=== PATIENT | female | born 1950 | race Caucasian/White ===

== ENCOUNTER → 2017-09-03 | Outpatient (CLI) | payer MEDICARE, OTHER ==
[2017-09-03 10:23] LABS: INTERNATIONAL RATION (INR) 1.07; PROTHROMBIN TIME 14.7 SEC (11.4-15.4)
[2017-09-03 10:24] LABS: PARTIAL THROMBOPLASTIN TIME 31.7 SEC (23.5-35.8)
== END ==
LOC: OD 08:53
PROVIDERS: ATTEND Physician Assistant
DX: R79.1 Abnormal coagulation profile (principal)
CPT/HCPCS: 36415; 85610; 85730

== ENCOUNTER → 2017-11-07 | Outpatient (CLI) | payer MEDICARE, OTHER ==
[2017-11-07 09:28] LABS: INTERNATIONAL RATION (INR) 2.97; PARTIAL THROMBOPLASTIN TIME 50.6 SEC (23.5-35.8); PROTHROMBIN TIME 32.3 SEC (11.4-15.4)
== END ==
LOC: OD 07:40
PROVIDERS: ATTEND Physician Assistant
DX: Z51.81 Encounter for therapeutic drug level monitoring (principal); Z79.01 Long term (current) use of anticoagulants
CPT/HCPCS: 36415; 85610; 85730

== ENCOUNTER → 2017-11-11 | Outpatient (CLI) | payer MEDICARE, OTHER ==
[2017-11-11 11:11] LABS: APPEARANCE,URINE SLIGHTLY HAZY; BILIRUBIN,URINE NEGATIVE (NEGATIVE); COLOR,URINE YELLOW; GLUCOSE, URINE NEGATIVE (NEGATIVE); KETONES,URINE NEGATIVE (NEGATIVE); NITRITE,URINE NEGATIVE (NEGATIVE); PROTEIN,URINE NEGATIVE (NEGATIVE); URINE SPECIFIC GRAVITY 1.024; UROBILINOGEN,URINE NEGATIVE mg/dL (<2.0)
[2017-11-11 11:12] LABS: LEUKOCYTE ESTERASE,URINE TRACE (NEGATIVE)
== END ==
LOC: OD 09:55
PROVIDERS: ATTEND Student in an Organized Health Care Education/Training Program
DX: Z51.81 Encounter for therapeutic drug level monitoring (principal); Z79.01 Long term (current) use of anticoagulants; Z79.899 Other long term (current) drug therapy
CPT/HCPCS: 36415; 81001; 85610; 85730

== ENCOUNTER → 2017-12-18 | Outpatient (CLI) | payer MEDICARE, OTHER ==
[2017-12-18 14:22] LABS: INTERNATIONAL RATION (INR) 0.94
[2017-12-18 14:23] LABS: PARTIAL THROMBOPLASTIN TIME 30.5 SEC (23.5-35.8)
== END ==
LOC: OD 13:13
PROVIDERS: ATTEND Physician Assistant Medical
DX: Z51.81 Encounter for therapeutic drug level monitoring (principal); Z79.01 Long term (current) use of anticoagulants
CPT/HCPCS: 36415; 85610; 85730

== ENCOUNTER 2017-12-24 03:56 | Emergency (ER) | payer MEDICARE, OTHER ==
--- NOTE | 2017-12-24 05:07 | ER Document Report ---
HPI - HPI Patient complains to provider of: Sore throat, congestion, cough Pain Level: 5 Context: Patient is a 67-year-old female who comes emergency department for chief complaint of 4 days of worsening sore throat, congestion, cough. She states it started off as a mild sore throat but has worsened. She reports a few chills, she coughed up some clear sputum, she states her ears are also hurting a lot with a lot of pressure. She denies difficulty breathing, she states she only gets pain in her chest with cough. She denies dizziness or passing out. Past medical history of heart valve replacement, on Coumadin. Denies smoking, asthma , COPD history. - REPRODUCTIVE Reproductive: DENIES: : Past Medical History - General Information source: Patient - Social History Smoking Status: Never Smoker Frequency of alcohol use: None Drug Abuse: None Lives with: Family Family History: Reviewed & Not Pertinent - Past Medical History Cardiac Medical History: Reports: Hx Coronary Artery Disease, Hx Heart Attack - x3, Hx Hypercholesterolemia, Hx Hypertension Pulmonary Medical History: Denies: Hx Asthma, Hx Bronchitis, Hx COPD, Hx Pneumonia Neurological Medical History: Denies: Hx Cerebrovascular Accident, Hx Seizures Endocrine Medical History: Reports: Hx Diabetes Mellitus Type 2 Musculoskeltal Medical History: Reports Hx Arthritis Skin Medical History: Reports Hx MRSA Psychiatric Medical History: Reports: Hx Depression Past Surgical History: Reports: Hx Appendectomy, Hx Cardiac Catheterization - stent, quad bypass. aortic valve replacement, Hx Genitourinary Surgery - colostomy, Hx Hysterectomy, Hx Orthopedic Surgery - carpal tunner syndrome, Hx Valve Replacement - Immunizations Hx Diphtheria, Pertussis, Tetanus Vaccination: Yes Hx Pneumococcal Vaccination: 06/12/11 Vertical Provider Document - CONSTITUTIONAL General Appearance: Other - Patient with occasional congested cough, appears to be slightly no signs of distress noted - INFECTION CONTROL TRAVEL OUTSIDE OF THE [place] IN LAST 30 DAYS: No - HEENT HEENT: Atraumatic, Normocephalic. negative: Normal ENT Exam - Bubbles behind tympanic membranes, no tympanic membrane abnormalities noted. Mild erythema of the posterior pharynx. Unremarkable ENT exam otherwise. - NECK Neck: Other - Bilateral anterior cervical adenopathy which is mild - RESPIRATORY Respiratory: Other - Occasional mild nonproductive cough, no wheezing, no tachypnea, no labored breathing - CARDIOVASCULAR Cardiovascular: Regular Rate, Regular Rhythm. negative: No Murmur - Clicking sound noted suggestive of heart valve replacement - GI/ABDOMEN Gastrointestinal: Abdomen Soft, Abdomen Non-Tender - BACK Back: Normal Inspection - MUSCULOSKELETAL/EXTREMETIES Musculoskeletal/Extremeties: MAEW, FROM, Non-Tender - NEURO Level of Consciousness: Awake, Alert, Appropriate - DERM Integumentary: Warm, Dry, No Rash Course - Re-evaluation Re-evalutation: Patient's examination showed congestion, mild serous effusion, mild anterior cervical adenopathy, mild cough. No hypoxia, no respiratory distress, no wheezing. No smoking history. Discussed dexamethasone but decided against it because of her Coumadin use. Chest x-ray unremarkable, strep test is negative. Evaluation consistent with developing bronchitis. Because of patient's productive cough patient will be covered with azithromycin. This will be used because of the low effects on Coumadin. Patient will be given symptomatic treatment. Discussed follow-up, discussed return precautions in detail, patient states satisfaction and agreement. - Vital Signs Vital signs: Temp Pulse Resp BP Pulse Ox 98.3 F 94 16 175/72 H 99 12/24/17 04:03 12/24/17 04:03 12/24/17 04:03 12/24/17 04:03 12/24/17 04:03 Discharge - Discharge Clinical Impression: Cough Ear pain Qualifiers: Laterality: bilateral Qualified Code(s): H92.03 - Otalgia, bilateral Pharyngitis Qualifiers: Pharyngitis/tonsillitis etiology: unspecified etiology Qualified Code(s): J02.9 - Acute pharyngitis, unspecified Condition: Stable Disposition: HOME, SELF-CARE Additional Instructions: Your chest x-ray and strep tests are unremarkable. Your examination is consistent with developing bronchitis. We are covering him with azithromycin because of your productive cough (next dose tomorrow), use the medication provided/syrup as directed, use of Flonase to help reduce congestion and ear pressure. Use [id number] stool softener to avoid constipation while taking these medications. Follow-up with primary care in the next 2-3 days. Return if you worsen including difficulty breathing, vomiting, passing out, severe pain, spiking fever, or any other concerning or worsening symptoms. Prescriptions: Hydrocodone Bit/Homatropine [Hycodan Syrup 5-1.5 mg/5 ml Ud Cup] 5 ml PO Q4HP PRN #120 ml PRN Reason: Azithromycin [Zithromax 250 mg Tablet] 250 mg PO ASDIR PRN #4 tablet PRN Reason: Fluticasone Propionate [Flonase Nasal Hays 50 Mcg/Hays 16 gm] 1 spray NASL Q12 #1 inhaler Referrals: FRANKLYN RESENDIZ MD [Primary Care Provider] - Follow up as needed
--- NOTE | 2017-12-24 05:35 | RADIOLOGY REPORT (SQ) ---
EXAM DESCRIPTION: 2 views of the chest CLINICAL HISTORY: productive cough, chills COMPARISON: 04/04/2016 FINDINGS: Frontal and lateral views of the chest. Prior Median sternotomy. Atherosclerotic calcification of the aortic arch. Heart is not enlarged. Replacement. No consolidation, pneumothorax, or pleural effusion. No displaced rib fractures identified. Upper abdominal soft tissues are unremarkable. IMPRESSION: 1. No acute pulmonary process identified.
[2017-12-24] MEDS ORDERED: AZITHROMYCIN 250 MG TABLET PO ONE (05:52)
[2017-12-24] MEDS ORDERED: HYDROCODONE/ACETAMINOPHEN 5-325 MG (6 TAB/ER DISP) PO PRN (05:57)
[2017-12-24 06:34] VITALS: BP 148/73
== END 2017-12-24 06:41 | disposition home or self-care (01) ==
LOC: ER 03:56
DX: J02.9 Acute pharyngitis, unspecified (principal); H92.03 Otalgia, bilateral; R05 Cough; I25.10 Atherosclerotic heart disease of native coronary artery without angina pectoris; E78.00 Pure hypercholesterolemia, unspecified; I10 Essential (primary) hypertension; E11.9 Type 2 diabetes mellitus without complications; I25.2 Old myocardial infarction; Z86.14 Personal history of Methicillin resistant Staphylococcus aureus infection; Z95.1 Presence of aortocoronary bypass graft; Z95.2 Presence of prosthetic heart valve; Z90.710 Acquired absence of both cervix and uterus
CPT/HCPCS: 99283; 87070; 87880; 71046; A9270 ×2

== ENCOUNTER 2018-01-27 19:08 | Emergency (ER) | payer MEDICARE, OTHER ==
[2018-01-27] MEDS ORDERED: ONDANSETRON 4 MG TAB.RAPDIS PO ONE (22:12)
[2018-01-27] MEDS ORDERED: HYDROMORPHONE HCL INJ/PF 2 MG/ML AMPULE IV ONE (22:21)
[2018-01-27 22:25] LABS: ABSOLUTE BASOPHILS # (AUTO) 0.1 10^3/uL (0.0-0.2); ABSOLUTE EOSINOPHILS # (AUTO) 0.1 10^3/uL (0.0-0.6); ABSOLUTE LYMPHOCYTES (AUTO) 2.6 10^3/uL (0.5-4.7); ABSOLUTE MONOCYTES (AUTO) 0.7 10^3/uL (0.1-1.4); ABSOLUTE NEUT (AUTO) 7.6 10^3/uL (1.7-8.2); BASOPHILS % (AUTO) 0.6 % (0-2); EOSINOPHILS % (AUTO) 0.8 % (0-6); HEMATOCRIT 38.8 % (36.0-47.0); LYMPHOCYTES % (AUTO) 23.2 % (13-45); MEAN CORPUSCULAR HEMOGLOBIN 28.3 pg (27.0-33.4); MEAN CORPUSCULAR HGB CONC 33.5 g/dL (32.0-36.0); MEAN CORPUSCULAR VOLUME 85 fl (80-97); MONOCYTES % (AUTO) 6.7 % (3-13); PLATELET COUNT 185 10^3/uL (150-450); RED BLOOD COUNT 4.59 10^6/uL (3.72-5.28); RED CELL DISTRIBUTION WIDTH 15.9 % (11.5-14.0); SEGMENTED NEUTROPHILS % (AUTO) 68.7 % (42-78); TOTAL CELLS COUNTED % (AUTO) 100 %; WHITE BLOOD COUNT 11.1 10^3/uL (4.0-10.5)
[2018-01-27 22:34] LABS: INTERNATIONAL RATION (INR) 2.65; PROTHROMBIN TIME 29.5 SEC (11.4-15.4)
[2018-01-27 22:35] LABS: PARTIAL THROMBOPLASTIN TIME 44.7 SEC (23.5-35.8)
[2018-01-27 22:40] LABS: ALANINE AMINOTRANSFERASE 83 U/L (9-52); ALKALINE PHOSPHATASE 56 U/L (38-126); ANION GAP 12 (5-19); ASPARTATE AMINO TRANSFERASE 120 U/L (14-36); BILIRUBIN,DIRECT 0.4 mg/dL (0.0-0.4); BILIRUBIN,TOTAL 1.5 mg/dL (0.2-1.3); BLOOD UREA NITROGEN 9 mg/dL (7-20); CALCIUM 9.4 mg/dL (8.4-10.2); CARBON DIOXIDE 28 mmol/L (22-30); CHLORIDE 104 mmol/L (98-107); GLUCOSE 151 mg/dL (75-110); POTASSIUM 3.3 mmol/L (3.6-5.0); SODIUM 143.7 mmol/L (137-145); TOTAL PROTEIN 7.4 g/dL (6.3-8.2)
--- NOTE | 2018-01-27 22:51 | ER Document Report ---
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 Patient was recently seen at [facility] yesterday for the same complaint. Patient states that the physician in the emergency department they are spoke to her surgeon Dr. Church at [facility] who did not recommend hospitalization but evaluation in his office on January 28. Patient states that her pain became more severe today which caused her to come into the emergency department. Patient reports some rectal drainage that she describes as brownish white. She denies any black or bloody stools. She reports decreased output to her ostomy. She has had associated nausea without vomiting. She does report that she was told by her surgeon that she may intermittently experience some rectal drainage. She was given a enema with out relief yesterday. She was discharged home with a prescription for oxycodone. She reports subjective fevers at home. TRAVEL OUTSIDE OF THE [place] IN LAST 30 DAYS: No - HPI Onset: Other Onset/Duration: Gradual, Persistent, Worse Quality of pain: Fullness, Pressure, Stabbing Severity: Moderate Pain Level: 2 Associated symptoms: Fever, Nausea. denies: Chest pain, Shortness of breath Exacerbated by: Sitting Relieved by: Supine Similar symptoms previously: Yes Recently seen / treated by doctor: Yes - Related Data Allergies/Adverse Reactions: No Known Allergies Allergy (Verified 04/02/16 20:30) Past Medical History - General Information source: Patient, [facility] Records, Outside Facility Records - Social History Smoking Status: Former Smoker Chew tobacco use (# tins/day): No Frequency of alcohol use: None Drug Abuse: None Lives with: Spouse/Significant other Family History: Reviewed & Not Pertinent Patient has suicidal ideation: No Patient has homicidal ideation: No - Past Medical History Cardiac Medical History: Reports: Hx Coronary Artery Disease, Hx Heart Attack - x3, Hx Hypercholesterolemia, Hx Hypertension Pulmonary Medical History: Denies: Hx Asthma, Hx Bronchitis, Hx COPD, Hx Pneumonia Neurological Medical History: Denies: Hx Cerebrovascular Accident, Hx Seizures Endocrine Medical History: Reports: Hx Diabetes Mellitus Type 2 Renal/ Medical History: Denies: Hx Peritoneal Dialysis Musculoskeltal Medical History: Reports Hx Arthritis Skin Medical History: Reports Hx MRSA Psychiatric Medical History: Reports: Hx Depression Past Surgical History: Reports: Hx Abdominal Surgery - colostomy;bowel removal; herniax2, Hx Appendectomy, Hx Cardiac Catheterization - stent, quad bypass. aortic valve replacement, Hx Cardiac Surgery - CABG, Hx Genitourinary Surgery - colostomy, Hx Hysterectomy, Hx Orthopedic Surgery - carpal tunner syndrome, Hx Valve Replacement. Denies: Hx Gynecologic Surgery - Immunizations Hx Diphtheria, Pertussis, Tetanus Vaccination: Yes Hx Pneumococcal Vaccination: 06/12/11 Review of Systems - Review of Systems Constitutional: Fever EENT: denies: Blurred vision Cardiovascular: denies: Chest pain Respiratory: denies: Short of breath Gastrointestinal: Abdominal pain, Nausea, Constipation, Other - Rectal pain Female Genitourinary: denies: Vaginal discharge Musculoskeletal: No symptoms reported Skin: denies: Rash Hematologic/Lymphatic: No symptoms reported Neurological/Psychological: denies: Weakness, Lost consciousness, Numbness -: Yes All other systems reviewed and negative Physical Exam - Notes Notes: PHYSICAL EXAMINATION: GENERAL: Patient appears to be in pain. HEAD: Atraumatic, normocephalic. EYES: Pupils equal round and reactive to light, extraocular movements intact, conjunctiva are normal. ENT: Nares patent, oropharynx clear without exudates. Moist mucous membranes. NECK: Normal range of motion, supple without lymphadenopathy LUNGS: Breath sounds clear to auscultation bilaterally and equal. No wheezes rales or rhonchi. HEART: Regular rate and rhythm without murmurs ABDOMEN: Soft, mild diffuse tenderness, no guarding, no rebound, positive bowel sounds. Left lower quadrant ostomy with minimal output. Rectal: No external hemorrhoids. No fecal impaction. Exam significantly painful. No masses. Female : deferred Musculoskeletal: Normal range of motion, no pitting or edema. No cyanosis. NEUROLOGICAL: Cranial nerves grossly intact. Normal speech, normal gait. Normal sensory, motor exams PSYCH: Normal mood, normal affect. SKIN: Warm, Dry, normal turgor, no rashes or lesions noted. Course - Re-evaluation Re-evalutation: Laboratory 01/27/18 01/27/18 01/27/18 22:14 22:14 22:14 WBC 11.1 H RBC 4.59 Hgb 13.0 Hct 38.8 MCV 85 MCH 28.3 MCHC 33.5 RDW 15.9 H Plt Count 185 Seg Neutrophils % 68.7 Lymphocytes % 23.2 Monocytes % 6.7 Eosinophils % 0.8 Basophils % 0.6 Absolute Neutrophils 7.6 Absolute Lymphocytes 2.6 Absolute Monocytes 0.7 Absolute Eosinophils 0.1 Absolute Basophils 0.1 PT 29.5 H INR 2.65 APTT 44.7 H Sodium 143.7 Potassium 3.3 L Chloride 104 Carbon Dioxide 28 Anion Gap 12 BUN 9 Creatinine 0.67 Est GFR ( Amer) > 60 Est GFR (Non-Af Amer) > 60 Glucose 151 H Lactic Acid Calcium 9.4 Total Bilirubin 1.5 H Direct Bilirubin 0.4 Neonat Total Bilirubin Not Reportable Neonat Direct Bilirubin Not Reportable Neonat Indirect Bili Not Reportable AST 120 H ALT 83 H Alkaline Phosphatase 56 Total Protein 7.4 Albumin 4.0 01/27/18 22:14 WBC RBC Hgb Hct MCV MCH MCHC RDW Plt Count Seg Neutrophils % Lymphocytes % Monocytes % Eosinophils % Basophils % Absolute Neutrophils Absolute Lymphocytes Absolute Monocytes Absolute Eosinophils Absolute Basophils PT INR APTT Sodium Potassium Chloride Carbon Dioxide Anion Gap BUN Creatinine Est GFR ( Amer) Est GFR (Non-Af Amer) Glucose Lactic Acid 2.8 H Calcium Total Bilirubin Direct Bilirubin Neonat Total Bilirubin Neonat Direct Bilirubin Neonat Indirect Bili AST ALT Alkaline Phosphatase Total Protein Albumin Abdomen/Pelvis CT 01/27/18 21:07 IMPRESSION: Mild transverse colitis. 01/27/18 23:34 [facility] contacted for transfer since the patient's surgeon Dr. Church is on staff there. 01/28/18 00:[address] Joiner on-call for Dr. Church and discuss CAT scan findings. He states that he feels the most appropriate disposition for this patient is pain control and follow-up in the office tomorrow as already scheduled. 01/28/18 01:36 On reevaluation patient reports a great improvement of pain. Urojet was inserted into the patient's rectum and a mineral oil enema was administered. Patient has an upcoming appointment with her surgeon tomorrow and the covering surgeon believes the best course of action is to get her to the office tomorrow. 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 Patient was recently seen at [facility] yesterday for the same complaint. Patient states that the physician in the emergency department they are spoke to her surgeon Dr. Church at [facility] who did not recommend hospitalization but evaluation in his office on January 28. Patient states that her pain became more severe today which caused her to come into the emergency department. Patient reports some rectal drainage that she describes as brownish white. She denies any black or bloody stools. She reports decreased output to her ostomy. She has had associated nausea without vomiting. She does report that she was told by her surgeon that she may intermittently experience some rectal drainage. She was given a enema with out relief yesterday. Upon arrival vital signs were reviewed, patient is afebrile, not tachypneic or hypoxic. Exam is significant for a patient who appears to be in significant pain. Pain is localized to her rectum with some associated suprapubic abdominal fullness. Was able to the patient's records from her ER visit yesterday at [facility]. At that time a CAT scan was obtained and findings were discussed with the patient's surgeon Dr. Church who did not recommend hospitalizations at that time but who did arrange a follow-up later today at 2:30 PM. Patient's CBC is without significant leukocytosis, anemia. CMP shows low potassium, mild hyperglycemia. Patient has mild elevation in her LFTs. Patient has mild elevation in the which was repeated and downtrending. CT scan of the abdomen and pelvis with IV contrast shows mild transverse colitis. Patient was provided Dilaudid, Zofran, Reglan during her ED course. Urojet was inserted into the rectum prior to administration of mineral oil enema. Patient does report passing a small amount of stool. She reports a market improvement in her pain. CT findings and laboratory findings were discussed with the patient. Copies of the reports were provided to the patient for her appointment tomorrow. I did speak to the covering physician for Dr. Church who states the best course of action is to get the patient to her appointment tomorrow and if she requires admission at that time arrange for that. Patient was tolerating fluids prior to discharge. She states that she would like to eat. Patient provided the opportunity to ask questions, and express concerns. Discharge instructions discussed. Patient is agreeable with discharge home. Return indications explained and discussed with the patient who displays understanding. Patient encouraged to return to the emergency department immediately with any concerns. After performing a Medical Screening Examination, I estimate there is LOW risk for ACUTE APPENDICITIS, BOWEL OBSTRUCTION, ACUTE CHOLECYSTITIS, PERFORATED DIVERTICULITIS, INCARCERATED HERNIA, PANCREATITIS, PELVIC INFLAMMATORY DISEASE, PERFORATED ULCER, or TUBO- OVARIAN ABSCESS, thus I consider the discharge disposition reasonable. Also, there is no evidence or peritonitis, sepsis, or toxicity. I have reevaluated this patient multiple times and no significant life threatening changes are noted. The patient and I have discussed the diagnosis and risks, and we agree with discharging home with close follow-up with the understanding that symptoms and presentations can change. We also discussed returning to the Emergency Department immediately if new or worsening symptoms occur. We have discussed the symptoms which are most concerning (e.g., bloody stool, fever, changing or worsening pain, vomiting) that necessitate immediate return. - Laboratory Result Diagrams: 01/27/18 22:14 01/27/18 22:14 Laboratory results interpreted by me: 01/27/18 01/27/18 01/27/18 22:14 22:14 22:14 WBC 11.1 H RDW 15.9 H PT 29.5 H APTT 44.7 H Potassium 3.3 L Glucose 151 H Lactic Acid Total Bilirubin 1.5 H AST 120 H ALT 83 H 01/27/18 01/28/18 22:14 00:54 WBC RDW PT APTT Potassium Glucose Lactic Acid 2.8 H 2.4 H Total Bilirubin AST ALT - Diagnostic Test Radiology reviewed: Image reviewed, Reports reviewed Discharge - Discharge Clinical Impression: Colitis, Rectal pain, Elevated LFTs, History of colectomy Nausea & vomiting Qualifiers: Vomiting type: unspecified Vomiting Intractability: non-intractable Qualified Code(s): R11.2 - Nausea with vomiting, unspecified Condition: Good Disposition: HOME, SELF-CARE Instructions: Abdominal Pain ([facility]), Colitis, Nonspecific ([facility]), Nausea or Vomiting, Nonspecific ([facility]) Additional Instructions: Please follow-up with your surgeon Dr. Church tomorrow as already scheduled. Prescriptions: Hydrocortisone Acetate [Anusol Hc 25 mg Supp.rect] 1 supp.rect KS BID #14 supp.rect Ondansetron [Zofran Odt 4 mg Tablet] 1 - 2 tab PO Q4H PRN #15 tab.rapdis PRN Reason: For Nausea/Vomiting Referrals: FRANKLYN RESENDIZ MD [Primary Care Provider] - Follow up as needed
[2018-01-27] MEDS ORDERED: NORMAL SALINE 1000 ML 1,000 ML IV ONE (23:27)
[2018-01-28] MEDS ORDERED: DIPHENHYDRAMINE HCL 50 MG/ML VIAL IV ONE
[2018-01-28] MEDS ORDERED: METOCLOPRAMIDE HCL INJ/PF 10 MG/2 ML SDV IV ONE
[2018-01-28] MEDS ORDERED: NORMAL SALINE 1000 ML 1,000 ML IV ONE (00:01)
[2018-01-28] MEDS ORDERED: MINERAL OIL ENEMA 133 ML PR ONE (00:14)
[2018-01-28] MEDS ORDERED: HYDROMORPHONE HCL INJ/PF 2 MG/ML AMPULE IV ONE (00:16)
--- NOTE | 2018-01-28 00:21 | RADIOLOGY REPORT (SQ) ---
EXAM DESCRIPTION: CT ABDOMEN PELVIS WITH IV CONTRAST COMPLETED DATE/TME: CLINICAL HISTORY: 67 years Female, Rectal pain, leakage history of colostomy Comparison: 12.02.15 Technique: IV contrast. Coronal and sagittal reformat. This exam was performed according to our departmental dose-optimization program, which includes automated exposure control, adjustment of the mA and/or kV according to patient size and/or use of iterative reconstruction technique.[facility]: Dose Right [facility]: CareDose [facility]: Dose Right [facility]: Teradose 4D [facility]: Bootup Labs LIMITATIONS: None Findings: Moderate diffuse bowel wall thickening of the transverse colon. Mild nonspecific perirectal fat inflammation and moderate residual rectal stool. Sigmoid suture. No ascites. Sternotomy. Mediastinal clips. Likely benign small left renal cyst. Moderate low-attenuation thickening of the proximal and mid right colon consistent with prior insult. Inferior thorax, liver, 5.2 cm transverse diameter hydropic gallbladder, pancreas, spleen, adrenals, renal system, gastrointestinal tract, pelvic organs, lymphatics, vasculature, and musculoskeleton appear otherwise unremarkable. IMPRESSION: Mild transverse colitis.
[2018-01-28] MEDS ORDERED: MINERAL OIL 30 ML UDCUP PR ONE (00:55)
[2018-01-28] MEDS ORDERED: LIDOCAINE 2% URO-JET 5 ML KIT MM ONE (00:56)
[2018-01-28 03:45] VITALS: BP 116/52
== END 2018-01-28 02:40 | disposition home or self-care (01) ==
LOC: ER 19:08
DX: K62.89 Other specified diseases of anus and rectum (principal); K52.9 Noninfective gastroenteritis and colitis, unspecified; R10.817 Generalized abdominal tenderness; R50.9 Fever, unspecified; R79.89 Other specified abnormal findings of blood chemistry; E11.65 Type 2 diabetes mellitus with hyperglycemia; I25.10 Atherosclerotic heart disease of native coronary artery without angina pectoris; I10 Essential (primary) hypertension; Z95.2 Presence of prosthetic heart valve; Z79.01 Long term (current) use of anticoagulants; Z90.49 Acquired absence of other specified parts of digestive tract; Z87.19 Personal history of other diseases of the digestive system; Z93.3 Colostomy status; Z87.891 Personal history of nicotine dependence
CPT/HCPCS: 96376; 99284; 96361; 96374; 96375; 36415; 85025; 85610; 85730; 80053; 83605; 74177; J1200; A9270 ×2; J2765; J3490; J1170 ×2; J7030; S0119

== ENCOUNTER 2018-05-05 08:46 | Emergency (ER) | payer MEDICARE, OTHER ==
[2018-05-05 08:51] VITALS: BP 122/70
--- NOTE | 2018-05-05 09:23 | ER Document Report ---
HPI - HPI Patient complains to provider of: Right low back pain Onset: Yesterday - P.m. Onset/Duration: Sudden Pain Level: 5 Context: 68-year-old female sat wrong in a recliner and developed pain in her right sacral iliac area which radiates into her right leg to the knee. No history of herniated disks. No saddle anesthesia. No fever. No history of cancer or IV drug use. It is more with movement. No abdominal pain. No dysuria. Associated Symptoms: None Exacerbated by: Movement Relieved by: Denies Similar symptoms previously: Yes - History of bulging disks and is under pain management Recently seen / treated by doctor: No - ROS ROS below otherwise negative: Yes Systems Reviewed and Negative: Yes All other systems reviewed and negative - REPRODUCTIVE Reproductive: DENIES: : Past Medical History - General Information source: Patient - Social History Smoking Status: Unknown if Ever Smoked Lives with: Spouse/Significant other Family History: Reviewed & Not Pertinent - Past Medical History Cardiac Medical History: Reports: Hx Coronary Artery Disease, Hx Heart Attack - x3, Hx Hypercholesterolemia, Hx Hypertension Endocrine Medical History: Reports: Hx Diabetes Mellitus Type 2 Musculoskeletal Medical History: Reports Hx Arthritis, Reports Other - Chronic low back pain Skin Medical History: Reports Hx MRSA Psychiatric Medical History: Reports: Hx Depression Past Surgical History: Reports: Hx Abdominal Surgery - colostomy;bowel removal; herniax2, Hx Appendectomy, Hx Cardiac Catheterization - stent, quad bypass. aortic valve replacement, Hx Cardiac Surgery - CABG, Hx Genitourinary Surgery - colostomy, Hx Hysterectomy, Hx Orthopedic Surgery - carpal tunner syndrome, Hx Valve Replacement. Denies: Hx Gynecologic Surgery - Immunizations Hx Diphtheria, Pertussis, Tetanus Vaccination: Yes Hx Pneumococcal Vaccination: 06/12/11 Vertical Provider Document - CONSTITUTIONAL Agree With Documented VS: Yes Exam Limitations: No Limitations - INFECTION CONTROL TRAVEL OUTSIDE OF THE [place] IN LAST 30 DAYS: No - NECK Neck: Supple - GI/ABDOMEN Gastrointestinal: Abdomen Soft, Abdomen Non-Tender - MUSCULOSKELETAL/EXTREMETIES Musculoskeletal/Extremeties: MAEW, FROM, Tender - Right sacroiliac joint - NEURO Level of Consciousness: Awake Motor/Sensory: No Motor Deficit, No Sensory Deficit Deep Tendon Reflexes: 2+ - Bilateral ankle and patellar - DERM Integumentary: No Rash Course - Vital Signs Vital signs: Temp Pulse Resp BP Pulse Ox 97.8 F 107 H 16 122/70 96 09/24/18 08:50 05/05/18 08:50 05/05/18 08:50 05/05/18 08:50 05/05/18 08:50 Discharge - Discharge Clinical Impression: Low back strain Qualifiers: Encounter type: initial encounter Qualified Code(s): S39.012A - Strain of muscle, fascia and tendon of lower back, initial encounter Sciatic nerve pain Qualifiers: Laterality: right Qualified Code(s): M54.31 - Sciatica, right side Condition: Good Disposition: HOME, SELF-CARE Instructions: Low Back Pain ([facility]), Muscle Relaxers ([facility]), Muscle Strain ([facility]), Oral Narcotic Medication ([facility]), Pain Medication Injection ([facility]), Warm Packs ([facility] ) Additional Instructions: See your pain management clinic and let them know that she were having to take more for this low back pain Muscle relaxer up to 3 times a day Heat See your doctor tomorrow for recheck Return to the emergency room any concerns Prescriptions: Cyclobenzaprine HCl [Flexeril 10 Mg Tablet] 10 mg PO TIDP PRN #20 tablet PRN Reason: Referrals: CHARLA SWIFT PA-C [NO LOCAL MD] - Follow up tomorrow
[2018-05-05] MEDS ORDERED: MORPHINE SULFATE 10 MG/ML INJ IM ONE (09:59)
[2018-05-05] MEDS ORDERED: ONDANSETRON 4 MG TAB.RAPDIS PO ONE (09:59)
[2018-05-05] MEDS ORDERED: CYCLOBENZAPRINE HCL 10 MG TABLET PO ONE (10:00)
== END 2018-05-05 10:35 | disposition home or self-care (01) ==
LOC: ER 08:46
DX: S39.012A Strain of muscle, fascia and tendon of lower back, initial encounter (principal); M54.31 Sciatica, right side; X50.0XXA Overexertion from strenuous movement or load, initial encounter; I25.10 Atherosclerotic heart disease of native coronary artery without angina pectoris; E78.00 Pure hypercholesterolemia, unspecified; I10 Essential (primary) hypertension; E11.9 Type 2 diabetes mellitus without complications; G89.29 Other chronic pain; I25.2 Old myocardial infarction; Z86.14 Personal history of Methicillin resistant Staphylococcus aureus infection; Z95.1 Presence of aortocoronary bypass graft; Z95.2 Presence of prosthetic heart valve; Z90.710 Acquired absence of both cervix and uterus; Z93.3 Colostomy status
CPT/HCPCS: 99283; 96372; A9270 ×2; J2270; S0119

== ENCOUNTER 2018-05-08 17:53 | Emergency (ER) | payer MEDICARE, OTHER ==
--- NOTE | 2018-05-08 19:04 | RADIOLOGY REPORT (SQ) ---
EXAM DESCRIPTION: HIP RIGHT AP/LATERAL COMPLETED DATE/TIME: 05/08/2018 6:44 pm REASON FOR STUDY: pain COMPARISON: None. NUMBER OF VIEWS: Two views. TECHNIQUE: AP pelvis and additional frog-leg view of the right hip. LIMITATIONS: None. FINDINGS: MINERALIZATION: Normal. RIGHT HIP: No fracture or dislocation. No worrisome bone lesions. LEFT HIP: No fracture or dislocation. No worrisome bone lesions. PUBIS AND ISCHIUM: No fracture. PELVIS: No fracture. SACRUM: No fracture or dislocation. No worrisome bone lesions. LOWER LUMBAR SPINE: No fracture or dislocation. No worrisome bone lesions. No significant disc disea se. SOFT TISSUES: No findings. OTHER: No other significant finding. IMPRESSION: NO RADIOGRAPHIC EVIDENCE OF ACUTE INJURY. TECHNICAL DOCUMENTATION: JOB ID: [id number] [employer]- All Rights Reserved Reading location - IP/workstation name: [email or web address] View
--- NOTE | 2018-05-08 19:05 | ER Document Report ---
ED Hip Pain/Injury - General Mode of Arrival: Wheelchair Information source: Patient TRAVEL OUTSIDE OF THE [place] IN LAST 30 DAYS: No <RUPESH CORTES - Last Filed: 05/08/18 21:00> <RHINA DUNLAP - Last Filed: 05/09/18 00:12> - General Chief Complaint: Hip Pain Stated Complaint: RIGHT HIP AND LEG PAIN Time Seen by Provider: 05/08/18 18:25 Notes: 68-year-old female who presents to the emergency department today with complaints of right hip pain. Patient was seen in this emergency department 4- 5 days ago for this hip pain. Patient states that she was given Flexeril for the pain but it is not working. Patient also is in pain management and has OxyContin at home which she states did not help either. Patient denies any new trauma or urinary incontinence. (RUPESH CORTES) - Related Data Allergies/Adverse Reactions: No Known Allergies Allergy (Verified 05/08/18 17:55) Past Medical History - General Information source: Patient - Social History Smoking Status: Unknown if Ever Smoked Family History: Reviewed & Not Pertinent - Past Medical History Cardiac Medical History: Reports: Hx Coronary Artery Disease, Hx Heart Attack - x3, Hx Hypercholesterolemia, Hx Hypertension Endocrine Medical History: Reports: Hx Diabetes Mellitus Type 2 Musculoskeletal Medical History: Reports Hx Arthritis Skin Medical History: Reports Hx MRSA Psychiatric Medical History: Reports: Hx Depression Past Surgical History: Reports: Hx Abdominal Surgery - colostomy;bowel removal; herniax2, Hx Appendectomy, Hx Cardiac Catheterization - stent, quad bypass. aortic valve replacement, Hx Cardiac Surgery - CABG, Hx Genitourinary Surgery - colostomy, Hx Hysterectomy, Hx Orthopedic Surgery - carpal tunner syndrome, Hx Valve Replacement. Denies: Hx Gynecologic Surgery - Immunizations Hx Diphtheria, Pertussis, Tetanus Vaccination: Yes Hx Pneumococcal Vaccination: 06/12/11 <RUPESH CORTES - Last Filed: 05/08/18 21:00> Review of Systems - Review of Systems Constitutional: No symptoms reported EENT: No symptoms reported Cardiovascular: No symptoms reported Respiratory: No symptoms reported Gastrointestinal: No symptoms reported Genitourinary: No symptoms reported Female Genitourinary: No symptoms reported Musculoskeletal: See HPI, Joint pain - right hip Skin: No symptoms reported Hematologic/Lymphatic: No symptoms reported Neurological/Psychological: No symptoms reported -: Yes All other systems reviewed and negative <RUPESH CORTES - Last Filed: 05/08/18 21:00> Physical Exam - Vital signs Interpretation: Normal - General General appearance: Appears well, Alert - HEENT Head: Normocephalic, Atraumatic Eyes: Normal Pupils: PERRL - Respiratory Respiratory status: No respiratory distress Chest status: Nontender Breath sounds: Normal Chest palpation: Normal - Cardiovascular Rhythm: Regular Heart sounds: Normal auscultation Murmur: No - Abdominal Inspection: Normal Distension: No distension Bowel sounds: Normal Tenderness: Nontender Organomegaly: No organomegaly - Back Back: Normal, Tender - Right sacroiliac joint. No: CVA tenderness - Extremities General upper extremity: Normal inspection, Nontender, Normal color, Normal ROM , Normal temperature General lower extremity: Normal inspection, Nontender, Normal color, Normal ROM , Normal temperature, Normal weight bearing. No: Kassandra's sign - Neurological Neuro grossly intact: Yes Cognition: Normal Orientation: AAOx4 [place] Coma Scale Eye Opening: Spontaneous Myesha Coma Scale Verbal: Oriented Myesha Coma Scale Motor: Obeys Commands [place] Coma Scale Total: 15 Speech: Normal Motor strength normal: LUE, RUE, LLE, RLE Sensory: Normal - Psychological Associated symptoms: Normal affect, Normal mood - Skin Skin Temperature: Warm Skin Moisture: Dry Skin Color: Normal <RHINA DUNLAP - Last Filed: 05/09/18 00:12> - Vital signs Vitals: Temp Pulse Resp BP Pulse Ox 98.2 F 110 H 20 141/81 H 100 05/08/18 18:19 05/08/18 18:19 05/08/18 18:19 05/08/18 18:19 05/08/18 18:19 Course <RUPESH CORTES - Last Filed: 05/08/18 21:00> - Diagnostic Test Radiology reviewed: Reports reviewed <RHINA DUNLAP - Last Filed: 05/09/18 00:12> - Re-evaluation Re-evalutation: Patient with no findings on x-ray. States that she sat down in a chair too hard and now has right back pain. No midline tenderness. Able to ambulate. Full range of motion, strength and sensation are intact. Patient is out of her pain medication and has an appointment with her pain management doctor tomorrow. No other injuries or complaints. She has been given a dose of medication here in the emergency department but no prescription. Stable for discharge. Return if weakness, sensation, retention or incontinence. Understands and agrees with plan. (RHINA DUNLAP) - Vital Signs Vital signs: Temp Pulse Resp BP Pulse Ox 98.0 F 109 H 19 140/77 H 99 05/08/18 20:30 05/08/18 20:30 05/08/18 20:30 05/08/18 20:30 05/08/18 20:30 Discharge <RUPESH CORTES - Last Filed: 05/08/18 21:00> <RHINA DUNLAP - Last Filed: 05/09/18 00:12> - Discharge Clinical Impression: Low back strain Qualifiers: Encounter type: initial encounter Qualified Code(s): S39.012A - Strain of muscle, fascia and tendon of lower back, initial encounter Condition: Stable Disposition: HOME, SELF-CARE Instructions: Low Back Pain ([facility]) Additional Instructions: Please follow-up with your pain management doctor tomorrow as scheduled. Referrals: FRANKLYN RESENDIZ MD [Primary Care Provider] - Follow up as needed Scribe Attestation: 05/09/18 00:12 I personally performed the services described in the documentation, reviewed and edited the documentation which was dictated to the scribe in my presence, and it accurately records my words and actions. (RHINA DUNLAP) Scribe Documentation - Scribe Written by Sophia:: Sophia Kaplan, [id number] acting as scribe for :: Alexandru <RUPESH CORTES - Last Filed: 05/08/18 21:00>
[2018-05-08] MEDS ORDERED: FENTANYL CITRATE INJ/PF 100 MCG/2 ML AMPUL IM ONE (19:07)
--- NOTE | 2018-05-08 19:59 | RADIOLOGY REPORT (SQ) ---
EXAM DESCRIPTION: L SPINE WHOLE COMPLETED DATE/TIME: 05/08/2018 7:41 pm REASON FOR STUDY: injury, pain, R back COMPARISON: 07/28/2012 NUMBER OF VIEWS: Five views including obliques. TECHNIQUE: AP, lateral, oblique, and sacral radiographic images acquired of the lumbar spine. LIMITATIONS: None. FINDINGS: MINERALIZATION: Normal. SEGMENTATION: Normal. No transitional anatomy. ALIGNMENT: Normal. VERTEBRAE: Maintained height. No fracture or worrisome bone lesion. DISCS: Multilevel disc space narrowing with osteophytes. POSTERIOR ELEMENTS: Pedicles and facets are intact. No pars defect or posterior arch defects. Facet arthropathy is present. HARDWARE: None in the spine. PARASPINAL SOFT TISSUES: Normal. PELVIS: Intact as visualized. No fractures or worrisome bone lesions. SI joints intact. OTHER: No other significant finding. IMPRESSION: SPONDYLOSIS WITHOUT BONE LESION OR FRACTURE. TECHNICAL DOCUMENTATION: JOB ID: [id number] [place]-72 2010 [employer]- All Rights Reserved Reading location - IP/workstation name: [email or web address]
[2018-05-08] MEDS ORDERED: DIAZEPAM 2 MG TABLET PO ONE (20:18)
[2018-05-08 21:02] VITALS: BP 140/77
== END 2018-05-08 21:02 | disposition home or self-care (01) ==
LOC: ER 17:53
DX: S39.012A Strain of muscle, fascia and tendon of lower back, initial encounter (principal); W22.03XA Walked into furniture, initial encounter; Y93.89 Activity, other specified; M25.551 Pain in right hip; I25.10 Atherosclerotic heart disease of native coronary artery without angina pectoris; I10 Essential (primary) hypertension; I25.2 Old myocardial infarction; E11.9 Type 2 diabetes mellitus without complications; Z95.1 Presence of aortocoronary bypass graft; Z95.5 Presence of coronary angioplasty implant and graft; Z95.2 Presence of prosthetic heart valve
CPT/HCPCS: 99283; 96372; 73502; 72110; A9270; J3010; J3490

== ENCOUNTER → 2018-05-21 | Outpatient (CLI) | payer MEDICARE, OTHER ==
[2018-05-21 12:14] LABS: INTERNATIONAL RATION (INR) 1.08; PROTHROMBIN TIME 14.6 SEC (11.4-15.4)
[2018-05-21 12:15] LABS: PARTIAL THROMBOPLASTIN TIME 40.2 SEC (23.5-35.8)
[2018-05-22 10:06] LABS: INTERNATIONAL RATION (INR) 1.02; PROTHROMBIN TIME 13.9 SEC (11.4-15.4)
[2018-05-22 10:07] LABS: PARTIAL THROMBOPLASTIN TIME 41.7 SEC (23.5-35.8)
== END ==
LOC: OD 11:05
PROVIDERS: ATTEND Physician Assistant
DX: Z51.81 Encounter for therapeutic drug level monitoring (principal); Z79.01 Long term (current) use of anticoagulants
CPT/HCPCS: 36415; 85610; 85730

== ENCOUNTER → 2018-07-28 | Outpatient (CLI) | payer MEDICARE, OTHER ==
[2018-07-28 16:25] LABS: INTERNATIONAL RATION (INR) 1.02
[2018-07-28 16:26] LABS: PARTIAL THROMBOPLASTIN TIME 36.2 SEC (23.5-35.8)
== END ==
LOC: OD 15:03
PROVIDERS: ATTEND Physician Assistant
DX: Z51.81 Encounter for therapeutic drug level monitoring (principal); Z79.01 Long term (current) use of anticoagulants
CPT/HCPCS: 36415; 85610; 85730

== ENCOUNTER 2018-09-03 23:52 | Inpatient (IN) | payer MEDICARE, OTHER ==
[2018-09-04] MEDS ORDERED: HYDROMORPHONE HCL INJ/PF 2 MG/ML AMPULE IV ONE ×3 (00:38→05:31)
[2018-09-04] MEDS ORDERED: ONDANSETRON HCL INJ/PF 4 MG/2 ML SDV IV ONE (00:39)
[2018-09-04] MEDS ORDERED: NORMAL SALINE 1000 ML 1,000 ML IV ONE (00:39)
--- NOTE | 2018-09-04 00:43 | ER Document Report ---
ED GI/ - General Chief Complaint: Abdominal Pain Stated Complaint: ADOMINAL PAIN Time Seen by Provider: 09/04/18 00:34 Primary Care Provider: PILAR HUGO PA-C [Primary Care Provider] - Follow up as needed Notes: Patient is a 68-year-old female that comes to the emergency department for chief complaint of sharp mid to upper abdominal pain that is worse on the left side and has some radiation to the flank that started at about 5 PM. She states she has vomited twice. Pain is gotten worse. Denies chest pain, shortness of breath, fever. Patient has had a colectomy from severe diverticulitis, has a colostomy bag in place. She is also had a hysterectomy and appendectomy. Remaining medical history includes CABG, she is on Coumadin. She has had bowel obstructions in the past. TRAVEL OUTSIDE OF THE [place] IN LAST 30 DAYS: No - Related Data Allergies/Adverse Reactions: No Known Allergies Allergy (Verified 05/08/18 17:55) Past Medical History - General Information source: Patient - Social History Smoking Status: Former Smoker Chew tobacco use (# tins/day): No Frequency of alcohol use: None Drug Abuse: None Lives with: Family Family History: Reviewed & Not Pertinent Patient has suicidal ideation: No Patient has homicidal ideation: No - Past Medical History Cardiac Medical History: Reports: Hx Coronary Artery Disease, Hx Heart Attack - x3, Hx Hypercholesterolemia, Hx Hypertension Pulmonary Medical History: Denies: Hx Asthma, Hx Bronchitis, Hx COPD, Hx Pneumonia Neurological Medical History: Denies: Hx Cerebrovascular Accident, Hx Seizures Endocrine Medical History: Reports: Hx Diabetes Mellitus Type 2 Renal/ Medical History: Denies: Hx Peritoneal Dialysis Musculoskeletal Medical History: Reports Hx Arthritis Skin Medical History: Reports Hx MRSA Psychiatric Medical History: Reports: Hx Depression Past Surgical History: Reports: Hx Abdominal Surgery - colostomy;bowel removal;herniax2, Hx Appendectomy, Hx Cardiac Catheterization - stent, quad bypass. aortic valve replacement, Hx Cardiac Surgery - CABG, Hx Genitourinary Surgery - colostomy, Hx Hysterectomy, Hx Orthopedic Surgery - carpal tunner syndrome, Hx Valve Replacement. Denies: Hx Gynecologic Surgery - Immunizations Hx Diphtheria, Pertussis, Tetanus Vaccination: Yes Hx Pneumococcal Vaccination: 06/12/11 Review of Systems - Review of Systems Constitutional: No symptoms reported EENT: No symptoms reported Cardiovascular: No symptoms reported Respiratory: No symptoms reported Gastrointestinal: See HPI Genitourinary: No symptoms reported Female Genitourinary: No symptoms reported Musculoskeletal: No symptoms reported Skin: No symptoms reported Hematologic/Lymphatic: No symptoms reported Neurological/Psychological: No symptoms reported Physical Exam - Vital signs Vitals: Temp Pulse Resp BP Pulse Ox 98.1 F 76 24 H 148/68 H 98 09/04/18 00:05 09/04/18 00:05 09/04/18 00:05 09/04/18 00:05 09/04/18 00:05 - Notes Notes: GENERAL: Alert anxious, appears to be in pain HEAD: Normocephalic, atraumatic. EYES: Pupils equal, round, and reactive to light. Extraocular movements intact. ENT: Oral mucosa moist, tongue midline. Oropharynx unremarkable. Airway patent. Nares patent, no nasal septal hematoma, TM's intact. NECK: Full range of motion. Supple. Trachea midline. LUNGS: Clear to auscultation bilaterally, no wheezes, rales, or rhonchi. No respiratory distress. HEART: Regular rate and rhythm. Loud murmur with click heard throughout ABDOMEN: Lower colostomy bag noted on the left, no concerning findings noted wit h this. Patient is very tender over the mid to upper abdomen. No specific area of guarding noted. Possible distention. GENITOURINARY: Deferred EXTREMITIES: Moves all 4 extremities spontaneously. No edema, normal radial and dorsalis pedis pulses bilaterally. No cyanosis. BACK: no cervical, thoracic, lumbar midline tenderness. No saddle anesthesia, normal distal neurovascular exam. NEUROLOGICAL: Alert and oriented x3. Normal speech. [cranial nerves II through XII grossly intact]. PSYCH: Slightly anxious SKIN: Warm, dry, normal turgor. No rashes or lesions noted. Course - Re-evaluation Re-evalutation: Patient in obvious discomfort, holding her mid abdomen and moaning. Vital signs unremarkable. Patient is very tender in the mid upper abdomen although this is generally nonspecific. I do not see any evidence of incarcerated hernia. No stool noted in the colostomy bag. Possible obstruction. Patient has had vomiting. Possible perforation as well. Patient sent for acute abdominal series, this does not show evidence of obstruction or free air, per my read and official read. CBC unremarkable. Lactic acid borderline. Chemistry nonspecific. INR is 1.95. Patient sent for CT of the abdomen/pelvis with IV contrast because I do not suspect small bowel obstruction based on the acute abdominal series and because she is in a lot of pain. CT showing small bowel obstruction with transition point. No free air. No acute findings otherwise. NG tube ordered, lidocaine nebulizer ordered, will consult surgery. Updated patient. Patient is much more comfortable after medications. 09/04/18 Dr. Dooley is in a procedure, will come see the patient afterwards. Patient was evaluated by surgeon. Recommends admission, NG tube, gastric follow-through test with contrast through NG tube. This was ordered. Reques ting to speak to hospitalist for patient to be admitted to them because of patient's complicated medical history including CABG, diabetes, Coumadin use. 09/04/18 05:20 I have spoken to Dr. Douglas. Due to multiple admissions around the same time, patient will be evaluated by the hospitalist day team. Recommends telemetry full admission. I did call Dr. Dooley and updated him on this. He asked me to call the blood bank and make sure they have fresh frozen plasma, at least 2 units. I did call the blood bank and we do have 2 units of fresh frozen plasma if needed in case patient goes to surgery. - Vital Signs Vital signs: Temp Pulse Resp BP Pulse Ox 98.1 F 76 20 136/65 H 100 09/04/18 00:05 09/04/18 00:05 09/04/18 04:02 09/04/18 03:01 09/04/18 04:02 - Laboratory Result Diagrams: 09/04/18 00:44 09/04/18 00:44 Laboratory results interpreted by me: 09/04/18 09/04/18 09/04/18 00:44 00:44 00:44 WBC 12.8 H RDW 15.2 H PT Glucose 154 H Lactic Acid 2.3 H Calcium 10.6 H Total Bilirubin 1.4 H AST 62 H ALT 57 H 09/04/18 00:44 WBC RDW PT 23.2 H Glucose Lactic Acid Calcium Total Bilirubin AST ALT Discharge - Discharge Clinical Impression: Small bowel obstruction Vomiting Qualifiers: Vomiting type: unspecified Vomiting Intractability: non-intractable Nausea presence: with nausea Qualified Code(s): R11.2 - Nausea with vomiting, unspecified Abdominal pain Qualifiers: Abdominal location: generalized Qualified Code(s): R10.84 - Generalized abdominal pain Condition: Stable Disposition: ADMITTED INPATIENT Admitting Provider: Hospitalist Unit Admitted: Telemetry Referrals: PILAR HUGO PA-C [Primary Care Provider] - Follow up as needed
[2018-09-04 00:59] LABS: ABSOLUTE BASOPHILS # (AUTO) 0.1 10^3/uL (0.0-0.2); ABSOLUTE EOSINOPHILS # (AUTO) 0.2 10^3/uL (0.0-0.6); ABSOLUTE LYMPHOCYTES (AUTO) 3.5 10^3/uL (0.5-4.7); ABSOLUTE MONOCYTES (AUTO) 1.3 10^3/uL (0.1-1.4); ABSOLUTE NEUT (AUTO) 7.7 10^3/uL (1.7-8.2); BASOPHILS % (AUTO) 0.7 % (0-2); EOSINOPHILS % (AUTO) 1.9 % (0-6); HEMATOCRIT 39.8 % (36.0-47.0); HEMOGLOBIN 13.8 g/dL (12.0-15.5); LYMPHOCYTES % (AUTO) 27.1 % (13-45); MEAN CORPUSCULAR HEMOGLOBIN 29.8 pg (27.0-33.4); MEAN CORPUSCULAR HGB CONC 34.6 g/dL (32.0-36.0); MEAN CORPUSCULAR VOLUME 86 fl (80-97); MONOCYTES % (AUTO) 9.9 % (3-13); PLATELET COUNT 191 10^3/uL (150-450); RED BLOOD COUNT 4.62 10^6/uL (3.72-5.28); RED CELL DISTRIBUTION WIDTH 15.2 % (11.5-14.0); SEGMENTED NEUTROPHILS % (AUTO) 60.4 % (42-78); TOTAL CELLS COUNTED % (AUTO) 100 %; WHITE BLOOD COUNT 12.8 10^3/uL (4.0-10.5)
[2018-09-04 01:08] LABS: INTERNATIONAL RATION (INR) 1.95; PROTHROMBIN TIME 23.2 SEC (11.4-15.4)
[2018-09-04 01:12] LABS: ALANINE AMINOTRANSFERASE 57 U/L (9-52); ALBUMIN 4.8 g/dL (3.5-5.0); ALKALINE PHOSPHATASE 66 U/L (38-126); ANION GAP 11 (5-19); ASPARTATE AMINO TRANSFERASE 62 U/L (14-36); BILIRUBIN,DIRECT 0.2 mg/dL (0.0-0.4); BILIRUBIN,TOTAL 1.4 mg/dL (0.2-1.3); BLOOD UREA NITROGEN 17 mg/dL (7-20); CALCIUM 10.6 mg/dL (8.4-10.2); CARBON DIOXIDE 28 mmol/L (22-30); CHLORIDE 102 mmol/L (98-107); GLUCOSE 154 mg/dL (75-110); LIPASE 232.1 U/L (23-300); POTASSIUM 3.7 mmol/L (3.6-5.0); SODIUM 140.9 mmol/L (137-145); TOTAL PROTEIN 7.9 g/dL (6.3-8.2)
--- NOTE | 2018-09-04 02:14 | RADIOLOGY REPORT (SQ) ---
EXAM DESCRIPTION: XR ABDOMEN SUPINE AND ERECT WITH CHEST (ABD ACUTE SERIES) COMPLETED DATE/TME: 09/04/2018 00:39 CLINICAL HISTORY: 68 years, Female, sharp mid/upper abd pain, vomiting, hx sbo COMPARISON: CT abdomen January 2018. NUMBER OF VIEWS: Four TECHNIQUE: Supine and upright views of the abdomen. PA view of the chest. LIMITATIONS: None. FINDINGS: The lungs are clear. There are no pleural abnormalities. Cardiac silhouette and pulmonary vessels are normal. The patient has had a CABG. Supine and upright views of the abdomen show scattered gas-filled loops of bowel. No abnormal air-fluid levels. Ostomy is present in the left lower quadrant. Anastomotic suture line noted in the lower pelvis. Small calcified splenic artery aneurysm noted. IMPRESSION: No acute cardiopulmonary disease. Nonobstructive bowel gas pattern. copyright 2010 [employer]- All Rights Reserved
--- NOTE | 2018-09-04 03:01 | RADIOLOGY REPORT (SQ) ---
EXAM DESCRIPTION: CT ABDOMEN PELVIS WITH IV CONTRAST COMPLETED DATE/TME: 09/04/2018 02:04 CLINICAL HISTORY: 68 years, Female, sharp mid abd pain COMPARISON: January 27, 2018 TECHNIQUE: Contiguous axial CT images of the abdomen and pelvis were obtained. Sagittal and coronal reformats were reviewed. This exam was performed according to our departmental dose-optimization program, which includes automated exposure control, adjustment of the mA and/or kV according to patient size and/or use of iterative reconstruction technique. FINDINGS: Lung bases: Clear. Liver: Mild enlarged liver. No focal abnormalities. Gallbladder: Mildly distended but no inflammatory changes. No calcified gallstones. Spleen:Unremarkable Pancreas: Pancreas is unremarkable. Adrenal glands:Within normal limits. Kidneys/ureters: Small left exophytic renal cyst. The kidneys are otherwise normal in appearance. No hydronephrosis. No nephrolithiasis. Stomach/small bowel/colon: The stomach is distended with air and ingested material. The proximal small bowel is dilated fluid measuring up to 3 cm. There is a focal transition point and associated small bowel fecal sign in the mid abdomen (image 49 series 3). Mild mesenteric congestion and fat stranding in this region. No pneumatosis. Left quadrant colostomy. Multiple loops of small bowel herniate through the stoma but this does not appear to be the point of obstruction. Appendix: Not visualized Peritoneum: No free fluid. Vascular structures: Scattered atherosclerotic calcifications Lymph nodes: No abnormal lymph nodes. Bladder:Unremarkable. Pelvic organs: No acute abnormality Bones: No acute osseous abnormality. Soft tissues: Unremarkable.. IMPRESSION: Small bowel obstruction in the mid abdomen as detailed above. Peristomal hernia containing multiple loops of small bowel however this does not appear to be the site of obstruction.
[2018-09-04] MEDS ORDERED: LIDOCAINE 2% INJ-PF (20 MG/ML) 10 ML AMPUL NEB ONE (03:13)
--- NOTE | 2018-09-04 05:15 | PDOC CONSULTATION ---
Consultation Consult Date: 09/04/18 Consult reason:: Small bowel obstruction History of Present Illness Admission Date/PCP: PILAR HUGO PA-C History of Present Illness: LUIZA FARIA is a 68 year old female with IDDM,sleep apnea, AVR on coumadin and post sigmoid colon resection with colostomy for perforated diverticulitis(2008) c/o upper abdominal pains with N/V around 6 pm last night. She also noted her colostomy bag not filling up after she emptied it at 5 pm. History of para stomal hernia repair followed by umbilical hernia repair a month apart about 6 years ago in [place] where her colon resection was done. 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 Past Medical History Cardiac Medical History: Reports: Coronary Artery Disease, Myocardial Infarction - x3, Hyperlipidema, Hypertension Pulmonary Medical History: Denies: Asthma, Bronchitis, Chronic Obstructive Pulmonary Disease (COPD), Pneumonia Neurological Medical History: Denies: Seizures Endocrine Medical History: Reports: Diabetes Mellitus Type 2 Musculoskeltal Medical History: Reports: Arthritis Psychiatric Medical History: Reports: Depression Hematology: Reports: Anemia - IN AUG 2015 Past Surgical History Past Surgical History: Reports: Appendectomy, Cardiac Catheterization - stent, quad bypass. aortic valve replacement, Hysterectomy, Orthopedic Surgery - carpal tunner syndrome, Valve Replacement, Other - hernia repairs. Not sure if mesh was used. Social History Smoking Status: Former Smoker Frequency of Alcohol Use: None Hx Recreational Drug Use: No Drugs: None Hx Prescription Drug Abuse: No Family History Family History: Reviewed & Not Pertinent Parental Family History Reviewed: Yes - mother diabetic Children Family History Reviewed: No Sibling(s) Family History Reviewed.: No Medication/Allergy Home Medications: Furosemide [Lasix 40 mg Tablet] 20 mg PO QAM 05/05/13 Loratadine [Claritin] 10 mg PO DAILY 02/12/15 Rosuvastatin Calcium [Crestor 20 mg Tablet] 40 mg PO QHS 02/12/15 Levothyroxine Sodium 125 mcg PO DAILY 09/05/15 Bupropion HCl [Bupropion HCl Sr] 150 mg PO BID 03/29/16 Dapagliflozin/Metformin HCl [Xigduo Xr 10 mg-1,000 mg Tab] 1 each PO DAILY Glipizide [Glipizide ER] 2.5 mg PO QHS 03/29/16 Ferrous Sulfate [Feosol] 325 mg PO DAILY 04/06/16 Polyethylene Glycol 3350 [Miralax Powder 17 gm/Packet] 1 packet PO DAILY PRN 04/06/16 Alprazolam [Xanax 0.25 mg Tablet] 0.25 mg PO Q12HP PRN #10 tablet 04/09/16 Hydromorphone HCl [Dilaudid 2 mg Tablet] 1 mg PO Q4HP PRN #10 tablet 04/09/16 Lidocaine [Lidoderm 5% (700 mg) Transdermal Patch] 1 patch TP DAILYP PRN #7 adh..patch 04/09/16 Omeprazole 40 mg PO BIDACBS #60 capsule. 04/09/16 Polymyxin B Sulfate/Tmp [Polytrim Oph Soln 10 ml] 1 drop OD Q3 #1 bottle 04/09/16 Sucralfate [Carafate 1 gm Tablet] 1 gm PO AC #90 tablet 04/09/16 Cyanocobalamin (Vitamin B-12) [B-12] 2,500 mcg SL DAILY #30 tab.subl 04/10/16 Enoxaparin Sodium [Lovenox] 100 mg SQ DAILY #5 ml 04/10/16 Warfarin Sodium [Coumadin 5 mg Tablet] 10 mg PO QHS #60 tablet 04/10/16 Azithromycin [Zithromax 250 mg Tablet] 250 mg PO ASDIR PRN #4 tablet 12/24/17 Fluticasone Propionate [Flonase Nasal [place] 50 Mcg/[place] 16 gm] 1 spray NASL Q12 #1 inhaler 12/24/17 Hydrocodone Bit/Homatropine [Hycodan Syrup 5-1.5 mg/5 ml Ud Cup] 5 ml PO Q4HP PRN #120 ml 12/24/17 Hydrocortisone Acetate [Anusol Hc 25 mg Supp.rect] 1 supp.rect [place] BID #14 supp.rect 01/28/18 Ondansetron [Zofran Odt 4 mg Tablet] 1 - 2 tab PO Q4H PRN #15 tab.rapdis 01/28/18 Cyclobenzaprine HCl [Flexeril 10 Mg Tablet] 10 mg PO TIDP PRN #20 tablet 05/05/18 Allergies/Adverse Reactions: No Known Allergies Allergy (Verified 05/08/18 17:55) Review of Systems Constitutional: PRESENT: other - no fever/chills Eyes: PRESENT: other - claims had some blurry vision 3 weeks ago and her BS at that time was >400. Ears: PRESENT: other - no hearing changes Respiratory: PRESENT: other - on CPAP for sleep apnea Gastrointestinal: PRESENT: abdominal pain Genitourinary: PRESENT: other - no dysuria Psychiatric: PRESENT: anxiety Physical Exam Vital Signs: Temp Pulse Resp BP Pulse Ox 98.1 F 76 20 136/65 H 100 09/04/18 00:05 09/04/18 00:05 09/04/18 04:02 09/04/18 03:01 09/04/18 04:02 Intake & Output 09/02/18 09/03/18 09/04/18 06:59 06:59 06:59 Intake Total 1000 Balance 1000 Weight 87 kg General appearance: PRESENT: mild distress Head exam: PRESENT: atraumatic Eye exam: PRESENT: conjunctiva pink Mouth exam: PRESENT: moist Neck exam: PRESENT: full ROM Respiratory exam: PRESENT: clear to auscultation elizabeth Cardiovascular exam: PRESENT: RRR Pulses: PRESENT: normal radial pulses Vascular exam: PRESENT: normal capillary refill GI/Abdominal exam: PRESENT: tenderness - epigastric area( Had morphine), other - colostomy empty Rectal exam: PRESENT: deferred Extremities exam: PRESENT: full ROM Musculoskeletal exam: PRESENT: ambulatory Neurological exam: PRESENT: alert, oriented to person, oriented to place, oriented to time, oriented to situation Psychiatric exam: PRESENT: appropriate affect Skin exam: PRESENT: normal color, warm Results Laboratory Results: 09/04/18 00:44 09/04/18 00:44 09/04/18 09/04/18 09/04/18 00:44 00:44 00:44 WBC 12.8 H RBC 4.62 Hgb 13.8 Hct 39.8 MCV 86 MCH 29.8 MCHC 34.6 RDW 15.2 H Plt Count 191 Seg Neutrophils % 60.4 Lymphocytes % 27.1 Monocytes % 9.9 Eosinophils % 1.9 Basophils % 0.7 Absolute Neutrophils 7.7 Absolute Lymphocytes 3.5 Absolute Monocytes 1.3 Absolute Eosinophils 0.2 Absolute Basophils 0.1 Sodium 140.9 Potassium 3.7 Chloride 102 Carbon Dioxide 28 Anion Gap 11 BUN 17 Creatinine 0.91 Est GFR ( Amer) > 60 Est GFR (Non-Af Amer) > 60 Glucose 154 H Lactic Acid 2.3 H Calcium 10.6 H Total Bilirubin 1.4 H AST 62 H ALT 57 H Alkaline Phosphatase 66 Total Protein 7.9 Albumin 4.8 Lipase 232.1 Impressions: Acute Abdomen Series 09/04/18 00:39 IMPRESSION: No acute cardiopulmonary disease. Nonobstructive bowel gas pattern. copyright 2010 [employer]- All Rights Reserved Abdomen/Pelvis CT 09/04/18 02:04 IMPRESSION: Small bowel obstruction in the mid abdomen as detailed above. Peristomal hernia containing multiple loops of small bowel however this does not appear to be the site of obstruction. Assessment & Plan - Diagnosis (1) Small bowel obstruction due to adhesions Is this a current diagnosis for this admission?: Yes (2) H/O mechanical aortic valve replacement Is this a current diagnosis for this admission?: Yes (3) Anticoagulated on Coumadin Is this a current diagnosis for this admission?: Yes (4) Coronary atherosclerosis Is this a current diagnosis for this admission?: Yes (5) DM w/o complication type II Qualifiers: Diabetes mellitus lobsterman insulin use: unspecified long-term insulin use status Qualified Code(s): E11.9 - Type 2 diabetes mellitus without complications Is this a current diagnosis for this admission?: Yes (6) Obstructive sleep apnea syndrome Is this a current diagnosis for this admission?: Yes - Time Time Spent: 30 to 50 Minutes - Inpatient Certification Medical Necessity: Need Close Monitoring Due to Risk of Patient Decompensation, Need For IV Fluids, Need for Pain Control, Need for Surgery - Plan Summary Plan Summary: D/W JERMAINE Vera. Will order gasrograffin SBFT via NGT which can better identify transition point or help resolve SBO. INR is 1.9 Will need FFP if needs surgery
--- NOTE | 2018-09-04 06:16 | RADIOLOGY REPORT (SQ) ---
EXAM DESCRIPTION: XR ABDOMEN 1 VIEW (KUB) COMPLETED DATE/TME: 09/04/2018 04:25 CLINICAL HISTORY: 68 years, Female, gastric follow through (gastrogram with contrast) COMPARISON: CT abdomen performed earlier today. NUMBER OF VIEWS: One TECHNIQUE: Supine view of the abdomen LIMITATIONS: None. FINDINGS/impression: NG tube terminates in the stomach. Oral contrast opacifies the stomach and duodenum. The bowel gas pattern remains unimpressive despite findings of small bowel obstruction on recent CT. Excreted contrast is present in both renal collecting systems. copyright 2010 [employer] [facility] [employer]- All Rights Reserved
[2018-09-04 06:39] LABS: APPEARANCE,URINE SLIGHTLY-CLOUDY; BILIRUBIN,URINE NEGATIVE (NEGATIVE); COLOR,URINE YELLOW; GLUCOSE, URINE NEGATIVE (NEGATIVE); KETONES,URINE NEGATIVE (NEGATIVE); LEUKOCYTE ESTERASE,URINE NEGATIVE (NEGATIVE); NITRITE,URINE NEGATIVE (NEGATIVE); PROTEIN,URINE 30 mg/dL (NEGATIVE); URINE SPECIFIC GRAVITY 1.021; UROBILINOGEN,URINE NEGATIVE mg/dL (<2.0)
[2018-09-04] MEDS ORDERED: DEXTROSE 50%-WATER 25 GM/50 ML DISP.SYRIN IV PRN ×4 (08:41→19:58)
[2018-09-04] MEDS ORDERED: ACETAMINOPHEN 650 MG SUPP.RECT PR PRN (08:41)
[2018-09-04] MEDS ORDERED: ONDANSETRON 4 MG TAB.RAPDIS PO PRN (08:41)
[2018-09-04] MEDS ORDERED: DEXTROSE 40% GEL 15 GM TUBE PO PRN ×4 (08:41→19:58)
[2018-09-04] MEDS ORDERED: GLUCAGON,HUMAN RECOMB 1 MG INJ SUBCUT PRN (08:41)
[2018-09-04] MEDS ORDERED: HYDROMORPHONE HCL INJ/PF 2 MG/ML AMPULE IV PRN (09:00)
[2018-09-04] MEDS ORDERED: ENOXAPARIN SODIUM INJ 30 MG/0.3 ML DISP.SYRIN SUBCUT SCH (10:00)
--- NOTE | 2018-09-04 11:02 | PDOC PROGRESS REPORT ---
Subjective Progress Note for:: 09/04/18 Subjective:: feels better passing some flatus via stoma Reason For Visit: SMALL BOWEL OBSTRUCTION Physical Exam Vital Signs: Temp Pulse Resp BP Pulse Ox 98.4 F 76 17 141/64 H 83 L 09/04/18 07:06 09/04/18 00:05 09/04/18 09:00 09/04/18 05:01 09/04/18 09:00 Intake & Output 09/03/18 09/04/18 09/05/18 06:59 06:59 06:59 Intake Total 1000 Output Total 300 Balance 700 Weight 87 kg GI/Abdominal exam: PRESENT: soft - abd soft, non tender,+bs Results Laboratory Results: 09/04/18 00:44 09/04/18 00:44 09/04/18 09/04/18 09/04/18 00:44 00:44 00:44 WBC 12.8 H RBC 4.62 Hgb 13.8 Hct 39.8 MCV 86 MCH 29.8 MCHC 34.6 RDW 15.2 H Plt Count 191 Seg Neutrophils % 60.4 Lymphocytes % 27.1 Monocytes % 9.9 Eosinophils % 1.9 Basophils % 0.7 Absolute Neutrophils 7.7 Absolute Lymphocytes 3.5 Absolute Monocytes 1.3 Absolute Eosinophils 0.2 Absolute Basophils 0.1 Sodium 140.9 Potassium 3.7 Chloride 102 Carbon Dioxide 28 Anion Gap 11 BUN 17 Creatinine 0.91 Est GFR ( Amer) > 60 Est GFR (Non-Af Amer) > 60 Glucose 154 H Lactic Acid 2.3 H Calcium 10.6 H Total Bilirubin 1.4 H AST 62 H ALT 57 H Alkaline Phosphatase 66 Total Protein 7.9 Albumin 4.8 Lipase 232.1 Urine Color Urine Appearance Urine pH Ur Specific [place] Urine Protein Urine Glucose (UA) Urine Ketones Urine Blood Urine Nitrite Ur Leukocyte Esterase Urine WBC (Auto) Urine RBC (Auto) 09/04/18 09/04/18 02:21 09:15 WBC RBC Hgb Hct MCV MCH MCHC RDW Plt Count Seg Neutrophils % Lymphocytes % Monocytes % Eosinophils % Basophils % Absolute Neutrophils Absolute Lymphocytes Absolute Monocytes Absolute Eosinophils Absolute Basophils Sodium Potassium Chloride Carbon Dioxide Anion Gap BUN Creatinine Est GFR ( Amer) Est GFR (Non-Af Amer) Glucose Lactic Acid 1.3 Calcium Total Bilirubin AST ALT Alkaline Phosphatase Total Protein Albumin Lipase Urine Color YELLOW Urine Appearance SLIGHTLY-CLOUDY Urine pH 7.0 Ur Specific [place] 1.021 Urine Protein 30 H Urine Glucose (UA) NEGATIVE Urine Ketones NEGATIVE Urine Blood NEGATIVE Urine Nitrite NEGATIVE Ur Leukocyte Esterase NEGATIVE Urine WBC (Auto) 3 Urine RBC (Auto) 2 Impressions: Acute Abdomen Series 09/04/18 00:39 IMPRESSION: No acute cardiopulmonary disease. Nonobstructive bowel gas pattern. copyright 2010 [employer]- All Rights Reserved Abdomen/Pelvis CT 09/04/18 02:04 IMPRESSION: Small bowel obstruction in the mid abdomen as detailed above. Peristomal hernia containing multiple loops of small bowel however this does not appear to be the site of obstruction. Status: Image reviewed by me - small bowel series done, on early films,contrast is slowely progressing through small bowel pt will need repeat kub in 4-6 hrs. Assessment & Plan - Plan Summary Plan Summary: reviewd ct and small bowel series large amts of stool in rectum no dilated sb loops on initial small bowel series films will order dulcolax repeat kub in 4-6 hrs.
[2018-09-04] MEDS ORDERED: BISACODYL 10 MG SUPP.RECT PR ONE (12:30)
[2018-09-04] MEDS ORDERED: BISACODYL 10 MG SUPP.RECT PR PRN (15:29)
[2018-09-04] MEDS ORDERED: ALPRAZOLAM 0.25 MG TABLET PO PRN (15:30)
--- NOTE | 2018-09-04 15:39 | RADIOLOGY REPORT (SQ) ---
EXAM DESCRIPTION: KUB/ABDOMEN (SINGLE VIEW) COMPLETED DATE/TIME: 09/04/2018 3:17 pm REASON FOR STUDY: f/u small bowel series COMPARISON: 09/04/2018 NUMBER OF VIEWS: One view. TECHNIQUE: Supine radiographic image of the abdomen acquired. LIMITATIONS: None. FINDINGS: BOWEL GAS PATTERN: Unchanged pattern of contrast in the proximal to mid small bowel, witho ut evidence of interval transit distally. CALCIFICATIONS: No suspicious calcifications. SOFT TISSUES: No gross mass or suggestion of organomegaly. HARDWARE: None in the abdomen. BONES: No acute fracture. No worrisome bone lesions. OTHER: No other significant finding. IMPRESSION: Unchanged pattern of contrast in the proximal to mid small bowel, without evidence of in terval transit distally. Findings are concerning for bowel obstruction. TECHNICAL DOCUMENTATION: JOB ID: [id number] [employer]- All Rights Reserved Reading location - IP/workstation name: [email or web address]
[2018-09-04] MEDS ORDERED: PANTOPRAZOLE SODIUM 40 MG VIAL IV ONE (17:00)
[2018-09-04] MEDS: GABAPENTIN 300 MG CAPSULE PO SCH (17:32)
[2018-09-04] MEDS: PREGABALIN 25 MG CAPSULE PO SCH (17:33)
[2018-09-04] MEDS ORDERED: (PENDING PHARMACY ID) (Warfarin Sodium [Coumadin] 10 MG) PO SCH (18:00)
[2018-09-04] MEDS ORDERED: (PENDING PHARMACY ID) (Rosuvastatin Calcium [Crestor] 40 MG) PO SCH (18:00)
[2018-09-04] MEDS ORDERED: (PENDING PHARMACY ID) (Warfarin Sodium 5 MG) PO SCH (18:00)
[2018-09-04] MEDS ORDERED: GLIPIZIDE 10 MG TABLET PO SCH (18:00)
--- NOTE | 2018-09-04 19:57 | PDOC H&P ---
History of Present Illness Admission Date/PCP: 09/04/18 05:31 PILAR HUGO PA-C Patient complains of: ABDOMINAL PAIN History of Present Illness: LUIZA FARIA is a 68 year old female with a PMH of NIDDM, AVR on coumadin, post sigmoid colon resection with colostomy for perforated diverticulitis(2008). She presented to the emergency department for a chief complaint of sharp mid to upper abdominal pain that is worse on the left side and has some radiation to the flank. She also noted her colostomy bag not filling up. The patient was evaluated by surgery, an NG tube was placed to decompress the abdomen. Hydromorphone was offered for pain management and she was bolused with 1L NS IV. Abdominal CT and KUB relatively benign, demonstrating large amounts of stool in the rectum. No dilated small bowel loops on initial small bowel series films. Lactate 2.38. WBC slightly elevated to 12.8. All other lab work relatively benign. Upon assessment, the patient is resting in bed. She appears mildly distressed, states she had 'just finished vomiting.' The patient is alert and oriented, able to answer all questions appropriately. She is not writhing in pain but complains of significant abdominal pain and N/V. Her abdomen is soft, nondistended but tender to palpation. (+) BS. There is no output in her colostomy bag. According to Dr. Mark, Surgeon, there is no surgical intervention at this time. Plan to admit to hospitalist service for intractable pain. Past Medical History Cardiac Medical History: Reports: Coronary Artery Disease, Myocardial Infarction - x3, Hyperlipidema, Hypertension Pulmonary Medical History: Denies: Asthma, Bronchitis, Chronic Obstructive Pulmonary Disease (COPD), Pneumonia Neurological Medical History: Denies: Seizures Endocrine Medical History: Reports: Diabetes Mellitus Type 2 Musculoskeltal Medical History: Reports: Arthritis Psychiatric Medical History: Reports: Depression Hematology: Reports: Anemia - IN AUG 2015 Past Surgical History Past Surgical History: Reports: Appendectomy, Cardiac Catheterization - stent, quad bypass. aortic valve replacement, Hysterectomy, Orthopedic Surgery - carpal tunner syndrome, Valve Replacement, Other - hernia repairs. Not sure if mesh was used. Social History Information Source: Patient Lives with: Family Smoking Status: Former Smoker Last Time Smoked: [phone] Frequency of Alcohol Use: None Hx Recreational Drug Use: No Drugs: None Hx Prescription Drug Abuse: No - Advance Directive Resuscitation Status: Full Code Family History Family History: CAD, DM, Other - RECTAL CA Parental Family History Reviewed: Yes Children Family History Reviewed: Yes Sibling(s) Family History Reviewed.: Yes Medication/Allergy Home Medications: Alprazolam [Xanax 0.25 mg Tablet] 0.25 mg PO DAILYP PRN 09/04/18 Bupropion HCl [Bupropion HCl Sr] 150 mg PO Q12 09/04/18 Cholecalciferol (Vitamin D3) [Vitamin D3 2000 unit Tablet] 2,000 unit PO DAILY 09/04/18 Cyanocobalamin (Vitamin B-12) [Vitamin B-12] 6,000 mcg PO DAILY 09/04/18 Fluticasone Propionate [Flonase Nasal [place] 50 Mcg/[place] 16 gm] 1 spray NASL DAILY 09/04/18 Furosemide [Lasix 20 mg Tablet] 20 mg PO QAM 09/04/18 Gabapentin [Neurontin 300 mg Capsule] 300 mg PO BID 09/04/18 Glipizide [Glocotrol 10 Mg Tablet] 10 mg PO BID 09/04/18 Iron 65 mg PO QHS 09/04/18 Levothyroxine Sodium [Synthroid] 137 mcg PO Q6AM 09/04/18 Loratadine [Claritin] 10 mg PO DAILY 09/04/18 Metformin HCl [Glucophage] 1,000 mg PO BID 09/04/18 Metoprolol Succinate [Toprol Xl 50 mg Tab.sr] 50 mg PO DAILY 09/04/18 Omeprazole 20 mg PO QAM 09/04/18 Ondansetron HCl [Zofran 4 mg Tablet] 4 mg PO Q4HP PRN 09/04/18 Oxycodone HCl/Acetaminophen [Percocet 5-325 mg Tablet] 1 tab PO DAILYP PRN 09/04/18 Polyethylene Glycol 3350 [Miralax Powder 17 gm/Packet] 17 gm PO DAILYP PRN 09/04/18 Pregabalin [Lyrica 25 Mg Capsule] 25 mg PO BID 09/04/18 Rosuvastatin Calcium [Crestor] 40 mg PO QPM 09/04/18 Sertraline HCl [Zoloft] 12.5 mg PO QHS 09/04/18 Warfarin Sodium [Coumadin 5 mg Tablet] 5 mg PO SUTUTHSA@2200 09/04/18 Warfarin Sodium [Coumadin] 10 mg PO MOWEFR@2200 09/04/18 Allergies/Adverse Reactions: No Known Allergies Allergy (Verified 05/08/18 17:55) Review of Systems All systems: reviewed and no additional remarkable complaints except as stated Physical Exam Vital Signs: Temp Pulse Resp BP Pulse Ox 98.4 F 76 17 141/64 H 83 L 09/04/18 07:06 09/04/18 00:05 09/04/18 09:00 09/04/18 05:01 09/04/18 09:00 Intake & Output 09/03/18 09/04/18 09/05/18 06:59 06:59 06:59 Intake Total 1000 Output Total 300 Balance 700 Weight 87 kg General appearance: PRESENT: mild distress Results Laboratory Results: 09/04/18 00:44 09/04/18 00:44 09/04/18 09/04/18 09/04/18 00:44 00:44 00:44 WBC 12.8 H RBC 4.62 Hgb 13.8 Hct 39.8 MCV 86 MCH 29.8 MCHC 34.6 RDW 15.2 H Plt Count 191 Seg Neutrophils % 60.4 Lymphocytes % 27.1 Monocytes % 9.9 Eosinophils % 1.9 Basophils % 0.7 Absolute Neutrophils 7.7 Absolute Lymphocytes 3.5 Absolute Monocytes 1.3 Absolute Eosinophils 0.2 Absolute Basophils 0.1 Sodium 140.9 Potassium 3.7 Chloride 102 Carbon Dioxide 28 Anion Gap 11 BUN 17 Creatinine 0.91 Est GFR ( Amer) > 60 Est GFR (Non-Af Amer) > 60 Glucose 154 H Lactic Acid 2.3 H Calcium 10.6 H Total Bilirubin 1.4 H AST 62 H ALT 57 H Alkaline Phosphatase 66 Total Protein 7.9 Albumin 4.8 Lipase 232.1 Urine Color Urine Appearance Urine pH Ur Specific [place] Urine Protein Urine Glucose (UA) Urine Ketones Urine Blood Urine Nitrite Ur Leukocyte Esterase Urine WBC (Auto) Urine RBC (Auto) 09/04/18 09/04/18 02:21 09:15 WBC RBC Hgb Hct MCV MCH MCHC RDW Plt Count Seg Neutrophils % Lymphocytes % Monocytes % Eosinophils % Basophils % Absolute Neutrophils Absolute Lymphocytes Absolute Monocytes Absolute Eosinophils Absolute Basophils Sodium Potassium Chloride Carbon Dioxide Anion Gap BUN Creatinine Est GFR ( Amer) Est GFR (Non-Af Amer) Glucose Lactic Acid 1.3 Calcium Total Bilirubin AST ALT Alkaline Phosphatase Total Protein Albumin Lipase Urine Color YELLOW Urine Appearance SLIGHTLY-CLOUDY Urine pH 7.0 Ur Specific [place] 1.021 Urine Protein 30 H Urine Glucose (UA) NEGATIVE Urine Ketones NEGATIVE Urine Blood NEGATIVE Urine Nitrite NEGATIVE Ur Leukocyte Esterase NEGATIVE Urine WBC (Auto) 3 Urine RBC (Auto) 2 Impressions: Acute Abdomen Series 09/04/18 00:39 IMPRESSION: No acute cardiopulmonary disease. Nonobstructive bowel gas pattern. copyright 2010 [employer]- All Rights Reserved Abdomen/Pelvis CT 09/04/18 02:04 IMPRESSION: Small bowel obstruction in the mid abdomen as detailed above. Peristomal hernia containing multiple loops of small bowel however this does not appear to be the site of obstruction. Assessment & Plan - Diagnosis (1) Abdominal pain Qualifiers: Abdominal location: generalized Qualified Code(s): R10.84 - Generalized a bdominal pain Is this a current diagnosis for this admission?: Yes Plan: Likely secondary to constipation Abdominal CT and KUB with gastrograph relatively benign - large amount of stool in rectum Dulcolax suppository NOW and daily Repeat KUB tonight NPO NG to low continuous suction to decompress abdomen PRN dilaudid for pain PRN zofran ODT for nausea (2) Constipation Qualifiers: Constipation type: unspecified constipation type Qualified Code(s): K59.00 - Constipation, unspecified Is this a current diagnosis for this admission?: Yes Plan: see plan above (3) History of aortic valve repair Is this a current diagnosis for this admission?: Yes Plan: Verify home dose of coumadin Since there is no surgical intervention planned at this time, may resume home dose (4) CAD (coronary artery disease) Qualifiers: Coronary Disease-Associated Artery/Lesion type: unspecified vessel or lesion type [place] vs. 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 Humalog sliding scale insulin (6) High serum lactate Is this a current diagnosis for this admission?: Yes Plan: Initial serum lactate 2.38 Following IVF resuscitation, repeat lactate 1.3 No longer need to trend unless patient condition decompensates - Time Time Spent: 30 to 50 Minutes Medications reviewed and adjusted accordingly: Yes Anticipated discharge: Home Within: within 24 hours - Inpatient Certification Based on my medical assessment, after consideration of the patient's comorbidities, presenting symptoms, or acuity I expect that the services needed warrant INPATIENT care.: Yes I certify that my determination is in accordance with my understanding of Medic are's requirements for reasonable and necessary INPATIENT services [42 CFR 412.3e].: Yes Medical Necessity: Need for Pain Control, Risk of Complication if Not Cared For in Hospital - Plan Summary Plan Summary: SUPPOSITORY. PAIN CONTROL. ANTI-EMETICS
[2018-09-04] MEDS ORDERED: GLUCAGON,HUMAN RECOMB 1 MG INJ IM PRN (19:58)
[2018-09-04] MEDS ORDERED: (PENDING PHARMACY ID) (Iron [Iron] 65 MG) PO SCH (22:00)
[2018-09-04] MEDS ORDERED: SERTRALINE HCL 12.5 MG PO SCH (22:00)
[2018-09-04] MEDS: ATORVASTATIN CALCIUM 80 MG TABLET PO SCH (23:05)
[2018-09-04] MEDS: BUPROPION HCL 100 MG TABLET PO SCH (23:06)
[2018-09-04] MEDS: FERROUS SULFATE 325 MG TABLET PO SCH (23:06)
[2018-09-04] MEDS: WARFARIN SODIUM 5 MG TABLET PO SCH (23:10)
[2018-09-04] MEDS: SERTRALINE HCL 50 MG TABLET PO SCH (23:11)
[2018-09-05 05:22] LABS: ABSOLUTE EOSINOPHILS # (AUTO) 0.3 10^3/uL (0.0-0.6); ABSOLUTE LYMPHOCYTES (AUTO) 3.8 10^3/uL (0.5-4.7); ABSOLUTE NEUT (AUTO) 4.2 10^3/uL (1.7-8.2); BASOPHILS % (AUTO) 0.3 % (0-2); EOSINOPHILS % (AUTO) 2.9 % (0-6); HEMATOCRIT 35.5 % (36.0-47.0); LYMPHOCYTES % (AUTO) 40.6 % (13-45); MEAN CORPUSCULAR HEMOGLOBIN 29.8 pg (27.0-33.4); MEAN CORPUSCULAR VOLUME 88 fl (80-97); MONOCYTES % (AUTO) 10.3 % (3-13); PLATELET COUNT 137 10^3/uL (150-450); RED BLOOD COUNT 4.04 10^6/uL (3.72-5.28); RED CELL DISTRIBUTION WIDTH 15.1 % (11.5-14.0); SEGMENTED NEUTROPHILS % (AUTO) 45.9 % (42-78); TOTAL CELLS COUNTED % (AUTO) 100 %; WHITE BLOOD COUNT 9.3 10^3/uL (4.0-10.5)
[2018-09-05] MEDS: BUPROPION HCL 100 MG TABLET PO SCH ×3 (05:37→21:10)
[2018-09-05] MEDS: LEVOTHYROXINE SODIUM 0.025 MG TABLET PO SCH (05:37)
[2018-09-05] MEDS: LEVOTHYROXINE SODIUM 0.112 MG TABLET PO SCH (05:37)
[2018-09-05 05:45] LABS: ALANINE AMINOTRANSFERASE 46 U/L (9-52); ALKALINE PHOSPHATASE 50 U/L (38-126); ANION GAP 7 (5-19); ASPARTATE AMINO TRANSFERASE 50 U/L (14-36); BILIRUBIN,DIRECT 0.2 mg/dL (0.0-0.4); BLOOD UREA NITROGEN 20 mg/dL (7-20); CALCIUM 9.6 mg/dL (8.4-10.2); CARBON DIOXIDE 31 mmol/L (22-30); CHLORIDE 105 mmol/L (98-107); GLUCOSE 98 mg/dL (75-110); POTASSIUM 3.3 mmol/L (3.6-5.0); SODIUM 143.4 mmol/L (137-145); TOTAL PROTEIN 6.7 g/dL (6.3-8.2)
[2018-09-05] MEDS ORDERED: LANSOPRAZOLE 15 MG TAB.RAP.DR PO SCH (06:00)
[2018-09-05] MEDS ORDERED: (PENDING PHARMACY ID) (Levothyroxine Sodium [Synthroid] 137 MCG) PO SCH (06:00)
[2018-09-05] MEDS: NORMAL SALINE 1000 ML 1,000 ML IV PRN ×2 (07:02→18:18)
[2018-09-05] MEDS ORDERED: POTASSI CL 20 MEQ/50 ML RIDER 20 MEQ/50 ML RTUPB IV ONE (09:00)
--- NOTE | 2018-09-05 09:43 | RADIOLOGY REPORT (SQ) ---
EXAM DESCRIPTION: KUB/ABDOMEN (SINGLE VIEW) COMPLETED DATE/TIME: 09/05/2018 9:19 am REASON FOR STUDY: SBO COMPARISON: CT 09/04/2018 Limited small bowel follow-through films 09/04/2018, 0544 hours and 1512 hours NUMBER OF VIEWS: One view. TECHNIQUE: Supine radiographic image of the abdomen acquired. LIMITATIONS: None. FINDINGS: BOWEL GAS PATTERN: Oral contrast is now seen in the colon in a nonobstructive pattern. Th e small bowel obstruction pattern seen on 09/04/2018 has resolved. No trapped loops with barium in th e left lower quadrant near the ostomy. CALCIFICATIONS: No suspicious calcifications. SOFT TISSUES: No gross mass or suggestion of organomegaly. HARDWARE: Surgical clips in the mid abdomen, left lower quadrant ostomy BONES: No acute fracture. No worrisome bone lesions. OTHER: No other significant finding. IMPRESSION: Oral contrast given for evaluation of small bowel is now seen in the colon in a nonobstr uctive pattern. No trapped loops of barium filled small bowel along the left lower quadrant stoma TECHNICAL DOCUMENTATION: JOB ID: [id number] [employer]- All Rights Reserved Reading location - IP/workstation name: [email or web address]
[2018-09-05] MEDS: PREGABALIN 25 MG CAPSULE PO SCH ×2 (10:00→18:19)
[2018-09-05] MEDS: METOPROLOL SUCCINATE 50 MG TAB.SR.24H PO SCH (10:00)
[2018-09-05] MEDS: CYANOCOBALAMIN (VITAMIN B-12) 1,000 MCG TABLET PO SCH (10:00)
[2018-09-05] MEDS: GABAPENTIN 300 MG CAPSULE PO SCH ×2 (10:00→18:19)
[2018-09-05] MEDS ORDERED: BISACODYL 10 MG SUPP.RECT PR SCH (10:00)
[2018-09-05] MEDS ORDERED: CYANOCOBALAMIN 6000 MCG PO SCH (10:00)
[2018-09-05] MEDS ORDERED: (PENDING PHARMACY ID) (Cholecalciferol (Vitamin D3) [Vitamin D3 2000 Unit Tablet] 2,000 UN PO SCH (10:00)
[2018-09-05] MEDS: PANTOPRAZOLE SODIUM 40 MG VIAL IV SCH (10:01)
[2018-09-05] MEDS: CHOLECALCIFEROL (D3) 1,000 UNIT TABLET PO SCH (10:01)
[2018-09-05] MEDS: BISACODYL 10 MG SUPP.RECT PR SCH (14:14)
[2018-09-05] MEDS ORDERED: MORPHINE SULFATE 10 MG/ML INJ IV PRN (15:26)
--- NOTE | 2018-09-05 20:29 | PDOC PROGRESS REPORT ---
Subjective Progress Note for:: 09/05/18 Subjective:: Denies abdominal pains Reason For Visit: SMALL BOWEL OBSTRUCTION Physical Exam Vital Signs: Temp Pulse Resp BP Pulse Ox 99.0 F 83 23 H 130/50 H 97 09/05/18 16:21 09/05/18 16:21 09/05/18 16:21 09/05/18 16:21 09/05/18 16:21 Intake & Output 09/04/18 09/05/18 09/06/18 06:59 06:59 06:59 Intake Total 1000 0 895 Output Total 300 290 0 Balance 700 -290 895 Weight 87 kg 85.9 kg Exam: abdomen is soft and non tender. Colostomy with small amount of liquid. Digital exam showed no gross obstruction at colostomy KUB showed dye in the colon indicating no obstruction Results Laboratory Results: 09/05/18 04:49 09/05/18 04:49 09/05/18 09/05/18 04:49 04:49 WBC 9.3 RBC 4.04 Hgb 12.0 Hct 35.5 L MCV 88 MCH 29.8 MCHC 34.0 RDW 15.1 H Plt Count 137 L Seg Neutrophils % 45.9 Lymphocytes % 40.6 Monocytes % 10.3 Eosinophils % 2.9 Basophils % 0.3 Absolute Neutrophils 4.2 Absolute Lymphocytes 3.8 Absolute Monocytes 1.0 Absolute Eosinophils 0.3 Absolute Basophils 0.0 Sodium 143.4 Potassium 3.3 L Chloride 105 Carbon Dioxide 31 H Anion Gap 7 BUN 20 Creatinine 0.86 Est GFR ( Amer) > 60 Est GFR (Non-Af Amer) > 60 Glucose 98 Calcium 9.6 Total Bilirubin 2.0 H AST 50 H ALT 46 Alkaline Phosphatase 50 Total Protein 6.7 Albumin 4.0 09/05/18 04:49 NT-Pro-B Natriuret Pep 194 Impressions: Acute Abdomen Series 09/04/18 00:39 IMPRESSION: No acute cardiopulmonary disease. Nonobstructive bowel gas pattern. copyright 2011 [employer]- All Rights Reserved Abdomen/Pelvis CT 09/04/18 02:04 IMPRESSION: Small bowel obstruction in the mid abdomen as detailed above. Peristomal hernia containing multiple loops of small bowel however this does not appear to be the site of obstruction. KUB X-Ray 09/05/18 00:00 IMPRESSION: Oral contrast given for evaluation of small bowel is now seen in the colon in a nonobstructive pattern. No trapped loops of barium filled small bowel along the left lower quadrant stoma Assessment & Plan - Diagnosis (1) Small bowel obstruction due to adhesions Is this a current diagnosis for this admission?: Yes (2) H/O mechanical aortic valve replacement Is this a current diagnosis for this admission?: Yes (3) Anticoagulated on Coumadin Is this a current diagnosis for this admission?: Yes (4) Coronary atherosclerosis Is this a current diagnosis for this admission?: Yes (5) DM w/o complication type II Qualifiers: Diabetes mellitus skilled nursing insulin use: unspecified skilled nursing insulin use status Qualified Code(s): E11.9 - Type 2 diabetes mellitus without complications Is this a current diagnosis for this admission?: Yes (6) Obstructive sleep apnea syndrome Is this a current diagnosis for this admission?: Yes - Time Time Spent with patient: 15-24 minutes - Plan Summary Plan Summary: D/C NGT. Start sips of clear liquids tonight
[2018-09-05 20:39] LABS: INTERNATIONAL RATION (INR) 1.39; PROTHROMBIN TIME 17.7 SEC (11.4-15.4)
[2018-09-05] MEDS: SERTRALINE HCL 50 MG TABLET PO SCH (21:09)
[2018-09-05] MEDS: ATORVASTATIN CALCIUM 80 MG TABLET PO SCH (21:10)
[2018-09-05] MEDS: FERROUS SULFATE 325 MG TABLET PO SCH (21:10)
[2018-09-05] MEDS ORDERED: WARFARIN SODIUM 5 MG TABLET PO SCH (22:00)
[2018-09-05] MEDS: ACETAMINOPHEN 325 MG TABLET PO PRN (23:16)
[2018-09-05] MEDS: INSULIN LISPRO 100 UNIT/ML 3 ML VIAL SUBCUT PRN (23:17)
[2018-09-06] MEDS: NORMAL SALINE 1000 ML 1,000 ML IV PRN ×2 (02:20→10:09)
[2018-09-06] MEDS: LEVOTHYROXINE SODIUM 0.025 MG TABLET PO SCH (05:14)
[2018-09-06] MEDS: LEVOTHYROXINE SODIUM 0.112 MG TABLET PO SCH (05:14)
[2018-09-06] MEDS: BUPROPION HCL 100 MG TABLET PO SCH ×3 (05:14→21:50)
[2018-09-06 05:30] LABS: ABSOLUTE EOSINOPHILS # (AUTO) 0.3 10^3/uL (0.0-0.6); ABSOLUTE LYMPHOCYTES (AUTO) 3.4 10^3/uL (0.5-4.7); ABSOLUTE MONOCYTES (AUTO) 0.6 10^3/uL (0.1-1.4); ABSOLUTE NEUT (AUTO) 3.1 10^3/uL (1.7-8.2); BASOPHILS % (AUTO) 0.4 % (0-2); EOSINOPHILS % (AUTO) 3.5 % (0-6); HEMOGLOBIN 11.2 g/dL (12.0-15.5); LYMPHOCYTES % (AUTO) 45.8 % (13-45); MEAN CORPUSCULAR HGB CONC 34.1 g/dL (32.0-36.0); MEAN CORPUSCULAR VOLUME 88 fl (80-97); MONOCYTES % (AUTO) 8.6 % (3-13); PLATELET COUNT 115 10^3/uL (150-450); RED BLOOD COUNT 3.74 10^6/uL (3.72-5.28); RED CELL DISTRIBUTION WIDTH 14.9 % (11.5-14.0); SEGMENTED NEUTROPHILS % (AUTO) 41.7 % (42-78); TOTAL CELLS COUNTED % (AUTO) 100 %; WHITE BLOOD COUNT 7.4 10^3/uL (4.0-10.5)
[2018-09-06 05:48] LABS: BLOOD UREA NITROGEN 14 mg/dL (7-20); CALCIUM 8.3 mg/dL (8.4-10.2); CARBON DIOXIDE 29 mmol/L (22-30); CHLORIDE 110 mmol/L (98-107); GLUCOSE 101 mg/dL (75-110); POTASSIUM 3.3 mmol/L (3.6-5.0)
[2018-09-06 05:53] LABS: INTERNATIONAL RATION (INR) 1.46; PROTHROMBIN TIME 18.5 SEC (11.4-15.4)
[2018-09-06 06:06] LABS: SODIUM 143.2 mmol/L (137-145)
[2018-09-06 06:15] LABS: ANION GAP 4 (5-19)
[2018-09-06] MEDS: CHOLECALCIFEROL (D3) 1,000 UNIT TABLET PO SCH (09:46)
[2018-09-06] MEDS: CYANOCOBALAMIN (VITAMIN B-12) 1,000 MCG TABLET PO SCH (09:46)
[2018-09-06] MEDS: GABAPENTIN 300 MG CAPSULE PO SCH ×2 (09:46→17:49)
[2018-09-06] MEDS: PANTOPRAZOLE SODIUM 40 MG VIAL IV SCH (09:47)
[2018-09-06] MEDS: METOPROLOL SUCCINATE 50 MG TAB.SR.24H PO SCH (09:47)
[2018-09-06] MEDS: PREGABALIN 25 MG CAPSULE PO SCH ×2 (09:47→17:49)
[2018-09-06] MEDS: POTASSI CL 20 MEQ/50 ML RIDER 20 MEQ/50 ML RTUPB IV SCH ×2 (09:49→12:20)
[2018-09-06] MEDS: BISACODYL 10 MG SUPP.RECT PR SCH (09:50)
--- NOTE | 2018-09-06 15:03 | PDOC PROGRESS REPORT ---
Subjective Progress Note for:: 09/06/18 Subjective:: no pains. Just had a small BM with a small piece of hard stool.This may be old stool left over distal to the colostomy though it has been 7 years ago from original operation. Reason For Visit: SMALL BOWEL OBSTRUCTION Physical Exam Vital Signs: Temp Pulse Resp BP Pulse Ox 98.6 F 95 16 147/89 H 100 09/06/18 12:01 09/06/18 12:01 09/06/18 12:01 09/06/18 12:01 09/06/18 12:01 Intake & Output 09/05/18 09/06/18 09/07/18 06:59 06:59 06:59 Intake Total 0 1597 636 Output Total 290 800 Balance -290 797 636 Weight 85.9 kg 89.3 kg Exam: Abdomen is soft and non tender. Colostomy bag has small amount of gas Results Laboratory Results: 09/06/18 05:14 09/06/18 05:14 09/06/18 09/06/18 05:14 05:14 WBC 7.4 RBC 3.74 Hgb 11.2 L Hct 33.0 L MCV 88 MCH 30.0 MCHC 34.1 RDW 14.9 H Plt Count 115 L Seg Neutrophils % 41.7 L Lymphocytes % 45.8 H Monocytes % 8.6 Eosinophils % 3.5 Basophils % 0.4 Absolute Neutrophils 3.1 Absolute Lymphocytes 3.4 Absolute Monocytes 0.6 Absolute Eosinophils 0.3 Absolute Basophils 0.0 Sodium 143.2 Potassium 3.3 L Chloride 110 H Carbon Dioxide 29 Anion Gap 4 L BUN 14 Creatinine 0.78 Est GFR ( Amer) > 60 Est GFR (Non-Af Amer) > 60 Glucose 101 Calcium 8.3 L 09/05/18 04:49 NT-Pro-B Natriuret Pep 194 Impressions: Acute Abdomen Series 09/04/18 00:39 IMPRESSION: No acute cardiopulmonary disease. Nonobstructive bowel gas pattern. copyright 2011 [employer]- All Rights Reserved Abdomen/Pelvis CT 09/04/18 02:04 IMPRESSION: Small bowel obstruction in the mid abdomen as detailed above. Peristomal hernia containing multiple loops of small bowel however this does not appear to be the site of obstruction. KUB X-Ray 09/05/18 00:00 IMPRESSION: Oral contrast given for evaluation of small bowel is now seen in the colon in a nonobstructive pattern. 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
[2018-09-06] MEDS: WARFARIN SODIUM 5 MG TABLET PO SCH (21:50)
[2018-09-06] MEDS: FERROUS SULFATE 325 MG TABLET PO SCH (21:50)
[2018-09-06] MEDS: ATORVASTATIN CALCIUM 80 MG TABLET PO SCH (21:50)
[2018-09-06] MEDS: SERTRALINE HCL 50 MG TABLET PO SCH (21:50)
--- NOTE | 2018-09-06 22:01 | PDOC PROGRESS REPORT ---
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 She presented to the emergency department for a chief complaint of sharp mid to upper abdominal pain that is worse on the left side and has some radiation to the flank. Additionally, there has been no output in her colostomy bag for 24hrs. Initial CT and abdominal KUB (with gastrograph) both show retained stool in rectum. There is no small bowel obstruction. Repeat KUB reveals oral contrast seen in the colon in a nonobstructive pattern. Surgery is aware of these findings. The patient appears to be much more comfortable today. She is resting comfortably in bed. She complains of mild pain in her rectum that is relieved when sitting up. She denies nausea or vomiting. The patient is able to tolerate a clear liquid diet. Reason For Visit: SMALL BOWEL OBSTRUCTION Physical Exam Vital Signs: Temp Pulse Resp BP Pulse Ox 98.4 F 72 16 134/90 H 99 09/06/18 20:13 09/06/18 20:13 09/06/18 20:13 09/06/18 20:13 09/06/18 20:13 Intake & Output 09/05/18 09/06/18 09/07/18 06:59 06:59 06:59 Intake Total 0 1597 2522 Output Total 583 347 8714 Balance -507 380 4276 Weight 85.9 kg 89.3 kg General appearance: PRESENT: no acute distress Head exam: PRESENT: atraumatic Eye exam: PRESENT: conjunctiva pink, PERRLA Mouth exam: PRESENT: moist Neck exam: PRESENT: full ROM Respiratory exam: PRESENT: clear to auscultation elizabeth, symmetrical, unlabored Cardiovascular exam: PRESENT: +S1, +S2 Pulses: PRESENT: normal radial pulses, normal dorsalis pedis pul GI/Abdominal exam: PRESENT: soft. ABSENT: distended, tenderness Rectal exam: PRESENT: deferred, fecal impaction - PER CT SCAN AND KUB Extremities exam: PRESENT: full ROM. ABSENT: pedal edema Musculoskeletal exam: PRESENT: ambulatory, full ROM Neurological exam: PRESENT: alert, awake, oriented to person, oriented to place, oriented to time, oriented to situation Psychiatric exam: PRESENT: appropriate affect Skin exam: PRESENT: dry, intact, normal color Results Laboratory Results: 09/06/18 05:14 09/06/18 05:14 09/06/18 09/06/18 05:14 05:14 WBC 7.4 RBC 3.74 Hgb 11.2 L Hct 33.0 L MCV 88 MCH 30.0 MCHC 34.1 RDW 14.9 H Plt Count 115 L Seg Neutrophils % 41.7 L Lymphocytes % 45.8 H Monocytes % 8.6 Eosinophils % 3.5 Basophils % 0.4 Absolute Neutrophils 3.1 Absolute Lymphocytes 3.4 Absolute Monocytes 0.6 Absolute Eosinophils 0.3 Absolute Basophils 0.0 Sodium 143.2 Potassium 3.3 L Chloride 110 H Carbon Dioxide 29 Anion Gap 4 L BUN 14 Creatinine 0.78 Est GFR ( Amer) > 60 Est GFR (Non-Af Amer) > 60 Glucose 101 Calcium 8.3 L 09/05/18 04:49 NT-Pro-B Natriuret Pep 194 Impressions: Acute Abdomen Series 09/04/18 00:39 IMPRESSION: No acute cardiopulmonary disease. Nonobstructive bowel gas pattern. copyright 2011 [employer]- All Rights Reserved Abdomen/Pelvis CT 09/04/18 02:04 IMPRESSION: Small bowel obstruction in the mid abdomen as detailed above. Peristomal hernia containing multiple loops of small bowel however this does not appear to be the site of obstruction. KUB X-Ray 09/05/18 00:00 IMPRESSION: Oral contrast given for evaluation of small bowel is now seen in the colon in a nonobstructive pattern. No trapped loops of barium filled small bowel along the left lower quadrant stoma Status: Imported from PACS Assessment & Plan - Diagnosis (1) Abdominal pain Qualifiers: Abdominal location: generalized Qualified Code(s): R10.84 - Generalized abdominal pain Is this a current diagnosis for this admission?: Yes Plan: Improving Secondary to constipation Abdominal CT and KUB with gastrograph relatively benign - large amount of stool in rectum. Repeat KUB shows improvement - passage of PO contrast in the rectum Dulcolax suppository(per rectum) daily Tolerating clear liquids PRN Fleets enema Toradol IV for pain control PRN zofran ODT for nausea (2) Constipation Qualifiers: Constipation type: unspecified constipation type Qualified Code(s): K59.00 - Constipation, unspecified Is this a current diagnosis for this admission?: Yes Plan: see plan above (3) History of aortic valve repair Is this a current diagnosis for this admission?: Yes Plan: Continue home dose Coumadin Since there is no surgical intervention planned at this time, may resume home dose. INR subtherapeutic. Will need to adjust dosage (4) CAD (coronary artery disease) Qualifiers: Coronary Disease-Associated Artery/Lesion type: unspecified vessel or lesion type [place] vs. transplanted heart: [place] heart Associated angina: angina presence unspecified Qualified Code(s): I25.10 - Atherosclerotic heart disease of [place] coronary artery without angina pectoris Is this a current diagnosis for this admission?: Yes Plan: Continue home dose Crestor Anticoagulated with home dose Coumadin (5) DM w/o complication type II Qualifiers: Diabetes mellitus intermediate insulin use: unspecified intermediate insulin use status Qualified Code(s): E11.9 - Type 2 diabetes mellitus without complications Is this a current diagnosis for this admission?: Yes Plan: Accu-Cheks every 6 hours Patient to remain n.p.o. Humalog sliding scale insulin (6) High serum lactate Is this a current diagnosis for this admission?: Yes Plan: Resolved Initial serum lactate 2.38 Following IVF resuscitation, repeat lactate 1.3 No longer need to trend unless patient condition decompensates - Time Time Spent with patient: 15-24 minutes Medications reviewed and adjusted accordingly: Yes Anticipated discharge: Home - Inpatient Certification Based on my medical assessment, after consideration of the patient's comorbidities, presenting symptoms, or acuity I expect that the services needed warrant INPATIENT care.: Yes I certify that my determination is in accordance with my understanding of Medicare's requirements for reasonable and necessary INPATIENT services [42 CFR 412.3e].: Yes Medical Necessity: Risk of Complication if Not Cared For in Hospital
[2018-09-06] MEDS: INSULIN LISPRO 100 UNIT/ML 3 ML VIAL SUBCUT PRN (23:04)
[2018-09-07] MEDS ORDERED: MINERAL OIL ENEMA 133 ML PR PRN (05:27)
[2018-09-07 05:40] LABS: ABSOLUTE EOSINOPHILS # (AUTO) 0.3 10^3/uL (0.0-0.6); ABSOLUTE LYMPHOCYTES (AUTO) 2.9 10^3/uL (0.5-4.7); ABSOLUTE MONOCYTES (AUTO) 0.6 10^3/uL (0.1-1.4); ABSOLUTE NEUT (AUTO) 2.3 10^3/uL (1.7-8.2); BASOPHILS % (AUTO) 0.5 % (0-2); EOSINOPHILS % (AUTO) 4.5 % (0-6); HEMATOCRIT 32.6 % (36.0-47.0); HEMOGLOBIN 11.2 g/dL (12.0-15.5); MEAN CORPUSCULAR HEMOGLOBIN 30.3 pg (27.0-33.4); MEAN CORPUSCULAR HGB CONC 34.4 g/dL (32.0-36.0); MEAN CORPUSCULAR VOLUME 88 fl (80-97); MONOCYTES % (AUTO) 9.3 % (3-13); PLATELET COUNT 120 10^3/uL (150-450); SEGMENTED NEUTROPHILS % (AUTO) 37.7 % (42-78); TOTAL CELLS COUNTED % (AUTO) 100 %; WHITE BLOOD COUNT 6.1 10^3/uL (4.0-10.5)
[2018-09-07 05:45] LABS: INTERNATIONAL RATION (INR) 1.66; PROTHROMBIN TIME 20.4 SEC (11.4-15.4)
[2018-09-07] MEDS: LEVOTHYROXINE SODIUM 0.025 MG TABLET PO SCH (06:00)
[2018-09-07] MEDS: BUPROPION HCL 100 MG TABLET PO SCH ×3 (06:00→21:48)
[2018-09-07] MEDS: LEVOTHYROXINE SODIUM 0.112 MG TABLET PO SCH (06:00)
[2018-09-07 06:27] LABS: ANION GAP 5 (5-19); BLOOD UREA NITROGEN 9 mg/dL (7-20); CALCIUM 8.4 mg/dL (8.4-10.2); CARBON DIOXIDE 25 mmol/L (22-30); CHLORIDE 114 mmol/L (98-107); GLUCOSE 108 mg/dL (75-110); POTASSIUM 3.6 mmol/L (3.6-5.0); SODIUM 144.4 mmol/L (137-145)
[2018-09-07] MEDS: NORMAL SALINE 1000 ML 1,000 ML IV PRN (07:23)
[2018-09-07] MEDS: BISACODYL 10 MG SUPP.RECT PR SCH (11:26)
[2018-09-07] MEDS: CYANOCOBALAMIN (VITAMIN B-12) 1,000 MCG TABLET PO SCH (11:26)
[2018-09-07] MEDS: PREGABALIN 25 MG CAPSULE PO SCH ×2 (11:26→17:52)
[2018-09-07] MEDS: METOPROLOL SUCCINATE 50 MG TAB.SR.24H PO SCH (11:27)
[2018-09-07] MEDS: GABAPENTIN 300 MG CAPSULE PO SCH ×2 (11:27→17:52)
[2018-09-07] MEDS: CHOLECALCIFEROL (D3) 1,000 UNIT TABLET PO SCH (11:27)
[2018-09-07] MEDS: PANTOPRAZOLE SODIUM 40 MG VIAL IV SCH (11:28)
--- NOTE | 2018-09-07 16:00 | PDOC PROGRESS REPORT ---
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 She presented to the emergency department for a chief complaint of sharp mid to upper abdominal pain that is worse on the left side and has some radiation to the flank. Additionally, there has been no output in her colostomy bag for 24hrs. Initial CT and abdominal KUB (with gastrograph) both show retained stool in rectum. There is no small bowel obstruction. Repeat KUB reveals oral contrast seen in the colon in a nonobstructive pattern. Surgery is aware of these findings. The patient appears to be much more comfortable today. She is able to tolerate a full liquid diet, plan to advance to soft diet today. If the patient is able to tolerate solid foods without abdominal pain, nausea or vomiting, she may be discharged home tomorrow. Of note, the patient has been taking Coumadin and her INR is subtherapeutic for someone with an AVR. After speaking with pharmacist, made adjustments to Coumadin dosing. We will continue to follow INR. Patient will need to follow- up with military source operations specialist and/or Coumadin clinic. Patient made aware of these findings. Reason For Visit: SMALL BOWEL OBSTRUCTION Physical Exam Vital Signs: Temp Pulse Resp BP Pulse Ox 97.8 F 65 14 127/54 H 99 09/07/18 03:53 09/07/18 03:53 09/07/18 03:53 09/07/18 03:53 09/07/18 03:53 Intake & Output 09/06/18 09/07/18 09/08/18 06:59 06:59 06:59 Intake Total 1597 4244 Output Total 800 3500 Balance 797 744 Weight 89.3 kg 90.3 kg General appearance: PRESENT: no acute distress, obese Head exam: PRESENT: atraumatic Eye exam: PRESENT: conjunctiva pink, PERRLA Mouth exam: PRESENT: moist Neck exam: PRESENT: full ROM Respiratory exam: PRESENT: symmetrical, unlabored Pulses: PRESENT: normal radial pulses, normal dorsalis pedis pul Vascular exam: PRESENT: normal capillary refill GI/Abdominal exam: PRESENT: soft. ABSENT: distended Rectal exam: PRESENT: deferred, other - self report - rectal pain improved Extremities exam: PRESENT: full ROM. ABSENT: pedal edema Musculoskeletal exam: PRESENT: ambulatory, full ROM, normal inspection Neurological exam: PRESENT: alert, awake, oriented to person, oriented to place, oriented to time, oriented to situation Psychiatric exam: PRESENT: appropriate affect Skin exam: PRESENT: dry, intact, normal color Results Laboratory Results: 09/07/18 05:24 09/07/18 05:24 09/07/18 09/07/18 05:24 05:24 WBC 6.1 RBC 3.70 L Hgb 11.2 L Hct 32.6 L MCV 88 MCH 30.3 MCHC 34.4 RDW 15.0 H Plt Count 120 L Seg Neutrophils % 37.7 L Lymphocytes % 48.0 H Monocytes % 9.3 Eosinophils % 4.5 Basophils % 0.5 Absolute Neutrophils 2.3 Absolute Lymphocytes 2.9 Absolute Monocytes 0.6 Absolute Eosinophils 0.3 Absolute Basophils 0.0 Sodium 144.4 Potassium 3.6 Chloride 114 H Carbon Dioxide 25 Anion Gap 5 BUN 9 Creatinine 0.75 Est GFR ( Amer) > 60 Est GFR (Non-Af Amer) > 60 Glucose 108 Calcium 8.4 09/05/18 04:49 NT-Pro-B Natriuret Pep 194 Impressions: Acute Abdomen Series 09/04/18 00:39 IMPRESSION: No acute cardiopulmonary disease. Nonobstructive bowel gas pattern. copyright 2010 [email or web address]- All Rights Reserved Abdomen/Pelvis CT 09/04/18 02:04 IMPRESSION: Small bowel obstruction in the mid abdomen as detailed above. Peristomal hernia containing multiple loops of small bowel however this does not appear to be the site of obstruction. KUB X-Ray 09/05/18 00:00 IMPRESSION: Oral contrast given for evaluation of small bowel is now seen in the colon in a nonobstructive pattern. No trapped loops of barium filled small bowel along the left lower quadrant stoma Status: Imported from PACS Assessment & Plan - Diagnosis (1) Abdominal pain Qualifiers: Abdominal location: generalized Qualified Code(s): R10.84 - Generalized abdominal pain Is this a current diagnosis for this admission?: Yes Plan: Improving Secondary to constipation Abdominal CT and KUB with gastrograph relatively benign - large amount of stool in rectum. Repeat KUB shows improvement - passage of PO contrast in the rectum Dulcolax suppository(per rectum) daily PRN Fleets enema Toradol IV for pain control PRN zofran ODT for nausea Tolerating clear liquids, plan to advance to soft diet. Per surgery, if the patient can tolerate solid foods without abdominal pain, nausea or vomiting, she may be discharged home. Plan to observe today and likely discharge home tomorrow. (2) Constipation Qualifiers: Constipation type: unspecified constipation type Qualified Code(s): K59.00 - Constipation, unspecified Is this a current diagnosis for this admission?: Yes Plan: see plan above (3) History of aortic valve repair Is this a current diagnosis for this admission?: Yes Plan: Continue home dose Coumadin INR subtherapeutic, should be 2.5-3 for AVR Discussed with pharmacist, made adjustments to Coumadin dosing Will continue to follow INR (4) CAD (coronary artery disease) Qualifiers: Coronary Disease-Associated Artery/Lesion type: unspecified vessel or lesion type [place] vs. 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 library services assistant insulin use status Qualified Code(s): E11.9 - Type 2 diabetes mellitus without complications Is this a current diagnosis for this admission?: Yes Plan: Accu-Cheks every 6 hours Humalog sliding scale insulin (6) High serum lactate Is this a current diagnosis for this admission?: Yes Plan: Resolved Initial serum lactate 2.38 Following IVF resuscitation, repeat lactate 1.3 No longer need to trend unless patient condition decompensates - Time Time Spent with patient: 15-24 minutes Medications reviewed and adjusted accordingly: Yes Anticipated discharge: Home - Plan Summary Plan Summary: ADVANCE DIET. MONITOR INR. LIKELY D/C HOME TOMORROW
--- NOTE | 2018-09-07 19:42 | PDOC PROGRESS REPORT ---
Subjective Progress Note for:: 09/07/18 Subjective:: No pains Colostomy starting to function Tolerating liquids well Reason For Visit: SMALL BOWEL OBSTRUCTION Physical Exam Vital Signs: Temp Pulse Resp BP Pulse Ox 98.5 F 73 18 126/62 H 97 09/07/18 15:22 09/07/18 15:22 09/07/18 15:22 09/07/18 15:22 09/07/18 15:22 Intake & Output 09/06/18 09/07/18 09/08/18 06:59 06:59 06:59 Intake Total 1597 4244 2073 Output Total 800 3500 400 Balance 239 365 6667 Weight 89.3 kg 90.3 kg Exam: Has some gas with small amount of stool in the colostomy bag Abdomen is soft and non tender Results Laboratory Results: 09/07/18 05:24 09/07/18 05:24 09/07/18 09/07/18 05:24 05:24 WBC 6.1 RBC 3.70 L Hgb 11.2 L Hct 32.6 L MCV 88 MCH 30.3 MCHC 34.4 RDW 15.0 H Plt Count 120 L Seg Neutrophils % 37.7 L Lymphocytes % 48.0 H Monocytes % 9.3 Eosinophils % 4.5 Basophils % 0.5 Absolute Neutrophils 2.3 Absolute Lymphocytes 2.9 Absolute Monocytes 0.6 Absolute Eosinophils 0.3 Absolute Basophils 0.0 Sodium 144.4 Potassium 3.6 Chloride 114 H Carbon Dioxide 25 Anion Gap 5 BUN 9 Creatinine 0.75 Est GFR ( Amer) > 60 Est GFR (Non-Af Amer) > 60 Glucose 108 Calcium 8.4 09/05/18 04:49 NT-Pro-B Natriuret Pep 194 Impressions: Acute Abdomen Series 09/04/18 00:39 IMPRESSION: No acute cardiopulmonary disease. Nonobstructive bowel gas pattern. copyright 2011 [employer]- All Rights Reserved Abdomen/Pelvis CT 09/04/18 02:04 IMPRESSION: Small bowel obstruction in the mid abdomen as detailed above. Peristomal hernia containing multiple loops of small bowel however this does not appear to be the site of obstruction. KUB X-Ray 09/05/18 00:00 IMPRESSION: Oral contrast given for evaluation of small bowel is now seen in the colon in a nonobstructive pattern. 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
[2018-09-07] MEDS: SERTRALINE HCL 50 MG TABLET PO SCH (21:47)
[2018-09-07] MEDS: ATORVASTATIN CALCIUM 80 MG TABLET PO SCH (21:47)
[2018-09-07] MEDS: FERROUS SULFATE 325 MG TABLET PO SCH (21:48)
[2018-09-07] MEDS ORDERED: WARFARIN SODIUM 5 MG TABLET PO SCH (22:00)
[2018-09-08] MEDS: ACETAMINOPHEN 325 MG TABLET PO PRN (02:47)
[2018-09-08] MEDS: LEVOTHYROXINE SODIUM 0.112 MG TABLET PO SCH (05:41)
[2018-09-08] MEDS: LEVOTHYROXINE SODIUM 0.025 MG TABLET PO SCH (05:41)
[2018-09-08] MEDS: BUPROPION HCL 100 MG TABLET PO SCH (05:42)
[2018-09-08 05:58] LABS: INTERNATIONAL RATION (INR) 1.67; PROTHROMBIN TIME 20.5 SEC (11.4-15.4)
[2018-09-08] MEDS: CYANOCOBALAMIN (VITAMIN B-12) 1,000 MCG TABLET PO SCH (09:48)
[2018-09-08] MEDS: CHOLECALCIFEROL (D3) 1,000 UNIT TABLET PO SCH (09:48)
[2018-09-08] MEDS: GABAPENTIN 300 MG CAPSULE PO SCH (09:49)
[2018-09-08] MEDS: METOPROLOL SUCCINATE 50 MG TAB.SR.24H PO SCH (09:49)
[2018-09-08] MEDS: BISACODYL 10 MG SUPP.RECT PR SCH (09:50)
[2018-09-08] MEDS: PREGABALIN 25 MG CAPSULE PO SCH (09:57)
[2018-09-08 11:11] VITALS: BP 136/63
[2018-09-08] MEDS ORDERED: WARFARIN SODIUM 5 MG TABLET PO SCH (22:00)
--- NOTE | 2018-09-12 08:32 | PDOC DISCHARGE SUMMARY ---
General - Admit/Disc Date/PCP Admission Date/Primary Care Provider: 09/04/18 05:31 PILAR HUGO PA-C Discharge Date: 09/08/18 - Discharge Diagnosis (1) Abdominal pain Is this a current diagnosis for this admission?: Yes (2) Constipation Is this a current diagnosis for this admission?: Yes (3) History of aortic valve repair Is this a current diagnosis for this admission?: Yes (4) CAD (coronary artery disease) Is this a current diagnosis for this admission?: Yes (5) DM w/o complication type II Is this a current diagnosis for this admission?: Yes (6) High serum lactate Is this a current diagnosis for this admission?: Yes - Additional Information Resuscitation Status: Full Code Discharge Diet: Cardiac Discharge Activity: Activity As Tolerated Prescriptions: Bisacodyl [Dulcolax 10 mg Supp.rect] 10 mg WI DAILY #20 supp.rect Warfarin Sodium [Coumadin 5 mg Tablet] 10 mg PO SuTuThSa@2200 #30 tablet Warfarin Sodium [Coumadin 5 mg Tablet] 5 mg PO MoWeFr@2200 #30 tablet Home Medications: Alprazolam [Xanax 0.25 mg Tablet] 0.25 mg PO DAILYP PRN 09/04/18 Bupropion HCl [Bupropion HCl Sr] 150 mg PO Q12 09/04/18 Cholecalciferol (Vitamin D3) [Vitamin D3 2000 unit Tablet] 2,000 unit PO DAILY 09/04/18 Cyanocobalamin (Vitamin B-12) [Vitamin B-12] 6,000 mcg PO DAILY 09/04/18 Fluticasone Propionate [Flonase Nasal Lutz 50 Mcg/Lutz 16 gm] 1 spray NASL DAILY 09/04/18 Furosemide [Lasix 20 mg Tablet] 20 mg PO QAM 09/04/18 Gabapentin [Neurontin 300 mg Capsule] 300 mg PO BID 09/04/18 Glipizide [Glucotrol 10 mg Tablet] 10 mg PO BID 09/04/18 Iron 65 mg PO QHS 09/04/18 Levothyroxine Sodium [Synthroid] 137 mcg PO Q6AM 09/04/18 Loratadine [Claritin] 10 mg PO DAILY 09/04/18 Metformin HCl [Glucophage] 1,000 mg PO BID 09/04/18 Metoprolol Succinate [Toprol Xl 50 mg Tab.sr] 50 mg PO DAILY 09/04/18 Omeprazole 20 mg PO QAM 09/04/18 Ondansetron HCl [Zofran 4 mg Tablet] 4 mg PO Q4HP PRN 09/04/18 Oxycodone HCl/Acetaminophen [Percocet 5-325 mg Tablet] 1 tab PO DAILYP PRN 09/04/18 Polyethylene Glycol 3350 [Miralax Powder 17 gm/Packet] 17 gm PO DAILYP PRN 09/04/18 Pregabalin [Lyrica 25 mg Capsule] 25 mg PO BID 09/04/18 Rosuvastatin Calcium [Crestor] 40 mg PO QPM 09/04/18 Sertraline HCl [Zoloft] 12.5 mg PO QHS 09/04/18 Bisacodyl [Dulcolax 10 mg Supp.rect] 10 mg WI DAILY #20 supp.rect 09/08/18 Warfarin Sodium [Coumadin 5 mg Tablet] 5 mg PO MoWeFr@2200 #30 tablet 09/08/18 Warfarin Sodium [Coumadin 5 mg Tablet] 10 mg PO SuTuThSa@2200 #30 tablet 09/08/18 History of Present Illness History of Present Illness: LUIZA FARIA is a 68 year old female with a PMH of NIDDM, AVR on coumadin, post sigmoid colon resection with colostomy for perforated diverticulitis(2008). She presented to the emergency department for a chief complaint of sharp mid to upper abdominal pain that is worse on the left side and has some radiation to the flank. She also noted her colostomy bag not filling up. The patient was evaluated by surgery, an NG tube was placed to decompress the abdomen. Hydromorphone was offered for pain management and she was bolused with 1L NS IV. Abdominal CT and KUB relatively benign, demonstrating large amounts of stool in the rectum. No dilated small bowel loops on initial small bowel series films. Lactate 2.38. WBC slightly elevated to 12.8. All other lab work relatively benign. Upon assessment, the patient is resting in bed. She appears mildly distressed, states she had 'just finished vomiting.' The patient is alert and oriented, able to answer all questions appropriately. She is not writhing in pain but complains of significant abdominal pain and N/V. Her abdomen is soft, nondistended but tender to palpation. (+) BS. There is no output in her colostomy bag. According to Dr. Mark, Surgeon, there is no surgical intervention at this time. Plan to admit to hospitalist service for intractable pain. Hospital Course Hospital Course: LUIZA FARIA is a 68 year old female with a PMH of NIDDM, AVR on coumadin, post sigmoid colon resection with colostomy for perforated diverticulitis(2008). She was admitted to [facility] for N/V and intractable abdominal pain. Additionally, there had been no output in her colostomy bag for 24hrs. Surgery was consulted for assistance in management of this patient. A nasogastric tube was placed to decompress the abdomen. Initial CT and abdominal KUB (with gastrograph) both showed retained stool in rectum. There was no small bowel obstruction. The patient was offered dulcolax suppositories to relieve her constipation. Repeat KUB 24hr later revealed oral contrast seen in the colon in a nonobstructive pattern. The patient reported passing mucoid stool from her rectum. There r emained no output in her colostomy bag. Dr. Dooley was able to express a very small amount of stool into the colostomy bag. Her NG tube was removed. The following day, the patient reported a gradual increase in output to her colostomy bag. The patient was able to tolerate a PO diet and she continued to pass small amounts of stool from her rectum. According to Dr. Dooley, the retained stool is likely leftover from her hemicolectomy surgery (8 years ago). The patient's INR was noted to be subtherapeutic on routine lab work. The normal INR range for a patient on coumadin for an aortic valve replacement is 2.5-3. The patient's INR was 1.66. Her Coumadin schedule was 5mg /// and 10mg M o//. [facility] Pharmacist was consulted and they recommended changing the patient's coumadin schedule to the following: Coumadin 5 mg by mouth Saturday/Saturday/Saturday Coumadin 10 mg by mouth Saturday/Saturday//Saturday On the day of discharge, the patient's INR was still subtherapeutic. She was instructed to follow up with her senior administrative assistant's office within 3 days of discharge to re-check her INR level. The office staff would then make recommendations about future INR monitoring. The patient was also instructed to follow up with a guest services manager (her former doctor was no longer in practice). She was provided referrals for local gastroenterologists. The patient stated full understanding of her discharge instructions. For further information regarding her hospitalization, please refer to the EMR. Physical Exam Vital Signs: Temp Pulse Resp BP Pulse Ox 98.4 F 91 16 136/63 H 95 09/08/18 11:06 09/08/18 11:06 09/08/18 11:06 09/08/18 11:06 09/08/18 11:06 Results Laboratory Results: 09/07/18 05:24 09/07/18 05:24 09/05/18 04:49 NT-Pro-B Natriuret Pep 194 Impressions: Acute Abdomen Series 09/04/18 00:39 IMPRESSION: No acute cardiopulmonary disease. Nonobstructive bowel gas pattern. copyright 2011 [employer]- All Rights Reserved Abdomen/Pelvis CT 09/04/18 02:04 IMPRESSION: Small bowel obstruction in the mid abdomen as detailed above. Peristomal hernia containing multiple loops of small bowel however this does not appear to be the site of obstruction. KUB X-Ray 09/05/18 00:00 IMPRESSION: Oral contrast given for evaluation of small bowel is now seen in the colon in a nonobstructive pattern. No trapped loops of barium filled small bowel along the left lower quadrant stoma Qualifiers - * PATIENT BEING DISCHARGED WITH ANY OF THE FOLLOWING DIAGNOSIS: No
== END 2018-09-08 11:53 | disposition home or self-care (01) | DRG 392 ==
LOC: ER 23:52 → EH 09-04 05:31 → 3W 09-04 15:25
PROVIDERS: ADMIT Emergency Medicine; ATTEND Emergency Medicine
DX: K59.00 Constipation, unspecified (principal); R10.84 Generalized abdominal pain; I25.10 Atherosclerotic heart disease of native coronary artery without angina pectoris; I10 Essential (primary) hypertension; E78.5 Hyperlipidemia, unspecified; E11.9 Type 2 diabetes mellitus without complications; G47.33 Obstructive sleep apnea (adult) (pediatric); M19.90 Unspecified osteoarthritis, unspecified site; F32.9 Major depressive disorder, single episode, unspecified; Z79.01 Long term (current) use of anticoagulants; Z79.899 Other long term (current) drug therapy; Z95.2 Presence of prosthetic heart valve; Z93.3 Colostomy status; I25.2 Old myocardial infarction; Z95.1 Presence of aortocoronary bypass graft; Z95.5 Presence of coronary angioplasty implant and graft; Z87.891 Personal history of nicotine dependence
CPT/HCPCS: 36415; 74018; 74022; 74177; 80048; 80053; 81001; 82962; 83036; 83605; 83690; 83880; 85025; 85610; 94640; 94660; 96361; 96374; 96375; 96376; 99285; J1170; J1650; J1815; J2405; J3480; J3490; J7030; S0119; S0164

== ENCOUNTER 2018-09-19 03:02 | Emergency (ER) | payer MEDICARE, OTHER ==
[2018-09-19] MEDS ORDERED: ONDANSETRON HCL INJ/PF 4 MG/2 ML SDV IV ONE (04:03)
[2018-09-19 05:04] LABS: ABSOLUTE BASOPHILS # (AUTO) 0.1 10^3/uL (0.0-0.2); ABSOLUTE EOSINOPHILS # (AUTO) 0.7 10^3/uL (0.0-0.6); ABSOLUTE LYMPHOCYTES (AUTO) 3.9 10^3/uL (0.5-4.7); ABSOLUTE MONOCYTES (AUTO) 0.9 10^3/uL (0.1-1.4); ABSOLUTE NEUT (AUTO) 6.3 10^3/uL (1.7-8.2); BASOPHILS % (AUTO) 0.4 % (0-2); EOSINOPHILS % (AUTO) 5.6 % (0-6); HEMATOCRIT 42.6 % (36.0-47.0); HEMOGLOBIN 14.5 g/dL (12.0-15.5); LYMPHOCYTES % (AUTO) 32.8 % (13-45); MEAN CORPUSCULAR HEMOGLOBIN 29.9 pg (27.0-33.4); MEAN CORPUSCULAR VOLUME 88 fl (80-97); MONOCYTES % (AUTO) 7.8 % (3-13); PLATELET COUNT 225 10^3/uL (150-450); RED BLOOD COUNT 4.85 10^6/uL (3.72-5.28); RED CELL DISTRIBUTION WIDTH 15.3 % (11.5-14.0); SEGMENTED NEUTROPHILS % (AUTO) 53.4 % (42-78); TOTAL CELLS COUNTED % (AUTO) 100 %; WHITE BLOOD COUNT 11.8 10^3/uL (4.0-10.5)
[2018-09-19 05:10] LABS: PARTIAL THROMBOPLASTIN TIME 41.8 SEC (23.5-35.8); PROTHROMBIN TIME 20.8 SEC (11.4-15.4)
[2018-09-19 05:15] LABS: ALANINE AMINOTRANSFERASE 119 U/L (9-52); ALBUMIN 5.3 g/dL (3.5-5.0); ALKALINE PHOSPHATASE 65 U/L (38-126); ANION GAP 15 (5-19); ASPARTATE AMINO TRANSFERASE 169 U/L (14-36); BILIRUBIN,DIRECT 0.3 mg/dL (0.0-0.4); BILIRUBIN,TOTAL 0.9 mg/dL (0.2-1.3); BLOOD UREA NITROGEN 31 mg/dL (7-20); CALCIUM 10.8 mg/dL (8.4-10.2); CARBON DIOXIDE 20 mmol/L (22-30); CHLORIDE 108 mmol/L (98-107); GLUCOSE 128 mg/dL (75-110); LIPASE 369.9 U/L (23-300); POTASSIUM 4.4 mmol/L (3.6-5.0); SODIUM 143.1 mmol/L (137-145); TOTAL PROTEIN 8.9 g/dL (6.3-8.2)
[2018-09-19] MEDS ORDERED: NORMAL SALINE 1000 ML 1,000 ML IV ONE (07:58)
[2018-09-19] MEDS ORDERED: ONDANSETRON HCL INJ/PF 4 MG/2 ML SDV ONE (08:13)
--- NOTE | 2018-09-19 08:30 | ER Document Report ---
ED General - General Chief Complaint: Nausea/Vomiting/Diarrhea Stated Complaint: VOMITING/DIARRHEA Time Seen by Provider: 09/19/18 07:56 Primary Care Provider: PILAR HUGO PA-C [ACTIVE STAFF] - Follow up as needed TRAVEL OUTSIDE OF THE [place] IN LAST 30 DAYS: No - HPI Notes: Patient is a 68-year-old female that presents to the emergency department for chief complaint of abdominal pain and increased colostomy output. Patient reports for the past 2-3 days she has had a sharp epigastric pain. She describes it is constant and achy. She reports nausea with vomiting that s tarted yesterday. She also reports over the last few days she has had increased liquidy and gassy output in her colostomy. She does not pass any rectal stool. Patient states she has had similar symptoms and was recently in the hospital for them. She was feeling better after being seen in the hospital but never had symptoms completely resolved. She denies any associated fevers, chills, chest p ain, shortness of breath and fevers. She does report intermittent chills. Past Medical History: Diabetes Past Surgical History: Aortic valve replacement, colectomy and partial small bowel resection with colostomy Social History: Denies drugs alcohol or tobacco Family History: Reviewed and noncontributory for presenting illness Allergies: Reviewed, see documented allergy list. REVIEW OF SYSTEMS: CONSTITUTIONAL : No fever chills No diaphoresis No recent illness EENT: No vision changes No congestion No sore throat CARDIOVASCULAR: No chest pain No palpitations RESPIRATORY: No shortness of breath No cough No difficulty breathing GASTROINTESTINAL: abdominal pain nausea vomiting diarrhea GENITOURINARY: No dysuria No hematuria No difficulty urinating MUSCULOSKELETAL: No back pain No leg pain No arm pain SKIN: No rashes No lesions LYMPHATIC: No swollen, enlarged glands. NEUROLOGICAL: No lightheadedness No headache No weakness No paresthesias PSYCHIATRIC: No anxiety No depression PHYSICAL EXAMINATION: Vital signs reviewed, nursing noted reviewed. GENERAL: Well-appearing, well-nourished and in no acute distress. HEAD: Atraumatic, normocephalic. EYES: Eyes appear normal, extraocular movements intact, sclera anicteric, conjunctiva are normal. ENT: nares patent, oropharynx clear without exudates. Moist mucous membranes. NECK: Normal range of motion, supple without lymphadenopathy LUNGS: Breath sounds clear to auscultation bilaterally and equal. No wheezes rales or rhonchi. HEART: Regular rate and rhythm without murmurs ABDOMEN: Soft, epigastric tenderness, colostomy clean, dry, intact with no surrounding erythema or tenderness. No rebound, guarding, or rigidity. No masses appreciated. EXTREMITIES: Nontender, good range of motion, no pitting or edema. NEUROLOGICAL: No focal neurological deficits. Moves all extremities spontaneously Motor and sensory grossly intact on exam. PSYCH: Normal mood, normal affect. SKIN: Warm, Dry, normal turgor, no rashes or lesions noted on exposed skin - Related Data Allergies/Adverse Reactions: No Known Allergies Allergy (Verified 05/08/18 17:55) Past Medical History - Social History Smoking Status: Never Smoker Family History: CAD, DM, Other - RECTAL CA - Past Medical History Cardiac Medical History: Reports: Hx Coronary Artery Disease, Hx Heart Attack - x3, Hx Hypercholesterolemia, Hx Hypertension Pulmonary Medical History: Denies: Hx Asthma, Hx Bronchitis, Hx COPD, Hx Pneumonia Neurological Medical History: Denies: Hx Cerebrovascular Accident, Hx Seizures Endocrine Medical History: Reports: Hx Diabetes Mellitus Type 2 Renal/ Medical History: Denies: Hx Peritoneal Dialysis Musculoskeletal Medical History: Reports Hx Arthritis Skin Medical History: Reports Hx MRSA Psychiatric Medical History: Reports: Hx Depression Past Surgical History: Reports: Hx Abdominal Surgery - colostomy;bowel removal;herniax2, Hx Appendectomy, Hx Cardiac Catheterization - stent, quad bypass. aortic valve replacement, Hx Cardiac Surgery - CABG, Hx Genitourinary Surgery - colostomy, Hx Hysterectomy, Hx Orthopedic Surgery - carpal tunner syndrome, Hx Valve Replacement, Other - hernia repairs. Not sure if mesh was used.. Denies: Hx Gynecologic Surgery - Immunizations Hx Diphtheria, Pertussis, Tetanus Vaccination: Yes Hx Pneumococcal Vaccination: 06/12/11 Physical Exam - Vital signs Vitals: Temp Pulse Resp BP Pulse Ox 98.6 F 87 16 121/68 97 09/19/18 03:27 09/19/18 03:27 09/19/18 03:27 09/19/18 03:27 09/19/18 03:27 Course - Re-evaluation Re-evalutation: 09/19/18 08:30 Vitals reviewed. Nursing notes reviewed. Patient given IV fluids, pain medicine and antiemetics for symptomatic management. Lab work shows a slight elevation in her lipase and she does have correlating epigastric tenderness to suggest a early pancreatitis. She denies history of pancreas otitis in the past. CT scan will be ordered to obtain for possible small bowel obstruction and pancreatic inflammation. 09/19/18 09:27 Patient reevaluated and is feeling improved. Her lab work shows a slight elevation of creatinine suggestive of dehydration. Patient did receive 1500 mL normal saline in the ED. She was counseled on increasing her oral hydration and feels she will be able to do so. She has a prescription for Zofran at home which she will take to assist with her nausea. She will follow closely with primary care for reevaluation if she is not improving. She will return to the emergency room if she feels she is unable to stay well-hydrated or for any new concerning symptoms. She is stable at discharge. Laboratory 09/19/18 09/19/18 09/19/18 04:35 04:35 04:35 WBC 11.8 H RBC 4.85 Hgb 14.5 Hct 42.6 MCV 88 MCH 29.9 MCHC 34.0 RDW 15.3 H Plt Count 225 Seg Neutrophils % 53.4 Lymphocytes % 32.8 Monocytes % 7.8 Eosinophils % 5.6 Basophils % 0.4 Absolute Neutrophils 6.3 Absolute Lymphocytes 3.9 Absolute Monocytes 0.9 Absolute Eosinophils 0.7 H Absolute Basophils 0.1 PT 20.8 H INR 1.70 APTT 41.8 H Sodium 143.1 Potassium 4.4 Chloride 108 H Carbon Dioxide 20 L Anion Gap 15 BUN 31 H Creatinine 1.49 H Est GFR ( Amer) 42 L Est GFR (Non-Af Amer) 35 L Glucose 128 H Calcium 10.8 H Total Bilirubin 0.9 Direct Bilirubin 0.3 Neonat Total Bilirubin Not Reportable Neonat Direct Bilirubin Not Reportable Neonat Indirect Bili Not Reportable AST 169 H ALT 119 H Alkaline Phosphatase 65 Total Protein 8.9 H Albumin 5.3 H Lipase 369.9 H Abdomen/Pelvis CT 09/19/18 07:57 IMPRESSION: No acute findings. - Vital Signs Vital signs: Temp Pulse Resp BP Pulse Ox 98.6 F 87 16 121/68 97 09/19/18 03:27 09/19/18 03:27 09/19/18 03:27 09/19/18 03:27 09/19/18 03:27 - Laboratory Result Diagrams: 09/19/18 04:35 09/19/18 04:35 Laboratory results interpreted by me: 09/19/18 09/19/18 09/19/18 04:35 04:35 04:35 WBC 11.8 H RDW 15.3 H Absolute Eosinophils 0.7 H PT 20.8 H APTT 41.8 H Chloride 108 H Carbon Dioxide 20 L BUN 31 H Creatinine 1.49 H Est GFR ( Amer) 42 L Est GFR (Non-Af Amer) 35 L Glucose 128 H Calcium 10.8 H AST 169 H ALT 119 H Total Protein 8.9 H Albumin 5.3 H Lipase 369.9 H Discharge - Discharge Clinical Impression: Dehydration Diarrhea Qualifiers: Diarrhea type: unspecified type Qualified Code(s): R19.7 - Diarrhea, unspecified Abdominal pain Qualifiers: Abdominal location: epigastric Qualified Code(s): R10.13 - Epigastric pain Condition: Stable Disposition: HOME, SELF-CARE Instructions: Abdominal Pain ([facility]), Dehydration ([facility]) Additional Instructions: Please return to the emergency department if you have any worsening, or concern of your symptoms. Please return to the emergency department if you develop chest pain, difficulty breathing, severe abdominal pain, or ongoing vomiting. Please follow-up with your primary care physician in 2-3 days and any other recommended physicians. If prescribed, take all medications as directed. If you have any questions or concerns do not hesitate to return the emergency department for evaluation. See her primary care doctor on Saturday for reevaluation of your dehydration and to have your kidney function rechecked. Referrals: PILAR HUGO PA-C [ACTIVE STAFF] - 09/22/18
--- NOTE | 2018-09-19 09:00 | RADIOLOGY REPORT (SQ) ---
EXAM DESCRIPTION: CT ABD/PELVIS WITH IV ONLY COMPLETED DATE/TIME: 09/19/2018 8:44 am REASON FOR STUDY: abdominal pain COMPARISON: 09/04/2018 TECHNIQUE: CT scan of the abdomen and pelvis performed using helical scanning technique with dynamic intravenous contrast injection. No oral contrast. Images reviewed with lung, soft tissue, and bone windows. Reconstructed coronal and sagittal MPR images reviewed. Delayed images for evaluation of the urinary system also acquired. All images stored on PACS. All CT scanners at this facility use dose modulation, iterative reconstruction, and/or weight based d osing when appropriate to reduce radiation dose to as low as reasonably achievable (ALARA). [facility]: Dose Right [facility]: CareDose [facility]: Dose Right [facility]: Teradose 4D [facility]: Avectra CONTRAST TYPE AND DOSE: contrast/concentration: Isovue 350.00 mg/ml; Total Contrast Delivered: 94.0 ml; Total Saline Delivered: 71.0 ml RENAL FUNCTION: BUN 31 creatinine 1.5 RADIATION DOSE: CT Rad equipment meets quality standard of care and radiation dose reduction techniq ues were employed. CTDIvol: 12.5 - 17.0 mGy. DLP: 1612 mGy-cm.. LIMITATIONS: None. FINDINGS: LOWER CHEST: No significant findings. No nodules or infiltrates. LIVER: Normal size. No masses. No dilated ducts. SPLEEN: Normal size. No focal lesions. PANCREAS: No masses. No significant calcifications. No adjacent inflammation or peripancreatic fluid collections. Pancreatic duct not dilated. GALLBLADDER: No identified stones by CT criteria. No inflammatory changes to suggest cholecystitis. ADRENAL GLANDS: No significant masses or asymmetry. RIGHT KIDNEY AND URETER: No solid masses. No significant calcifications. No hydronephrosis or hyd roureter. LEFT KIDNEY AND URETER: No solid masses. No significant calcifications. No hydronephrosis or hydr oureter. AORTA AND VESSELS: No aneurysm. RETROPERITONEUM: No retroperitoneal adenopathy, hemorrhage or masses. BOWEL AND PERITONEAL CAVITY: Status post sigmoid colectomy and left lower quadrant ostomy. No obstru ction. No ascites or free air. APPENDIX: Surgically absent. PELVIS: No mass. No free fluid. Normal bladder. ABDOMINAL WALL: Unchanged parastomal hernia. BONES: Nothing acute. OTHER: No other significant finding. IMPRESSION: No acute findings. TECHNICAL DOCUMENTATION: JOB ID: [id number] Quality ID # [id number]: Final reports with documentation of one or more dose reduction techniques (e.g., Au tomated exposure control, adjustment of the mA and/or kV according to patient size, use of iterative reconstruction technique) 2010 [employer]- All Rights Reserved Reading location - IP/workstation name: [email or web address]-
[2018-09-19] MEDS ORDERED: NORMAL SALINE 500 ML IV ONE (09:30)
[2018-09-19 11:36] VITALS: BP 178/96
== END 2018-09-19 11:36 | disposition home or self-care (01) ==
LOC: ER 03:02
DX: R10.13 Epigastric pain (principal); R19.7 Diarrhea, unspecified; R11.2 Nausea with vomiting, unspecified; E86.0 Dehydration; R68.83 Chills (without fever); R74.8 Abnormal levels of other serum enzymes; R10.816 Epigastric abdominal tenderness; I25.10 Atherosclerotic heart disease of native coronary artery without angina pectoris; I10 Essential (primary) hypertension; E11.9 Type 2 diabetes mellitus without complications; Z93.3 Colostomy status; Z90.49 Acquired absence of other specified parts of digestive tract; Z95.2 Presence of prosthetic heart valve
CPT/HCPCS: 99284; 96361; 96374; 36415; 83690; 85025; 85610; 85730; 80053; 74177; J2405; J7030; J7040

== ENCOUNTER 2018-10-18 13:57 | Emergency (ER) | payer MEDICARE, OTHER ==
--- NOTE | 2018-10-18 14:59 | ER Document Report ---
HPI - HPI Patient complains to provider of: Shoulder, elbow pain Time Seen by Provider: 10/18/18 14:38 Onset/Duration: Persistent Quality of pain: Achy Pain Level: 5 Context: Patient reports left shoulder pain for the past 5 days and a left elbow pain that started yesterday. Patient denies any injury. Patient is right-hand dominant. Patient does report a history of rheumatoid arthritis. Associated Symptoms: Other - Left shoulder, left elbow pain. denies: Fever Exacerbated by: Movement Relieved by: Remaining still Similar symptoms previously: No Recently seen / treated by doctor: No - ROS ROS below otherwise negative: Yes Systems Reviewed and Negative: Yes All other systems reviewed and negative - CONSTITUTIONAL Constitutional: DENIES: Fever, Chills - NEURO Neurology: DENIES: Headache - CARDIOVASCULAR Cardiovascular: DENIES: Chest pain - RESPIRATORY Respiratory: DENIES: Trouble Breathing - GASTROINTESTINAL Gastrointestinal: DENIES: Nausea - REPRODUCTIVE Reproductive: DENIES: : - MUSCULOSKELETAL Musculoskeletal: REPORTS: Extremity pain. DENIES: Swelling - DERM Skin Color: Normal Skin Problems: None Past Medical History - General Information source: Patient - Social History Smoking Status: Never Smoker Frequency of alcohol use: None Drug Abuse: None Occupation: None Family History: CAD, DM, Other - RECTAL CA - Past Medical History Cardiac Medical History: Reports: Hx Coronary Artery Disease, Hx Heart Attack - x3, Hx Hypercholesterolemia, Hx Hypertension Neurological Medical History: Denies: Hx Cerebrovascular Accident, Hx Seizures Endocrine Medical History: Reports: Hx Diabetes Mellitus Type 2 Renal/ Medical History: Denies: Hx Peritoneal Dialysis Musculoskeletal Medical History: Reports Hx Arthritis Skin Medical History: Reports Hx MRSA Psychiatric Medical History: Reports: Hx Depression Past Surgical History: Reports: Hx Abdominal Surgery - colostomy;bowel removal;herniax2, Hx Appendectomy, Hx Cardiac Catheterization - stent, quad bypass. aortic valve replacement, Hx Cardiac Surgery - CABG, Hx Genitourinary Surgery - colostomy, Hx Hysterectomy, Hx Orthopedic Surgery - carpal tunner syndrome, Hx Valve Replacement, Other - hernia repairs. Not sure if mesh was used.. Denies: Hx Gynecologic Surgery - Immunizations Hx Diphtheria, Pertussis, Tetanus Vaccination: Yes Hx Pneumococcal Vaccination: 06/12/11 Vertical Provider Document - CONSTITUTIONAL Agree With Documented VS: Yes Exam Limitations: No Limitations General Appearance: WD/WN, No Apparent Distress - INFECTION CONTROL TRAVEL OUTSIDE OF THE [place] IN LAST 30 DAYS: No - HEENT HEENT: Atraumatic, Normocephalic - NECK Neck: Normal Inspection, Supple - RESPIRATORY Respiratory: Breath Sounds Normal, No Respiratory Distress - CARDIOVASCULAR Cardiovascular: Regular Rate, Regular Rhythm Pulses: Normal: Radial - BACK Back: Normal Inspection - MUSCULOSKELETAL/EXTREMETIES Musculoskeletal/Extremeties: MAEW, FROM, Tender - Left shoulder joint overlying left AC joint, left elbow tenderness over lateral epicondyle, normal skin color overlying joints. Mild warmth to left shoulder and left elbow joint. Patient with full range of motion and no edema. - NEURO Level of Consciousness: Awake, Alert, Appropriate Motor/Sensory: No Motor Deficit, No Sensory Deficit - DERM Integumentary: Warm, Dry, No Rash Course - Re-evaluation Re-evalutation: 10/18/18 14:56 Suspect patient is having a flareup of her rheumatoid arthritis. Patient states she was on a different medication although could not afford to continue that to help manage her symptoms. Patient without any findings worrisome for septic art hritis at this time. Patient states that she cannot take steroids due to a history of GI bleed because in the past due to steroid use. Patient not a candidate for NSAIDs given her underlying history. Will treat with short course of pain medication. Discussed worsening symptoms that patient should return immediately for. Patient verbalized understanding and agrees with plan of care. - Vital Signs Vital signs: Temp Pulse Resp BP Pulse Ox 98.2 F 84 16 147/65 H 98 10/18/18 14:04 10/18/18 14:04 10/18/18 14:04 10/18/18 14:04 10/18/18 14:04 Procedures - Immobilization Left Shoulder Pre-Proc Neuro Vasc Exam: Normal Immobilizer type: Sling Performed by: PCT Post-Proc Neuro Vasc Exam: Normal Alignment checked and good: Yes Discharge - Discharge Clinical Impression: Left elbow pain Rheumatoid arthritis Qualifiers: Rheumatoid arthritis location: unspecified site Rheumatoid factor presence: unspecified presence Qualified Code(s): M06.9 - Rheumatoid arthritis, unspecified Left shoulder pain Qualifiers: Chronicity: acute Qualified Code(s): M25.512 - Pain in left shoulder Condition: Stable Disposition: HOME, SELF-CARE Instructions: Oral Narcotic Medication ([facility]), Rheumatoid Arthritis ([facility]) Additional Instructions: Return immediately for any new or worsening symptoms Followup with your primary care provider, call tomorrow to make a followup appointment Follow-up with your ship propeller finisher for recheck Notify your pain management doctor Saturday of your visit here over the weekend. Prescriptions: Oxycodone HCl/Acetaminophen [Percocet 5-325 mg Tablet] 1 tab PO ASDIR PRN #15 tablet PRN Reason: Referrals: FRANKLYN RESENDIZ MD [ACTIVE STAFF] - Follow up as needed
[2018-10-18 15:25] VITALS: BP 140/68
== END 2018-10-18 15:25 | disposition home or self-care (01) ==
LOC: ER 13:57
DX: M06.9 Rheumatoid arthritis, unspecified (principal); M25.512 Pain in left shoulder; M25.522 Pain in left elbow; I25.10 Atherosclerotic heart disease of native coronary artery without angina pectoris; I10 Essential (primary) hypertension; E11.9 Type 2 diabetes mellitus without complications; Z95.1 Presence of aortocoronary bypass graft; Z95.5 Presence of coronary angioplasty implant and graft; Z95.2 Presence of prosthetic heart valve
CPT/HCPCS: 99283

== ENCOUNTER → 2018-10-22 | Outpatient (CLI) | payer MEDICARE, OTHER ==
--- NOTE | 2018-10-22 11:08 | RADIOLOGY REPORT (SQ) ---
EXAM DESCRIPTION: ELBOW LEFT AP/LATERAL COMPLETED DATE/TIME: 10/22/2018 10:46 am REASON FOR STUDY: M24.622 ANKYLOSIS, LEFT ELBOW M24.622 ANKYLOSIS, LEFT ELBOW COMPARISON: None. NUMBER OF VIEWS: Two views TECHNIQUE: AP and lateral radiographic images acquired of the left elbow. LIMITATIONS: None. FINDINGS: MINERALIZATION: Normal. BONES: No acute fracture or dislocation. There is and olecranon spur. JOINT: No effusion. SOFT TISSUES: No soft tissue swelling. No foreign body. OTHER: No other significant finding. IMPRESSION: Olecranon spur. No acute abnormality. TECHNICAL DOCUMENTATION: JOB ID: [id number] [employer]- All Rights Reserved Reading location - IP/workstation name: [email or web address]
== END ==
LOC: RAD 10:24
PROVIDERS: ATTEND Internal Medicine
DX: M24.622 Ankylosis, left elbow (principal)

== ENCOUNTER → 2018-11-19 | Outpatient (CLI) | payer MEDICARE, OTHER ==
--- NOTE | 2018-11-19 18:32 | RADIOLOGY REPORT (SQ) ---
EXAM DESCRIPTION: SHOULDER LEFT 2 OR MORE VIEWS COMPLETED DATE/TIME: 11/19/2018 5:42 pm REASON FOR STUDY: M24.612 ANKYLOSIS, LEFT SHOULDER M24.612 ANKYLOSIS, LEFT SHOULDER COMPARISON: None. NUMBER OF VIEWS: Three views. TECHNIQUE: Internal rotation, external rotation, and Y view images acquired of the left shoulder. LIMITATIONS: None. FINDINGS: MINERALIZATION: Normal. BONES: No acute fracture or dislocation. No worrisome bone lesions. JOINTS: No dislocation. VISUALIZED LUNGS AND RIBS: No pneumothorax. No rib fracture. SOFT TISSUES: No radiopaque foreign body. OTHER: No other significant finding. IMPRESSION: NEGATIVE STUDY OF THE LEFT SHOULDER. NO RADIOGRAPHIC EVIDENCE OF ACUTE INJURY. TECHNICAL DOCUMENTATION: JOB ID: [id number] [employer]- All Rights Reserved Reading location - IP/workstation name: [email or web address]
== END ==
LOC: RAD 17:29
PROVIDERS: ATTEND Internal Medicine
DX: M24.612 Ankylosis, left shoulder (principal)

== ENCOUNTER 2019-01-03 13:29 | Emergency (ER) | payer MEDICARE, OTHER ==
--- NOTE | 2019-01-03 14:02 | ER Document Report ---
ED Medical Screen (RME) - General Chief Complaint: Insect Bite Stated Complaint: ARM PAIN Time Seen by Provider: 01/03/19 13:57 Primary Care Provider: LESLIE LOPEZ MD [Primary Care Provider] - Follow up as needed Mode of Arrival: Ambulatory Information source: Patient Notes: 68-year-old female presents to ED for weakness sweaty weak feeling weird. She states she is type II diabetic so she stopped somewhere in 8 to be sure that it was not low blood sugar. She had been bit by a bug on the left upper arm and is not sure if the symptoms are from the bug or from the diabetes. She states she came to the ED to make sure that she was okay. She is alert oriented respirations regular and unlabored speaking in full sentences walks with a even steady gait. I have greeted and performed a rapid initial assessment of this patient. A comprehensive ED assessment and evaluation of the patient, analysis of test results and completion of medical decision making process will be conducted by an additional ED providers. Dictation of this chart was performed using voice recognition software; therefore, there may be some unintended grammatical errors. TRAVEL OUTSIDE OF THE [place] IN LAST 30 DAYS: No - Related Data Allergies/Adverse Reactions: ants Allergy (Uncoded 01/03/19 13:34) Past Medical History - Past Medical History Cardiac Medical History: Reports: Hx Coronary Artery Disease, Hx Heart Attack - x3, Hx Hypercholesterolemia, Hx Hypertension Pulmonary Medical History: Denies: Hx Asthma, Hx Bronchitis, Hx COPD, Hx Pneumonia Neurological Medical History: Denies: Hx Cerebrovascular Accident, Hx Seizures Endocrine Medical History: Reports: Hx Diabetes Mellitus Type 2 Renal/ Medical History: Denies: Hx Peritoneal Dialysis Musculoskeltal Medical History: Reports Hx Arthritis Skin Medical History: Reports Hx MRSA Psychiatric Medical History: Reports: Hx Depression Past Surgical History: Reports: Hx Abdominal Surgery - colostomy;bowel removal;herniax2, Hx Appendectomy, Hx Cardiac Catheterization - stent, quad bypass. aortic valve replacement, Hx Cardiac Surgery - CABG, Hx Genitourinary Surgery - colostomy, Hx Hysterectomy, Hx Orthopedic Surgery - carpal tunner syndrome, Hx Valve Replacement, Other - hernia repairs. Not sure if mesh was used.. Denies: Hx Gynecologic Surgery - Immunizations Hx Diphtheria, Pertussis, Tetanus Vaccination: Yes Physical Exam - Vital signs Vitals: Temp Pulse Resp BP Pulse Ox 98.3 F 86 20 119/67 95 01/03/19 13:35 01/03/19 13:35 01/03/19 13:35 01/03/19 13:35 01/03/19 13:35 Course - Vital Signs Vital signs: Temp Pulse Resp BP Pulse Ox 98.3 F 86 20 119/67 95 01/03/19 13:35 01/03/19 13:35 01/03/19 13:35 01/03/19 13:35 01/03/19 13:35 Doctor's Discharge - Discharge Referrals: LESLIE LOPEZ MD [Primary Care Provider] - Follow up as needed
[2019-01-03 14:34] LABS: ABSOLUTE EOSINOPHILS # (AUTO) 0.2 10^3/uL (0.0-0.6); ABSOLUTE LYMPHOCYTES (AUTO) 2.6 10^3/uL (0.5-4.7); ABSOLUTE MONOCYTES (AUTO) 0.7 10^3/uL (0.1-1.4); ABSOLUTE NEUT (AUTO) 3.9 10^3/uL (1.7-8.2); BASOPHILS % (AUTO) 0.5 % (0-2); EOSINOPHILS % (AUTO) 2.8 % (0-6); HEMATOCRIT 36.6 % (36.0-47.0); HEMOGLOBIN 12.2 g/dL (12.0-15.5); MEAN CORPUSCULAR HEMOGLOBIN 30.6 pg (27.0-33.4); MEAN CORPUSCULAR HGB CONC 33.4 g/dL (32.0-36.0); MEAN CORPUSCULAR VOLUME 92 fl (80-97); MONOCYTES % (AUTO) 9.3 % (3-13); PLATELET COUNT 193 10^3/uL (150-450); RED BLOOD COUNT 3.99 10^6/uL (3.72-5.28); RED CELL DISTRIBUTION WIDTH 14.9 % (11.5-14.0); SEGMENTED NEUTROPHILS % (AUTO) 52.4 % (42-78); TOTAL CELLS COUNTED % (AUTO) 100 %; WHITE BLOOD COUNT 7.4 10^3/uL (4.0-10.5)
[2019-01-03] MEDS ORDERED: FAMOTIDINE 20 MG TABLET PO ONE (14:54)
[2019-01-03] MEDS ORDERED: ONDANSETRON 4 MG TAB.RAPDIS PO ONE (14:55)
[2019-01-03 14:57] LABS: ALANINE AMINOTRANSFERASE 75 U/L (9-52); ALBUMIN 4.5 g/dL (3.5-5.0); ALKALINE PHOSPHATASE 49 U/L (38-126); ANION GAP 12 (5-19); ASPARTATE AMINO TRANSFERASE 103 U/L (14-36); BILIRUBIN,DIRECT 0.3 mg/dL (0.0-0.4); BILIRUBIN,TOTAL 1.3 mg/dL (0.2-1.3); BLOOD UREA NITROGEN 20 mg/dL (7-20); CALCIUM 9.9 mg/dL (8.4-10.2); CARBON DIOXIDE 26 mmol/L (22-30); CHLORIDE 106 mmol/L (98-107); GLUCOSE 193 mg/dL (75-110); POTASSIUM 3.9 mmol/L (3.6-5.0); SODIUM 143.7 mmol/L (137-145); TOTAL PROTEIN 7.7 g/dL (6.3-8.2)
--- NOTE | 2019-01-03 14:57 | ER Document Report ---
ED Skin Rash/Insect Bite/Abscs - General Chief Complaint: Insect Bite Stated Complaint: ARM PAIN Time Seen by Provider: 01/03/19 13:57 Primary Care Provider: LESLIE LOPEZ MD [Primary Care Provider] - Follow up as needed Mode of Arrival: Ambulatory Information source: Patient TRAVEL OUTSIDE OF THE [place] IN LAST 30 DAYS: No - HPI Patient complains to provider of: Insect sting Notes: Patient states that she was stung by a possible wasp on the left upper arm earlier this morning. Patient says since that time she has noticed some redness and swelling to the area. It is itchy and mildly painful. She denies any difficulty breathing or swallowing, lip swelling or tongue swelling, chest pain or shortness of breath. She states that since she got stung she has felt a little nauseous and woozy. She denies any unilateral numbness, tingling, weakness. No blurred or loss vision. She has a history of significant reaction to ant bites causing her to use appendectomy in the past. She denies any heada rossy. No other complaints at this time. - Related Data Allergies/Adverse Reactions: ants Allergy (Uncoded 01/03/19 13:34) Past Medical History - General Information source: Patient - Social History Smoking Status: Former Smoker Family History: CAD, DM, Other - RECTAL CA Patient has suicidal ideation: No Patient has homicidal ideation: No - Past Medical History Cardiac Medical History: Reports: Hx Coronary Artery Disease, Hx Heart Attack - x3, Hx Hypercholesterolemia, Hx Hypertension Pulmonary Medical History: Denies: Hx Asthma, Hx Bronchitis, Hx COPD, Hx Pneumonia Neurological Medical History: Denies: Hx Cerebrovascular Accident, Hx Seizures Endocrine Medical History: Reports: Hx Diabetes Mellitus Type 2 Renal/ Medical History: Denies: Hx Peritoneal Dialysis Musculoskeletal Medical History: Reports Hx Arthritis Skin Medical History: Reports Hx MRSA Psychiatric Medical History: Reports: Hx Depression Past Surgical History: Reports: Hx Abdominal Surgery - colostomy;bowel removal;herniax2, Hx Appendectomy, Hx Cardiac Catheterization - stent, quad bypass. aortic valve replacement, Hx Cardiac Surgery - CABG, Hx Genitourinary Surgery - colostomy, Hx Hysterectomy, Hx Orthopedic Surgery - carpal tunner syndrome, Hx Valve Replacement, Other - hernia repairs. Not sure if mesh was used.. Denies: Hx Gynecologic Surgery - Immunizations Hx Diphtheria, Pertussis, Tetanus Vaccination: Yes Hx Pneumococcal Vaccination: 06/12/11 Review of Systems - Review of Systems -: Yes All other systems reviewed and negative Physical Exam - Vital signs Vitals: Temp Pulse Resp BP Pulse Ox 98.3 F 86 20 119/67 95 01/03/19 13:35 01/03/19 13:35 01/03/19 13:35 01/03/19 13:35 01/03/19 13:35 - Notes Notes: GENERAL: alert, cooperative, nontoxic, no distress. HEAD: normocephalic, atraumatic EYES: conjunctiva pink without discharge, no external redness or swelling. EARS: no external swelling, no external redness NOSE: atraumatic, no external swelling MOUTH/THROAT: mucous membranes moist and pink, posterior pharynx without erythema, swelling, exudate. No trismus or drooling. NECK: soft, supple, full range of motion, no meningismus. CHEST: no distress, lungs clear and equal throughout. No wheezing, rales, rhonchi. CARDIAC: regular rate and rhythm, no murmur, normal capillary refill, normal pulses. No peripheral edema noted. ABDOMEN: Soft, nontender. BACK: full range of motion, no CVA tenderness. EXTREMITIES: full range of motion of all extremities. No redness, no swelling. NEURO: alert and oriented x 3, no focal deficits, full range of motion of all extremities. PYSCH: appropriate mood, affect. Patient is cooperative. SKIN: pink, warm, dry, urticarial lesion to the left bicep area. No significant tenderness to palpation. Compartments are soft. Normal pulse and sensation distally. No other rash noted. Course - Re-evaluation Re-evalutation: 01/03/19 15:33 Patient nontoxic-appearing stable vitals. Patient is here with complaints of insect bite to the left arm that happened earlier today. She complains of itching and redness to the area. No significant pain. She states that after she got bit she was also feeling little nauseous and woozy. No chest pain or shortness of breath. On exam she has an urticarial lesion to the left bicep area with no significant tenderness. Compartments are soft. Normal pulse and sensation distally. The remainder of her exam is unremarkable. Patient drove herself here. She already takes a nondrowsy antihistamine daily which she took already. She is given a dose of Pepcid and Zofran here in the emergency department. 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 She is requesting a refill on her EpiPen which is reasonable. This point the patient will be discharged home with a prescription for Pepcid, hydrocortisone, refill on her EpiPen. Follow-up with her doctor if not better in the next 24 to 48 hours. She is instructed to apply cool compresses to the sore area. She can take Benadryl tonight when she gets home. She should follow-up sooner if she develops worsening pain, swelling, fever, redness, pain, difficulty breathing or swallowing, persistent vomiting, chest pain or shortness of breath, or for any further concerns. The patient's emergency department workup and current diagnosis were explained to the patient and or family. Follow-up instructions were provided. Medications if prescribed were discussed. Instructions for when to return to the emergency department including specific worrisome symptoms were discussed with the patient and/or family. - Vital Signs Vital signs: Temp Pulse Resp BP Pulse Ox 98.3 F 86 20 119/67 95 01/03/19 13:35 01/03/19 13:35 01/03/19 13:35 01/03/19 13:35 01/03/19 13:35 - Laboratory Result Diagrams: 01/03/19 14:21 01/03/19 14:21 Laboratory results interpreted by me: 01/03/19 01/03/19 01/03/19 14:19 14:21 14:21 RDW 14.9 H Est GFR ( Amer) 57 L Est GFR (Non-Af Amer) 47 L Glucose 193 H POC Glucose 183 H AST 103 H ALT 75 H Discharge - Discharge Clinical Impression: Allergic reaction Qualifiers: Encounter type: initial encounter Qualified Code(s): T78.40XA - Allergy, unspecified, initial encounter Insect sting allergy, current reaction Qualifiers: Encounter type: initial encounter Injury intent: accidental or unintentional Qualified Code(s): T63.481A - Toxic effect of venom of other arthropod, accidental (unintentional), initial encounter Condition: Stable Disposition: HOME, SELF-CARE Instructions: Insect Sting ([facility]), Swollen Insect Bite or Sting ([facility]) Additional Instructions: Take medication as prescribed. Apply cool compresses/ice to your swollen area. Take Benadryl as needed for itching. Follow-up with your doctor if not better in the next 2 to 3 days, sooner for worsening pain, fever, swelling, difficulty breathing or swelling, lip or tongue swelling, persistent vomiting, or for any further concerns. Prescriptions: Epinephrine 0.3 mg IJ ONCE PRN #2 auto.injct PRN Reason: Famotidine [Pepcid 20 mg Tablet] 20 mg PO BID #30 tablet Hydrocortisone [Hydrocortisone 0.5% Cream 28.35 Gm] 1 applic TP BID #2 tube Referrals: LESLIE LOPEZ MD [Primary Care Provider] - Follow up as needed
[2019-01-03 15:51] VITALS: BP 112/48
== END 2019-01-03 15:59 | disposition home or self-care (01) ==
LOC: ER 13:29
DX: T63.461A Toxic effect of venom of wasps, accidental (unintentional), initial encounter (principal); T78.40XA Allergy, unspecified, initial encounter; R11.0 Nausea; I25.10 Atherosclerotic heart disease of native coronary artery without angina pectoris; I10 Essential (primary) hypertension; E11.9 Type 2 diabetes mellitus without complications
CPT/HCPCS: 99282; 36415; 87086; 82962; 85025; 80053; A9270 ×2; S0119

== ENCOUNTER 2019-08-04 20:47 | Inpatient (IN) | payer MEDICARE, OTHER ==
[2019-08-04] MEDS ORDERED: NORMAL SALINE 250 ML IV PRN ×2 (21:27)
--- NOTE | 2019-08-04 21:36 | ER Document Report ---
ED Medical Screen (RME) - General Chief Complaint: Abdominal Pain Stated Complaint: ABDOMINAL PAIN Time Seen by Provider: 08/04/19 21:17 Primary Care Provider: FRANKLYN RESENDIZ MD [Primary Care Provider] - Follow up as needed TRAVEL OUTSIDE OF THE [place] IN LAST 30 DAYS: No - HPI Notes: 08/04/19 21:55 69-year-old female to the emergency department with complaints of bleeding into her ostomy bag that has gotten significantly worse in the past 24 hours. She states that she has occasionally noticed some blood in the bag but nothing that is been quite this dasia. She states that she is literally pouring clots out of her ostomy bag. She has a mechanical aortic valve and she takes Coumadin for this. She states that today when she measured her INR at home it was 5. She states yesterday it was 2. She admits to upper abdominal discomfort and "bloating". Denies any nausea or vomiting. 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 I performed a brief medical screening exam on the patient. She presents with a bag that has blood clots in it from her ostomy. She has stable vital signs. I updated Dr. Can, ER attending about the patient. He would like for me to go ahead and order her some FFP2 units. I have placed initial orders to help in expediting the patient's care. - Related Data Allergies/Adverse Reactions: ants Allergy (Uncoded 01/03/19 13:34) Past Medical History - Past Medical History Cardiac Medical History: Reports: Hx Coronary Artery Disease, Hx Heart Attack - x3, Hx Hypercholesterolemia, Hx Hypertension Pulmonary Medical History: Denies: Hx Asthma, Hx Bronchitis, Hx COPD, Hx Pneumonia Neurological Medical History: Denies: Hx Cerebrovascular Accident, Hx Seizures Endocrine Medical History: Reports: Hx Diabetes Mellitus Type 2 Renal/ Medical History: Denies: Hx Peritoneal Dialysis Musculoskeltal Medical History: Reports Hx Arthritis Skin Medical History: Reports Hx MRSA Psychiatric Medical History: Reports: Hx Depression Past Surgical History: Reports: Hx Abdominal Surgery - colostomy;bowel removal;herniax2, Hx Appendectomy, Hx Cardiac Catheterization - stent, quad bypass. aortic valve replacement, Hx Cardiac Surgery - CABG, Hx Genitourinary Surgery - colostomy, Hx Hysterectomy, Hx Orthopedic Surgery - carpal tunner syndrome, Hx Valve Replacement, Other - hernia repairs. Not sure if mesh was used.. Denies: Hx Gynecologic Surgery - Immunizations Hx Diphtheria, Pertussis, Tetanus Vaccination: Yes Physical Exam - Vital signs Vitals: Temp Pulse Resp BP Pulse Ox 98.0 F 87 18 177/71 H 100 08/04/19 20:51 08/04/19 20:51 08/04/19 20:51 08/04/19 20:51 08/04/19 20:51 Course - Vital Signs Vital signs: Temp Pulse Resp BP Pulse Ox 98.0 F 87 18 177/71 H 100 08/04/19 20:51 08/04/19 20:51 08/04/19 20:51 08/04/19 20:51 08/04/19 20:51 Doctor's Discharge - Discharge Referrals: FRANKLYN RESENDIZ MD [Primary Care Provider] - Follow up as needed
[2019-08-04 22:15] LABS: ABSOLUTE BASOPHILS # (AUTO) 0.1 10^3/uL (0.0-0.2); ABSOLUTE EOSINOPHILS # (AUTO) 0.2 10^3/uL (0.0-0.6); ABSOLUTE LYMPHOCYTES (AUTO) 3.4 10^3/uL (0.5-4.7); ABSOLUTE MONOCYTES (AUTO) 0.8 10^3/uL (0.1-1.4); ABSOLUTE NEUT (AUTO) 4.6 10^3/uL (1.7-8.2); BASOPHILS % (AUTO) 0.8 % (0-2); EOSINOPHILS % (AUTO) 2.6 % (0-6); HEMOGLOBIN 10.7 g/dL (12.0-15.5); LYMPHOCYTES % (AUTO) 37.5 % (13-45); MEAN CORPUSCULAR HEMOGLOBIN 29.3 pg (27.0-33.4); MEAN CORPUSCULAR HGB CONC 33.4 g/dL (32.0-36.0); MEAN CORPUSCULAR VOLUME 88 fl (80-97); MONOCYTES % (AUTO) 8.5 % (3-13); PLATELET COUNT 176 10^3/uL (150-450); RED BLOOD COUNT 3.66 10^6/uL (3.72-5.28); RED CELL DISTRIBUTION WIDTH 15.8 % (11.5-14.0); SEGMENTED NEUTROPHILS % (AUTO) 50.6 % (42-78); TOTAL CELLS COUNTED % (AUTO) 100 %
[2019-08-04] MEDS ORDERED: PANTOPRAZOLE SODIUM 40 MG VIAL IV ONE (22:24)
[2019-08-04] MEDS ORDERED: PANTOPRAZOLE SODIUM 40 MG VIAL IV PRN (22:25)
[2019-08-04 22:26] LABS: INTERNATIONAL RATION (INR) 2.93; PROTHROMBIN TIME 31.2 SEC (11.4-15.4)
--- NOTE | 2019-08-04 22:26 | ER Document Report ---
ED GI/ - General Chief Complaint: GI Bleeding Stated Complaint: ABDOMINAL PAIN Time Seen by Provider: 08/04/19 21:17 Notes: Patient is a 69-year-old female that comes to the emergency department for chief complaint of bleeding into her ostomy bag that has progressive gotten significantly worse over the past 24 hours. She has had this intermittently for some time. She states that she pulled little clots and dark stool mixed with reddish stool out of her ostomy bag. She is on Coumadin for mechanical aortic valve. INR yesterday was 5, the day before that was 2.4. She states she feels bloated in her abdomen but she denies abdominal pain, vomiting, shortness of breath, dizziness, passing out. Remaining medical history includes CABG, appendectomy, partial colectomy. TRAVEL OUTSIDE OF THE [place] IN LAST 30 DAYS: No - Related Data Allergies/Adverse Reactions: ants Allergy (Uncoded 01/03/19 13:34) Past Medical History - General Information source: Patient - Social History Smoking Status: Former Smoker Frequency of alcohol use: None Drug Abuse: None Lives with: Family Family History: CAD, DM, Other - RECTAL [place] Patient has suicidal ideation: No Patient has homicidal ideation: No - Past Medical History Cardiac Medical History: Reports: Hx Coronary Artery Disease, Hx Heart Attack - x3, Hx Hypercholesterolemia, Hx Hypertension Pulmonary Medical History: Denies: Hx Asthma, Hx Bronchitis, Hx COPD, Hx Pneumonia Neurological Medical History: Denies: Hx Cerebrovascular Accident, Hx Seizures Endocrine Medical History: Reports: Hx Diabetes Mellitus Type 2 Renal/ Medical History: Denies: Hx Peritoneal Dialysis Musculoskeletal Medical History: Reports Hx Arthritis Skin Medical History: Reports Hx MRSA Psychiatric Medical History: Reports: Hx Depression Past Surgical History: Reports: Hx Abdominal Surgery - colostomy;bowel removal;herniax2, Hx Appendectomy, Hx Cardiac Catheterization - stent, quad bypass. aortic valve replacement, Hx Cardiac Surgery - CABG, Hx Genitourinary Surgery - colostomy, Hx Hysterectomy, Hx Orthopedic Surgery - carpal tunner syndrome, Hx Valve Replacement, Other - hernia repairs. Not sure if mesh was used.. Denies: Hx Gynecologic Surgery - Immunizations Hx Diphtheria, Pertussis, Tetanus Vaccination: Yes Hx Pneumococcal Vaccination: 06/12/11 Review of Systems - Review of Systems Constitutional: No symptoms reported EENT: No symptoms reported Cardiovascular: See HPI Respiratory: No symptoms reported Gastrointestinal: See HPI Genitourinary: No symptoms reported Female Genitourinary: No symptoms reported Musculoskeletal: No symptoms reported Skin: No symptoms reported Hematologic/Lymphatic: No symptoms reported Neurological/Psychological: No symptoms reported Physical Exam - Vital signs Vitals: Temp Pulse Resp BP Pulse Ox 98.0 F 87 18 177/71 H 100 08/04/19 20:51 08/04/19 20:51 08/04/19 20:51 08/04/19 20:51 08/04/19 20:51 - Notes Notes: GENERAL: Alert, interacts well. No acute distress. HEAD: Normocephalic, atraumatic. EYES: Pupils equal, round, and reactive to light. Extraocular movements intact. ENT: Oral mucosa moist, tongue midline. Oropharynx unremarkable. Airway patent. NECK: Full range of motion. Supple. Trachea midline. LUNGS: Clear to auscultation bilaterally, no wheezes, rales, or rhonchi. No respiratory distress. HEART: Regular rate and rhythm. No murmur ABDOMEN: Nontender abdomen generally, no overt distention, colostomy bag in place with some stool in it which is also bloody with some clots. No noted current hemorrhage. GENITOURINARY: Deferred EXTREMITIES: Moves all 4 extremities spontaneously. No edema, normal radial and dorsalis pedis pulses bilaterally. No cyanosis. BACK: no cervical, thoracic, lumbar midline tenderness. No saddle anesthesia, normal distal neurovascular exam. Moves all extremities in full range of motion. NEUROLOGICAL: Alert and oriented x3. Normal speech. Cranial nerves II through XII grossly intact. PSYCH: Normal affect, normal mood. SKIN: Warm, dry, normal turgor. No rashes or lesions noted. Course - Re-evaluation Re-evalutation: Patient is actually well-appearing on exam. Her abdomen is benign, she is not hypotensive or tachycardic, she does not have any recent extensive bloody bowel movement. 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 Unsure of the exact bleeding location. Started on Protonix bolus and drip. Hemoglobin 10.7 which is reduced from prior but that was several months ago. PT/INR actually in expected ranges at INR of 2.9. Remaining evaluation unremarkable. I canceled the FFP from triage, transfusion left in place. Discussed with patient. She will require admission for anticoagulation with GI bleed. 08/04/19 22:[address] Can, recommends consultation with surgery and admission. I discussed with Dr. Smith, general surgery on-call, discussed history, previous endoscopy, work-up, evaluation. He states he will be available to perform endoscopy/colonoscopy on the patient if hospitalist is willing to admit the patient. I spoke with Dr. Douglas, hospitalist, he accepts patient full admission to medical floor. Patient states understanding and agreement. - Vital Signs Vital signs: Temp Pulse Resp BP Pulse Ox 98.6 F 83 17 133/73 H 99 08/05/19 00:50 08/05/19 00:50 08/05/19 00:50 08/05/19 00:50 08/05/19 00:50 - Laboratory Result Diagrams: 08/04/19 21:33 08/04/19 21:33 Laboratory results interpreted by me: 08/04/19 08/04/19 08/04/19 21:33 21:33 21:33 RBC 3.66 L Hgb 10.7 L Hct 32.0 L RDW 15.8 H PT 31.2 H APTT 45.8 H Est GFR (MDRD) Non-Af 52 L AST 93 H Lipase 421.5 H Discharge - Discharge Clinical Impression: Anticoagulated on Coumadin GI bleed Qualifiers: GI bleed type/associated pathology: unspecified gastrointestinal hemorrhage type Qualified Code(s): K92.2 - Gastrointestinal hemorrhage, unspecified Condition: Stable Disposition: ADMITTED INPATIENT Admitting Provider: Misael (Hospitalist) Unit Admitted: Medical Floor
[2019-08-04 22:27] LABS: PARTIAL THROMBOPLASTIN TIME 45.8 SEC (23.5-35.8)
[2019-08-04 22:33] LABS: ALBUMIN 4.5 g/dL (3.5-5.0); ALKALINE PHOSPHATASE 54 U/L (38-126); ASPARTATE AMINO TRANSFERASE 93 U/L (14-36); BILIRUBIN,DIRECT 0.2 mg/dL (0.0-0.4); BILIRUBIN,TOTAL 1.1 mg/dL (0.2-1.3); BLOOD UREA NITROGEN 11 mg/dL (7-20); CALCIUM 9.7 mg/dL (8.4-10.2); CARBON DIOXIDE 26 mmol/L (22-30); CHLORIDE 106 mmol/L (98-107); GLUCOSE 91 mg/dL (75-110); POTASSIUM 3.8 mmol/L (3.6-5.0); TOTAL PROTEIN 8.1 g/dL (6.3-8.2)
[2019-08-04 22:35] LABS: ANION GAP 11 (5-19)
[2019-08-05] MEDS ORDERED: DEXTROSE 50%-WATER 25 GM/50 ML DISP.SYRIN IV PRN ×2 (00:36)
[2019-08-05] MEDS ORDERED: GLUCAGON,HUMAN RECOMB 1 MG INJ SUBCUT PRN (00:36)
[2019-08-05] MEDS ORDERED: DEXTROSE 40% GEL 15 GM TUBE PO PRN ×2 (00:36)
[2019-08-05] MEDS ORDERED: ACETAMINOPHEN 650 MG SUPP.RECT PR PRN (00:41)
--- NOTE | 2019-08-05 03:10 | PDOC H&P ---
History of Present Illness Admission Date/PCP: 08/04/19 23:09 FRANKLYN RESENDIZ Patient complains of: Gastrointestinal bleeding History of Present Illness: LUIZA SORIANO is a 69 year old female who presents the emergency room with a 1 day history of gastrointestinal bleeding. She admits intermittent episodes of blood and blood clots as well as dark stool in her colostomy bag over the last 24 hours. Her gastrointestinal bleeding is associated with a bloated sensation in her upper abdomen. Patient denies other accompanying or associated signs and symptoms. Patient admits prior similar episodes related to warfarin toxicity. She reports her INR yesterday was 5 but it was 2.4 on the prior reading. She has not identified any additional aggravating or ameliorating factors for her gastrointestinal bleeding. In the ER the patient's INR was 2.9 and her hemoglobin was 10.7. Dr. Smith agreed to see the patient in consultation when he was called by the emergency room physician. Patient will therefore be admitted to the hospital for further evaluation and treatment. Past Medical History Cardiac Medical History: Reports: Coronary Artery Disease, Myocardial Infarction - x3, Hyperlipidema, Hypertension, Other - Aortic valvular heart disease with mechanical valve replacement Pulmonary Medical History: Denies: Asthma, Bronchitis, Chronic Obstructive Pulmonary Disease (COPD), Pneumonia EENT Medical History: Denies: Cataracts, Ears - Hearing aids Neurological Medical History: Denies: Hemorrhagic CVA, Ischemic CVA, Seizures Endocrine Medical History: Reports: Diabetes Mellitus Type 2, Obesity Denies: Diabetes Mellitus Type 1, Hyperthyroidism, Hypothyroidism Renal/ Medical History: Denies: Chronic Kidney Disease, Nephrolithiasis Malignancy Medical History: Reports: None GI Medical History: Reports: Diverticulitis Denies: Cirrhosis, Crohn's Disease, Hepatitis, Ulcerative Colitis Musculoskeltal Medical History: Reports: Arthritis Denies: Gout Skin Medical History: Denies: Eczema, Psoriasis Psychiatric Medical History: Reports: Depression Denies: Alcohol Dependency, Substance Abuse, Tobacco Dependency Traumatic Medical History: Reports: None Hematology: Reports: Anemia, Bleeding Tendencies - Chronic warfarin therapy Infectious Medical History: Reports: None Past Surgical History Past Surgical History: Reports: Appendectomy, Cardiac Catheterization, Colostomy - With partial colectomy, Coronary Artery Bypass Graft - Quadruple bypass grafts, Coronary Stent, Herniorrhaphy, Hysterectomy, Orthopedic Surgery - carpal tunner syndrome, Valve Replacement - Aortic valve replacement, mechanical valve Social History Information Source: Patient Lives with: Spouse/Significant other Smoking Status: Former Smoker Electronic Cigarette use?: No Frequency of Alcohol Use: None Hx Recreational Drug Use: No Drugs: None Hx Prescription Drug Abuse: No - Advance Directive Resuscitation Status: Full Code Surrogate healthcare decision maker:: Roman Soriano Family History Family History: CAD, DM, Malignancy Parental Family History Reviewed: Yes Children Family History Reviewed: No Sibling(s) Family History Reviewed.: Yes Medication/Allergy Home Medications: Alprazolam [Xanax 0.25 mg Tablet] 0.25 mg PO DAILYP PRN 09/04/18 Bupropion HCl [Bupropion HCl Sr] 150 mg PO Q12 09/04/18 Cholecalciferol (Vitamin D3) [Vitamin D3 2000 unit Tablet] 2,000 unit PO DAILY 09/04/18 Cyanocobalamin (Vitamin B-12) [Vitamin B-12] 6,000 mcg PO DAILY 09/04/18 Fluticasone Propionate [Flonase Nasal [place] 50 Mcg/[place] 16 gm] 1 spray NASL D AILY 09/04/18 Furosemide [Lasix 20 mg Tablet] 20 mg PO QAM 09/04/18 Gabapentin [Neurontin 300 mg Capsule] 300 mg PO BID 09/04/18 Glipizide [Glucotrol 10 mg Tablet] 10 mg PO BID 09/04/18 Iron 65 mg PO QHS 09/04/18 Levothyroxine Sodium [Synthroid] 137 mcg PO Q6AM 09/04/18 Loratadine [Claritin] 10 mg PO DAILY 09/04/18 Metformin HCl [Glucophage] 1,000 mg PO BID 09/04/18 Metoprolol Succinate [Toprol Xl 50 mg Tab.sr] 50 mg PO DAILY 09/04/18 Omeprazole 20 mg PO QAM 09/04/18 Ondansetron HCl [Zofran 4 mg Tablet] 4 mg PO Q4HP PRN 09/04/18 Oxycodone HCl/Acetaminophen [Percocet 5-325 mg Tablet] 1 tab PO DAILYP PRN 09/04/18 Polyethylene Glycol 3350 [Miralax Powder 17 gm/Packet] 17 gm PO DAILYP PRN 09/04/18 Pregabalin [Lyrica 25 mg Capsule] 25 mg PO BID 09/04/18 Rosuvastatin Calcium [Crestor] 40 mg PO QPM 09/04/18 Sertraline HCl [Zoloft] 12.5 mg PO QHS 09/04/18 Bisacodyl [Dulcolax 10 mg Supp.rect] 10 mg MD DAILY #20 supp.rect 09/08/18 Warfarin Sodium [Coumadin 5 mg Tablet] 5 mg PO MoWeFr@2200 #30 tablet 09/08/18 Warfarin Sodium [Coumadin 5 mg Tablet] 10 mg PO SuTuThSa@2200 #30 tablet 09/08/18 Oxycodone HCl/Acetaminophen [Percocet 5-325 mg Tablet] 1 tab PO ASDIR PRN #15 tablet 10/18/18 Epinephrine 0.3 mg IJ ONCE PRN #2 auto.injct 01/03/19 Famotidine [Pepcid 20 mg Tablet] 20 mg PO BID #30 tablet 01/03/19 Hydrocortisone [Hydrocortisone 0.5% Cream 28.35 Gm] 1 applic TP BID #2 tube 01/03/19 Allergies/Adverse Reactions: ants Allergy (Uncoded 01/03/19 13:34) Review of Systems Constitutional: ABSENT: chills, fever(s) Eyes: ABSENT: visual disturbances, other - Eye pain Ears: ABSENT: hearing changes, other - Ear pain Nose, Mouth, and Throat: ABSENT: headache(s), mouth pain, sore throat Cardiovascular: ABSENT: chest pain, palpitations Respiratory: ABSENT: cough, dyspnea Gastrointestinal: PRESENT: as per HPI, bloating, hematochezia, melena. ABSENT: abdominal pain, constipation, diarrhea, hematemesis, nausea, vomiting Genitourinary: ABSENT: dysuria, hematuria Musculoskeletal: ABSENT: back pain, joint swelling, muscle weakness Integumentary: ABSENT: pruritus, rash Neurological: ABSENT: confusion, convulsions, focal weakness, memory loss, syn cope Psychiatric: ABSENT: anxiety, depression Endocrine: ABSENT: cold intolerance, heat intolerance Hematologic/Lymphatic: PRESENT: easy bleeding, easy bruising Allergic/Immunologic: ABSENT: seasonal rhinorrhea Physical Exam Vital Signs: Temp Pulse Resp BP Pulse Ox 98.7 F 87 20 128/63 H 96 08/04/19 23:42 08/04/19 20:51 08/04/19 23:42 08/04/19 23:42 08/04/19 23:42 Intake & Output 08/03/19 08/04/19 08/05/19 23:59 23:59 23:59 Weight 93.8 kg General appearance: PRESENT: no acute distress, cooperative Head exam: PRESENT: atraumatic, normocephalic Eye exam: PRESENT: conjunctiva pink. ABSENT: conjunctival injection, scleral icterus Ear exam: PRESENT: normal external ear exam. ABSENT: bleeding, drainage Mouth exam: PRESENT: dry mucosa, neck supple Neck exam: ABSENT: thyromegaly, tracheal deviation Respiratory exam: PRESENT: clear to auscultation elizabeth, symmetrical, unlabored Cardiovascular exam: PRESENT: RRR, systolic murmur - Mechanical heart valve murmur at the aortic root with radiation throughout the precordium. ABSENT: clicks, gallop, rubs Pulses: PRESENT: normal radial pulses, normal dorsalis pedis pul Vascular exam: PRESENT: normal capillary refill. ABSENT: pallor GI/Abdominal exam: PRESENT: normal bowel sounds, soft, other - Colostomy site is noted.. ABSENT: tenderness Rectal exam: PRESENT: deferred Extremities exam: ABSENT: joint swelling, pedal edema Musculoskeletal exam: ABSENT: deformity, dislocation Neurological exam: PRESENT: alert, oriented to person, oriented to place, oriented to time, oriented to situation, CN II-XII grossly intact. ABSENT: motor sensory deficit Psychiatric exam: PRESENT: appropriate affect, normal mood Skin exam: PRESENT: dry, intact, warm. ABSENT: jaundice, rash, urticaria Results Laboratory Results: 08/04/19 21:33 08/04/19 21:33 08/04/19 08/04/19 21:33 21:33 WBC 9.0 RBC 3.66 L Hgb 10.7 L Hct 32.0 L MCV 88 MCH 29.3 MCHC 33.4 RDW 15.8 H Plt Count 176 Seg Neutrophils % 50.6 Sodium 143.2 Potassium 3.8 Chloride 106 Carbon Dioxide 26 Anion Gap 11 BUN 11 Creatinine 1.06 Est GFR ( Amer) > 60 Glucose 91 Calcium 9.7 Total Bilirubin 1.1 AST 93 H Alkaline Phosphatase 54 Total Protein 8.1 Albumin 4.5 Lipase 421.5 H Assessment and Plan - Diagnosis (1) GI bleeding Qualifiers: GI bleed type/associated pathology: unspecified gastrointestinal hemorrhage type Qualified Code(s): K92.2 - Gastrointestinal hemorrhage, unspecified Is this a current diagnosis for this admission?: Yes (2) Anticoagulated on Coumadin Is this a current diagnosis for this admission?: Yes (3) History of aortic valve replacement Is this a current diagnosis for this admission?: Yes (4) Type 2 diabetes mellitus with obesity Is this a current diagnosis for this admission?: Yes (5) CAD (coronary artery disease) Qualifiers: Coronary Disease-Associated Artery/Lesion type: unspecified vessel or lesion type [place] vs. transplanted heart: [place] heart Associated angina: without angina Qualified Code(s): I25.10 - Atherosclerotic heart disease of [place] coronary artery without angina pectoris Is this a current diagnosis for this admission?: Yes (6) Hypothyroid Is this a current diagnosis for this admission?: Yes (7) Abdominal pain Qualifiers: Abdominal location: epigastric Qualified Code(s): R10.13 - Epigastric pain Is this a current diagnosis for this admission?: Yes - Plan Summary Summary: Patient will be admitted to medical floor where she will receive routine supportive and symptomatic cares. Her hemoglobin will be monitored closely throughout her hospital course and she will be evaluated by Dr. Smith for the surgical service. Patient's INR will be followed closely throughout her hospital course. She will initially be n.p.o. as she may need endoscopy to eval uate/treat the source of her bleeding. Once patient is able to resume a diet she will be continued on her usual medications as appropriate. - Time Time Spent with patient: 15-24 minutes Medications reviewed and adjusted accordingly: Yes Anticipated discharge: Home - Inpatient Certification Based on my medical assessment, after consideration of the patient's comorbidities, presenting symptoms, or acuity I expect that the services needed warrant INPATIENT care.: Yes I certify that my determination is in accordance with my understanding of Medicare's requirements for reasonable and necessary INPATIENT services [42 CFR 412.3e].: Yes Medical Necessity: Significant Comorbidiites Make Outpatient Treatment Too Risky, Need Close Monitoring Due to Risk of Patient Decompensation, Need for Surgery, Risk of Complication if Not Cared For in Hospital, Risk of Diagnosis Which Will Require Inpatient Eval/Care/Monitoring
[2019-08-05 03:25] LABS: INTERNATIONAL RATION (INR) 2.95; PROTHROMBIN TIME 31.4 SEC (11.4-15.4)
[2019-08-05] MEDS ORDERED: MORPHINE SULFATE 10 MG/ML INJ IV PRN ×2 (05:44)
[2019-08-05] MEDS: INSULIN REG, HUMAN 100 UNIT/ML 3 ML VIAL (PYX) SUBCUT SCH ×4 (08:53→21:21)
[2019-08-05 10:10] LABS: HEMATOCRIT 27.8 % (36.0-47.0); HEMOGLOBIN 9.5 g/dL (12.0-15.5); MEAN CORPUSCULAR HEMOGLOBIN 29.5 pg (27.0-33.4); MEAN CORPUSCULAR VOLUME 87 fl (80-97); PLATELET COUNT 136 10^3/uL (150-450); RED BLOOD COUNT 3.21 10^6/uL (3.72-5.28); RED CELL DISTRIBUTION WIDTH 15.4 % (11.5-14.0); WHITE BLOOD COUNT 6.2 10^3/uL (4.0-10.5)
[2019-08-05] MEDS ORDERED: HEPARIN SOD (PORCINE) 1,000 UNIT/ML 10 ML VIAL IV ONE (11:20)
[2019-08-05] MEDS ORDERED: HEPARIN SODIUM,PORCINE/D5W 250 ML IV PRN (11:20)
--- NOTE | 2019-08-05 11:26 | PDOC CONSULTATION ---
Consultation Consult Date: 08/05/19 Provider Consulted: NED DIEZ Consult reason:: Hematochezia and anemia History of Present Illness Admission Date/PCP: 08/04/19 23:09 FRANKLYN RESENDIZ History of Present Illness: LUIZA FARIA is a 69 year old female with a history of CABG x4 with aortic va lve replacement in 2005 and she was started on Coumadin since then. For the past 2 weeks she has noted the presence of blood and small blood clots mixed with stools on and off in the colostomy bag that she has following a subtotal colectomy for complicated left colon diverticulitis (2016). Yesterday, she noted a large amount of blood clots as well as blood in the colostomy bag. This prompted her to come to the hospital. Her H&H were found to be 10.7 and 32, respectively; this morning her H&H is 9.5 27.8, respectively. Overnight, she reports additional blood and small blood clots noted in the colostomy bag. The patient gives a history of previous hematochezia about 3 years ago, at the time upper and lower endoscopy were performed demonstrating severe gastritis only and normal colonoscopy via colostomy. She denies the use of NSAIDs, steroids, tobacco smoking, or alcohol, she reports occasional symptoms of heartburn, and she is taking no antacids. Past Medical History Cardiac Medical History: Reports: Coronary Artery Disease, Myocardial Infarction - x3, Hyperlipidema, Hypertension, Other - Aortic valvular heart disease with mechanical valve replacement Pulmonary Medical History: Denies: Asthma, Bronchitis, Chronic Obstructive Pulmonary Disease (COPD), Pneumonia EENT Medical History: Denies: Cataracts, Ears - Hearing aids Neurological Medical History: Denies: Hemorrhagic CVA, Ischemic CVA, Seizures Endocrine Medical History: Reports: Diabetes Mellitus Type 2, Obesity Denies: Diabetes Mellitus Type 1, Hyperthyroidism, Hypothyroidism Renal/ Medical History: Denies: Chronic Kidney Disease, Nephrolithiasis Malignancy Medical History: Reports: None GI Medical History: Reports: Diverticulitis Denies: Cirrhosis, Crohn's Disease, Hepatitis, Ulcerative Colitis Musculoskeltal Medical History: Reports: Arthritis Denies: Gout Skin Medical History: Denies: Eczema, Psoriasis Psychiatric Medical History: Reports: Depression Denies: Alcohol Dependency, Substance Abuse, Tobacco Dependency Traumatic Medical History: Reports: None Hematology: Reports: Anemia, Bleeding Tendencies - Chronic warfarin therapy Infectious Medical History: Reports: None Past Surgical History Past Surgical History: Reports: Appendectomy, Cardiac Catheterization - stent, quad bypass. aortic valve replacement, Colostomy - With partial colectomy, Coronary Artery Bypass Graft - Quadruple bypass grafts, Coronary Stent, Herniorrhaphy, Hysterectomy, Orthopedic Surgery - carpal tunner syndrome, Valve Replacement, Other - hernia repairs. Not sure if mesh was used. Social History Lives with: Family Smoking Status: Former Smoker Electronic Cigarette use?: No Frequency of Alcohol Use: None Hx Recreational Drug Use: No Drugs: None Hx Prescription Drug Abuse: No - Advance Directive Resuscitation Status: Full Code Family History Family History: CAD, DM, Other - RECTAL CA Parental Family History Reviewed: Yes - Coronary artery disease, type 2 diabetes mellitus, hyperlipidemia Children Family History Reviewed: No Sibling(s) Family History Reviewed.: No Medication/Allergy Allergies/Adverse Reactions: ants Allergy (Uncoded 01/03/19 13:34) Physical Exam Vital Signs: Temp Pulse Resp BP Pulse Ox 98.0 F 71 18 119/50 L 100 08/05/19 07:30 08/05/19 07:30 08/05/19 07:30 08/05/19 07:30 08/05/19 07:30 Intake & Output 08/04/19 08/05/19 08/06/19 06:59 06:59 06:59 Intake Total 0 Balance 0 Weight 92.3 kg General appearance: PRESENT: no acute distress, obese, well-developed Head exam: PRESENT: atraumatic Eye exam: PRESENT: EOMI Mouth exam: PRESENT: neck supple Respiratory exam: PRESENT: clear to auscultation elizabeth, other - Old midsternal surgical scar, well-healed Cardiovascular exam: PRESENT: RRR GI/Abdominal exam: PRESENT: normal bowel sounds, soft, other - Presence of colostomy bag in left lower quadrant of the abdomen, no stools or blood noted in the ostomy bag Extremities exam: PRESENT: full ROM Musculoskeletal exam: PRESENT: full ROM Neurological exam: PRESENT: alert, awake, oriented to time Skin exam: PRESENT: warm Results Laboratory Results: 08/05/19 09:58 08/04/19 21:33 08/04/19 08/04/19 08/04/19 01:05 21:33 21:33 WBC 9.0 RBC 3.66 L Hgb 10.7 L Hct 32.0 L MCV 88 MCH 29.3 MCHC 33.4 RDW 15.8 H Plt Count 176 Seg Neutrophils % 50.6 Sodium 143.2 Potassium 3.8 Chloride 106 Carbon Dioxide 26 Anion Gap 11 BUN 11 Creatinine 1.06 Est GFR ( Amer) > 60 Glucose 91 Calcium 9.7 Total Bilirubin 1.1 AST 93 H Alkaline Phosphatase 54 Total Protein 8.1 Albumin 4.5 Lipase 421.5 H Blood Type AB NEGATIVE Antibody Screen POSITIVE 08/05/19 09:58 WBC 6.2 RBC 3.21 L Hgb 9.5 L Hct 27.8 L MCV 87 MCH 29.5 MCHC 34.0 RDW 15.4 H Plt Count 136 L Seg Neutrophils % Sodium Potassium Chloride Carbon Dioxide Anion Gap BUN Creatinine Est GFR ( Amer) Glucose Calcium Total Bilirubin AST Alkaline Phosphatase Total Protein Albumin Lipase Blood Type Antibody Screen Assessment & Plan - Diagnosis (1) GI bleeding Qualifiers: GI bleed type/associated pathology: unspecified gastrointestinal hemorrhage type Qualified Code(s): K92.2 - Gastrointestinal hemorrhage, unspecified Is this a current diagnosis for this admission?: Yes (2) Anticoagulated on Coumadin Is this a current diagnosis for this admission?: Yes - Plan Summary Plan Summary: Assessment: Lower gastrointestinal bleeding of unknown cause; H&H changed from . admission to .01/05.8 this morning, Patient without symptoms Patient on Coumadin because of mechanical aortic valve with therapeutic PT and INR History of previous lower GI bleeding secondary to severe gastritis None: Hospitalist service to manage the anticoagulation profile to get the patient ready for EGD colonoscopy tomorrow (bridging Coumadin to heparin) Bowel prep with GoLYTELY and Dulcolax tablets today IV fluids N.p.o. after midnight
[2019-08-05] MEDS ORDERED: MAG HYDROX/AL HYDROX/SIMETH SUSP 30 ML UDCUP PO SCH (11:30)
--- NOTE | 2019-08-05 11:32 | PDOC PROGRESS REPORT ---
Subjective Progress Note for:: 08/05/19 Subjective:: Patient is resting comfortably. She is not in acute distress. She reports emptying 5 to 10 cc of blood from her ostomy bag earlier. She has been seen by surgery. She has a therapeutic INR but with her GI bleed we are going to change to heparin infusion to protect from thrombus on her valve replacement. This will be stopped several hours prior to any procedure. She does report having history of GI bleeding in the past. It sounds like it was a hemorrhagic ga stritis. Reason For Visit: GI BLEEDING Physical Exam Vital Signs: Temp Pulse Resp BP Pulse Ox 98.0 F 71 18 119/50 L 100 08/05/19 07:30 08/05/19 07:30 08/05/19 07:30 08/05/19 07:30 08/05/19 07:30 Intake & Output 08/04/19 08/05/19 08/06/19 06:59 06:59 06:59 Intake Total 0 Balance 0 Weight 92.3 kg General appearance: PRESENT: no acute distress, cooperative, well-developed Head exam: PRESENT: atraumatic, normocephalic Ear exam: PRESENT: normal external ear exam. ABSENT: bleeding, drainage Respiratory exam: PRESENT: clear to auscultation elizabeth, symmetrical, unlabored. ABSENT: rales, rhonchi, tachypnea, wheezes Cardiovascular exam: PRESENT: RRR, +S1, +S2, other - Mechanical valve click GI/Abdominal exam: PRESENT: normal bowel sounds, soft, other - Colostomy present left abdomen. ABSENT: distended, tenderness Rectal exam: PRESENT: deferred Neurological exam: PRESENT: alert, awake, oriented to person, oriented to place, oriented to time, oriented to situation Psychiatric exam: PRESENT: flat affect. ABSENT: agitated, anxious Focused psych exam: ABSENT: delusional, restlessness Skin exam: PRESENT: dry, warm. ABSENT: rash Results Laboratory Results: 08/05/19 09:58 08/04/19 21:33 08/04/19 08/04/19 08/04/19 01:05 21:33 21:33 WBC 9.0 RBC 3.66 L Hgb 10.7 L Hct 32.0 L MCV 88 MCH 29.3 MCHC 33.4 RDW 15.8 H Plt Count 176 Seg Neutrophils % 50.6 Sodium 143.2 Potassium 3.8 Chloride 106 Carbon Dioxide 26 Anion Gap 11 BUN 11 Creatinine 1.06 Est GFR ( Amer) > 60 Glucose 91 Calcium 9.7 Total Bilirubin 1.1 AST 93 H Alkaline Phosphatase 54 Total Protein 8.1 Albumin 4.5 Lipase 421.5 H Blood Type AB NEGATIVE Antibody Screen POSITIVE 08/05/19 09:58 WBC 6.2 RBC 3.21 L Hgb 9.5 L Hct 27.8 L MCV 87 MCH 29.5 MCHC 34.0 RDW 15.4 H Plt Count 136 L Seg Neutrophils % Sodium Potassium Chloride Carbon Dioxide Anion Gap BUN Creatinine Est GFR ( Amer) Glucose Calcium Total Bilirubin AST Alkaline Phosphatase Total Protein Albumin Lipase Blood Type Antibody Screen Assessment and Plan - Diagnosis (1) GI bleeding Qualifiers: GI bleed type/associated pathology: unspecified gastrointestinal hemorrhage type Qualified Code(s): K92.2 - Gastrointestinal hemorrhage, unspecified Is this a current diagnosis for this admission?: Yes Plan: 08/05/2019-the patient has a history of GI bleeding. I believe she had diverticular bleeds prior to her bowel resection. She also reports an episode of what seems to be hemorrhagic gastritis in the past. She is being prepped for endoscopy tomorrow. She still had bright red blood in her colostomy bag this morning. We had a lengthy discussion about anticoagulation and active bleeding. Please see below. Hemoglobin has decreased slightly (10.7 down to 9.5). I have ordered another CBC for this evening and there is one ordered for the morning. Her warfarin will be reversed with vitamin K. (2) Iron deficiency anemia secondary to blood loss (chronic) Is this a current diagnosis for this admission?: Yes Plan: 08/05/2019-as noted above the hemoglobin was 10.7 on admission and is now 9.5. This may be partly delusional as well as from blood loss. She did have bright red blood in her colostomy bag this morning. I have discussed anticoagulation with the patient considering her active bleeding. See discussion below. (3) Anticoagulated on Coumadin Is this a current diagnosis for this admission?: Yes Plan: 08/05/2019-evidently the patient had a supratherapeutic INR on Saturday. Because of her heart valve her range is 2.5-3.5. Currently it is 2.95. Her warfarin has been held. Because of the active bleeding I have administered 10 mg of vitamin K. We are going to put the patient on heparin infusion to protect the mechanical heart valve however with her active bleeding I feel it will be too risky. I had a lengthy discussion with the patient regarding the pros and cons. We will check her INR tomorrow. If there is no bleeding tomorrow in the endoscopy reveals no contraindication I will bridge her with Lovenox while resuming the warfarin. (4) H/O mechanical aortic valve replacement Is this a current diagnosis for this admission?: Yes Plan: 08/05/2019-her INR goal is 2.5-3.5. We will hold heparin infusion as the patient is still actively bleeding. Vitamin K has been given. If the active bleeding stops we can always start heparin infusion. I can initiate therapeutic Lovenox after endoscopy as long as there is no contraindication. (5) CAD (coronary artery disease) Qualifiers: Coronary Disease-Associated Artery/Lesion type: unspecified vessel or lesion type [place] vs. transplanted heart: [place] heart Associated angina: without angina Qualified Code(s): I25.10 - Atherosclerotic heart disease of [place] coronary artery without angina pectoris Is this a current diagnosis for this admission?: Yes Plan: 08/05/2019-no acute coronary complaints. We will continue the metoprolol and statin therapy as well as antihypertensive medications. Monitor for any evidence of acute coronary syndrome. (6) Hypertension Qualifiers: Hypertension type: essential hypertension Qualified Code(s): I10 - Essential (primary) hypertension Is this a current diagnosis for this admission?: Yes Plan: 08/05/2019-I have opted to hold the furosemide because of her limited intake. She will remain on the metoprolol as noted above. I will resume the furosemide most likely tomorrow post endoscopy. (7) Type 2 diabetes mellitus with obesity Is this a current diagnosis for this admission?: Yes Plan: 08/05/2019-the patient is on a clear liquid diet at this time. I have opted to hold the glipizide and metformin. We will utilize sliding scale coverage with dosing based on the Accu-Chek results. (8) Hypothyroid Qualifiers: Hypothyroidism type: unspecified Qualified Code(s): E03.9 - Hypothyroidism, unspecified Is this a current diagnosis for this admission?: Yes Plan: 08/05/2019-continue current dose of levothyroxine. (9) Depression Qualifiers: Depression Type: unspecified Qualified Code(s): F32.9 - Major depressive disorder, single episode, unspecified Is this a current diagnosis for this admission?: Yes Plan: 08/05/2019-we will continue the patient's bupropion. Sertraline was listed in older medications. We will not administer sertraline at this time. Benzodiazepines will be available on an as needed basis. No evidence of active depression at this time. - Plan Summary Summary: Patient will be admitted to medical floor where she will receive routine supportive and symptomatic cares. Her hemoglobin will be monitored closely throughout her hospital course and she will be evaluated by Dr. mSith for the surgical service. Patient's INR will be followed closely throughout her hospital course. She will initially be n.p.o. as she may need endoscopy to evaluate/treat the source of her bleeding. Once patient is able to resume a diet she will be continued on her usual medications as appropriate. - Time Time Spent with patient: 15-24 minutes Medications reviewed and adjusted accordingly: Yes Anticipated discharge: Home
[2019-08-05] MEDS ORDERED: ALPRAZOLAM 0.25 MG TABLET PO PRN (11:50)
[2019-08-05] MEDS: NORMAL SALINE 1000 ML 1,000 ML IV PRN ×2 (12:20→23:00)
[2019-08-05] MEDS ORDERED: PANTOPRAZOLE SODIUM 40 MG VIAL IV PRN (12:21)
[2019-08-05] MEDS: SUCRALFATE 1 GM TABLET PO SCH ×3 (12:27→23:05)
[2019-08-05] MEDS ORDERED: PHYTONADIONE INJ 10 MG/1 ML AMPULE SUBCUT ONE (13:00)
[2019-08-05] MEDS: FLUTICASONE NASAL SPRAY 50 MCG/SPRY 120 SPRAY/16 GM NASL SCH (13:20)
[2019-08-05] MEDS ORDERED: HEPARIN SOD (PORCINE) 1,000 UNIT/ML 10 ML VIAL IV PRN (14:24)
[2019-08-05] MEDS ORDERED: BISACODYL 5 MG TABEC PO ONE (15:00)
[2019-08-05] MEDS ORDERED: PEG 3350/NA SULF,BICARB,CL/KCL 4000 ML PO ONE (15:00)
[2019-08-05] MEDS: NORMAL SALINE 100 ML with PANTOPRAZOLE SODIUM 80 MG IV PRN ×2 (16:50)
[2019-08-05] MEDS ORDERED: DIPHENHYDRAMINE HCL 25 MG CAPSULE PO PRN (17:02)
[2019-08-05] MEDS ORDERED: HYDROCORTISONE 1% CREAM 28.35 GM TP PRN (17:04)
[2019-08-05 19:51] LABS: HEMATOCRIT 28.8 % (36.0-47.0); HEMOGLOBIN 9.7 g/dL (12.0-15.5); MEAN CORPUSCULAR HEMOGLOBIN 29.3 pg (27.0-33.4); MEAN CORPUSCULAR HGB CONC 33.7 g/dL (32.0-36.0); MEAN CORPUSCULAR VOLUME 87 fl (80-97); PLATELET COUNT 134 10^3/uL (150-450); RED BLOOD COUNT 3.31 10^6/uL (3.72-5.28)
[2019-08-05] MEDS: BUPROPION HCL 75 MG TABLET PO SCH (21:21)
[2019-08-05] MEDS: PREGABALIN 25 MG CAPSULE PO SCH (21:21)
[2019-08-05] MEDS: MORPHINE SULFATE 10 MG/ML INJ IV PRN (21:22)
[2019-08-05] MEDS: ONDANSETRON HCL INJ/PF 4 MG/2 ML SDV IV PRN (21:28)
[2019-08-05] MEDS ORDERED: SERTRALINE HCL 12.5 MG PO SCH ×2 (22:00)
[2019-08-06] MEDS: NORMAL SALINE 100 ML with PANTOPRAZOLE SODIUM 80 MG IV PRN ×2 (00:15)
[2019-08-06] MEDS: SUCRALFATE 1 GM TABLET PO SCH ×4 (05:26→23:00)
[2019-08-06] MEDS ORDERED: (PENDING PHARMACY ID) (Levothyroxine Sodium [Levothyroxine Sodium] 137 MCG) PO SCH ×2 (06:00)
[2019-08-06 06:14] LABS: HEMATOCRIT 25.8 % (36.0-47.0); HEMOGLOBIN 8.8 g/dL (12.0-15.5); MEAN CORPUSCULAR HEMOGLOBIN 29.5 pg (27.0-33.4); MEAN CORPUSCULAR HGB CONC 34.1 g/dL (32.0-36.0); MEAN CORPUSCULAR VOLUME 87 fl (80-97); PLATELET COUNT 129 10^3/uL (150-450); RED BLOOD COUNT 2.99 10^6/uL (3.72-5.28); RED CELL DISTRIBUTION WIDTH 15.7 % (11.5-14.0); WHITE BLOOD COUNT 6.9 10^3/uL (4.0-10.5)
[2019-08-06 06:24] LABS: INTERNATIONAL RATION (INR) 1.87; PROTHROMBIN TIME 21.8 SEC (11.4-15.4)
[2019-08-06 06:30] LABS: ANION GAP 7 (5-19); BLOOD UREA NITROGEN 8 mg/dL (7-20); CALCIUM 8.6 mg/dL (8.4-10.2); CARBON DIOXIDE 26 mmol/L (22-30); CHLORIDE 110 mmol/L (98-107); GLUCOSE 96 mg/dL (75-110); POTASSIUM 3.3 mmol/L (3.6-5.0)
[2019-08-06] MEDS: MORPHINE SULFATE 10 MG/ML INJ IV PRN ×2 (07:42→16:43)
[2019-08-06] MEDS ORDERED: BUPROPION HCL 450 MG PO SCH (08:00)
[2019-08-06] MEDS: INSULIN REG, HUMAN 100 UNIT/ML 3 ML VIAL (PYX) SUBCUT SCH ×4 (08:10→21:34)
[2019-08-06] MEDS: LEVOTHYROXINE SODIUM 0.025 MG TABLET PO SCH (08:44)
[2019-08-06] MEDS: LEVOTHYROXINE SODIUM 0.112 MG TABLET PO SCH (08:44)
[2019-08-06 09:21] LABS: INTERNATIONAL RATION (INR) 1.66; PROTHROMBIN TIME 19.8 SEC (11.4-15.4)
[2019-08-06] MEDS ORDERED: PROPOFOL INJ 200 MG/20 ML VIAL IV ONE (09:39)
[2019-08-06] MEDS ORDERED: FENTANYL CITRATE INJ/PF 100 MCG/2 ML AMPUL IV PRN ×2 (10:16)
[2019-08-06] MEDS ORDERED: PROMETHAZINE HCL INJ 25 MG/1 ML VIAL IV PRN (10:16)
[2019-08-06] MEDS ORDERED: DIPHENHYDRAMINE HCL 50 MG/ML VIAL IV PRN (10:16)
[2019-08-06] MEDS ORDERED: MEPERIDINE HCL/PF INJ 25 MG/1 ML DISP.SYRIN IV PRN (10:16)
[2019-08-06] MEDS ORDERED: MORPHINE SULFATE 10 MG/ML INJ IV PRN (10:16)
--- NOTE | 2019-08-06 10:56 | Operative Report ---
Operative Report DATE OF SURGERY: 08/06/19 PREOPERATIVE DIAGNOSIS: 1. Gastrointestinal bleed. 2. Status post colostomy. 3. Coumadin anticoagulation. 4. Status post mechanical aortic valve replacement POSTOPERATIVE DIAGNOSIS: Same with. 1. Mild chronic gastritis. 2. Minimal fresh clot first portion of duodenum. 3. Residual left colon diverticulosis OPERATION: 1. Esophagogastroduodenoscopy. 2. Cold forceps biopsy of gastric antrum. 3. Colonoscopy through diverting colostomy SURGEON: YASMANY MARIE ANESTHESIA: LMAC TISSUE REMOVED OR ALTERED: Cold forceps biopsy of gastric antrum COMPLICATIONS: None ESTIMATED BLOOD LOSS: Scant INTRAOPERATIVE FINDINGS: See below PROCEDURE: The patient was taken to the preop holding area to the main operating room where LMAC anesthesia was induced. Of note the patient has known sleep apnea, with intermittent obstruction. Patient was placed in the semirecumbent position, left side down right side up. Surgical plan surgical timeout were conducted. The flexible adult upper endoscope was advanced to the oropharynx, down the esop hagus through the stomach and into the first and second portions of the duodenum. He tolerated this very well. There was no evidence of tumor, stricture, active bleeding, polyps. There was no evidence of esophageal varices. The second portion of the duodenum was normal, however in the first portion of the duodenum, just distal to the pylorus, there was some fresh blood, likely mucosal, in several small areas. There was no dasia ulcer. Photos were taken. There was no active bleeding. Photos taken. The scope was brought through the pylorus, and the stomach appreciated. There was no evidence of on retroflexion of the scope. The lining of the stomach mucosa. Flattened, and atrophic. A small cold forceps biopsy of the gastric antral mucosa was performed. Bleeding was minimal and abated. The specimen was sent for PETER and histologic analysis. The scope was brought back through the GE junction. Again the esophagus was grossly unremarkable. The hypopharynx unremarkable as well. Scope was withdrawn to the patient's oropharynx. She tolerated procedure well. The patient was placed in the semirecumbent, supine position. Ostomy appliance bag removed, and index finger, lubricated, inserted into the ostomy. The ostomy was patent with some curvature to it. We now advanced the pediatric colonoscope the colostomy. During this time the patient was bucking and heaving, and menstruating Valsalva so manipulating the scope was a little challenging. Nonetheless were able to safely guide the scope into the; advance the scope all the way to the cecum. There were a few scat tered diverticulosis of the left colon. The ileocecal valve was visualized. There was some residual liquid and semisolid stool in the cecum which was irrigated. There was no evidence of tumor, clot, or active bleeding. There was 1 stool ball, purple, possibly covered in clot. No biopsies were taken. The scope was withdrawn the length of the colon again checking for any pathology and other than the 2 diverticulosis, no other pathology was seen. The scope was withdrawn from the patient's colostomy. The procedure was deemed complete. She tolerated the procedure well and was taken recovery room stable condition. Impression: GI bleed on patient with chronic anticoagulation likely from first portion of duodenum: No active bleeding currently Recommendations: 1. May resume heparin evening, and resume Coumadin therapy. 2. Surgery will sign off for now; reconsult if clinically indicated.
[2019-08-06] MEDS ORDERED: POTASSI CL 20 MEQ/50 ML RIDER 20 MEQ/50 ML RTUPB IV ONE (11:00)
[2019-08-06] MEDS: FLUTICASONE NASAL SPRAY 50 MCG/SPRY 120 SPRAY/16 GM NASL SCH (11:58)
[2019-08-06] MEDS: METOPROLOL SUCCINATE 50 MG TAB.SR.24H PO SCH (11:59)
[2019-08-06] MEDS: LORATADINE 10 MG TABLET PO SCH (11:59)
[2019-08-06] MEDS: BUPROPION HCL 75 MG TABLET PO SCH ×2 (11:59→21:38)
[2019-08-06] MEDS: PREGABALIN 25 MG CAPSULE PO SCH ×2 (11:59→21:38)
--- NOTE | 2019-08-06 12:27 | PDOC PROGRESS REPORT ---
Subjective Progress Note for:: 08/06/19 Subjective:: Bleed tender epigastrium potassium Reason For Visit: GI BLEEDING Physical Exam Vital Signs: Temp Pulse Resp BP Pulse Ox 97.5 F 79 16 134/51 H 100 08/06/19 11:43 08/06/19 11:43 08/06/19 11:43 08/06/19 11:43 08/06/19 11:43 Intake & Output 08/05/19 08/06/19 08/07/19 06:59 06:59 06:59 Intake Total 0 3514 500 Balance 0 3514 500 Weight 92.3 kg 93.4 kg General appearance: PRESENT: cooperative, mild distress, well-developed Head exam: PRESENT: atraumatic, normocephalic Eye exam: PRESENT: conjunctiva pink. ABSENT: scleral icterus Mouth exam: PRESENT: moist, tongue midline Respiratory exam: PRESENT: clear to auscultation elizabeth, symmetrical, unlabored. ABSENT: rales, rhonchi, tachypnea, wheezes Cardiovascular exam: PRESENT: RRR, +S1, +S2 GI/Abdominal exam: PRESENT: normal bowel sounds, soft, tenderness, other - Colostomy left side of the abdomen. ABSENT: guarding Rectal exam: PRESENT: deferred Gentrourinary exam: ABSENT: indwelling catheter Extremities exam: ABSENT: pedal edema Musculoskeletal exam: PRESENT: ambulatory, full ROM, normal inspection Neurological exam: PRESENT: alert, awake, oriented to person, oriented to place, oriented to time, oriented to situation, CN II-XII grossly intact Psychiatric exam: PRESENT: flat affect. ABSENT: agitated, anxious Results Laboratory Results: 08/06/19 05:33 08/06/19 09:01 08/05/19 08/06/19 08/06/19 18:34 05:33 05:33 WBC 6.0 6.9 RBC 3.31 L 2.99 L Hgb 9.7 L 8.8 L Hct 28.8 L 25.8 L MCV 87 87 MCH 29.3 29.5 MCHC 33.7 34.1 RDW 16.0 H 15.7 H Plt Count 134 L 129 L Sodium 143.4 Potassium 3.3 L Chloride 110 H Carbon Dioxide 26 Anion Gap 7 BUN 8 Creatinine 1.03 Est GFR ( Amer) > 60 Glucose 96 Calcium 8.6 Magnesium 1.6 08/06/19 09:01 WBC RBC Hgb Hct MCV MCH MCHC RDW Plt Count Sodium Potassium 3.4 L Chloride Carbon Dioxide Anion Gap BUN Creatinine Est GFR ( Amer) Glucose Calcium Magnesium Assessment and Plan - Diagnosis (1) GI bleeding Qualifiers: GI bleed type/associated pathology: unspecified gastrointestinal hemorrhage type Qualified Code(s): K92.2 - Gastrointestinal hemorrhage, unspecified Is this a current diagnosis for this admission?: Yes Plan: 08/05/2019-the patient has a history of GI bleeding. I believe she had diverticular bleeds prior to her bowel resection. She also reports an episode of what seems to be hemorrhagic gastritis in the past. She is being prepped for endoscopy tomorrow. She still had bright red blood in her colostomy bag this morning. We had a lengthy discussion about anticoagulation and active bleeding. Please see below. Hemoglobin has decreased slightly (10.7 down to 9.5). I have ordered another CBC for this evening and there is one ordered for the morning. Her warfarin will be reversed with vitamin K. 08/06/2019-endoscopy revealed fresh blood in the first portion of the duodenum but no active bleeding was noted. Some atrophic areas noted in the gastric mucosa. Biopsies were obtained. We will continue to monitor hemoglobin. Resume subcutaneous heparin and start warfarin therapy tomorrow. (2) Iron deficiency anemia secondary to blood loss (chronic) Is this a current diagnosis for this admission?: Yes Plan: 08/05/2019-as noted above the hemoglobin was 10.7 on admission and is now 9.5. This may be partly delusional as well as from blood loss. She did have bright red blood in her colostomy bag this morning. I have discussed anticoagulation with the patient considering her active bleeding. See discussion below. 08/06/2019-encourage iron supplementation after discharge. Continue to monitor hemoglobin. (3) Anticoagulated on Coumadin Is this a current diagnosis for this admission?: Yes Plan: 08/05/2019-evidently the patient had a supratherapeutic INR on Saturday. Because of her heart valve her range is 2.5-3.5. Currently it is 2.95. Her warfarin diaz s been held. Because of the active bleeding I have administered 10 mg of vitamin K. We are going to put the patient on heparin infusion to protect the mechanical heart valve however with her active bleeding I feel it will be too risky. I had a lengthy discussion with the patient regarding the pros and cons. We will check her INR tomorrow. If there is no bleeding tomorrow in the endoscopy reveals no contraindication I will bridge her with Lovenox while resuming the warfarin. 08/06/2019-we will resume tomorrow (4) H/O mechanical aortic valve replacement Is this a current diagnosis for this admission?: Yes Plan: 08/05/2019-her INR goal is 2.5-3.5. We will hold heparin infusion as the patient is still actively bleeding. Vitamin K has been given. If the active bleeding stops we can always start heparin infusion. I can initiate therapeutic Lovenox after endoscopy as long as there is no contraindication. 08/06/2019-currently on subcutaneous heparin but will reinstitute warfarin tomorrow. We will increase the dose slowly. (5) CAD (coronary artery disease) Qualifiers: Coronary Disease-Associated Artery/Lesion type: unspecified vessel or lesion type Unga vs. transplanted heart: grindstone heart Associated angina: without angina Qualified Code(s): I25.10 - Atherosclerotic heart disease of grindstone coronary artery without angina pectoris Is this a current diagnosis for this admission?: Yes Plan: 08/05/2019-no acute coronary complaints. We will continue the metoprolol and statin therapy as well as antihypertensive medications. Monitor for any evidence of acute coronary syndrome. 08/06/2019-continue current treatment plan. (6) Hypertension Qualifiers: Hypertension type: essential hypertension Qualified Code(s): I10 - Essential (primary) hypertension Is this a current diagnosis for this admission?: Yes Plan: 08/05/2019-I have opted to hold the furosemide because of her limited intake. She will remain on the metoprolol as noted above. I will resume the furosemide most likely tomorrow post endoscopy. 08/06/2019-we will resume furosemide. Fair blood pressure control. (7) Type 2 diabetes mellitus with obesity Is this a current diagnosis for this admission?: Yes Plan: 08/05/2019-the patient is on a clear liquid diet at this time. I have opted to hold the glipizide and metformin. We will utilize sliding scale coverage with dosing based on the Accu-Chek results. 08/06/2019-good glucose control. Patient was n.p.o. Will likely resume her baseline medications as she starts her oral diet. (8) Hypothyroid Qualifiers: Hypothyroidism type: unspecified Qualified Code(s): E03.9 - Hypothyroidism, unspecified Is this a current diagnosis for this admission?: Yes Plan: 08/05/2019-continue current dose of levothyroxine. 08/06/2019-continue levothyroxine (9) Depression Qualifiers: Depression Type: unspecified Qualified Code(s): F32.9 - Major depressive disorder, single episode, unspecified Is this a current diagnosis for this admission?: Yes Plan: 08/05/2019-we will continue the patient's bupropion. Sertraline was listed in older medications. We will not administer sertraline at this time. Benzodiazepines will be available on an as needed basis. No evidence of active depression at this time. 08/06/2019-continue bupropion - Plan Summary Summary: Patient will be admitted to medical floor where she will receive routine supportive and symptomatic cares. Her hemoglobin will be monitored closely throughout her hospital course and she will be evaluated by Dr. Smith for the surgical service. Patient's INR will be followed closely throughout her hospital course. She will initially be n.p.o. as she may need endoscopy to evaluate/treat the source of her bleeding. Once patient is able to resume a diet she will be continued on her usual medications as appropriate. - Time Time Spent with patient: 15-24 minutes Medications reviewed and adjusted accordingly: Yes Anticipated discharge: Home Within: within 48 hours
--- NOTE | 2019-08-06 16:27 | EKG REPORT ---
SEVERITY:- BORDERLINE ECG - SINUS RHYTHM BORDERLINE T ABNORMALITIES, ANT-LAT LEADS BORDERLINE PROLONGED QT INTERVAL : Confirmed by: Ava Velasco MD 06-Aug-2019 16:25:57
[2019-08-06] MEDS: ONDANSETRON HCL INJ/PF 4 MG/2 ML SDV IV PRN (16:42)
[2019-08-06] MEDS: PANTOPRAZOLE SODIUM 40 MG TABLET.DR PO SCH (17:07)
[2019-08-06] MEDS: HEPARIN SOD (PORCINE) 5,000 UNIT/ML 1 ML VIAL SUBCUT SCH (21:55)
[2019-08-06] MEDS ORDERED: FERROUS SULFATE 325 MG TABLET PO SCH (22:00)
[2019-08-06] MEDS ORDERED: SERTRALINE HCL 50 MG TABLET PO SCH (22:00)
[2019-08-06] MEDS: NORMAL SALINE 1000 ML 1,000 ML IV PRN (23:00)
[2019-08-07 02:58] LABS: HEMATOCRIT 25.5 % (36.0-47.0); HEMOGLOBIN 8.5 g/dL (12.0-15.5); MEAN CORPUSCULAR HEMOGLOBIN 29.3 pg (27.0-33.4); MEAN CORPUSCULAR HGB CONC 33.3 g/dL (32.0-36.0); MEAN CORPUSCULAR VOLUME 88 fl (80-97); PLATELET COUNT 119 10^3/uL (150-450); RED BLOOD COUNT 2.89 10^6/uL (3.72-5.28); RED CELL DISTRIBUTION WIDTH 15.7 % (11.5-14.0); WHITE BLOOD COUNT 5.1 10^3/uL (4.0-10.5)
[2019-08-07 03:00] LABS: INTERNATIONAL RATION (INR) 1.46; PROTHROMBIN TIME 17.9 SEC (11.4-15.4)
[2019-08-07 03:13] LABS: ANION GAP 6 (5-19); BLOOD UREA NITROGEN 5 mg/dL (7-20); CALCIUM 8.3 mg/dL (8.4-10.2); CARBON DIOXIDE 25 mmol/L (22-30); CHLORIDE 112 mmol/L (98-107); GLUCOSE 140 mg/dL (75-110); POTASSIUM 3.4 mmol/L (3.6-5.0)
[2019-08-07] MEDS: HEPARIN SOD (PORCINE) 5,000 UNIT/ML 1 ML VIAL SUBCUT SCH ×2 (05:31→14:10)
[2019-08-07] MEDS: LEVOTHYROXINE SODIUM 0.112 MG TABLET PO SCH (05:33)
[2019-08-07] MEDS: LEVOTHYROXINE SODIUM 0.025 MG TABLET PO SCH (05:33)
[2019-08-07] MEDS: SUCRALFATE 1 GM TABLET PO SCH ×3 (05:33→17:30)
[2019-08-07] MEDS: PANTOPRAZOLE SODIUM 40 MG TABLET.DR PO SCH ×2 (05:33→17:30)
[2019-08-07] MEDS ORDERED: FUROSEMIDE 20 MG TABLET PO SCH (08:00)
[2019-08-07] MEDS: INSULIN REG, HUMAN 100 UNIT/ML 3 ML VIAL (PYX) SUBCUT SCH ×3 (09:28→17:59)
[2019-08-07] MEDS: FLUTICASONE NASAL SPRAY 50 MCG/SPRY 120 SPRAY/16 GM NASL SCH (10:02)
[2019-08-07] MEDS: BUPROPION HCL 75 MG TABLET PO SCH (10:03)
[2019-08-07] MEDS: PREGABALIN 25 MG CAPSULE PO SCH (10:03)
[2019-08-07] MEDS: METOPROLOL SUCCINATE 50 MG TAB.SR.24H PO SCH (10:03)
[2019-08-07] MEDS: LORATADINE 10 MG TABLET PO SCH (10:03)
--- NOTE | 2019-08-07 12:31 | PDOC DISCHARGE SUMMARY ---
Impression - Admit/DC Date/PCP Admission Date/Primary Care Provider: 08/04/19 23:09 FRANKLYN RESENDIZ Discharge Date: 08/07/19 - Discharge Diagnosis (1) GI bleeding Is this a current diagnosis for this admission?: Yes (2) Iron deficiency anemia secondary to blood loss (chronic) Is this a current diagnosis for this admission?: Yes (3) Anticoagulated on Coumadin Is this a current diagnosis for this admission?: Yes (4) H/O mechanical aortic valve replacement Is this a current diagnosis for this admission?: Yes (5) CAD (coronary artery disease) Is this a current diagnosis for this admission?: Yes (6) Hypertension Is this a current diagnosis for this admission?: Yes (7) Type 2 diabetes mellitus with obesity Is this a current diagnosis for this admission?: Yes (8) Hypothyroid Is this a current diagnosis for this admission?: Yes (9) Depression Is this a current diagnosis for this admission?: Yes (10) Hypokalemia Is this a current diagnosis for this admission?: Yes - Assessment Summary: Patient will be admitted to medical floor where she will receive routine supportive and symptomatic cares. Her hemoglobin will be monitored closely throughout her hospital course and she will be evaluated by Dr. Smith for the surgical service. Patient's INR will be followed closely throughout her hospital course. She will initially be n.p.o. as she may need endoscopy to evaluate/treat the source of her bleeding. Once patient is able to resume a diet she will be continued on her usual medications as appropriate. - Additional Information Resuscitation Status: Full Code Discharge Diet: Other (Comments) - Start with soft and advance slowly Discharge Activity: Activity As Tolerated, Balance Activity w/Rest Referrals: [facility] [Provider Group] (THE OFFICE IS CLOSED PLEASE CALL SATURDAY FOR FOLLOW UP APPT -FOLLOW UP FOR BX RESULTS Also follow-up to establish care for colostomy) LACHELLE LEW MD [ACTIVE STAFF] - (Follow-up for GI bleeding) WARREN JOY MD [ACTIVE STAFF] - (Please see Dr. Ballesteros first thing next week. Have him check your potassium and CBC as well as your INR.) FRANKLYN RESENDIZ MD [Primary Care Provider] - Follow up as needed Prescriptions: Sucralfate [Carafate 1 gm Tablet] 1 gm PO ACHS 14 Days #56 tablet Pantoprazole Sodium [Protonix [address] Tablet] 40 mg PO BID@0600,1700 14 Days #28 tablet.dr Home Medications: Acetaminophen [Tylenol Extra Strength 500 mg Tablet] 500 mg PO Q4HP PRN 08/05/19 Alprazolam [Xanax 0.25 mg Tablet] 0.25 mg PO DAILYP PRN 08/05/19 Bupropion HCl [Wellbutrin Sr 150 mg Tablet] 450 mg PO QAM 08/05/19 Cholecalciferol (Vitamin D3) [Vitamin D3 2000 unit Tablet] 2,000 unit PO DAILY 08/05/19 Cyanocobalamin (Vitamin B-12) [Vitamin B-12] 6,000 mcg PO DAILY 08/05/19 Ferrous Sulfate [Feosol 325 mg Tablet] 325 mg PO QHS 08/05/19 Fluticasone Propionate [Flonase Nasal [place] 50 Mcg/[place] 16 gm] 1 spray NASL DAILY 08/05/19 Furosemide [Lasix 20 mg Tablet] 20 mg PO QAM 08/05/19 Glipizide [Glucotrol 10 mg Tablet] 10 mg PO BID 08/05/19 Levothyroxine Sodium 137 mcg PO Q6AM 08/05/19 Loratadine [Claritin 10 mg Tablet] 10 mg PO DAILY 08/05/19 Metformin HCl [Glucophage] 1,000 mg PO BID 08/05/19 Metoprolol Succinate [Toprol Xl 50 mg Tab.sr] 50 mg PO DAILY 08/05/19 Ondansetron HCl [Zofran 4 mg Tablet] 4 mg PO Q4HP PRN 08/05/19 Oxycodone HCl/Acetaminophen [Percocet 5-325 mg Tablet] 1 tab PO DAILYP PRN 08/05/19 Polyethylene Glycol 3350 [Miralax Powder 17 gm/Packet] 17 gm PO DAILYP PRN 08/05/19 Pregabalin [Lyrica 25 mg Capsule] 25 mg PO Q12 08/05/19 Rosuvastatin Calcium [Crestor] 40 mg PO QPM 08/05/19 Sertraline HCl [Zoloft] 12.5 mg PO QHS 08/05/19 Warfarin Sodium [Coumadin 5 mg Tablet] 5 mg PO MOWEFR 08/05/19 Hydrocortisone [Hydrocortisone 1% Cream 28.35 gm] 1 applic TP TIDP PRN tube 08/07/19 Pantoprazole Sodium [Protonix [address] Tablet] 40 mg PO BID@0600,1700 14 Days #28 tablet. 08/07/19 Sucralfate [Carafate 1 gm Tablet] 1 gm PO ACHS 14 Days #56 tablet 08/07/19 History of Present Illiness History of Present Illness: LUIZA FARIA is a 69 year old female admitted because of bright red blood in her colostomy bag. She is on warfarin for a prosthetic heart valve. She states that this has happened in the past but has stopped spontaneously. She has noticed the bleeding over the last 24 hours. She feels bloated in the upper abdomen. She denies any other complaints or symptoms. She did have a supratherapeutic INR the day prior to admission. Evaluation in the emergency department confirmed bright red blood from the colostomy. Her INR was 2.9 in the emergency department. Her hemoglobin was 10.7. The case was discussed with surgery who will in fact perform endoscopy. She was referred to the hospital service for admission. Hospital Course Hospital Course: The patient had a fairly unremarkable course. Endoscopy revealed some atrophic areas in the gastric mucosa as well as evidence of bright red blood in the first portion of the duodenum. There was no active bleeding. CLOtest was negative on the biopsy obtained. The patient's hemoglobin did decrease on a daily basis but appears to have stabilized. Her epigastric discomfort is markedly improved. There is no further evidence of bright red blood in the colostomy bag. The patient did exhibit hypokalemia during her stay. Because potassium can be an irritating drug on the stomach I have used intravenous potassium chloride to replete her stores. She will receive 40 mEq by IV before discharge. She will also be discharged on Carafate and Protonix. She has used Carafate in the past. It can be costly and I explained that if she is unable to use the Carafate the Protonix 40 mg twice daily will offer protection as well. With regard to her warfarin dosing, she alternates with 5 and 10 mg dosing. I suggested she start at 5 mg daily until she sees her painter, who adjusts her warfarin, to determine dosing after that. If she observes any blood in the colostomy bag then I would hold the Coumadin. Physical Exam Vital Signs: Temp Pulse Resp BP Pulse Ox 97.1 F 84 17 92/39 L 94 08/07/19 08:00 08/07/19 08:00 08/07/19 08:00 08/07/19 08:00 08/07/19 08:00 Intake & Output 08/06/19 08/07/19 08/08/19 06:59 06:59 06:59 Intake Total 3514 2930 Balance 3514 2930 Weight 93.4 kg 93.5 kg General appearance: PRESENT: no acute distress, cooperative, well-developed, well-nourished Head exam: PRESENT: atraumatic, normocephalic Eye exam: PRESENT: conjunctiva pale Ear exam: PRESENT: normal external ear exam. ABSENT: bleeding, drainage Teeth exam: PRESENT: poor dentation Respiratory exam: PRESENT: clear to auscultation elizabeth, symmetrical, unlabored. ABSENT: accessory muscle use, rales, rhonchi, tachypnea, wheezes Cardiovascular exam: PRESENT: RRR, +S1, +S2, other - Prosthetic valve click GI/Abdominal exam: PRESENT: soft, other - Colostomy left abdomen. No blood in the colostomy bag.. ABSENT: distended, tenderness - No further tenderness in the epigastrium Extremities exam: ABSENT: pedal edema Musculoskeletal exam: PRESENT: full ROM, normal inspection. ABSENT: deformity Neurological exam: PRESENT: alert, awake, oriented to person, oriented to place, oriented to time, oriented to situation, CN II-XII grossly intact Psychiatric exam: PRESENT: appropriate affect. ABSENT: agitated, anxious Results Laboratory Results: WBC 5.1 10^3/uL (4.0-10.5) 08/07/19 02:42 RBC 2.89 10^6/uL (3.72-5.28) L 08/07/19 02:42 Hgb 8.5 g/dL (12.0-15.5) L 08/07/19 02:42 Hct 25.5 % (36.0-47.0) L 08/07/19 02:42 MCV 88 fl (80-97) 08/07/19 02:42 MCH 29.3 pg (27.0-33.4) 08/07/19 02:42 MCHC 33.3 g/dL (32.0-36.0) 08/07/19 02:42 RDW 15.7 % (11.5-14.0) H 08/07/19 02:42 Plt Count 119 10^3/uL (150-450) L 08/07/19 02:42 Lymph % (Auto) 37.5 % (13-45) 08/04/19 21:33 [place] % (Auto) 8.5 % (3-13) 08/04/19 21:33 Eos % (Auto) 2.6 % (0-6) 08/04/19 21:33 Baso % (Auto) 0.8 % (0-2) 08/04/19 21:33 Absolute Neuts (auto) 4.6 10^3/uL (1.7-8.2) 08/04/19 21: Absolute Lymphs (auto) 3.4 10^3/uL (0.5-4.7) 08/04/19 21:33 Absolute Monos (auto) 0.8 10^3/uL (0.1-1.4) 08/04/19 21:33 Absolute Eos (auto) 0.2 10^3/uL (0.0-0.6) 08/04/19 21:33 Absolute Basos (auto) 0.1 10^3/uL (0.0-0.2) 08/04/19 21:33 Seg Neutrophils % 50.6 % (42-78) 08/04/19 21:33 PT 17.9 SEC (11.4-15.4) H 08/07/19 02:42 INR 1.46 08/07/19 02:42 APTT 45.8 SEC (23.5-35.8) H 08/04/19 21:33 Sodium 143.3 mmol/L (137-145) 08/07/19 02:42 Potassium 3.4 mmol/L (3.6-5.0) L 08/07/19 02:42 Chloride 112 mmol/L (98-107) H 08/07/19 02:42 Carbon Dioxide 25 mmol/L (22-30) 08/07/19 02:42 Anion Gap 6 (5-19) 08/07/19 02:42 BUN 5 mg/dL (7-20) L 08/07/19 02:42 Creatinine 1.00 mg/dL (0.52-1.25) 08/07/19 02:42 Est GFR ( Amer) > 60 (>60) 08/07/19 02:42 Est GFR (MDRD) Non-Af 55 (>60) L 08/07/19 02:42 Glucose 140 mg/dL (75-110) H 08/07/19 02:42 POC Glucose 108 mg/dL (70-110) 08/07/19 08:36 Calcium 8.3 mg/dL (8.4-10.2) L 08/07/19 02:42 Magnesium 1.6 mg/dL (1.6-2.3) 08/06/19 05:33 Total Bilirubin 1.1 mg/dL (0.2-1.3) 08/04/19 21:33 Direct Bilirubin 0.2 mg/dL (0.0-0.4) 08/04/19 21:33 Neonat Total Bilirubin Not Reportable 08/04/19 21:33 Neonat Direct Bilirubin Not Reportable 08/04/19 21:33 Neonat Indirect Bili Not Reportable 08/04/19 21:33 AST 93 U/L (14-36) H 08/04/19 21:33 ALT 50 U/L (<35) 08/04/19 21:33 Alkaline Phosphatase 54 U/L (38-126) 08/04/19 21:33 Total Protein 8.1 g/dL (6.3-8.2) 08/04/19 21:33 Albumin 4.5 g/dL (3.5-5.0) 08/04/19 21:33 Lipase 421.5 U/L (23-300) H 08/04/19 21:33 Blood Type AB NEGATIVE 08/04/19 01:05 Antibody Screen POSITIVE 08/04/19 01:05 Antibody Identification Anti-C Anti-D 08/04/19 01:05 Antibody Identification Anti-C Anti-D 08/04/19 01:05 Plan Health Concerns: Hypokalemia-patient's potassium has been running low. I will dose with IV potassium prior to discharge and instruct her on potassium foods to take daily until she sees her painter and/or primary care provider Warfarin-concern regarding resuming warfarin and recurrent bleeding. To that end I have instructed her to do the 5 mg dose daily. This will begin to change her INR but will not escalate it too quickly. If she sees any blood in her colostomy bag she will discontinue the warfarin. Dr. Joy adjust her warfarin and she will be able to see him on Saturday or Saturday. Plan of Treatment: As above Goals: Resolution of bleeding and return to warfarin for appropriate anticoagulation for prosthetic heart valve Resolution of hypokalemia Resolution of anemia secondary to blood loss Time Spent: Greater than 30 Minutes Stroke Is this a Stroke Patient?: No Acute Heart Failure - Is this a Heart Failure Patient?: No
[2019-08-07] MEDS: POTASSI CL 20 MEQ/50 ML RIDER 20 MEQ/50 ML RTUPB IV SCH ×2 (13:56→17:33)
[2019-08-07] MEDS ORDERED: POTASSIUM CHLORIDE 10 MEQ TABLET.ER PO ONE (17:00)
[2019-08-07 17:36] VITALS: BP 129/60
== END 2019-08-07 18:45 | disposition home or self-care (01) | DRG 379 ==
LOC: ER 20:47 → EH 23:09 → 5 08-05 00:37
PROVIDERS: ADMIT Emergency Medicine; ATTEND Emergency Medicine
PROC: 0DB68ZX Excision of Stomach, Via Natural or Artificial Opening Endoscopic, Diagnostic (ICD-10-PCS; principal; 2019-08-04)
PROC: 0DJD8ZZ Inspection of Lower Intestinal Tract, Via Natural or Artificial Opening Endoscopic (ICD-10-PCS; 2019-08-04)
DX: K57.31 Diverticulosis of large intestine without perforation or abscess with bleeding (principal); D50.0 Iron deficiency anemia secondary to blood loss (chronic); I10 Essential (primary) hypertension; E11.9 Type 2 diabetes mellitus without complications; E66.9 Obesity, unspecified; E03.9 Hypothyroidism, unspecified; F32.9 Major depressive disorder, single episode, unspecified; E87.6 Hypokalemia; I25.10 Atherosclerotic heart disease of native coronary artery without angina pectoris; G47.30 Sleep apnea, unspecified; K29.70 Gastritis, unspecified, without bleeding; M19.90 Unspecified osteoarthritis, unspecified site; I25.2 Old myocardial infarction; Z79.01 Long term (current) use of anticoagulants; Z95.2 Presence of prosthetic heart valve; Z79.84 Long term (current) use of oral hypoglycemic drugs; Z93.3 Colostomy status; Z95.1 Presence of aortocoronary bypass graft; Z90.49 Acquired absence of other specified parts of digestive tract; Z95.5 Presence of coronary angioplasty implant and graft; Z87.891 Personal history of nicotine dependence; Z91.038 Other insect allergy status; Z83.3 Family history of diabetes mellitus; Z82.49 Family history of ischemic heart disease and other diseases of the circulatory system; Z80.0 Family history of malignant neoplasm of digestive organs; Z68.33 Body mass index [BMI] 33.0-33.9, adult
CPT/HCPCS: 36415; 43239; 45378; 80048; 80053; 813; 82962; 83690; 83735; 84132; 85025; 85027; 85610; 85730; 86850; 86870; 86900; 86901; 88305; 88342; 93005; 93010; 99284; C9113; J2270; J2405; J2704; J3430; J3480; J3490; J7030; J7050

== ENCOUNTER 2019-09-28 14:34 | Inpatient (IN) | payer MEDICARE, OTHER ==
[2019-09-28] MEDS ORDERED: NORMAL SALINE 1000 ML 1,000 ML IV ONE ×2 (15:13→17:16)
[2019-09-28] MEDS ORDERED: ONDANSETRON HCL INJ/PF 4 MG/2 ML SDV IV ONE (15:13)
--- NOTE | 2019-09-28 15:14 | ER Document Report ---
ED Medical Screen (RME) - General Chief Complaint: Bloody Stools Stated Complaint: BLOOD IN STOOL,DIZZINESS Time Seen by Provider: 09/28/19 15:07 Primary Care Provider: FRANKLYN RESENDIZ MD [Primary Care Provider] - Follow up as needed Notes: Patient is a 69-year-old female with a history of rheumatoid arthritis, hypertension, type 2 diabetes, high cholesterol on warfarin due to aortic valve replacement who presents to the emergency department with a chief complaint of black stools. Patient has an ostomy bag that was placed about 6 years ago due to diverticulitis. She reports 90% of her bowel was removed. Patient reports yesterday developing lower abdominal cramping with black liquid stools. She reports an increase in her stools compared to her normal. Patient reports she is on warfarin. Patient reports she is also currently taking ciprofloxacin for a urinary tract infection in which she started last . TRAVEL OUTSIDE OF THE [place] IN LAST 30 DAYS: No - Related Data Allergies/Adverse Reactions: ants Allergy (Uncoded 01/03/19 13:34) Past Medical History - Past Medical History Cardiac Medical History: Reports: Hx Coronary Artery Disease, Hx Heart Attack - x3, Hx Hypercholesterolemia, Hx Hypertension Pulmonary Medical History: Denies: Hx Asthma, Hx Bronchitis, Hx COPD, Hx Pneumonia Neurological Medical History: Denies: Hx Cerebrovascular Accident, Hx Seizures Endocrine Medical History: Reports: Hx Diabetes Mellitus Type 2. Denies: Hx Diabetes Mellitus Type 1, Hx Hyperthyroidism, Hx Hypothyroidism Renal/ Medical History: Denies: Hx Peritoneal Dialysis GI Medical History: Reports: Hx Diverticulitis. Denies: Hx Cirrhosis, Hx Crohn's Disease, Hx Hepatitis, Hx Ulcerative Colitis Musculoskeltal Medical History: Reports Hx Arthritis, Denies Hx Gout Skin Medical History: Denies Hx Eczema, Reports Hx MRSA, Denies Hx Psoriasis Psychiatric Medical History: Reports: Hx Depression Infectious Medical History: Denies: Hx Hepatitis Past Surgical History: Reports: Hx Abdominal Surgery - colostomy;bowel removal;herniax2, Hx Appendectomy, Hx Cardiac Catheterization - stent, quad bypass. aortic valve replacement, Hx Cardiac Surgery - CABG, Hx Colostomy - With partial colectomy, Hx Coronary Artery Bypass Graft - Quadruple bypass grafts, Hx Coronary Stent, Hx Genitourinary Surgery - colostomy, Hx Herniorrhaphy, Hx Hysterectomy, Hx Orthopedic Surgery - carpal tunner syndrome, Hx Valve Replacement, Other - hernia repairs. Not sure if mesh was used.. Denies: Hx Gynecologic Surgery - Immunizations Hx Diphtheria, Pertussis, Tetanus Vaccination: Yes Course - Re-evaluation Re-evalutation: 09/28/19 15:12 Ostomy noted in the left lower quadrant. Abdomen is soft. Patient noted to be tachycardic in the 120s in triage. Patient reports she has not had much to eat or drink today she feels nauseated. Patient DEMIAN level 2, does have a room assignment, will initiate basic labs as well as IV fluids and placed on cardiac monitoring. We will check coagulation studies as the patient is on Coumadin. I have greeted and performed a rapid initial assessment of this patient. A comprehensive ED assessment and evaluation of the patient, analysis of test results and completion of the medical decision making process will be conducted by additional ED providers. Doctor's Discharge - Discharge Referrals: FRANKLYN RESENDIZ MD [Primary Care Provider] - Follow up as needed
[2019-09-28 16:05] LABS: ABSOLUTE EOSINOPHILS # (AUTO) 0.2 10^3/uL (0.0-0.6); ABSOLUTE LYMPHOCYTES (AUTO) 2.4 10^3/uL (0.5-4.7); ABSOLUTE MONOCYTES (AUTO) 0.8 10^3/uL (0.1-1.4); ABSOLUTE NEUT (AUTO) 5.5 10^3/uL (1.7-8.2); BASOPHILS % (AUTO) 0.3 % (0-2); EOSINOPHILS % (AUTO) 2.4 % (0-6); HEMATOCRIT 31.7 % (36.0-47.0); HEMOGLOBIN 10.6 g/dL (12.0-15.5); LYMPHOCYTES % (AUTO) 26.7 % (13-45); MEAN CORPUSCULAR HEMOGLOBIN 28.9 pg (27.0-33.4); MEAN CORPUSCULAR HGB CONC 33.3 g/dL (32.0-36.0); MEAN CORPUSCULAR VOLUME 87 fl (80-97); MONOCYTES % (AUTO) 9.1 % (3-13); PLATELET COUNT 190 10^3/uL (150-450); RED BLOOD COUNT 3.66 10^6/uL (3.72-5.28); RED CELL DISTRIBUTION WIDTH 17.6 % (11.5-14.0); SEGMENTED NEUTROPHILS % (AUTO) 61.5 % (42-78); TOTAL CELLS COUNTED % (AUTO) 100 %
[2019-09-28 16:17] LABS: INTERNATIONAL RATION (INR) 3.83; PARTIAL THROMBOPLASTIN TIME 50.7 SEC (23.5-35.8); PROTHROMBIN TIME 38.6 SEC (11.4-15.4)
[2019-09-28 16:23] LABS: ALBUMIN 4.4 g/dL (3.5-5.0); ALKALINE PHOSPHATASE 53 U/L (38-126); ANION GAP 13 (5-19); APPEARANCE,URINE CLEAR; ASPARTATE AMINO TRANSFERASE 93 U/L (14-36); BILIRUBIN,DIRECT 0.4 mg/dL (0.0-0.4); BILIRUBIN,TOTAL 1.1 mg/dL (0.2-1.3); BILIRUBIN,URINE NEGATIVE (NEGATIVE); BLOOD UREA NITROGEN 16 mg/dL (7-20); CALCIUM 9.8 mg/dL (8.4-10.2); CARBON DIOXIDE 24 mmol/L (22-30); CHLORIDE 105 mmol/L (98-107); COLOR,URINE STRAW; GLUCOSE, URINE NEGATIVE (NEGATIVE); KETONES,URINE NEGATIVE (NEGATIVE); LEUKOCYTE ESTERASE,URINE NEGATIVE (NEGATIVE); NITRITE,URINE NEGATIVE (NEGATIVE); POTASSIUM 3.5 mmol/L (3.6-5.0); PROTEIN,URINE NEGATIVE (NEGATIVE); URINE SPECIFIC GRAVITY 1.009; UROBILINOGEN,URINE NEGATIVE mg/dL (<2.0)
[2019-09-28 16:25] LABS: GLUCOSE 63 mg/dL (75-110)
--- NOTE | 2019-09-28 18:09 | ER Document Report ---
ED General - General Chief Complaint: Black/Tarry Stools Stated Complaint: BLOOD IN STOOL,DIZZINESS Time Seen by Provider: 09/28/19 15:07 Primary Care Provider: FRANKLYN RESENDIZ MD [Primary Care Provider] - Follow up as needed Mode of Arrival: Ambulatory Information source: Patient TRAVEL OUTSIDE OF THE [place] IN LAST 30 DAYS: No - HPI Notes: Patient presents with black tarry liquid in her colostomy bag as well as some mild abdominal discomfort. She describes abdominal discomfort as a pressure sensation in the epigastric region. Nothing makes it better or worse. It does not radiate. It is been relatively constant. She is had her symptoms for 1 to 2 days. There is no radiation of the abdominal pressure. No vomiting. She states she had a similar episode in July and was scoped but does not believe any significant pathology was found. She states she has a colostomy due to diverticulitis approximately 8 years ago. She states she is also on warfarin for a mechanical valve. She has not had bleeding from any other site. - Related Data Allergies/Adverse Reactions: ants Allergy (Uncoded 01/03/19 13:34) Home Medications: alprazolam, b12, bupropion er, crestor, d3, flonase, furoseminde, glipizide, iron, levothyroxine, loratadine, metoprolol, metformin, nitro, omeprazole, percocet, miralax, sertraline, warfarin, zofran Past Medical History - General Information source: Patient - Social History Smoking Status: Former Smoker Chew tobacco use (# tins/day): No Frequency of alcohol use: None Drug Abuse: None Family History: CAD, DM, Other - RECTAL CA Patient has suicidal ideation: No Patient has homicidal ideation: No - Past Medical History Cardiac Medical History: Reports: Hx Coronary Artery Disease, Hx Heart Attack - x3, Hx Hypercholesterolemia, Hx Hypertension Pulmonary Medical History: Denies: Hx Asthma, Hx Bronchitis, Hx COPD, Hx Pneumonia Neurological Medical History: Denies: Hx Cerebrovascular Accident, Hx Seizures Endocrine Medical History: Reports: Hx Diabetes Mellitus Type 2. Denies: Hx Diabetes Mellitus Type 1, Hx Hyperthyroidism, Hx Hypothyroidism Renal/ Medical History: Denies: Hx Peritoneal Dialysis GI Medical History: Reports: Hx Diverticulitis. Denies: Hx Cirrhosis, Hx Crohn's Disease, Hx Hepatitis, Hx Ulcerative Colitis Musculoskeletal Medical History: Reports Hx Arthritis, Denies Hx Gout Skin Medical History: Denies Hx Eczema, Reports Hx MRSA, Denies Hx Psoriasis Psychiatric Medical History: Reports: Hx Depression Infectious Medical History: Denies: Hx Hepatitis Past Surgical History: Reports: Hx Abdominal Surgery - colostomy;bowel removal;herniax2, Hx Appendectomy, Hx Cardiac Catheterization - stent, quad bypass. aortic valve replacement, Hx Cardiac Surgery - CABG, Hx Colostomy - With partial colectomy, Hx Coronary Artery Bypass Graft - Quadruple bypass grafts, Hx Coronary Stent, Hx Genitourinary Surgery - colostomy, Hx Herniorrhaphy, Hx Hyst erectomy, Hx Orthopedic Surgery - carpal tunner syndrome, Hx Valve Replacement, Other - hernia repairs. Not sure if mesh was used.. Denies: Hx Gynecologic Surgery - Immunizations Hx Diphtheria, Pertussis, Tetanus Vaccination: Yes Hx Pneumococcal Vaccination: 06/12/11 Review of Systems - Review of Systems Constitutional: Malaise, Weakness Cardiovascular: denies: Chest pain, Palpitations Respiratory: denies: Cough, Short of breath -: Yes All other systems reviewed and negative Physical Exam - Vital signs Vitals: Temp Pulse Resp BP Pulse Ox 98 F 130 H 21 H 130/70 H 100 09/28/19 15:07 09/28/19 15:07 09/28/19 15:07 09/28/19 15:07 09/28/19 15:07 Interpretation: Tachycardic - General General appearance: Appears well, Alert - HEENT Head: Normocephalic, Atraumatic Eyes: Normal Pupils: PERRL - Respiratory Respiratory status: No respiratory distress Chest status: Nontender Breath sounds: Normal Chest palpation: Normal - Cardiovascular Rhythm: Tachycardia Heart sounds: Normal auscultation Murmur: No - Abdominal Inspection: Normal Distension: No distension Bowel sounds: Normal Tenderness: Nontender Organomegaly: No organomegaly - Back Back: Normal, Nontender - Extremities General upper extremity: Normal inspection, Nontender, Normal color, Normal ROM, Normal temperature General lower extremity: Normal inspection, Nontender, Normal color, Normal ROM, Normal temperature, Normal weight bearing. No: Kassandra's sign - Neurological Neuro grossly intact: Yes Cognition: Normal Orientation: AAOx4 Myesha Coma Scale Eye Opening: Spontaneous [place] Coma Scale Verbal: Oriented [place] Coma Scale Motor: Obeys Commands Virgil Coma Scale Total: 15 Speech: Normal Motor strength normal: LUE, RUE, LLE, RLE Sensory: Normal - Psychological Associated symptoms: Normal affect, Normal mood - Skin Skin Temperature: Warm Skin Moisture: Dry Skin Color: Normal Course - Re-evaluation Re-evalutation: 09/28/19 18:06 Patient presents tachycardic with tarry liquid stool. She has had some abdominal discomfort but does not have a surgical abdomen at this time. She does not have a fever or significantly elevated white blood cell count. I have consulted medicine. I have also discussed the case with surgery. Patient does have a therapeutic INR for mechanical valve at this time as the therapeutic range is up to 3.5 and hers is 3.3. Since she is stable I do not feel that we need to correct her coagulopathy. Patient heart rate was initially 130 is now approximately 110 after 2 liters of fluid. Hemoglobin is stable. Patient will be admitted for further evaluation and treatment of her GI bleeding while on anticoagulants. - Vital Signs Vital signs: Temp Pulse Resp BP Pulse Ox 98 F 130 H 15 129/68 H 99 09/28/19 15:07 09/28/19 15:07 09/28/19 15:52 09/28/19 15:52 09/28/19 15:52 - Laboratory Result Diagrams: 09/28/19 15:35 09/28/19 15:35 Laboratory results interpreted by tx: 09/28/19 09/28/19 09/28/19 15:35 15:35 15:35 RBC 3.66 L Hgb 10.6 L Hct 31.7 L RDW 17.6 H PT 38.6 H APTT 50.7 H Potassium 3.5 L Est GFR (MDRD) Non-Af 59 L Glucose 63 L AST 93 H ALT 43 H - EKG Interpretation by Md EKG shows normal: Sinus rhythm Rate: Tachycardia - 120 Rhythm: NSR [place]/QRS: No: Right axis deviation, Left axis deviation Discharge - Discharge Clinical Impression: History of aortic valve replacement, Anticoagulated on Coumadin GI bleeding Qualifiers: GI bleed type/associated pathology: melena Qualified Code(s): K92.1 - Melena Condition: Fair Disposition: ADMITTED INPATIENT Admitting Provider: Edward (Hospitalist) - cas to admit Unit Admitted: Telemetry Referrals: FRANKLYN RESENDIZ MD [Primary Care Provider] - Follow up as needed
[2019-09-28] MEDS ORDERED: ALBUTEROL SULFATE 0.083% NEB 2.5 MG/3 ML AMPUL NEB PRN (18:33)
[2019-09-28] MEDS ORDERED: ACETAMINOPHEN 325 MG TABLET PO PRN (18:33)
--- NOTE | 2019-09-28 18:34 | EKG REPORT ---
SEVERITY:- ABNORMAL ECG - SINUS TACHYCARDIA ABNORMAL T, CONSIDER ISCHEMIA, LATERAL LEADS PROLONGED QT : Confirmed by: Krunal Joy 28-Sep-2019 18:33:39
[2019-09-28] MEDS ORDERED: PROMETHAZINE HCL INJ 25 MG/1 ML VIAL IV PRN (18:41)
[2019-09-28] MEDS ORDERED: ONDANSETRON HCL INJ/PF 4 MG/2 ML SDV IV PRN (18:41)
[2019-09-28] MEDS ORDERED: MAG HYDROX/AL HYDROX/SIMETH SUSP 30 ML UDCUP PO PRN (18:41)
[2019-09-28] MEDS ORDERED: DEXTROSE 50%-WATER 25 GM/50 ML DISP.SYRIN IV PRN ×2 (18:44)
[2019-09-28] MEDS ORDERED: GLUCAGON,HUMAN RECOMB 1 MG INJ IM PRN (18:44)
[2019-09-28] MEDS ORDERED: DEXTROSE 40% GEL 15 GM TUBE PO PRN ×2 (18:44)
--- NOTE | 2019-09-28 18:57 | PDOC H&P ---
History of Present Illness Admission Date/PCP: 09/28/19 18:17 FRANKLYN RESENDIZ Patient complains of: GI bleeding History of Present Illness: LUIZA FARIA is a 69 year old female with a past medical history of CAD, GA, stent x2, CABG x4, hypertension, hyperlipidemia, mechanical aortic valve on Coumadin, DM 2, hypothyroidism, diverticulitis, depression, anemia, and recent GI bleed who presented to the emergency department today with a complaint of 2 days of generalized fatigue followed by onset of black stools per colostomy today. Patient does note decreased appetite but denies abdominal discomfort, nausea and vomiting. Evaluation in the emergency department revealed tachycardia (HR 130), tachypnea (RR 26), mild anemia (hemoglobin 10.6; improved from prior admission), slightly supratherapeutic INR at 3.8, essentially unremarkable chemistry other than m ildly elevated LFTs, benign urinalysis, positive occult stool. EKG demonstrated sinus tachycardia. She was provided 2 L normal saline bolus and was referred to the hospitalist service for admission and management of the above-stated complaints. The emergency department provider did speak with Dr. Archibald who said they would be available, if needed, but as patient had just undergone EGD and colo noscopy 08/06/2019, there was no need to plan for repeat at this time. Past Medical History Cardiac Medical History: Reports: Coronary Artery Disease, Myocardial Infarction - x3, Hyperlipidema, Hypertension, Other - Mechanical aortic valve Pulmonary Medical History: Reports: None EENT Medical History: Reports: None Neurological Medical History: Denies: Ischemic CVA, Seizures Endocrine Medical History: Reports: Diabetes Mellitus Type 2, Hypothyroidism, Ob esity Renal/ Medical History: Reports: None Malignancy Medical History: Reports: None GI Medical History: Reports: Diverticulitis, Gastroesophageal Reflux Disease Denies: Crohn's Disease, Hepatitis, Ulcerative Colitis Musculoskeltal Medical History: Reports: Arthritis Skin Medical History: Denies: Eczema, Psoriasis Psychiatric Medical History: Reports: Depression Hematology: Reports: Anemia, Bleeding Tendencies - Chronic warfarin therapy Infectious Medical History: Reports: None Past Surgical History Past Surgical History: Reports: Appendectomy, Cardiac Catheterization - stent, quad bypass., Colostomy - With partial colectomy, Coronary Artery Bypass Graft - Quadruple bypass grafts, Coronary Stent, Herniorrhaphy, Hysterectomy, Orthopedic Surgery - carpal tunnel syndrome, Valve Replacement - Mechanical aortic valve Social History Information Source: Patient Lives with: Alone Smoking Status: Former Smoker Electronic Cigarette use?: No Frequency of Alcohol Use: None Hx Recreational Drug Use: No Drugs: None Hx Prescription Drug Abuse: No - Advance Directive Resuscitation Status: Full Code Family History Family History: CAD, DM, Other - RECTAL CA Parental Family History Reviewed: Yes Children Family History Reviewed: Yes Sibling(s) Family History Reviewed.: Yes Medication/Allergy Home Medications: Acetaminophen [Tylenol Extra Strength 500 mg Tablet] 500 mg PO Q4HP PRN 08/05/19 Alprazolam [Xanax 0.25 mg Tablet] 0.25 mg PO DAILYP PRN 08/05/19 Bupropion HCl [Wellbutrin Sr 150 mg Tablet] 450 mg PO QAM 08/05/19 Cholecalciferol (Vitamin D3) [Vitamin D3 2000 unit Tablet] 2,000 unit PO DAILY 08/05/19 Cyanocobalamin (Vitamin B-12) [Vitamin B-12] 6,000 mcg PO DAILY 08/05/19 Ferrous Sulfate [Feosol 325 mg Tablet] 325 mg PO QHS 08/05/19 Fluticasone Propionate [Flonase Nasal [place] 50 Mcg/[place] 16 gm] 1 spray NASL DAILY 08/05/19 Furosemide [Lasix 20 mg Tablet] 20 mg PO QAM 08/05/19 Glipizide [Glucotrol 10 mg Tablet] 10 mg PO BID 08/05/19 Levothyroxine Sodium 137 mcg PO Q6AM 08/05/19 Loratadine [Claritin 10 mg Tablet] 10 mg PO DAILY 08/05/19 Metformin HCl [Glucophage] 1,000 mg PO BID 08/05/19 Metoprolol Succinate [Toprol Xl 50 mg Tab.sr] 50 mg PO DAILY 08/05/19 Ondansetron HCl [Zofran 4 mg Tablet] 4 mg PO Q4HP PRN 08/05/19 Oxycodone HCl/Acetaminophen [Percocet 5-325 mg Tablet] 1 tab PO DAILYP PRN 08/05/19 Polyethylene Glycol 3350 [Miralax Powder 17 gm/Packet] 17 gm PO DAILYP PRN 08/05/19 Pregabalin [Lyrica 25 mg Capsule] 25 mg PO Q12 08/05/19 Rosuvastatin Calcium [Crestor] 40 mg PO QPM 08/05/19 Sertraline HCl [Zoloft] 12.5 mg PO QHS 08/05/19 Warfarin Sodium [Coumadin 5 mg Tablet] 5 mg PO MOWEFR 08/05/19 Hydrocortisone [Hydrocortisone 1% Cream 28.35 gm] 1 applic TP TIDP PRN tube 08/07/19 Pantoprazole Sodium [Protonix [address] Tablet] 40 mg PO BID@0600,1700 14 Days #28 tablet.dr 08/07/19 Sucralfate [Carafate 1 gm Tablet] 1 gm PO ACHS 14 Days #56 tablet 08/07/19 Allergies/Adverse Reactions: ants Allergy (Uncoded 01/03/19 13:34) Review of Systems Constitutional: PRESENT: chills, fatigue, fever(s). ABSENT: headache(s), weight gain, weight loss Eyes: ABSENT: visual disturbances Ears: ABSENT: hearing changes Cardiovascular: ABSENT: chest pain, dyspnea on exertion, edema, orthropnea, palpitations Respiratory: ABSENT: cough, hemoptysis Gastrointestinal: PRESENT: hematochezia. ABSENT: abdominal pain, constipation, diarrhea, hematemesis, melena, nausea, vomiting Genitourinary: ABSENT: dysuria, hematuria Musculoskeletal: ABSENT: joint swelling Integumentary: ABSENT: rash, wounds Neurological: ABSENT: abnormal gait, abnormal speech, confusion, dizziness, focal weakness, syncope Psychiatric: ABSENT: anxiety, depression, homidical ideation, suicidal ideation Endocrine: ABSENT: cold intolerance, heat intolerance, polydipsia, polyuria Hematologic/Lymphatic: ABSENT: easy bleeding, easy bruising Physical Exam Vital Signs: Temp Pulse Resp BP Pulse Ox 97.4 F 130 H 15 129/68 H 99 09/28/19 18:16 09/28/19 15:07 09/28/19 15:52 09/28/19 15:52 09/28/19 15:52 Intake & Output 09/27/19 09/28/19 09/29/19 06:59 06:59 06:59 Intake Total 1999 Balance 1999 Weight 90 kg General appearance: PRESENT: no acute distress, cooperative, obese, well- developed, well-nourished Head exam: PRESENT: atraumatic, normocephalic Eye exam: PRESENT: conjunctiva pink, EOMI, PERRLA. ABSENT: scleral icterus Ear exam: PRESENT: normal external ear exam Mouth exam: PRESENT: moist, tongue midline Respiratory exam: PRESENT: clear to auscultation elizabeth, symmetrical, unlabored. ABSENT: rales, rhonchi, wheezes Cardiovascular exam: PRESENT: RRR, +S1, +S2, tachycardia. ABSENT: diastolic murmur, rubs, systolic murmur Pulses: PRESENT: normal dorsalis pedis pul Vascular exam: PRESENT: normal capillary refill GI/Abdominal exam: PRESENT: normal bowel sounds, soft, other - Colostomy. ABSENT: distended, guarding, mass, organolmegaly, rebound, tenderness Rectal exam: PRESENT: heme (+) stool Extremities exam: PRESENT: full ROM. ABSENT: calf tenderness, clubbing, pedal edema Musculoskeletal exam: PRESENT: ambulatory Neurological exam: PRESENT: alert, awake, oriented to person, oriented to place, oriented to time, oriented to situation, CN II-XII grossly intact. ABSENT: motor sensory deficit Psychiatric exam: PRESENT: appropriate affect, normal mood. ABSENT: homicidal ideation, suicidal ideation Skin exam: PRESENT: dry, intact, warm. ABSENT: cyanosis, rash Results Laboratory Results: 09/28/19 15:35 09/28/19 15:35 09/28/19 09/28/19 09/28/19 15:35 15:35 15:35 WBC 9.0 RBC 3.66 L Hgb 10.6 L Hct 31.7 L MCV 87 MCH 28.9 MCHC 33.3 RDW 17.6 H Plt Count 190 Seg Neutrophils % 61.5 Sodium 141.9 Potassium 3.5 L Chloride 105 Carbon Dioxide 24 Anion Gap 13 BUN 16 Creatinine 0.94 Est GFR ( Amer) > 60 Glucose 63 L Calcium 9.8 Total Bilirubin 1.1 AST 93 H Alkaline Phosphatase 53 Total Protein 8.0 Albumin 4.4 Urine Color Urine Appearance Urine pH Ur Specific [place] Urine Protein Urine Glucose (UA) Urine Ketones Urine Blood Urine Nitrite Ur Leukocyte Esterase Urine WBC (Auto) Urine RBC (Auto) Blood Type AB NEGATIVE Antibody Screen POSITIVE 09/28/19 15:35 WBC RBC Hgb Hct MCV MCH MCHC RDW Plt Count Seg Neutrophils % Sodium Potassium Chloride Carbon Dioxide Anion Gap BUN Creatinine Est GFR ( Amer) Glucose Calcium Total Bilirubin AST Alkaline Phosphatase Total Protein Albumin Urine Color STRAW Urine Appearance CLEAR Urine pH 5.0 Ur Specific [place] 1.009 Urine Protein NEGATIVE Urine Glucose (UA) NEGATIVE Urine Ketones NEGATIVE Urine Blood NEGATIVE Urine Nitrite NEGATIVE Ur Leukocyte Esterase NEGATIVE Urine WBC (Auto) 0 Urine RBC (Auto) 0 Blood Type Antibody Screen Assessment and Plan - Diagnosis (1) GI bleeding Qualifiers: GI bleed type/associated pathology: unspecified gastrointestinal hemorrhage type Qualified Code(s): K92.2 - Gastrointestinal hemorrhage, unspecified Is this a current diagnosis for this admission?: Yes Plan: Patient with history of GI bleed; underwent EGD and colonoscopy in late July 2019. Found to have mild chronic gastritis She is chronically anticoagulated on Coumadin; mildly supratherapeutic today. Has had 2 days of fatigue with onset of hematochezia today. Occult stool positive. Patient is admitted to medical floor on continuous cardiac telemetry. She is provided a clear liquid diet. Placed on maintenance IV fluids. IV Protonix twice daily. Carafate before meals and at bedtime. Serial CBC. (2) Anticoagulated on Coumadin Is this a current diagnosis for this admission?: Yes Plan: Target INR 2.5-3.5. Found to be 3.83 today. Patient reports that she was >4 one week ago. We will hold Coumadin tonight with follow-up INR in the morning. (3) Hypertension Qualifiers: Hypertension type: essential hypertension Qualified Code(s): I10 - Essential (primary) hypertension Is this a current diagnosis for this admission?: Yes Plan: Continue home dose metoprolol (4) Type 2 diabetes mellitus with obesity Is this a current diagnosis for this admission?: Yes Plan: Holding oral antihyperglycemic's while admitted. Currently on a clear liquid diet; advance to cardiac/consistent carb when appropriate. Accu-Cheks before meals and at bedtime with Humalog for sliding scale coverage. Hypoglycemia protocol in place. (5) Hypothyroid Qualifiers: Hypothyroidism type: unspecified Qualified Code(s): E03.9 - Hypothyroidism, unspecified Is this a current diagnosis for this admission?: Yes Plan: Continue home dose levothyroxine (6) H/O mechanical aortic valve replacement Is this a current diagnosis for this admission?: Yes Plan: Chronic anticoagulation on Coumadin as above. - Time Time Spent with patient: 35 or more minutes Medications reviewed and adjusted accordingly: Yes Anticipated discharge: Home Within: within 48 hours
[2019-09-28] MEDS: OXYCODONE-ACETAMINOPHEN 5-325 MG TABLET PO PRN (21:56)
[2019-09-28] MEDS: PANTOPRAZOLE SODIUM 40 MG VIAL IV SCH (21:56)
[2019-09-28] MEDS: SUCRALFATE 1 GM TABLET PO SCH (21:57)
[2019-09-28] MEDS: INSULIN LISPRO 100 UNIT/ML 3 ML VIAL SUBCUT SCH (23:09)
[2019-09-29 00:37] LABS: HEMATOCRIT 28.5 % (36.0-47.0); HEMOGLOBIN 9.4 g/dL (12.0-15.5); MEAN CORPUSCULAR HGB CONC 33.2 g/dL (32.0-36.0); MEAN CORPUSCULAR VOLUME 88 fl (80-97); PLATELET COUNT 158 10^3/uL (150-450); RED BLOOD COUNT 3.25 10^6/uL (3.72-5.28); RED CELL DISTRIBUTION WIDTH 17.1 % (11.5-14.0); WHITE BLOOD COUNT 9.1 10^3/uL (4.0-10.5)
[2019-09-29] MEDS: LEVOTHYROXINE SODIUM 0.025 MG TABLET PO SCH (05:50)
[2019-09-29] MEDS: LEVOTHYROXINE SODIUM 0.112 MG TABLET PO SCH (05:50)
[2019-09-29 07:06] LABS: HEMATOCRIT 26.6 % (36.0-47.0); HEMOGLOBIN 8.9 g/dL (12.0-15.5); MEAN CORPUSCULAR HEMOGLOBIN 29.2 pg (27.0-33.4); MEAN CORPUSCULAR HGB CONC 33.5 g/dL (32.0-36.0); MEAN CORPUSCULAR VOLUME 87 fl (80-97); PLATELET COUNT 147 10^3/uL (150-450); RED BLOOD COUNT 3.06 10^6/uL (3.72-5.28); RED CELL DISTRIBUTION WIDTH 17.4 % (11.5-14.0)
[2019-09-29 07:17] LABS: INTERNATIONAL RATION (INR) 3.58; PROTHROMBIN TIME 36.6 SEC (11.4-15.4)
[2019-09-29 07:25] LABS: ANION GAP 7 (5-19); BLOOD UREA NITROGEN 12 mg/dL (7-20); CALCIUM 8.6 mg/dL (8.4-10.2); CARBON DIOXIDE 26 mmol/L (22-30); CHLORIDE 109 mmol/L (98-107); GLUCOSE 76 mg/dL (75-110); POTASSIUM 3.4 mmol/L (3.6-5.0)
[2019-09-29] MEDS: NORMAL SALINE 1000 ML 1,000 ML IV PRN ×2 (07:47→15:49)
[2019-09-29] MEDS: INSULIN LISPRO 100 UNIT/ML 3 ML VIAL SUBCUT SCH ×4 (08:28→22:52)
[2019-09-29] MEDS: SUCRALFATE 1 GM TABLET PO SCH ×4 (09:30→21:37)
[2019-09-29] MEDS: PANTOPRAZOLE SODIUM 40 MG VIAL IV SCH ×2 (09:30→21:37)
[2019-09-29 16:55] LABS: HEMATOCRIT 26.6 % (36.0-47.0); MEAN CORPUSCULAR HEMOGLOBIN 29.4 pg (27.0-33.4); MEAN CORPUSCULAR HGB CONC 33.6 g/dL (32.0-36.0); MEAN CORPUSCULAR VOLUME 88 fl (80-97); PLATELET COUNT 144 10^3/uL (150-450); RED BLOOD COUNT 3.05 10^6/uL (3.72-5.28); RED CELL DISTRIBUTION WIDTH 17.3 % (11.5-14.0); WHITE BLOOD COUNT 5.9 10^3/uL (4.0-10.5)
--- NOTE | 2019-09-29 18:08 | PDOC PROGRESS REPORT ---
Subjective Progress Note for:: 09/29/19 Subjective:: No adverse events overnight. No new complaints. Vital signs been stable. She says her stool output through her ostomy has returned to its normal color. Reason For Visit: HISTORY OF AORTIC VALVE REPLACEMENT Physical Exam Vital Signs: Temp Pulse Resp BP Pulse Ox 98.4 F 88 15 131/49 H 96 09/29/19 11:48 09/29/19 14:00 09/29/19 13:34 09/29/19 11:48 09/29/19 13:34 Intake & Output 09/28/19 09/29/19 09/30/19 06:59 06:59 06:59 Intake Total 2600 1000 Balance 2600 1000 Weight 91.9 kg General appearance: PRESENT: no acute distress, cooperative, obese Respiratory exam: PRESENT: clear to auscultation elizabeth, symmetrical, unlabored. ABSENT: rales, rhonchi, wheezes Cardiovascular exam: PRESENT: RRR, +S1, +S2, tachycardia. ABSENT: diastolic murmur, rubs, systolic murmur Pulses: PRESENT: normal dorsalis pedis pul Vascular exam: PRESENT: normal capillary refill GI/Abdominal exam: PRESENT: normal bowel sounds, soft, other - Colostomy. ABSENT: distended, guarding, mass, organolmegaly, rebound, tenderness Extremities exam: PRESENT: full ROM. ABSENT: calf tenderness, clubbing, pedal edema Musculoskeletal exam: PRESENT: ambulatory Neurological exam: PRESENT: alert, awake, oriented to person, oriented to place, oriented to time, oriented to situation Psychiatric exam: PRESENT: appropriate affect, normal mood Skin exam: PRESENT: dry, intact, warm. Results Laboratory Results: 09/29/19 16:20 09/29/19 06:33 09/28/19 09/29/19 09/29/19 15:35 00:22 06:33 WBC 9.1 RBC 3.25 L Hgb 9.4 L Hct 28.5 L MCV 88 MCH 29.0 MCHC 33.2 RDW 17.1 H Plt Count 158 Sodium 142.2 Potassium 3.4 L Chloride 109 H Carbon Dioxide 26 Anion Gap 7 BUN 12 Creatinine 0.88 Est GFR ( Amer) > 60 Glucose 76 Calcium 8.6 Blood Type AB NEGATIVE Antibody Screen POSITIVE 09/29/19 09/29/19 06:33 16:20 WBC 7.0 5.9 RBC 3.06 L 3.05 L Hgb 8.9 L 9.0 L Hct 26.6 L 26.6 L MCV 87 88 MCH 29.2 29.4 MCHC 33.5 33.6 RDW 17.4 H 17.3 H Plt Count 147 L 144 L Sodium Potassium Chloride Carbon Dioxide Anion Gap BUN Creatinine Est GFR ( Amer) Glucose Calcium Blood Type Antibody Screen Assessment and Plan - Diagnosis (1) GI bleeding Qualifiers: GI bleed type/associated pathology: unspecified gastrointestinal hemorrhage type Qualified Code(s): K92.2 - Gastrointestinal hemorrhage, unspecified Is this a current diagnosis for this admission?: Yes (2) Anticoagulated on Coumadin Is this a current diagnosis for this admission?: Yes (3) History of aortic valve replacement Is this a current diagnosis for this admission?: Yes - Plan Summary Summary: Warfarin has been held. She had a recent endoscopy in July 2019 which just showed a mild gastritis. That is probably the etiology of what is going on with her now. She is on Protonix and Carafate. She is only had a month of it previously, so we will continue this for 3 months after she leaves the hospital. Her hemoglobin is dropped some but she is been getting IV fluids. That is been discontinued and her diet has been advanced. - Time Time Spent with patient: 15-24 minutes
[2019-09-30] MEDS: OXYCODONE-ACETAMINOPHEN 5-325 MG TABLET PO PRN (00:23)
[2019-09-30] MEDS: LEVOTHYROXINE SODIUM 0.025 MG TABLET PO SCH (06:00)
[2019-09-30] MEDS: LEVOTHYROXINE SODIUM 0.112 MG TABLET PO SCH (06:00)
[2019-09-30] MEDS: INSULIN LISPRO 100 UNIT/ML 3 ML VIAL SUBCUT SCH ×2 (08:44→12:22)
[2019-09-30] MEDS: PANTOPRAZOLE SODIUM 40 MG VIAL IV SCH (09:18)
[2019-09-30] MEDS: SUCRALFATE 1 GM TABLET PO SCH ×2 (09:18→12:30)
[2019-09-30] MEDS: NORMAL SALINE 1000 ML 1,000 ML IV PRN (09:19)
[2019-09-30 09:20] VITALS: BP 134/65
--- NOTE | 2019-09-30 15:19 | PDOC DISCHARGE SUMMARY ---
Impression - Admit/DC Date/PCP Admission Date/Primary Care Provider: 09/28/19 18:17 FRANKLYN RESENDIZ Discharge Date: 09/30/19 - Discharge Diagnosis (1) GI bleeding Is this a current diagnosis for this admission?: Yes (2) Anticoagulated on Coumadin Is this a current diagnosis for this admission?: Yes (3) History of aortic valve replacement Is this a current diagnosis for this admission?: Yes - Assessment Summary: Warfarin has been held. She had a recent endoscopy in July 2019 which just showed a mild gastritis. That is probably the etiology of what is going on with her now. She is on Protonix and Carafate. She is only had a month of it previously, so we will continue this for 3 months after she leaves the hospital. Her hemoglobin is dropped some but she is been getting IV fluids. That is been discontinued and her diet has been advanced. - Additional Information Resuscitation Status: Full Code Discharge Diet: Cardiac, Diabetic Discharge Activity: Activity As Tolerated Referrals: FRANKLYN RESENDIZ MD [Primary Care Provider] - 10/06/19 11:00 am (3-5 days for INR check. PLEASE GO BY OFFICE ON SATURDAY THE TO HAVE LAB DRAWN.) Prescriptions: Sucralfate [Carafate 1 gm Tablet] 1 gm PO ACHS #120 tablet Pantoprazole Sodium [Protonix [address] Tablet] 40 mg PO QAMPM #60 tablet.dr Home Medications: Acetaminophen [Tylenol Extra Strength 500 mg Tablet] 500 mg PO Q4HP PRN 08/05/19 Alprazolam [Xanax 0.25 mg Tablet] 0.25 mg PO DAILYP PRN 08/05/19 Bupropion HCl [Wellbutrin Sr 150 mg Tablet] 450 mg PO QAM 08/05/19 Cholecalciferol (Vitamin D3) [Vitamin D3 2000 unit Tablet] 4,000 unit PO DAILY 08/05/19 Fluticasone Propionate [Flonase Nasal [place] 50 Mcg/[place] 16 gm] 1 spray NASL QHS 08/05/19 Furosemide [Lasix 20 mg Tablet] 20 mg PO QAM 08/05/19 Glipizide [Glucotrol 10 mg Tablet] 10 mg PO DAILY 08/05/19 Levothyroxine Sodium 137 mcg PO Q6AM 08/05/19 Loratadine [Claritin 10 mg Tablet] 10 mg PO DAILY 08/05/19 Metformin HCl [Glucophage] 1,000 mg PO BID 08/05/19 Metoprolol Succinate [Toprol Xl 50 mg Tab.sr] 50 mg PO DAILY 08/05/19 Ondansetron HCl [Zofran 4 mg Tablet] 4 mg PO Q4HP PRN 08/05/19 Oxycodone HCl/Acetaminophen [Percocet 5-325 mg Tablet] 1 tab PO DAILYP PRN 08/05/19 Polyethylene Glycol 3350 [Miralax Powder 17 gm/Packet] 17 gm PO DAILYP PRN 08/05/19 Rosuvastatin Calcium [Crestor] 40 mg PO QPM 08/05/19 Sertraline HCl [Zoloft] 25 mg PO QHS 08/05/19 Warfarin Sodium [Coumadin 5 mg Tablet] 5 mg PO SUFRSA 08/05/19 Cyanocobalamin (Vitamin B-12) [Vitamin B-12] 3,000 mcg PO BID 09/28/19 Iron 65 mg PO QHS 09/28/19 Nitroglycerin 0.4 mg SL DAILYP PRN 09/28/19 Warfarin Sodium 10 mg PO MOTUWETH 09/28/19 Pantoprazole Sodium [Protonix [address] Tablet] 40 mg PO QAMPM #60 tablet.dr 09/30/19 Sucralfate [Carafate 1 gm Tablet] 1 gm PO ACHS #120 tablet 09/30/19 History of Present Illiness History of Present Illness: LUIZA FARIA is a 69 year old female with a past medical history of CAD, HI, stent x2, CABG x4, hypertension, hyperlipidemia, mechanical aortic valve on Coumadin, DM 2, hypothyroidism, diverticulitis, depression, anemia, and recent GI bleed who presented to the emergency department today with a complaint of 2 days of generalized fatigue followed by onset of black stools per colostomy today. Patient does note decreased appetite but denies abdominal discomfort, nausea and vomiting. Evaluation in the emergency department revealed tachycardia (HR 130), tachypnea (RR 26), mild anemia (hemoglobin 10.6; improved from prior admission), slightly supratherapeutic INR at 3.8, essentially unremarkable chemistry other than mildly elevated LFTs, benign urinalysis, positive occult stool. EKG demonstrated sinus tachycardia. She was provided 2 L normal saline bolus and was referred to the hospitalist service for admission and management of the above-stated complaints. The emergency department provider did speak with Dr. Archibald who said they would be available, if needed, but as patient had just undergone EGD and colonoscopy 08/06/2019, there was no need to plan for repeat at this time. Hospital Course Hospital Course: Warfarin was held and she was monitored and had no recurrence of any signs of any bleeding. She got some IV fluids and so I think more as a result of that anything else her hemoglobin came down some but it remained steady at around 9. Apparently when she had some bleeding back in July, she was sent home with a months worth of Protonix and never got any more of it filled. This time we have decided to send her home with Protonix and Carafate for 12 weeks. She has been eating and drinking without difficulty since we advance her diet. She was advised to hold her Coumadin again tonight, check her INR in the morning, and then call Dr. Joy's office to see what dose she should resume. Her labs and examination were reassuring and she was discharged in stable condition. Physical Exam Vital Signs: Temp Pulse Resp BP Pulse Ox 98.4 F 103 H 17 134/65 H 98 09/30/19 12:18 09/30/19 12:18 09/30/19 12:18 09/30/19 12:18 09/30/19 12:18 Intake & Output 09/29/19 09/30/19 10/01/19 06:59 06:59 06:59 Intake Total 2600 3774 Balance 2600 3774 Weight 91.9 kg 96.3 kg General appearance: PRESENT: no acute distress, cooperative, obese Respiratory exam: PRESENT: clear to auscultation elizabeth, symmetrical, unlabored. ABSENT: rales, rhonchi, wheezes Cardiovascular exam: PRESENT: RRR, +S1, +S2, tachycardia. ABSENT: diastolic murmur, rubs, systolic murmur Pulses: PRESENT: normal dorsalis pedis pul Vascular exam: PRESENT: normal capillary refill GI/Abdominal exam: PRESENT: normal bowel sounds, soft, other - Colostomy. ABSENT: distended, guarding, mass, organolmegaly, rebound, tenderness Extremities exam: PRESENT: full ROM. ABSENT: calf tenderness, clubbing, pedal edema Musculoskeletal exam: PRESENT: ambulatory Neurological exam: PRESENT: alert, awake, oriented to person, oriented to place, oriented to time, oriented to situation Psychiatric exam: PRESENT: appropriate affect, normal mood Skin exam: PRESENT: dry, intact, warm. Results Laboratory Results: WBC 5.9 10^3/uL (4.0-10.5) 09/29/19 16:20 RBC 3.05 10^6/uL (3.72-5.28) L 09/29/19 16:20 Hgb 9.0 g/dL (12.0-15.5) L 09/29/19 16:20 Hct 26.6 % (36.0-47.0) L 09/29/19 16:20 MCV 88 fl (80-97) 09/29/19 16:20 MCH 29.4 pg (27.0-33.4) 09/29/19 16:20 MCHC 33.6 g/dL (32.0-36.0) 09/29/19 16:20 RDW 17.3 % (11.5-14.0) H 09/29/19 16:20 Plt Count 144 10^3/uL (150-450) L 09/29/19 16:20 Lymph % (Auto) 26.7 % (13-45) 09/28/19 15:35 [place] % (Auto) 9.1 % (3-13) 09/28/19 15:35 Eos % (Auto) 2.4 % (0-6) 09/28/19 15:35 Baso % (Auto) 0.3 % (0-2) 09/28/19 15:35 Absolute Neuts (auto) 5.5 10^3/uL (1.7-8.2) 09/28/19 15:35 Absolute Lymphs (auto) 2.4 10^3/uL (0.5-4.7) 09/28/19 15:35 Absolute Monos (auto) 0.8 10^3/uL (0.1-1.4) 09/28/19 15:35 Absolute Eos (auto) 0.2 10^3/uL (0.0-0.6) 09/28/19 15:35 Absolute Basos (auto) 0.0 10^3/uL (0.0-0.2) 09/28/19 15:35 Seg Neutrophils % 61.5 % (42-78) 09/28/19 15:35 PT 36.6 SEC (11.4-15.4) H 09/29/19 06:33 INR 3.58 09/29/19 06:33 APTT 50.7 SEC (23.5-35.8) H 09/28/19 15:35 Sodium 142.2 mmol/L (137-145) 09/29/19 06:33 Potassium 3.4 mmol/L (3.6-5.0) L 09/29/19 06:33 Chloride 109 mmol/L (98-107) H 09/29/19 06:33 Carbon Dioxide 26 mmol/L (22-30) 09/29/19 06:33 Anion Gap 7 (5-19) 09/29/19 06:33 BUN 12 mg/dL (7-20) 09/29/19 06:33 Creatinine 0.88 mg/dL (0.52-1.25) 09/29/19 06:33 Est GFR ( Amer) > 60 (>60) 09/29/19 06:33 Est GFR (MDRD) Non-Af > 60 (>60) 09/29/19 06:33 Glucose 76 mg/dL (75-110) 09/29/19 06:33 POC Glucose 113 mg/dL (70-110) H 09/30/19 12:13 Calcium 8.6 mg/dL (8.4-10.2) 09/29/19 06:33 Total Bilirubin 1.1 mg/dL (0.2-1.3) 09/28/19 15:35 Direct Bilirubin 0.4 mg/dL (0.0-0.4) 09/28/19 15:35 Neonat Total Bilirubin Not Reportable 09/28/19 15:35 Neonat Direct Bilirubin Not Reportable 09/28/19 15:35 Neonat Indirect Bili Not Reportable 09/28/19 15:35 AST 93 U/L (14-36) H 09/28/19 15:35 ALT 43 U/L (<35) H 09/28/19 15:35 Alkaline Phosphatase 53 U/L (38-126) 09/28/19 15:35 Total Protein 8.0 g/dL (6.3-8.2) 09/28/19 15:35 Albumin 4.4 g/dL (3.5-5.0) 09/28/19 15:35 Urine Color STRAW 09/28/19 15:35 Urine Appearance CLEAR 09/28/19 15:35 Urine pH 5.0 (5.0-9.0) 09/28/19 15:35 Ur Specific [place] 1.009 09/28/19 15:35 Urine Protein NEGATIVE mg/dL (NEGATIVE) 09/28/19 15:35 Urine Glucose (UA) NEGATIVE mg/dL (NEGATIVE) 09/28/19 15:35 Urine Ketones NEGATIVE mg/dL (NEGATIVE) 09/28/19 15:35 Urine Blood NEGATIVE (NEGATIVE) 09/28/19 15:35 Urine Nitrite NEGATIVE (NEGATIVE) 09/28/19 15:35 Urine Bilirubin NEGATIVE (NEGATIVE) 09/28/19 15:35 Urine Urobilinogen NEGATIVE mg/dL (<2.0) 09/28/19 15:35 Ur Leukocyte Esterase NEGATIVE (NEGATIVE) 09/28/19 15:35 Urine WBC (Auto) 0 /HPF 09/28/19 15:35 Urine RBC (Auto) 0 /HPF 09/28/19 15:35 Squamous Epi Cells Auto 1 /HPF 09/28/19 15:35 Urine Mucus (Auto) RARE /LPF 09/28/19 15:35 Urine Ascorbic Acid NEGATIVE (NEGATIVE) 09/28/19 15:35 POC Stool Occult Blood POSITIVE (NEGATIVE) 09/28/19 18:26 Blood Type AB NEGATIVE 09/28/19 15:35 Antibody Screen POSITIVE 09/28/19 15:35 Antibody Identification Anti-C Anti-D 09/28/19 15:35 Antibody Identification Anti-C Anti-D 09/28/19 15:35 Plan Time Spent: Greater than 30 Minutes Stroke Is this a Stroke Patient?: No Acute Heart Failure - Is this a Heart Failure Patient?: No
== END 2019-09-30 13:52 | disposition home or self-care (01) | DRG 379 ==
LOC: ER 14:34 → EH 18:17 → INTOOBSV 18:17 → 5 20:10 → OBSVTOIN 09-29 11:53
PROVIDERS: ADMIT Internal Medicine; ATTEND Internal Medicine
DX: K92.2 Gastrointestinal hemorrhage, unspecified (principal); E11.9 Type 2 diabetes mellitus without complications; E03.9 Hypothyroidism, unspecified; D64.9 Anemia, unspecified; E66.9 Obesity, unspecified; I25.10 Atherosclerotic heart disease of native coronary artery without angina pectoris; I10 Essential (primary) hypertension; E78.5 Hyperlipidemia, unspecified; F32.9 Major depressive disorder, single episode, unspecified; K21.9 Gastro-esophageal reflux disease without esophagitis; M19.90 Unspecified osteoarthritis, unspecified site; R00.0 Tachycardia, unspecified; Z79.01 Long term (current) use of anticoagulants; Z95.2 Presence of prosthetic heart valve; Z79.84 Long term (current) use of oral hypoglycemic drugs; I25.2 Old myocardial infarction; Z95.5 Presence of coronary angioplasty implant and graft; Z95.1 Presence of aortocoronary bypass graft; Z93.3 Colostomy status; Z87.891 Personal history of nicotine dependence; Z91.038 Other insect allergy status; Z83.3 Family history of diabetes mellitus; Z82.49 Family history of ischemic heart disease and other diseases of the circulatory system
CPT/HCPCS: 36415; 80048; 80053; 81001; 82962; 85025; 85027; 85610; 85730; 86850; 86870; 86900; 86901; 93005; 93010; 96361; 96374; 99285; C9113; G0378; J1815; J2405; J7030

== ENCOUNTER 2019-11-24 15:53 | Emergency (ER) | payer MEDICARE, OTHER ==
[2019-11-24] MEDS ORDERED: NORMAL SALINE 500 ML IV ONE (16:18)
--- NOTE | 2019-11-24 16:20 | ER Document Report ---
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 Patient reports generalized weakness. Patient reports intermittent fevers over the last month. She has had an intermittent dry cough. Mild shortness of breath that is not new. Patient reports intermittent epigastric abdominal pain. Patient states that she was having multiple episodes of vomiting daily 2 weeks ago, did go to [facility] emergency department was placed on meclizine and Zofran which has helped with the nausea vomiting but patient still feels like she cannot stand and walk well without taking the meclizine. Denies headache. Denies unilateral weakness. Denies slurred speech. Denies active chest pain. Patient states she did have a fever up to 101 this morning. Patient states she has not had vomiting in the last 2 weeks while taking Zofran ROS: See HPI - all other systems were reviewed and are otherwise negative Constitutional: + fever Eyes: no drainage, no blurred vision ENT: no runny nose, no sore throat Cardiovascular: no chest pain Resp: + SOB, + cough GI: + vomiting, no diarrhea, + abdominal pain : no dysuria Integumentary: no rash Allergy: no hives Musculoskeletal: no extremity pain or swelling Neurological: no numbness/tingling, + generalized weakness MEDICATIONS: I agree with the patient medications as charted by the RN. ALLERGIES: I agree with the allergies as charted by the RN. PAST MEDICAL HISTORY/PAST SURGICAL HISTORY: Reviewed and agree as charted by RN. SOCIAL HISTORY: Reviewed and agree as charted by RN. FAMILY HISTORY: No significant familial comorbid conditions directly related to patient complaint EXAM: Reviewed vital signs as charted by RN. CONSTITUTIONAL: Alert and oriented and responds appropriately to questions. Well -appearing; well-nourished, mild distress HEAD: Normocephalic; atraumatic EYES: PERRL; Conjunctivae clear, sclerae non-icteric ENT: normal nose; no rhinorrhea; moist mucous membranes; pharynx without lesions noted, no uvula edema or deviation, no tonsillar hypertrophy, phonation normal NECK: Supple without meningismus; non-tender; no cervical lymphadenopathy, no masses CARD: Mild tachycardia; no murmurs, + clicks, no rubs, no gallops; symmetric distal pulses RESP: Normal chest excursion without splinting or tachypnea; breath sounds clear and equal bilaterally; no wheezes, no rhonchi, no rales, pulse oximetry 97% on room air not hypoxic ABD/GI: Normal bowel sounds; non-distended; soft, mild epigastric tenderness on palpation, no rebound, no guarding; no palpable organomegaly or masses. Stoma in the left lower quadrant noted BACK: The back appears normal and is non-tender to palpation, there is no CVA tenderness EXT: Normal ROM in all joints; non-tender to palpation; no cyanosis, no ef fusions, no edema SKIN: Normal color for age and race; warm; dry; good turgor; no acute lesions n oted NEURO: Moves all extremities equally; Motor and sensory function intact. No unilateral weakness on exam no slurred speech no facial droop. PSYCH: The patient's mood and manner are appropriate. Grooming and personal hygiene are appropriate. MDM: 69-year-old female with complex medical history with multiple complaints. Fevers, vomiting, abdominal discomfort over the last month. Feels like she is having some difficulty with ambulation with balance over the last month. No unilateral weakness on exam. Reportedly taking meclizine and Zofran over the last 2 weeks from a visit to an outside emergency department. Patient reports a fever this morning. Will check flu strep. Will check coronavirus test. Will obtain chest x-ray given her shortness of breath complaint although she states the shortness of breath is not new. She has no active chest pain. Will check screening labs include blood culture. Will obtain urinalysis. Will obtain CT imaging of the head given her off-balance sensation to evaluate for possible stroke or mass. Will obtain CT of the abdomen and pelvis to evaluate the epigastric abdominal pain, she does have history of small bowel obstruction but states that she is passing gas and stool into the stoma TRAVEL OUTSIDE OF THE [place] IN LAST 30 DAYS: No - Related Data Allergies/Adverse Reactions: ants Allergy (Uncoded 01/03/19 13:34) Past Medical History - Social History Smoking Status: Unknown if Ever Smoked Family History: CAD, DM, Other - RECTAL CA - Past Medical History Cardiac Medical History: Reports: Hx Coronary Artery Disease, Hx Heart Attack - x3, Hx Hypercholesterolemia, Hx Hypertension Pulmonary Medical History: Denies: Hx Asthma, Hx Bronchitis, Hx COPD, Hx Pneumonia Neurological Medical History: Denies: Hx Cerebrovascular Accident, Hx Seizures Endocrine Medical History: Reports: Hx Diabetes Mellitus Type 2, Hx Hypothyroidism. Denies: Hx Diabetes Mellitus Type 1, Hx Hyperthyroidism Renal/ Medical History: Denies: Hx Peritoneal Dialysis GI Medical History: Reports: Hx Diverticulitis, Hx Gastroesophageal Reflux Disease. Denies: Hx Cirrhosis, Hx Crohn's Disease, Hx Hepatitis, Hx Ulcerative Colitis Musculoskeletal Medical History: Reports Hx Arthritis, Denies Hx Gout Skin Medical History: Denies Hx Eczema, Reports Hx MRSA, Denies Hx Psoriasis Psychiatric Medical History: Reports: Hx Depression Infectious Medical History: Denies: Hx Hepatitis Past Surgical History: Reports: Hx Abdominal Surgery - colostomy;bowel removal;herniax2, Hx Appendectomy, Hx Cardiac Catheterization - stent, quad bypass., Hx Cardiac Surgery - CABG, Hx Colostomy - With partial colectomy, Hx Coronary Artery Bypass Graft - Quadruple bypass grafts, Hx Coronary Stent, Hx Genitourinary Surgery - colostomy, Hx Herniorrhaphy, Hx Hysterectomy, Hx Orthopedic Surgery - carpal tunnel syndrome, Hx Valve Replacement - Mechanical aortic valve, Other - hernia repairs. Not sure if mesh was used.. Denies: Hx Gynecologic Surgery - Immunizations Hx Diphtheria, Pertussis, Tetanus Vaccination: Yes Hx Pneumococcal Vaccination: 06/12/11 Physical Exam - Vital signs Vitals: Temp Pulse Resp BP Pulse Ox 98.6 F 110 H 18 121/73 99 11/24/19 15:59 11/24/19 15:59 11/24/19 15:59 11/24/19 15:59 11/24/19 15:59 Course - Re-evaluation Re-evalutation: 11/24/19 20:00 Work-up today does not seem to show acute emergent abnormalities. The CT of the head does not show evidence of a stroke. CT of the abdomen and pelvis showed constipation but no other acute emergent abnormalities. Lab work does not show acute emergent abnormalities cardiac labs were negative. Patient urinalysis was negative. We do have blood cultures and urine culture pending. Discussed at length with the patient. Chest x-ray also negative for infiltrate. Not a definitive reason for her complaints over the last month including her complaint of fevers. She has been afebrile here. Patient is aware she is considered a person under investigation at this point and will self quarantine at home or until her studies are negative. She is to otherwise follow-up with her primary care provider for further evaluation and management. Unlikely to be ACS given the length of time of symptoms and negative troponin today 11/24/19 20:01 - Vital Signs Vital signs: Temp Pulse Resp BP Pulse Ox 98.6 F 110 H 16 139/71 H 98 11/24/19 15:59 11/24/19 15:59 11/24/19 19:02 11/24/19 18:31 11/24/19 19:02 - Laboratory Result Diagrams: 11/24/19 16:07 11/24/19 16:07 Laboratory results interpreted by me: 11/24/19 11/24/19 11/24/19 16:07 16:07 16:07 RBC 3.65 L Hgb 9.4 L Hct 28.5 L MCV 78 L MCH 25.9 L RDW 18.2 H PT 28.4 H Chloride 108 H Est GFR ( Amer) 55 L Est GFR (MDRD) Non-Af 45 L Glucose 116 H AST 106 H ALT 44 H Lipase 346.4 H Urine Protein Urine Urobilinogen 11/24/19 16:50 RBC Hgb Hct MCV MCH RDW PT Chloride Est GFR ( Amer) Est GFR (MDRD) Non-Af Glucose AST ALT Lipase Urine Protein 30 H Urine Urobilinogen 4.0 H Discharge - Discharge Clinical Impression: Fever in adult, Dehydration, Abdominal pain, acute, epigastric Condition: Stable Disposition: HOME, SELF-CARE Additional Instructions: Your lab work and imaging studies today did not show acute emergent abnormalities or definitive reason for your complaints today. You do have blood and urine cultures pending if any of these are positive you will be notified. You are considered a person under investigation at this point, self quarantine at home for the next 14 days or until you have a negative test result. Make sure you contact your primary care provider to arrange close follow-up in the office of your ongoing symptoms and if you have any worsening of symptoms please return for reevaluation Prescriptions: Ondansetron [Zofran Odt 4 mg Tablet] 1 - 2 tab PO Q4H PRN #15 tab.rapdis PRN Reason: For Nausea/Vomiting Referrals: FRANKLYN RESENDIZ MD [Primary Care Provider] - Follow up as needed
[2019-11-24 16:27] LABS: ABSOLUTE EOSINOPHILS # (AUTO) 0.4 10^3/uL (0.0-0.6); ABSOLUTE LYMPHOCYTES (AUTO) 2.1 10^3/uL (0.5-4.7); ABSOLUTE MONOCYTES (AUTO) 0.8 10^3/uL (0.1-1.4); ABSOLUTE NEUT (AUTO) 4.5 10^3/uL (1.7-8.2); BASOPHILS % (AUTO) 0.6 % (0-2); EOSINOPHILS % (AUTO) 5.2 % (0-6); HEMATOCRIT 28.5 % (36.0-47.0); HEMOGLOBIN 9.4 g/dL (12.0-15.5); LYMPHOCYTES % (AUTO) 26.4 % (13-45); MEAN CORPUSCULAR HEMOGLOBIN 25.9 pg (27.0-33.4); MEAN CORPUSCULAR HGB CONC 33.2 g/dL (32.0-36.0); MEAN CORPUSCULAR VOLUME 78 fl (80-97); PLATELET COUNT 245 10^3/uL (150-450); RED BLOOD COUNT 3.65 10^6/uL (3.72-5.28); RED CELL DISTRIBUTION WIDTH 18.2 % (11.5-14.0); SEGMENTED NEUTROPHILS % (AUTO) 57.8 % (42-78); TOTAL CELLS COUNTED % (AUTO) 100 %; WHITE BLOOD COUNT 7.8 10^3/uL (4.0-10.5)
[2019-11-24 16:34] LABS: INTERNATIONAL RATION (INR) 2.61; PROTHROMBIN TIME 28.4 SEC (11.4-15.4)
--- NOTE | 2019-11-24 16:41 | RADIOLOGY REPORT (SQ) ---
EXAM DESCRIPTION: CHEST SINGLE VIEW IMAGES COMPLETED DATE/TIME: 11/24/2019 4:28 pm REASON FOR STUDY: Shortness of breath COMPARISON: 12/24/2017 EXAM PARAMETERS: NUMBER OF VIEWS: One view. TECHNIQUE: Single frontal radiographic view of the chest acquired. RADIATION DOSE: NA LIMITATIONS: None. FINDINGS: LUNGS AND PLEURA: No acute pulmonary consolidation. Stable slight bronchiectatic changes in the right infrahilar region. No pneumothorax or pleural effusion. MEDIASTINUM AND HILAR STRUCTURES: No masses. Contour normal. HEART AND VASCULAR STRUCTURES: Heart normal in size. Normal vasculature. BONES: No acute findings. HARDWARE: Prior anterior median sternotomy and CABG. OTHER: No other significant finding. IMPRESSION: 1. No significant interval changes since the prior examination dated 12/24/2017. No acu te findings. TECHNICAL DOCUMENTATION: JOB ID: [id number] 2010 [email or web address]- All Rights Reserved Reading location - IP/workstation name: [email or web address]
[2019-11-24 17:01] LABS: ALBUMIN 4.5 g/dL (3.5-5.0); ALKALINE PHOSPHATASE 76 U/L (38-126); ANION GAP 9 (5-19); ASPARTATE AMINO TRANSFERASE 106 U/L (14-36); BILIRUBIN,TOTAL 0.9 mg/dL (0.2-1.3); BLOOD UREA NITROGEN 13 mg/dL (7-20); CALCIUM 9.6 mg/dL (8.4-10.2); CARBON DIOXIDE 25 mmol/L (22-30); CHLORIDE 108 mmol/L (98-107); CREATINE KINASE 79 U/L (30-135); GLUCOSE 116 mg/dL (75-110); POTASSIUM 4.1 mmol/L (3.6-5.0); TOTAL PROTEIN 8.2 g/dL (6.3-8.2)
[2019-11-24 17:07] LABS: NT PRO BNP 70 pg/mL (<125); TROPONIN I < 0.012 ng/mL
--- NOTE | 2019-11-24 17:38 | EKG REPORT ---
SEVERITY:- ABNORMAL ECG - SINUS TACHYCARDIA LVH WITH SECONDARY REPOLARIZATION ABNORMALITY BORDERLINE PROLONGED QT INTERVAL : Confirmed by: Nima Rios MD 24-Nov-2019 17:37:50
[2019-11-24 17:42] LABS: APPEARANCE,URINE CLEAR; BILIRUBIN,URINE NEGATIVE (NEGATIVE); COLOR,URINE YELLOW; GLUCOSE, URINE NEGATIVE (NEGATIVE); KETONES,URINE NEGATIVE (NEGATIVE); LEUKOCYTE ESTERASE,URINE NEGATIVE (NEGATIVE); NITRITE,URINE NEGATIVE (NEGATIVE); PROTEIN,URINE 30 mg/dL (NEGATIVE); URINE SPECIFIC GRAVITY 1.018
[2019-11-24 17:53] LABS: A TYPE INFLUENZA AG NEGATIVE (NEGATIVE); B INFLUENZA AG NEGATIVE (NEGATIVE)
[2019-11-24] MEDS ORDERED: ONDANSETRON HCL INJ/PF 4 MG/2 ML SDV IV ONE (17:59)
--- NOTE | 2019-11-24 18:18 | RADIOLOGY REPORT (SQ) ---
EXAM DESCRIPTION: CT HEAD WITHOUT IMAGES COMPLETED DATE/TIME: 11/24/2019 5:03 pm REASON FOR STUDY: dizziness fever COMPARISON: None. TECHNIQUE: Axial images acquired through the brain without intravenous contrast. Images reviewed wi th bone, brain and subdural windows. Additional sagittal and coronal reconstructions were generated. Images stored on PACS. All CT scanners at this facility use dose modulation, iterative reconstruction, and/or weight based d osing when appropriate to reduce radiation dose to as low as reasonably achievable (ALARA). [facility]: Dose Right [facility]: CareDose [facility]: Dose Right [facility]: Teradose 4D [facility]: Smart Blueliv RADIATION DOSE: CT Rad equipment meets quality standard of care and radiation dose reduction techniq ues were employed. CTDIvol: 53.2 mGy. DLP: 1070 mGy-cm. mGy. LIMITATIONS: None. FINDINGS: VENTRICLES: Normal size and contour. CEREBRUM: No masses. No hemorrhage. No midline shift. No evidence for acute infarction. Normal gra y/white matter differentiation. No areas of low density in the white matter. CEREBELLUM: No masses. No hemorrhage. No alteration of density. No evidence for acute infarction. EXTRAAXIAL SPACES: No fluid collections. No masses. ORBITS AND GLOBE: No intra- or extraconal masses. Normal contour of globe without masses. CALVARIUM: No fracture. PARANASAL SINUSES: No fluid or mucosal thickening. SOFT TISSUES: No mass or hematoma. OTHER: No other significant finding. IMPRESSION: No acute intracranial hemorrhage, mass, or evidence of acute territorial infarct. EVIDENCE OF ACUTE STROKE: NO. COMMENT: Quality ID # [id number]: Final reports with documentation of one or more dose reduction techniques (e.g., Automated exposure control, adjustment of the mA and/or kV according to patient size, use of iterative reconstruction technique) TECHNICAL DOCUMENTATION: JOB ID: [id number] 2010 [employer]- All Rights Reserved Reading location - IP/workstation name: [email or web address]
--- NOTE | 2019-11-24 19:33 | RADIOLOGY REPORT (SQ) ---
EXAM DESCRIPTION: CT ABD/PELVIS WITH IV ORAL IMAGES COMPLETED DATE/TIME: 11/24/2019 6:00 pm REASON FOR STUDY: upper abd pain, hx sbo, stoma, diverticulitis COMPARISON: CT abdomen and pelvis 09/19/2018. TECHNIQUE: CT scan of the abdomen and pelvis performed using helical scanning technique with dynamic intravenous contrast injection. No oral contrast. Images reviewed with lung, soft tissue, and bone windows. Reconstructed coronal and sagittal MPR images reviewed. Delayed images for evaluation of the urinary system also acquired. All images stored on PACS. All CT scanners at this facility use dose modulation, iterative reconstruction, and/or weight based d osing when appropriate to reduce radiation dose to as low as reasonably achievable (ALARA). [facility]: Dose Right [facility]: CareDose [facility]: Dose Right [facility]: Teradose 4D [facility]: TeraView CONTRAST TYPE AND DOSE: contrast/concentration: Isovue 350.00 mg/ml; Total Contrast Delivered: 100.0 ml; Total Saline Delivered: 72.0 ml RENAL FUNCTION: GFR > 60. RADIATION DOSE: CT Rad equipment meets quality standard of care and radiation dose reduction techniq ues were employed. CTDIvol: 16.1 - 19.4 mGy. DLP: 1887 mGy-cm.. LIMITATIONS: None. FINDINGS: LOWER CHEST: No significant findings. No nodules or infiltrates. LIVER: The liver has a nodular contour with mild diffuse hepatic steatosis. No focal hepatic mass. Hepatic and portal veins are patent. No biliary ductal dilation. SPLEEN: Normal size. No focal lesions. PANCREAS: No masses. No significant calcifications. No adjacent inflammation or peripancreatic fluid collections. Pancreatic duct not dilated. GALLBLADDER: No identified stones by CT criteria. No inflammatory changes to suggest cholecystitis. ADRENAL GLANDS: No significant masses or asymmetry. RIGHT KIDNEY AND URETER: No solid masses. No significant calcifications. No hydronephrosis or hyd roureter. LEFT KIDNEY AND URETER: Tiny left superior pole renal cortical cyst. No solid mass. No significant calcifications. No hydronephrosis or hydroureter. AORTA AND VESSELS: No aneurysm. No dissection. Renal arteries, SMA, celiac without stenosis. RETROPERITONEUM: No retroperitoneal adenopathy, hemorrhage or masses. BOWEL AND PERITONEAL CAVITY: Left anterior abdominal wall colostomy with adjacent parastomal hernia c ontaining loops of small bowel. No fluid in the stoma or subcutaneous fat. No bowel obstruction. M oderate amount of stool in the colon. No significant inflammatory change. No ascites or pneumoperit oneum. APPENDIX: Not visualized. PELVIS: No mass. No free fluid. Normal bladder. ABDOMINAL WALL: No masses. No hernias. BONES: No significant or acute findings. OTHER: No other significant finding. IMPRESSION: 1. Moderate amount of stool in the colon with left anterior abdominal wall colostomy. There is a sma ll parastomal hernia containing a loop of small bowel, similar in appearance to previous examination. There does not appear to be a bowel obstruction. 2. Nodular contour of the liver may indicate underlying hepatic cirrhosis. Clinical correlation. TECHNICAL DOCUMENTATION: JOB ID: [id number] Quality ID # [id number]: Final reports with documentation of one or more dose reduction techniques (e.g., Au tomated exposure control, adjustment of the mA and/or kV according to patient size, use of iterative reconstruction technique) 2010 [employer]- All Rights Reserved Reading location - IP/workstation name: [email or web address]
[2019-11-24 20:13] VITALS: BP 130/66
== END 2019-11-24 20:20 | disposition home or self-care (01) ==
LOC: ER 15:53
DX: Z20.828 Contact with and (suspected) exposure to other viral communicable diseases (principal); R50.9 Fever, unspecified; R10.13 Epigastric pain; E86.0 Dehydration; R05 Cough; R53.1 Weakness; R06.02 Shortness of breath; I11.0 Hypertensive heart disease with heart failure; I50.9 Heart failure, unspecified; I25.2 Old myocardial infarction; Z95.4 Presence of other heart-valve replacement; Z79.02 Long term (current) use of antithrombotics/antiplatelets; Z95.1 Presence of aortocoronary bypass graft
CPT/HCPCS: 93005; 99284; 96361; 96374; 36415; 87040; 87070; 87880; 82550; 83690; 85025; 85610; 87077; 80053; 81001; 84484; 87186; 87804; 83880; 71045; 70450; 74177; 93010; U0003; J2405; J7040; 87635

== ENCOUNTER 2019-12-08 09:09 | Emergency (ER) | payer MEDICARE, OTHER ==
[2019-12-08] MEDS ORDERED: MORPHINE SULFATE 10 MG/ML INJ IV ONE (10:04)
[2019-12-08] MEDS ORDERED: ONDANSETRON HCL INJ/PF 4 MG/2 ML SDV IV ONE (10:04)
[2019-12-08 10:12] LABS: ABSOLUTE EOSINOPHILS # (AUTO) 0.1 10^3/uL (0.0-0.6); ABSOLUTE LYMPHOCYTES (AUTO) 1.2 10^3/uL (0.5-4.7); ABSOLUTE MONOCYTES (AUTO) 0.6 10^3/uL (0.1-1.4); ABSOLUTE NEUT (AUTO) 7.6 10^3/uL (1.7-8.2); BASOPHILS % (AUTO) 0.4 % (0-2); EOSINOPHILS % (AUTO) 0.9 % (0-6); HEMATOCRIT 27.3 % (36.0-47.0); HEMOGLOBIN 8.8 g/dL (12.0-15.5); LYMPHOCYTES % (AUTO) 12.5 % (13-45); MEAN CORPUSCULAR HEMOGLOBIN 24.7 pg (27.0-33.4); MEAN CORPUSCULAR HGB CONC 32.4 g/dL (32.0-36.0); MEAN CORPUSCULAR VOLUME 76 fl (80-97); MONOCYTES % (AUTO) 6.5 % (3-13); PLATELET COUNT 240 10^3/uL (150-450); RED BLOOD COUNT 3.59 10^6/uL (3.72-5.28); RED CELL DISTRIBUTION WIDTH 18.4 % (11.5-14.0); SEGMENTED NEUTROPHILS % (AUTO) 79.7 % (42-78); TOTAL CELLS COUNTED % (AUTO) 100 %; WHITE BLOOD COUNT 9.5 10^3/uL (4.0-10.5)
[2019-12-08 10:19] LABS: ALBUMIN 4.5 g/dL (3.5-5.0); ALKALINE PHOSPHATASE 78 U/L (38-126); ANION GAP 10 (5-19); ASPARTATE AMINO TRANSFERASE 69 U/L (14-36); BILIRUBIN,TOTAL 1.1 mg/dL (0.2-1.3); BLOOD UREA NITROGEN 15 mg/dL (7-20); CARBON DIOXIDE 28 mmol/L (22-30); CHLORIDE 103 mmol/L (98-107); GLUCOSE 169 mg/dL (75-110); POTASSIUM 4.1 mmol/L (3.6-5.0); TOTAL PROTEIN 7.9 g/dL (6.3-8.2)
[2019-12-08 10:29] LABS: INTERNATIONAL RATION (INR) 2.31; PROTHROMBIN TIME 25.8 SEC (11.4-15.4)
--- NOTE | 2019-12-08 10:45 | ER Document Report ---
ED GI/ - General Chief Complaint: Abdominal Pain Stated Complaint: ABDOMINAL PAIN Time Seen by Provider: 12/08/19 09:36 Primary Care Provider: FRANKLYN RESENDIZ MD [Primary Care Provider] - Follow up as needed Notes: CHIEF COMPLAINT: Abdominal pain HPI: 69-year-old female with history of AVR on Coumadin, hypertension, diverticulitis with colon resection x2 with colostomy in the left lower quadrant presenting with generalized abdominal pain and vomiting. Patient developed increasing discomfort in the abdomen generally over the last 2 days with onset of vomiting last night. States she has been passing gas and stool into the colostomy bag. Patient does report a history of bowel obstruction approximately a year ago. No fever. No chest pain. No shortness of breath ROS: See HPI - all other systems were reviewed and are otherwise negative Constitutional: no fever Eyes: no drainage, no blurred vision ENT: no runny nose, no sore throat Cardiovascular: no chest pain Resp: no SOB, no cough GI: + vomiting, no diarrhea, + abdominal pain : no dysuria Integumentary: no rash Allergy: no hives Musculoskeletal: no extremity pain or swelling Neurological: no numbness/tingling, no weakness MEDICATIONS: I agree with the patient medications as charted by the RN. ALLERGIES: I agree with the allergies as charted by the RN. PAST MEDICAL HISTORY/PAST SURGICAL HISTORY: Reviewed and agree as charted by RN. SOCIAL HISTORY: Reviewed and agree as charted by RN. FAMILY HISTORY: No significant familial comorbid conditions directly related to patient complaint EXAM: Reviewed vital signs as charted by RN. CONSTITUTIONAL: Alert and oriented and responds appropriately to questions. Well-appearing; well-nourished, mild distress secondary to pain HEAD: Normocephalic; atraumatic EYES: PERRL; Conjunctivae clear, sclerae non-icteric ENT: normal nose; no rhinorrhea; moist mucous membranes; pharynx without lesions noted, no uvula edema or deviation, no tonsillar hypertrophy, phonation normal NECK: Supple without meningismus; non-tender; no cervical lymphadenopathy, no masses CARD: RRR; + murmurs, no clicks, no rubs, no gallops; symmetric distal pulses RESP: Normal chest excursion without splinting or tachypnea; breath sounds clear and equal bilaterally; no wheezes, no rhonchi, no rales, pulse oximetry 97% on room air not hypoxic ABD/GI: Obese, normal bowel sounds; non-distended; soft, mild generalized tenderness is noted on exam over the lower abdomen. Stoma in the left lower quadrant is noted, no rebound, no guarding; no palpable organomegaly or masses. BACK: The back appears normal and is non-tender to palpation, there is no CVA tenderness EXT: Normal ROM in all joints; non-tender to palpation; no cyanosis, no effusions, no edema SKIN: Normal color for age and race; warm; dry; good turgor; no acute lesions noted NEURO: Moves all extremities equally; Motor and sensory function intact PSYCH: The patient's mood and manner are appropriate. Grooming and personal hygiene are appropriate. MDM: 69-year-old female with history of multiple abdominal surgeries previously presenting with generalized abdominal pain that seems more focal midline lower abdomen. Will obtain screening labs, x-ray to evaluate for possible obstructive pattern, will likely need further imaging including CT given her complex medical history TRAVEL OUTSIDE OF THE [place] IN LAST 30 DAYS: No - Related Data Allergies/Adverse Reactions: ants Allergy (Uncoded 01/03/19 13:34) Past Medical History - Social History Smoking Status: Former Smoker Frequency of alcohol use: None Drug Abuse: None Family History: CAD, DM, Other - RECTAL CA Patient has suicidal ideation: No Patient has homicidal ideation: No - Past Medical History Cardiac Medical History: Reports: Hx Coronary Artery Disease, Hx Heart Attack, Hx Hypercholesterolemia, Hx Hypertension Pulmonary Medical History: Denies: Hx Asthma, Hx Bronchitis, Hx COPD, Hx Pneumonia Neurological Medical History: Denies: Hx Cerebrovascular Accident, Hx Seizures Endocrine Medical History: Reports: Hx Diabetes Mellitus Type 2, Hx Hypothyroidism. Denies: Hx Diabetes Mellitus Type 1, Hx Hyperthyroidism Renal/ Medical History: Denies: Hx Peritoneal Dialysis GI Medical History: Reports: Hx Diverticulitis, Hx Gastroesophageal Reflux D isease. Denies: Hx Cirrhosis, Hx Crohn's Disease, Hx Hepatitis, Hx Ulcerative Colitis Musculoskeletal Medical History: Reports Hx Arthritis, Denies Hx Gout Skin Medical History: Denies Hx Eczema, Reports Hx MRSA, Denies Hx Psoriasis Psychiatric Medical History: Reports: Hx Depression Infectious Medical History: Denies: Hx Hepatitis Past Surgical History: Reports: Hx Abdominal Surgery - colostomy;bowel removal;herniax2, Hx Appendectomy, Hx Cardiac Catheterization - stent, quad bypass., Hx Cardiac Surgery - CABG, Hx Colostomy - With partial colectomy, Hx Coronary Artery Bypass Graft - Quadruple bypass grafts, Hx Coronary Stent, Hx Genitourinary Surgery - colostomy, Hx Herniorrhaphy, Hx Hysterectomy, Hx Orthopedic Surgery - carpal tunnel syndrome, Hx Valve Replacement - Mechanical aortic valve, Other - hernia repairs. Not sure if mesh was used.. Denies: Hx Gynecologic Surgery - Immunizations Hx Diphtheria, Pertussis, Tetanus Vaccination: Yes Hx Pneumococcal Vaccination: 06/12/11 Physical Exam - Vital signs Vitals: Temp Pulse Resp BP Pulse Ox 98.9 F 107 H 18 120/68 98 12/08/19 09:18 12/08/19 09:18 12/08/19 09:18 12/08/19 09:18 12/08/19 09:18 Course - Re-evaluation Re-evalutation: 12/08/19 14:52 CT imaging shows constipation no other acute findings. I discussed this at length with the patient. Will give her Bentyl here in the ER for abdominal spasm. She does not appear to be in any acute distress. Will give patient mag citrate to take, follow-up PCP - Vital Signs Vital signs: Temp Pulse Resp BP Pulse Ox 98.2 F 87 16 123/66 97 12/08/19 13:36 12/08/19 13:36 12/08/19 13:36 12/08/19 13:36 12/08/19 13:36 - Laboratory Result Diagrams: 12/08/19 09:30 12/08/19 09:30 Laboratory results interpreted by me: 12/08/19 12/08/19 12/08/19 09:30 09:30 09:30 RBC 3.59 L Hgb 8.8 L Hct 27.3 L MCV 76 L MCH 24.7 L RDW 18.4 H Lymph % (Auto) 12.5 L Seg Neutrophils % 79.7 H PT 25.8 H Est GFR (MDRD) Non-Af 50 L Glucose 169 H AST 69 H Discharge - Discharge Clinical Impression: Abdominal pain, acute, generalized Constipation Qualifiers: Constipation type: unspecified constipation type Qualified Code(s): K59.00 - Constipation, unspecified Condition: Stable Disposition: HOME, SELF-CARE Additional Instructions: Your lab work and imaging studies did not show acute emergent abnormalities today. It did show constipation. Continue to take MiraLAX. Follow-up with your primary care provider for reevaluation of symptoms call for appointment Referrals: FRANKLYN RESENDIZ MD [Primary Care Provider] - Follow up as needed
--- NOTE | 2019-12-08 11:02 | RADIOLOGY REPORT (SQ) ---
EXAM DESCRIPTION: KUB/ABDOMEN (SINGLE VIEW) IMAGES COMPLETED DATE/TIME: 12/08/2019 10:53 am REASON FOR STUDY: abd pain eval for sbo COMPARISON: 09/05/2018, CT dated 11/23/2018 NUMBER OF VIEWS: One view. TECHNIQUE: Supine radiographic image of the abdomen acquired. LIMITATIONS: None. FINDINGS: BOWEL GAS PATTERN: Mildly dilated small bowel. Large amount of stool in the colon in the left side of the abdomen. Patient's ostomy site in the left lower quadrant is again noted. CALCIFICATIONS: No suspicious calcifications. SOFT TISSUES: No gross mass or suggestion of organomegaly. HARDWARE: None in the abdomen. BONES: No acute fracture. No worrisome bone lesions. OTHER: No other significant finding. IMPRESSION: Mild small-bowel distention. This could represent ileus or early obstruction. Large am ount of stool in the colon. TECHNICAL DOCUMENTATION: JOB ID: [id number] 2010 [employer]- All Rights Reserved Reading location - IP/workstation name: [email or web address]
[2019-12-08 13:20] LABS: APPEARANCE,URINE CLEAR; BILIRUBIN,URINE NEGATIVE (NEGATIVE); COLOR,URINE YELLOW; GLUCOSE, URINE NEGATIVE (NEGATIVE); KETONES,URINE NEGATIVE (NEGATIVE); LEUKOCYTE ESTERASE,URINE NEGATIVE (NEGATIVE); NITRITE,URINE NEGATIVE (NEGATIVE); PROTEIN,URINE NEGATIVE (NEGATIVE); UROBILINOGEN,URINE NEGATIVE mg/dL (<2.0)
--- NOTE | 2019-12-08 14:36 | RADIOLOGY REPORT (SQ) ---
EXAM DESCRIPTION: CT ABD/PELVIS WITH IV ORAL IMAGES COMPLETED DATE/TIME: 12/08/2019 1:30 pm REASON FOR STUDY: sbo COMPARISON: 11/24/2019 TECHNIQUE: CT scan of the abdomen and pelvis performed using helical scanning technique with dynamic intravenous contrast injection. No oral contrast. Images reviewed with lung, soft tissue, and bone windows. Reconstructed coronal and sagittal MPR images reviewed. Delayed images for evaluation of the urinary system also acquired. All images stored on PACS. All CT scanners at this facility use dose modulation, iterative reconstruction, and/or weight based d osing when appropriate to reduce radiation dose to as low as reasonably achievable (ALARA). [facility]: Dose Right [facility]: CareDose [facility]: Dose Right [facility]: Teradose 4D [facility]: RFinity CONTRAST TYPE AND DOSE: 98 mL Omnipaque 350 RENAL FUNCTION: BUN 15, creatinine 1.09 RADIATION DOSE: CT Rad equipment meets quality standard of care and radiation dose reduction techniq ues were employed. CTDIvol: 14.5 - 18.6 mGy. DLP: 1785 mGy-cm.. LIMITATIONS: None. FINDINGS: LOWER CHEST: No significant findings. No nodules or infiltrates. LIVER: Normal size. No masses. No dilated ducts. SPLEEN: Normal size. No focal lesions. PANCREAS: No masses. No significant calcifications. No adjacent inflammation or peripancreatic fluid collections. Pancreatic duct not dilated. GALLBLADDER: No identified stones by CT criteria. No inflammatory changes to suggest cholecystitis. ADRENAL GLANDS: No significant masses or asymmetry. RIGHT KIDNEY AND URETER: No solid masses. No significant calcifications. No hydronephrosis or hyd roureter. LEFT KIDNEY AND URETER: No solid masses. No significant calcifications. No hydronephrosis or hydr oureter. AORTA AND VESSELS: No aneurysm. No dissection. Renal arteries, SMA, celiac without stenosis. RETROPERITONEUM: No retroperitoneal adenopathy, hemorrhage or masses. BOWEL AND PERITONEAL CAVITY: Postsurgical changes with an ostomy site in the left lower quadrant. La rge amount of stool throughout the colon. No focal inflammatory changes or bowel wall thickening. N o evidence of bowel obstruction. APPENDIX: Surgically absent. PELVIS: No mass. No free fluid. Normal bladder. ABDOMINAL WALL: No masses. No hernias. BONES: No significant or acute findings. OTHER: No other significant finding. IMPRESSION: Constipation. No evidence of bowel obstruction. No acute findings in the abdomen or pe lvis. TECHNICAL DOCUMENTATION: JOB ID: [id number] Quality ID # [id number]: Final reports with documentation of one or more dose reduction techniques (e.g., Au tomated exposure control, adjustment of the mA and/or kV according to patient size, use of iterative reconstruction technique) 2010 [employer]- All Rights Reserved Reading location - IP/workstation name: [email or web address]
[2019-12-08] MEDS ORDERED: MAGNESIUM CITRATE 296 ML BOTTLE PO ONE (14:52)
[2019-12-08] MEDS ORDERED: DICYCLOMINE HCL 20 MG TABLET PO ONE (14:52)
[2019-12-08 15:03] VITALS: BP 124/62
== END 2019-12-08 15:07 | disposition home or self-care (01) ==
LOC: ER 09:09
DX: R10.84 Generalized abdominal pain (principal); K59.00 Constipation, unspecified; R10.32 Left lower quadrant pain; R11.10 Vomiting, unspecified; Z79.01 Long term (current) use of anticoagulants; I10 Essential (primary) hypertension; I25.10 Atherosclerotic heart disease of native coronary artery without angina pectoris; I25.2 Old myocardial infarction; E11.9 Type 2 diabetes mellitus without complications; Z93.3 Colostomy status
CPT/HCPCS: 99284; 96374; 96375; 36415; 83605; 83690; 85025; 85610; 80053; 81001; 74018; 74177; A9270 ×2; J2270; J2405; J3490

== ENCOUNTER → 2020-02-23 | Emergency (ER) | payer MEDICARE, OTHER ==
[~2020-02-23] MED LIST: MORPHINE SULFATE 10 MG/ML INJ IV ONE; NORMAL SALINE 1000 ML 1,000 ML IV ONE; NORMAL SALINE 500 ML IV ONE; ONDANSETRON HCL INJ/PF 4 MG/2 ML SDV IV ONE; PANTOPRAZOLE SODIUM 40 MG VIAL IV ONE
--- NOTE | 2020-02-23 15:19 | ER Document Report ---
ED General - General Chief Complaint: Drainage Stated Complaint: BLEEDING COLOSTOMY BAG Time Seen by Provider: 02/23/20 14:47 Primary Care Provider: FRANKLYN RESENDIZ MD [Primary Care Provider] - Follow up as needed TRAVEL OUTSIDE OF THE [place] IN LAST 30 DAYS: No - HPI Notes: Patient is a 69-year-old female with a history of atrial valve replacement on Coumadin, history of diverticulitis with colostomy, who presents to the emergency department for evaluation of bleeding from her ostomy site. She has had this recurrently over the last several weeks. She states she was actually admitted to [facility] for 2 weeks. She had upper and lower endoscopy. Only findings were diverticulosis, polyps. She did have some mild gastritis. She states she is been passing large dark and bright red clots. She is also been having continued intermittent bleeding. She has some pain in her left lower quadrant which is started over the last 24 hours. It is an aching pain. She is had no fevers or chills. She has had some nausea but no emesis. She has been taking her medications as prescribed. - Related Data Allergies/Adverse Reactions: ants Allergy (Uncoded 02/23/20 15:29) Past Medical History - General Information source: Patient - Social History Smoking Status: Former Smoker Family History: CAD, DM, Other - RECTAL CA - Past Medical History Cardiac Medical History: Reports: Hx Coronary Artery Disease, Hx Heart Attack, Hx Hypercholesterolemia, Hx Hypertension Pulmonary Medical History: Denies: Hx Asthma, Hx Bronchitis, Hx COPD, Hx Pneumonia Neurological Medical History: Denies: Hx Cerebrovascular Accident, Hx Seizures Endocrine Medical History: Reports: Hx Diabetes Mellitus Type 2, Hx Hypothyroidism. Denies: Hx Diabetes Mellitus Type 1, Hx Hyperthyroidism Renal/ Medical History: Denies: Hx Peritoneal Dialysis GI Medical History: Reports: Hx Diverticulitis, Hx Gastroesophageal Reflux Disease. Denies: Hx Cirrhosis, Hx Crohn's Disease, Hx Hepatitis, Hx Ulcerative Colitis Musculoskeletal Medical History: Reports Hx Arthritis, Denies Hx Gout Skin Medical History: Denies Hx Eczema, Reports Hx MRSA, Denies Hx Psoriasis Psychiatric Medical History: Reports: Hx Depression Infectious Medical History: Denies: Hx Hepatitis Past Surgical History: Reports: Hx Appendectomy, Hx Bowel Surgery, Hx Cardiac Catheterization - stent, quad bypass., Hx Cardiac Surgery - CABG, Hx Colostomy - With partial colectomy, Hx Coronary Artery Bypass Graft - Quadruple bypass grafts, Hx Coronary Stent, Hx Genitourinary Surgery - colostomy, Hx Herniorrhaphy, Hx Hysterectomy, Hx Orthopedic Surgery - carpal tunnel syndrome, Hx Valve Replacement - Mechanical aortic valve, Other - hernia repairs. Not sure if mesh was used.. Denies: Hx Gynecologic Surgery - Immunizations Hx Diphtheria, Pertussis, Tetanus Vaccination: Yes Hx Pneumococcal Vaccination: 06/12/11 Review of Systems - Review of Systems Constitutional: Weakness Gastrointestinal: See HPI Hematologic/Lymphatic: See HPI -: Yes All other systems reviewed and negative Physical Exam - Vital signs Vitals: Temp 98.9 F 02/23/20 15:10 - Notes Notes: This is a 69-year-old female who appears her stated age, no acute distress. Vital signs reviewed, please refer to chart. Head is normocephalic, atraumatic. Pupils equal round, reactive to light. Neck is supple without meningismus. Heart is mildly tachycardic with mechanical click of a replacement aortic valve. Lungs are clear to auscultation bilaterally. Abdomen is soft, tender in the left lower quadrant without rebound or guarding, normoactive bowel sounds throughout. Colostomy in the left lower quadrant, not taken down. Extremities without cyanosis, clubbing. Posterior calves are nontender. Peripheral pulses are equal. Skin is warm and dry. Patient is awake, alert, neurological exam is nonfocal. Course - Re-evaluation Re-evalutation: 02/23/20 15:18 Patient presents to the emergency department for evaluation. She is anticoagulated, on Coumadin for an aortic valve replacement, and is having GI bleeding. She is tender to palpation. She had recent upper and lower endoscopy. She is placed on a school bus monitor, blood work including type and screen is ordered. She is given Zofran and morphine. I will give her a small amount of IV fluids. We will let her CT scan, once creatinine is verified to be within normal limits. Patient is currently stable, we will continue to monitor. 02/23/20 20:[address] scan was unremarkable for any signs of acute and active bleeding. No clear cause of her bleeding was found. The patient was being monitored here. Her hemoglobin seemed initially to be about stable from where it is at baseline. I was notified by the blood bank that she has positive anti-C antibodies, almost all of her panels are positive, and blood transfusion would be next to impossible without emergency release. Patient got up to go to the bedside commode and her heart rate went to the 140s. At rest it still in the 120s. EKG was ordered. Repeat H&H was ordered. Her hemoglobin did drop by 0.8 g. I spoke initially with Dr. Ballesteros. He advises patient will likely need capsule endoscopy and then embolization by IR, services we do not have here. Patient was just at [facility], she states they were unable to solve her issue. I contacted [facility], who told me they are on complete diversion and not excepting transfers. I contacted [facility]. I spoke with a Dr. Dawkins, who advises me that embolization, as there is no active and obvious bleeding on CT scan, can only be performed at [facility]. They are on a deep waiting list and not excepting any further patients for the waiting list. At this point I will contact [facility] to see if any facility in their network would be able to accept this patient. 02/23/20 20:41 At [address] Cao, on-call diesel power shovel operator at [facility]. He agrees that the patient will need urgent transfer, and believes the best way to facilitate this will be ED to ED transfer at [facility]. I will speak with Dr. Peguero, on-call emergency physician, to facilitate transfer of this patient. Patient's heart rate is still in the 120s despite adequate rest. I will give her another fluid bolus, will maintain her on 150 an hour for transport. Despite her tachycardia, the patient's blood pressures have remained stable, she is current ly 134/62. Her abdomen remains soft. 02/23/20 20:[address] Peguero, ED physician. She accepted her to the ER for further treatment and care. 02/23/20 22:09 Patient's fluids are ordered. Her heart rate is currently in the 120s. Her blood pressure remained stable at 144/72. Her abdomen remains soft. She is not had further bloody output from her ostomy. Patient will be transported to [facility] for further care. - Vital Signs Vital signs: Temp Pulse Resp BP Pulse Ox 98.9 F 20 144/72 H 97 02/23/20 15:29 02/23/20 22:00 02/23/20 21:59 02/23/20 22:00 - Laboratory Result Diagrams: 02/23/20 19:41 02/23/20 15:25 Laboratory results interpreted by me: 02/23/20 02/23/20 02/23/20 15:25 15:25 15:25 RBC 3.64 L Hgb 9.3 L Hct 29.1 L MCH 25.6 L RDW 24.8 H PT 30.4 H APTT 43.3 H Est GFR (MDRD) Non-Af 53 L Glucose 150 H Total Bilirubin 1.4 H AST 141 H ALT 65 H Total Protein 8.6 H Lipase 540.5 H 02/23/20 19:41 RBC 3.30 L Hgb 8.5 L Hct 26.3 L MCH 25.8 L RDW 24.0 H PT APTT Est GFR (MDRD) Non-Af Glucose Total Bilirubin AST ALT Total Protein Lipase Critical Care Note - Critical Care Note Total time excluding time spent on procedures (mins): 50 Discharge - Discharge Clinical Impression: Acute lower GI bleeding, H/O mechanical aortic valve replacement, Anticoagulated on Coumadin Condition: Stable Disposition: [place] Referrals: FRANKLYN RESENDIZ MD [Primary Care Provider] - Follow up as needed
[2020-02-23 15:46] LABS: ABSOLUTE BASOPHILS # (AUTO) 0.1 10^3/uL (0.0-0.2); ABSOLUTE EOSINOPHILS # (AUTO) 0.3 10^3/uL (0.0-0.6); ABSOLUTE LYMPHOCYTES (AUTO) 1.6 10^3/uL (0.5-4.7); ABSOLUTE MONOCYTES (AUTO) 0.8 10^3/uL (0.1-1.4); ABSOLUTE NEUT (AUTO) 4.7 10^3/uL (1.7-8.2); EOSINOPHILS % (AUTO) 4.5 % (0-6); HEMATOCRIT 29.1 % (36.0-47.0); HEMOGLOBIN 9.3 g/dL (12.0-15.5); LYMPHOCYTES % (AUTO) 21.2 % (13-45); MEAN CORPUSCULAR HEMOGLOBIN 25.6 pg (27.0-33.4); MEAN CORPUSCULAR HGB CONC 32.1 g/dL (32.0-36.0); MEAN CORPUSCULAR VOLUME 80 fl (80-97); MONOCYTES % (AUTO) 10.3 % (3-13); PLATELET COUNT 200 10^3/uL (150-450); RED BLOOD COUNT 3.64 10^6/uL (3.72-5.28); RED CELL DISTRIBUTION WIDTH 24.8 % (11.5-14.0); TOTAL CELLS COUNTED % (AUTO) 100 %; WHITE BLOOD COUNT 7.4 10^3/uL (4.0-10.5)
[2020-02-23 15:56] LABS: INTERNATIONAL RATION (INR) 2.84; PARTIAL THROMBOPLASTIN TIME 43.3 SEC (23.5-35.8); PROTHROMBIN TIME 30.4 SEC (11.4-15.4)
[2020-02-23 16:01] LABS: ALKALINE PHOSPHATASE 77 U/L (38-126); ANION GAP 7 (5-19); ASPARTATE AMINO TRANSFERASE 141 U/L (14-36); BILIRUBIN,DIRECT 0.1 mg/dL (0.0-0.4); BILIRUBIN,TOTAL 1.4 mg/dL (0.2-1.3); BLOOD UREA NITROGEN 10 mg/dL (7-20); CALCIUM 9.6 mg/dL (8.4-10.2); CARBON DIOXIDE 25 mmol/L (22-30); CHLORIDE 107 mmol/L (98-107); GLUCOSE 150 mg/dL (75-110); TOTAL PROTEIN 8.6 g/dL (6.3-8.2)
[2020-02-23 16:07] LABS: ANISOCYTOSIS 3+; POIKILOCYTOSIS SLIGHT; POLYCHROMASIA SLIGHT
[2020-02-23 16:08] LABS: OVALOCYTES SLIGHT; PLATELET COMMENT ADEQUATE
--- NOTE | 2020-02-23 17:48 | RADIOLOGY REPORT (SQ) ---
EXAM DESCRIPTION: CT ABD/PELVIS WITH IV ONLY IMAGES COMPLETED DATE/TIME: 02/23/2020 5:25 pm REASON FOR STUDY: GI bleeding, LLQ pain COMPARISON: None. TECHNIQUE: CT scan of the abdomen and pelvis performed using helical scanning technique with dynamic intravenous contrast injection. No oral contrast. Images reviewed with lung, soft tissue, and bone windows. Reconstructed coronal and sagittal MPR images reviewed. Delayed images for evaluation of the urinary system also acquired. All images stored on PACS. All CT scanners at this facility use dose modulation, iterative reconstruction, and/or weight based d osing when appropriate to reduce radiation dose to as low as reasonably achievable (ALARA). [facility]: Dose Right [facility]: CareDose [facility]: Dose Right [facility]: Teradose 4D [facility]: GetAutoBids CONTRAST TYPE AND DOSE: contrast/concentration: Isovue 350.00 mmol/ml; Total Contrast Delivered: 99. 0 ml; Total Saline Delivered: 57.0 ml RENAL FUNCTION: Creatinine -1.03 BUN=10 RADIATION DOSE: CT Rad equipment meets quality standard of care and radiation dose reduction techniq ues were employed. CTDIvol: 13.8 - 18.0 mGy. DLP: 1706 mGy-cm.. LIMITATIONS: None. FINDINGS: LOWER CHEST: No significant interval changes. LIVER: Slightly nodular contour to the liver raises the question of cirrhosis. Hepatomegaly. No di lated ducts. The hepatic and portal veins are patent. SPLEEN: Small stable calcified splenic artery aneurysm with a hilus of the spleen. PANCREAS: No masses. No significant calcifications. No adjacent inflammation or peripancreatic fluid collections. Pancreatic duct not dilated. GALLBLADDER: No identified stones by CT criteria. No inflammatory changes to suggest cholecystitis. ADRENAL GLANDS: No significant masses or asymmetry. RIGHT KIDNEY AND URETER: Extrarenal pelvis, normal anatomic variant. No solid masses. No signific ant calcifications. No hydronephrosis or hydroureter. LEFT KIDNEY AND URETER: Very small left renal cyst. Small nonobstructing left renal calculus. Extr arenal pelvis, normal anatomic variant. No solid masses. No significant calcifications. No hydro nephrosis or hydroureter. AORTA AND VESSELS: Atherosclerotic changes involving the abdominal aorta. No aneurysm. No dissectio n. Renal arteries, SMA, celiac without stenosis. RETROPERITONEUM: No retroperitoneal adenopathy, hemorrhage or masses. BOWEL AND PERITONEAL CAVITY: Prior sigmoid colectomy and left lower quadrant ostomy. No obstruction . Parastomal hernia, stable finding. No free fluid. APPENDIX: Prior appendectomy. PELVIS: The uterus is not visualized. No free fluid. Normal bladder. ABDOMINAL WALL: See above. BONES: The osseous structures are stable in appearance. OTHER: A 2.4 cm round density in the subcutaneous tissue contain fat and soft tissue and lies adjace nt to the skin surface. IMPRESSION: 1. No evidence for active GI bleeding by CT examination. 2. Post surgical changes, stable finding. 3. Slightly nodular contour to the liver raises the question of cirrhosis. Hepatomegaly. 4. Additional stable findings as above. TECHNICAL DOCUMENTATION: JOB ID: [id number] Quality ID # [id number]: Final reports with documentation of one or more dose reduction techniques (e.g., Au tomated exposure control, adjustment of the mA and/or kV according to patient size, use of iterative reconstruction technique) 2010 [employer]- All Rights Reserved Reading location - IP/workstation name: [email or web address]
[2020-02-23 20:01] LABS: HEMATOCRIT 26.3 % (36.0-47.0); HEMOGLOBIN 8.5 g/dL (12.0-15.5); MEAN CORPUSCULAR HEMOGLOBIN 25.8 pg (27.0-33.4); MEAN CORPUSCULAR HGB CONC 32.3 g/dL (32.0-36.0); MEAN CORPUSCULAR VOLUME 80 fl (80-97); PLATELET COUNT 188 10^3/uL (150-450); WHITE BLOOD COUNT 6.9 10^3/uL (4.0-10.5)
[2020-02-23 22:07] VITALS: BP 144/72
== END | disposition short-term general hospital (02) ==
LOC: ER 14:17
DX: K92.2 Gastrointestinal hemorrhage, unspecified (principal); R11.0 Nausea; R10.32 Left lower quadrant pain; R53.1 Weakness; I25.10 Atherosclerotic heart disease of native coronary artery without angina pectoris; I10 Essential (primary) hypertension; E11.9 Type 2 diabetes mellitus without complications; Z79.01 Long term (current) use of anticoagulants; Z95.2 Presence of prosthetic heart valve; Z87.891 Personal history of nicotine dependence; Z91.038 Other insect allergy status; R00.0 Tachycardia, unspecified; R10.814 Left lower quadrant abdominal tenderness; Z98.890 Other specified postprocedural states
CPT/HCPCS: 96376; 99291; 96361; 96375; 96365; 86900; 86901; 36415; 86870; 86850; 83690; 85025; 85610; 85730; 80053; 74177; J2270; C9113; J2405; J7030; J7040

== ENCOUNTER 2020-03-02 16:21 | Emergency (ER) | payer MEDICARE, OTHER ==
[2020-03-02] MEDS ORDERED: PANTOPRAZOLE SODIUM 40 MG VIAL IV ONE (16:56)
[2020-03-02] MEDS ORDERED: NORMAL SALINE 1000 ML 1,000 ML IV ONE ×2 (16:56→19:35)
--- NOTE | 2020-03-02 16:58 | ER Document Report ---
ED Medical Screen (RME) - General Chief Complaint: Bloody Stools Stated Complaint: BLOOD IN STOOL Time Seen by Provider: 03/02/20 16:51 Primary Care Provider: FRANKLYN RESENDIZ MD [Primary Care Provider] - Follow up as needed Information source: Patient Notes: Patient presents complaining of bleeding from her colostomy since yesterday. Patient states today she passed a very large blood clot. Patient complains of headache, feeling weak and having some shortness of breath. Patient complains of generalized soreness. Patient was seen for bleeding from her ostomy earlier this month and has been transferred to [facility]. 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 I have greeted and performed a rapid initial assessment of this patient. A comprehensive ED assessment and evaluation of the patient, analysis of test results and completion of the medical decision making process will be conducted by additional ED providers. TRAVEL OUTSIDE OF THE [place] IN LAST 30 DAYS: No - Related Data Allergies/Adverse Reactions: ants Allergy (Uncoded 02/23/20 15:29) Past Medical History - Social History Frequency of alcohol use: None Drug Abuse: None - Past Medical History Cardiac Medical History: Reports: Hx Coronary Artery Disease, Hx Heart Attack, Hx Hypercholesterolemia, Hx Hypertension Pulmonary Medical History: Denies: Hx Asthma, Hx Bronchitis, Hx COPD, Hx Pneumonia Neurological Medical History: Denies: Hx Cerebrovascular Accident, Hx Seizures Endocrine Medical History: Reports: Hx Diabetes Mellitus Type 2, Hx Hypothyroidism. Denies: Hx Diabetes Mellitus Type 1, Hx Hyperthyroidism Renal/ Medical History: Denies: Hx Peritoneal Dialysis GI Medical History: Reports: Hx Diverticulitis, Hx Gastroesophageal Reflux Disease. Denies: Hx Cirrhosis, Hx Crohn's Disease, Hx Hepatitis, Hx Ulcerative Colitis Musculoskeltal Medical History: Reports Hx Arthritis, Denies Hx Gout Skin Medical History: Denies Hx Eczema, Reports Hx MRSA, Denies Hx Psoriasis Psychiatric Medical History: Reports: Hx Depression Infectious Medical History: Denies: Hx Hepatitis Past Surgical History: Reports: Hx Appendectomy, Hx Bowel Surgery, Hx Cardiac Catheterization - stent, quad bypass., Hx Cardiac Surgery - CABG, Hx Colostomy - With partial colectomy, Hx Coronary Artery Bypass Graft - Quadruple bypass grafts, Hx Coronary Stent, Hx Genitourinary Surgery - colostomy, Hx Herniorrhaphy, Hx Hysterectomy, Hx Orthopedic Surgery - carpal tunnel syndrome, Hx Valve Replacement - Mechanical aortic valve, Other - hernia repairs. Not sure if mesh was used.. Denies: Hx Gynecologic Surgery - Immunizations Hx Diphtheria, Pertussis, Tetanus Vaccination: Yes Physical Exam - Vital signs Vitals: Temp Pulse Resp BP Pulse Ox 99.3 F 133 H 22 H 142/69 H 100 03/02/20 16:28 03/02/20 16:28 03/02/20 16:28 03/02/20 16:28 03/02/20 16:28 - General General appearance: Alert - Cardiovascular Rhythm: Tachycardia Heart sounds: S1 appreciated, S2 appreciated Course - Vital Signs Vital signs: Temp Pulse Resp BP Pulse Ox 99.3 F 133 H 22 H 142/69 H 100 03/02/20 16:41 03/02/20 16:28 03/02/20 16:28 03/02/20 16:28 03/02/20 16:28 Doctor's Discharge - Discharge Referrals: FRANKLYN RESENDIZ MD [Primary Care Provider] - Follow up as needed
[2020-03-02 17:39] LABS: ABSOLUTE EOSINOPHILS # (AUTO) 0.2 10^3/uL (0.0-0.6); ABSOLUTE LYMPHOCYTES (AUTO) 1.7 10^3/uL (0.5-4.7); ABSOLUTE MONOCYTES (AUTO) 0.7 10^3/uL (0.1-1.4); ABSOLUTE NEUT (AUTO) 3.1 10^3/uL (1.7-8.2); BASOPHILS % (AUTO) 0.7 % (0-2); EOSINOPHILS % (AUTO) 3.9 % (0-6); HEMATOCRIT 26.1 % (36.0-47.0); HEMOGLOBIN 8.6 g/dL (12.0-15.5); LYMPHOCYTES % (AUTO) 29.9 % (13-45); MEAN CORPUSCULAR HEMOGLOBIN 26.6 pg (27.0-33.4); MEAN CORPUSCULAR HGB CONC 32.8 g/dL (32.0-36.0); MEAN CORPUSCULAR VOLUME 81 fl (80-97); MONOCYTES % (AUTO) 11.9 % (3-13); PLATELET COUNT 217 10^3/uL (150-450); RED BLOOD COUNT 3.22 10^6/uL (3.72-5.28); RED CELL DISTRIBUTION WIDTH 23.2 % (11.5-14.0); SEGMENTED NEUTROPHILS % (AUTO) 53.6 % (42-78); TOTAL CELLS COUNTED % (AUTO) 100 %; WHITE BLOOD COUNT 5.8 10^3/uL (4.0-10.5)
[2020-03-02 17:47] LABS: INTERNATIONAL RATION (INR) 1.58
[2020-03-02 17:48] LABS: PARTIAL THROMBOPLASTIN TIME 35.3 SEC (23.5-35.8)
[2020-03-02 17:53] LABS: ALBUMIN 3.9 g/dL (3.5-5.0); ALKALINE PHOSPHATASE 79 U/L (38-126); ANION GAP 7 (5-19); ASPARTATE AMINO TRANSFERASE 68 U/L (14-36); BILIRUBIN,TOTAL 0.9 mg/dL (0.2-1.3); BLOOD UREA NITROGEN 12 mg/dL (7-20); CALCIUM 9.7 mg/dL (8.4-10.2); CARBON DIOXIDE 25 mmol/L (22-30); CHLORIDE 107 mmol/L (98-107); GLUCOSE 134 mg/dL (75-110); POTASSIUM 3.9 mmol/L (3.6-5.0); TOTAL PROTEIN 8.4 g/dL (6.3-8.2)
--- NOTE | 2020-03-02 19:08 | RADIOLOGY REPORT (SQ) ---
EXAM DESCRIPTION: CT ABD/PELVIS WITH IV ONLY IMAGES COMPLETED DATE/TIME: 03/02/2020 5:31 pm REASON FOR STUDY: gi bleeding. Ostomy. Previous appendectomy and hysterectomy. COMPARISON: 02/23/2020. TECHNIQUE: CT scan of the abdomen and pelvis performed using helical scanning technique with dynamic intravenous contrast injection. No oral contrast. Images reviewed with lung, soft tissue, and bone windows. Reconstructed coronal and sagittal MPR images reviewed. Delayed images for evaluation of the urinary system also acquired. All images stored on PACS. All CT scanners at this facility use dose modulation, iterative reconstruction, and/or weight based d osing when appropriate to reduce radiation dose to as low as reasonably achievable (ALARA). [facility]: Dose Right [facility]: CareDose [facility]: Dose Right [facility]: Teradose 4D [facility]: [employer] CONTRAST TYPE AND DOSE: contrast/concentration: Isovue 350.00 mmol/ml; Total Contrast Delivered: 96. 0 ml; Total Saline Delivered: 45.0 ml RENAL FUNCTION: GFR > 60. RADIATION DOSE: CT Rad equipment meets quality standard of care and radiation dose reduction techniq ues were employed. CTDIvol: 13.7 - 18.3 mGy. DLP: 1684 mGy-cm.. LIMITATIONS: None. FINDINGS: LOWER CHEST: No significant findings. No nodules or infiltrates. LIVER: Liver has a nodular contour with normal size. Mild diffuse hepatic steatosis. No focal hepat ic mass. Hepatic and portal veins are patent. No biliary ductal dilation. SPLEEN: There is mild splenomegaly with spleen measuring 13.6 cm craniocaudal at the midclavicular li ne. PANCREAS: No masses. No significant calcifications. No adjacent inflammation or peripancreatic fluid collections. Pancreatic duct not dilated. GALLBLADDER: No identified stones by CT criteria. No inflammatory changes to suggest cholecystitis. ADRENAL GLANDS: No significant masses or asymmetry. RIGHT KIDNEY AND URETER: No solid masses. No significant calcifications. No hydronephrosis or hyd roureter. LEFT KIDNEY AND URETER: Tiny left superior pole renal cortical cyst. No solid mass. Punctate nonob structing left inferior pole renal calculus. . No hydronephrosis or hydroureter. AORTA AND VESSELS: No aneurysm. No dissection. Renal arteries, SMA, celiac without stenosis. RETROPERITONEUM: No retroperitoneal adenopathy, hemorrhage or masses. BOWEL AND PERITONEAL CAVITY: Prior left hemicolectomy with left anterior abdominal wall colostomy. T here is a parastomal hernia containing loops of small bowel. No bowel obstruction or bowel wall thic kening. No significant inflammatory change. APPENDIX: Surgically absent. PELVIS: No mass. No free fluid. Normal bladder. ABDOMINAL WALL: Parastomal hernia as described. Postsurgical changes in the anterior abdominal wall. There are post injection granulomas/ hematomas in the anterior right abdominal wall, not significan tly changed. BONES: No suspicious bone lesions. OTHER: No other significant finding. IMPRESSION: 1. No acute abnormality in the abdomen or pelvis. 2. No significant interval change. Status post left hemicolectomy with colostomy in the anterior lef t abdominal wall with small parastomal hernia of small bowel. No bowel obstruction. 3. Nodular contour of the liver which can indicate underlying hepatic cirrhosis. No suspicious hepat ic mass. Clinical correlation is recommended. 4. Mild splenomegaly. TECHNICAL DOCUMENTATION: JOB ID: [id number] Quality ID # [id number]: Final reports with documentation of one or more dose reduction techniques (e.g., Au tomated exposure control, adjustment of the mA and/or kV according to patient size, use of iterative reconstruction technique) 2010 [email or web address]- All Rights Reserved Reading location - IP/workstation name: [email or web address]
--- NOTE | 2020-03-02 19:28 | ER Document Report ---
Entered by PETER RUELAS SCRIBE 03/02/20 [id number] Acting as scribe for:NABEEL STALLWORTH, ED General - General Chief Complaint: Bloody Stools Stated Complaint: BLOOD IN STOOL Time Seen by Provider: 03/02/20 16:51 Primary Care Provider: FRANKLYN RESENDIZ MD [Primary Care Provider] - Follow up as needed Information source: Patient Notes: This 69 year old female patient with a history of diverticulitis with colostomy, presents to the emergency department today with complaints of bleeding from her ostomy site. Patient states she has a history of this happening for the past x1.5 years and visited the ED x8 days ago for the same reason. Patient states she was transferred to [facility] and stayed for x3 days after x3 AVM's were found, all of which were cauterized. Patient states yesterday there was blood in her colostomy bag and she also passed a blood clot. Patient states the bleeding has not stopped and denies abdominal pain, stating she is only uncomfortable. De nies burning when urinating or other urinary symptoms. Patient also reports a history of an atrial valve replacement and is on Coumadin. TRAVEL OUTSIDE OF THE [place] IN LAST 30 DAYS: No - Related Data Allergies/Adverse Reactions: ants Allergy (Uncoded 03/02/20 17:25) Past Medical History - General Information source: Patient - Social History Smoking Status: Never Smoker Cigarette use (# per day): No Frequency of alcohol use: None Drug Abuse: None Family History: CAD, DM, Other - RECTAL CA - Past Medical History Cardiac Medical History: Reports: Hx Coronary Artery Disease, Hx Heart Attack, Hx Hypercholesterolemia, Hx Hypertension Endocrine Medical History: Reports: Hx Diabetes Mellitus Type 2, Hx Hypothyroidism GI Medical History: Reports: Hx Diverticulitis, Hx Gastroesophageal Reflux Disease Musculoskeletal Medical History: Reports Hx Arthritis Skin Medical History: Reports Hx MRSA Psychiatric Medical History: Reports: Hx Depression Past Surgical History: Reports: Hx Appendectomy, Hx Bowel Surgery, Hx Cardiac Catheterization - stent, quad bypass., Hx Cardiac Surgery - CABG, Hx Colostomy - With partial colectomy, Hx Coronary Artery Bypass Graft - Quadruple bypass grafts, Hx Coronary Stent, Hx Genitourinary Surgery - colostomy, Hx Herniorrhaphy, Hx Hysterectomy, Hx Orthopedic Surgery - carpal tunnel syndrome, Hx Valve Replacement - Mechanical aortic valve, Other - hernia repairs. Not sure if mesh was used. - Immunizations Hx Diphtheria, Pertussis, Tetanus Vaccination: Yes Hx Pneumococcal Vaccination: 06/12/11 Review of Systems - Review of Systems Constitutional: No symptoms reported EENT: No symptoms reported Cardiovascular: No symptoms reported Respiratory: No symptoms reported Gastrointestinal: See HPI, Other - Blood in colostomy bag. denies: Abdominal pain Genitourinary: See HPI. denies: Burning Female Genitourinary: No symptoms reported Musculoskeletal: No symptoms reported Skin: No symptoms reported Hematologic/Lymphatic: No symptoms reported Neurological/Psychological: No symptoms reported -: Yes All other systems reviewed and negative Physical Exam - Vital signs Vitals: Temp Pulse Resp BP Pulse Ox 99.3 F 133 H 22 H 142/69 H 100 03/02/20 16:28 03/02/20 16:28 03/02/20 16:28 03/02/20 16:28 03/02/20 16:28 - General General appearance: Appears well, Alert - HEENT Head: Normocephalic, Atraumatic Eyes: Normal Pupils: PERRL - Respiratory Respiratory status: No respiratory distress Chest status: Nontender Breath sounds: Normal Chest palpation: Normal - Cardiovascular Rhythm: Regular Heart sounds: Normal auscultation Murmur: No - Abdominal Distension: No distension Bowel sounds: Normal Tenderness: Nontender Notes: Colostomy bag located in the LLQ. Signs of mild bleeding below the ostomy site. - Extremities General upper extremity: Normal inspection. No: Edema General lower extremity: Normal inspection. No: Edema - Neurological Neuro grossly intact: Yes Cognition: Normal Orientation: AAOx4 Speech: Normal - Psychological Associated symptoms: Normal affect, Normal mood - Skin Skin Temperature: Warm Skin Moisture: Dry Skin Color: Normal Course - Re-evaluation Re-evalutation: 03/02/20 19:28 [facility] I have called [facility] transfer center. 03/02/20 20:19 I have spoken with the GI fellow at [facility] - Dr. 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 I have discussed with Dr. Eryn Garrison who has graciously accepted the pt in transfer to [facility]. We are arranging the logistics of this transfer. 03/02/20 21:15 [facility] is here. They are arranging transfer. She is stable and tachy at 124 when I see her. - Vital Signs Vital signs: Temp Pulse Resp BP Pulse Ox 99.3 F 133 H 22 H 136/77 H 95 03/02/20 16:41 03/02/20 16:28 03/02/20 20:01 03/02/20 20:01 03/02/20 20:01 - Laboratory Result Diagrams: 03/02/20 16:35 03/02/20 16:35 Laboratory results interpreted by me: 03/02/20 03/02/20 03/02/20 16:35 16:35 16:35 RBC 3.22 L Hgb 8.6 L Hct 26.1 L MCH 26.6 L RDW 23.2 H PT 19.0 H Est GFR ( Amer) 59 L Est GFR (MDRD) Non-Af 49 L Glucose 134 H AST 68 H Total Protein 8.4 H - Diagnostic Test Radiology reviewed: Reports reviewed - EKG Interpretation by Me EKG shows normal: Sinus rhythm Rate: Tachycardia Rhythm: NSR - Sinus Tachy Nl [place] [address] elevation or depression my interpretation. Critical Care Note - Critical Care Note Total time excluding time spent on procedures (mins): 30 Discharge - Discharge Clinical Impression: Hematochezia Anemia Qualifiers: Anemia type: unspecified type Qualified Code(s): D64.9 - Anemia, unspecified Condition: Stable Disposition: [facility] Referrals: FRANKLYN RESENDIZ MD [Primary Care Provider] - Follow up as needed I personally performed the services described in the documentation, reviewed and edited the documentation which was dictated to the scribe in my presence, and it accurately records my words and actions.
[2020-03-02] MEDS ORDERED: NORMAL SALINE 250 ML IV PRN ×2 (19:44)
[2020-03-02] MEDS ORDERED: MORPHINE SULFATE 10 MG/ML INJ IV ONE (20:30)
[2020-03-02] MEDS ORDERED: ONDANSETRON HCL INJ/PF 4 MG/2 ML SDV IV ONE (20:30)
[2020-03-02 20:34] VITALS: BP 136/77
--- NOTE | 2020-03-03 09:26 | EKG REPORT ---
SEVERITY:- ABNORMAL ECG - SINUS TACHYCARDIA NONSPECIFIC T ABNORMALITIES, LATERAL LEADS : Confirmed by: Krunal Joy 03-Mar-2020 09:25:40
== END 2020-03-02 21:00 | disposition short-term general hospital (02) ==
LOC: ER 16:21
DX: K92.1 Melena (principal); D64.9 Anemia, unspecified; Z93.3 Colostomy status; I25.10 Atherosclerotic heart disease of native coronary artery without angina pectoris; I25.2 Old myocardial infarction; I10 Essential (primary) hypertension; E11.9 Type 2 diabetes mellitus without complications
CPT/HCPCS: 93005; 99291; 96361; 96374; 96375; 86900; 86901; 36415; 86870; 86850; 83605; 83735; 85025; 85610; 85730; 80053; 84484; 74177; 93010; J2270; C9113; J2405; J7030

== ENCOUNTER 2020-04-09 04:35 | Emergency (ER) | payer MEDICARE, OTHER ==
[2020-04-09] MEDS ORDERED: MORPHINE SULFATE 10 MG/ML INJ IV ONE ×2 (05:53→09:04)
[2020-04-09] MEDS ORDERED: ONDANSETRON HCL INJ/PF 4 MG/2 ML SDV IV ONE (05:53)
[2020-04-09 05:57] LABS: PROTHROMBIN TIME 19.2 SEC (11.4-15.4)
[2020-04-09 05:58] LABS: PARTIAL THROMBOPLASTIN TIME 40.4 SEC (23.5-35.8)
[2020-04-09 06:01] LABS: ABSOLUTE EOSINOPHILS # (AUTO) 0.3 10^3/uL (0.0-0.6); ABSOLUTE LYMPHOCYTES (AUTO) 1.3 10^3/uL (0.5-4.7); ABSOLUTE MONOCYTES (AUTO) 0.6 10^3/uL (0.1-1.4); ABSOLUTE NEUT (AUTO) 2.6 10^3/uL (1.7-8.2); BASOPHILS % (AUTO) 0.8 % (0-2); EOSINOPHILS % (AUTO) 5.4 % (0-6); HEMATOCRIT 29.2 % (36.0-47.0); HEMOGLOBIN 9.9 g/dL (12.0-15.5); LYMPHOCYTES % (AUTO) 27.5 % (13-45); MEAN CORPUSCULAR HEMOGLOBIN 31.7 pg (27.0-33.4); MEAN CORPUSCULAR HGB CONC 33.7 g/dL (32.0-36.0); MEAN CORPUSCULAR VOLUME 94 fl (80-97); MONOCYTES % (AUTO) 11.8 % (3-13); PLATELET COUNT 130 10^3/uL (150-450); RED BLOOD COUNT 3.11 10^6/uL (3.72-5.28); SEGMENTED NEUTROPHILS % (AUTO) 54.5 % (42-78); TOTAL CELLS COUNTED % (AUTO) 100 %; WHITE BLOOD COUNT 4.8 10^3/uL (4.0-10.5)
[2020-04-09 06:06] LABS: ALBUMIN 3.8 g/dL (3.5-5.0); ALKALINE PHOSPHATASE 76 U/L (38-126); ANION GAP 8 (5-19); ASPARTATE AMINO TRANSFERASE 63 U/L (14-36); BILIRUBIN,DIRECT 0.2 mg/dL (0.0-0.4); BLOOD UREA NITROGEN 13 mg/dL (7-20); CARBON DIOXIDE 26 mmol/L (22-30); CHLORIDE 109 mmol/L (98-107); GLUCOSE 95 mg/dL (75-110); POTASSIUM 3.3 mmol/L (3.6-5.0); TOTAL PROTEIN 7.6 g/dL (6.3-8.2)
--- NOTE | 2020-04-09 06:39 | ER Document Report ---
ED GI Bleed / Rectal Pain - General Mode of Arrival: Ambulatory Information source: Patient TRAVEL OUTSIDE OF THE [place] IN LAST 30 DAYS: No - HPI Patient complains to provider of: Other - Bright red blood from ostomy Onset: Just prior to arrival Timing/Duration: Sudden, Constant, Persistent Quality of pain: Achy, Burning Severity of symptoms: Moderate Pain Level: 3 Rectal bleeding: Blood mixed w/ stool Use of: Warfarin Associated symptoms: None Exacerbated by: Denies Relieved by: Denies Similar symptoms previously: Yes Recently seen / treated by doctor: Yes <RADHA OLVERA - Last Filed: 04/09/20 08:59> <AYDEERHINA M - Last Filed: 04/09/20 20:31> - General Chief Complaint: GI Bleeding Stated Complaint: OSTOMY BLEEDING Time Seen by Provider: 04/09/20 05:17 Primary Care Provider: FRANKLYN RESENDIZ MD [Primary Care Provider] - Follow up as needed - Related Data Allergies/Adverse Reactions: ants Allergy (Uncoded 03/02/20 17:25) Past Medical History - General Information source: Patient - Social History Smoking Status: Never Smoker Chew tobacco use (# tins/day): No Frequency of alcohol use: None Drug Abuse: None Lives with: Family Family History: CAD, DM, Other - RECTAL CA Patient has homicidal ideation: No - Past Medical History Cardiac Medical History: Reports: Hx Coronary Artery Disease, Hx Heart Attack, Hx Hypercholesterolemia, Hx Hypertension Pulmonary Medical History: Denies: Hx Asthma, Hx Bronchitis, Hx COPD, Hx Pneumonia Neurological Medical History: Denies: Hx Cerebrovascular Accident, Hx Seizures Endocrine Medical History: Reports: Hx Diabetes Mellitus Type 2, Hx Hypothyroidism. Denies: Hx Diabetes Mellitus Type 1, Hx Hyperthyroidism Renal/ Medical History: Denies: Hx Peritoneal Dialysis GI Medical History: Reports: Hx Diverticulitis, Hx Gastroesophageal Reflux Disease. Denies: Hx Cirrhosis, Hx Crohn's Disease, Hx Hepatitis, Hx Ulcerative Colitis Musculoskeletal Medical History: Reports Hx Arthritis, Denies Hx Gout Skin Medical History: Denies Hx Eczema, Reports Hx MRSA, Denies Hx Psoriasis Psychiatric Medical History: Reports: Hx Depression Infectious Medical History: Denies: Hx Hepatitis Past Surgical History: Reports: Hx Appendectomy, Hx Bowel Surgery, Hx Cardiac Catheterization - stent, quad bypass., Hx Cardiac Surgery - CABG, Hx Colostomy - With partial colectomy, Hx Coronary Artery Bypass Graft - Quadruple bypass grafts, Hx Coronary Stent, Hx Genitourinary Surgery - colostomy, Hx Herniorrhaphy, Hx Hysterectomy, Hx Orthopedic Surgery - carpal tunnel syndrome, Hx Valve Replacement - Mechanical aortic valve, Other - hernia repairs. Not sure if mesh was used.. Denies: Hx Gynecologic Surgery - Immunizations Hx Diphtheria, Pertussis, Tetanus Vaccination: Yes Hx Pneumococcal Vaccination: 06/12/11 <RADHA OLVERA - Last Filed: 04/09/20 08:59> Review of Systems - Review of Systems Constitutional: No symptoms reported EENT: No symptoms reported Cardiovascular: No symptoms reported Respiratory: No symptoms reported Gastrointestinal: Other - Bleeding into the ostomy bag Genitourinary: No symptoms reported Female Genitourinary: No symptoms reported Musculoskeletal: No symptoms reported Skin: No symptoms reported Hematologic/Lymphatic: No symptoms reported Neurological/Psychological: No symptoms reported -: Yes All other systems reviewed and negative <RADHA OLVERA - Last Filed: 04/09/20 08:59> Physical Exam - Vital signs Interpretation: Normal <RADHA OLVERA - Last Filed: 04/09/20 08:59> - Vital signs Vitals: Temp Pulse Resp BP Pulse Ox 98.3 F 71 16 121/54 L 100 04/09/20 04:44 04/09/20 04:44 04/09/20 04:44 04/09/20 04:44 04/09/20 04:44 - Notes Notes: PHYSICAL EXAMINATION: GENERAL: Well-appearing, well-nourished and in no acute distress. HEAD: Atraumatic, normocephalic. EYES: Pupils equal round and reactive to light, extraocular movements intact, conjunctiva are normal. ENT: Nares patent, oropharynx clear without exudates. Moist mucous membranes. NECK: Normal range of motion, supple without lymphadenopathy LUNGS: Breath sounds clear to auscultation bilaterally and equal. No wheezes rales or rhonchi. HEART: Regular rate and rhythm without murmurs ABDOMEN: Examination patient's area of concern is her ostomy bag. Examination shows that to be full of bright red blood with a few clots. There rest of the abdominal examination is benign bowel sounds are heard throughout she is nontender to palpate. Female : deferred Musculoskeletal: Normal range of motion, no pitting or edema. No cyanosis. NEUROLOGICAL: Normal speech, normal gait. Normal sensory, motor exams PSYCH: Normal mood, normal affect. SKIN: Warm, Dry, normal turgor, no rashes or lesions noted. (RADHA OLVERA) Course - Laboratory Result Diagrams: 04/09/20 05:05 04/09/20 05:05 <RADHA OLVERA - Last Filed: 04/09/20 08:59> - Laboratory Result Diagrams: 04/09/20 15:45 04/09/20 05:05 <RHINA BAJWA - Last Filed: 04/09/20 20:31> - Re-evaluation Re-evalutation: 04/09/20 07:28 I contacted [facility] requested to speak to strategic communications manager for Dr. Joann Lopes who is patient's specialist. Waiting strategic communications manager back at this time. I spoke with Reva alicea at the transfer center we are faxing a facesheet to her and we are waiting her return call. 04/09/20 08:59 I was contacted back by Dr.Cauldfield MANJARREZ on-call. He is graciously accept the patient in transfer when abdomen comes available. At present the rooms are backed up and he is requesting we monitor patient's H&H and go ahead and type and cross patient just in case. Will also give her some fluids. They will contact us back when bed becomes available. But she has been accepted by this physician. (RADHA OLVERA) 04/09/20 13:59 Repeat hemoglobin was 8.7. We will continue to monitor the patient. We will recheck another hemoglobin at around 1500. 04/09/20 19:00 Repeat hemoglobin was stable. Transport is at bedside. Patient is stable for transport to [facility]. (RHINA BAJWA) - Vital Signs Vital signs: Temp Pulse Resp BP Pulse Ox 98.5 F 71 16 110/60 99 04/09/20 19:06 04/09/20 04:44 04/09/20 19:06 04/09/20 19:06 04/09/20 19:06 - Laboratory Laboratory results interpreted by me: 04/09/20 04/09/20 04/09/20 05:05 05:05 05:05 RBC 3.11 L Hgb 9.9 L Hct 29.2 L RDW 18.0 H Plt Count 130 L PT 19.2 H APTT 40.4 H Potassium 3.3 L Chloride 109 H Est GFR (MDRD) Non-Af 52 L AST 63 H Ur Leukocyte Esterase 04/09/20 04/09/20 04/09/20 06:30 09:37 15:45 RBC 2.79 L 2.69 L Hgb 8.7 L 8.5 L Hct 26.3 L 25.4 L RDW 17.1 H 18.2 H Plt Count 115 L 118 L PT APTT Potassium Chloride Est GFR (MDRD) Non-Af AST Ur Leukocyte Esterase TRACE H Discharge <RADHA OLVERA T - Last Filed: 04/09/20 08:59> <RHINA BAJWA - Last Filed: 04/09/20 20:31> - Discharge Clinical Impression: GI bleed Qualifiers: GI bleed type/associated pathology: melena Qualified Code(s): K92.1 - Melena Condition: Fair Disposition: [facility] Referrals: FRANKLYN RESENDIZ MD [Primary Care Provider] - Follow up as needed
[2020-04-09 06:53] LABS: ANISOCYTOSIS 1+; PLATELET COMMENT DECREASED
[2020-04-09 06:55] LABS: OVALOCYTES SLIGHT; SCHISTOCYTES SLIGHT
[2020-04-09 07:12] LABS: APPEARANCE,URINE SLIGHTLY-CLOUDY; BILIRUBIN,URINE NEGATIVE (NEGATIVE); COLOR,URINE YELLOW; GLUCOSE, URINE NEGATIVE (NEGATIVE); KETONES,URINE NEGATIVE (NEGATIVE); LEUKOCYTE ESTERASE,URINE TRACE (NEGATIVE); NITRITE,URINE NEGATIVE (NEGATIVE); PROTEIN,URINE NEGATIVE (NEGATIVE); URINE SPECIFIC GRAVITY 1.015; UROBILINOGEN,URINE NEGATIVE mg/dL (<2.0)
--- NOTE | 2020-04-09 07:42 | RADIOLOGY REPORT (SQ) ---
EXAM DESCRIPTION: XR ABDOMEN SUPINE AND ERECT WITH CHEST (ABD ACUTE SERIES) COMPLETED DATE/TME: 04/09/2020 06:44 CLINICAL HISTORY: 70 years, Female, bleeding COMPARISON: CT dated 03/02/2020 NUMBER OF VIEWS: Three TECHNIQUE: AP view of the chest with supine and upright images of the abdomen. LIMITATIONS: None. FINDINGS: The lungs are clear. The heart is normal in size. There is no pneumothorax or pleural effusion. Median sternotomy wires are noted. No acute fracture. There is no intraperitoneal free air. No dilated loops of small bowel are identified. Phleboliths noted within the pelvis. IMPRESSION: No acute cardiopulmonary abnormality. Nonobstructing bowel gas pattern copyright 2010 [employer]- All Rights Reserved
[2020-04-09] MEDS ORDERED: ACETAMINOPHEN 325 MG TABLET PO ONE (07:51)
[2020-04-09] MEDS ORDERED: NORMAL SALINE 1000 ML 1,000 ML IV ONE ×2 (09:03→17:33)
[2020-04-09] MEDS ORDERED: POTASSIUM CHLORIDE 10 MEQ TABLET.ER PO ONE (09:31)
[2020-04-09] MEDS ORDERED: DIPHENHYDRAMINE HCL 25 MG CAPSULE PO ONE (10:10)
[2020-04-09 10:19] LABS: ABSOLUTE EOSINOPHILS # (AUTO) 0.2 10^3/uL (0.0-0.6); ABSOLUTE LYMPHOCYTES (AUTO) 1.4 10^3/uL (0.5-4.7); ABSOLUTE MONOCYTES (AUTO) 0.6 10^3/uL (0.1-1.4); ABSOLUTE NEUT (AUTO) 2.5 10^3/uL (1.7-8.2); BASOPHILS % (AUTO) 0.8 % (0-2); EOSINOPHILS % (AUTO) 4.6 % (0-6); HEMATOCRIT 26.3 % (36.0-47.0); HEMOGLOBIN 8.7 g/dL (12.0-15.5); LYMPHOCYTES % (AUTO) 28.9 % (13-45); MEAN CORPUSCULAR HEMOGLOBIN 31.4 pg (27.0-33.4); MEAN CORPUSCULAR HGB CONC 33.2 g/dL (32.0-36.0); MEAN CORPUSCULAR VOLUME 95 fl (80-97); PLATELET COUNT 115 10^3/uL (150-450); RED BLOOD COUNT 2.79 10^6/uL (3.72-5.28); RED CELL DISTRIBUTION WIDTH 17.1 % (11.5-14.0); SEGMENTED NEUTROPHILS % (AUTO) 53.7 % (42-78); TOTAL CELLS COUNTED % (AUTO) 100 %; WHITE BLOOD COUNT 4.7 10^3/uL (4.0-10.5)
[2020-04-09 16:01] LABS: HEMATOCRIT 25.4 % (36.0-47.0); HEMOGLOBIN 8.5 g/dL (12.0-15.5); MEAN CORPUSCULAR HEMOGLOBIN 31.5 pg (27.0-33.4); MEAN CORPUSCULAR HGB CONC 33.4 g/dL (32.0-36.0); MEAN CORPUSCULAR VOLUME 94 fl (80-97); PLATELET COUNT 118 10^3/uL (150-450); RED BLOOD COUNT 2.69 10^6/uL (3.72-5.28); RED CELL DISTRIBUTION WIDTH 18.2 % (11.5-14.0); WHITE BLOOD COUNT 4.5 10^3/uL (4.0-10.5)
--- NOTE | 2020-04-09 19:00 | EKG REPORT ---
SEVERITY:- ABNORMAL ECG - SINUS RHYTHM PROLONGED QT INTERVAL : Confirmed by: Ava Velasco MD 09-Apr-2020 18:59:36
[2020-04-09 19:17] VITALS: BP 110/60
== END 2020-04-09 19:08 | disposition short-term general hospital (02) ==
LOC: ER 04:35
DX: K92.1 Melena (principal); I25.10 Atherosclerotic heart disease of native coronary artery without angina pectoris; I10 Essential (primary) hypertension; I25.2 Old myocardial infarction; E11.9 Type 2 diabetes mellitus without complications; Z95.2 Presence of prosthetic heart valve; Z79.01 Long term (current) use of anticoagulants; Z95.5 Presence of coronary angioplasty implant and graft; Z95.1 Presence of aortocoronary bypass graft; Z93.3 Colostomy status
CPT/HCPCS: 93005; 96376; 99285; 96361; 96374; 96375; 86900; 86901; 36415; 86870; 86850; 85025; 85610; 85730; 80053; 81001; 86902; 74022; 93010; A9270 ×3; J2270; J2405; J7030

== ENCOUNTER → 2020-04-28 | Outpatient (CLI) | payer MEDICARE, OTHER ==
[2020-04-28 13:53] LABS: HEMATOCRIT 27.1 % (36.0-47.0); HEMOGLOBIN 9.4 g/dL (12.0-15.5); MEAN CORPUSCULAR HEMOGLOBIN 31.7 pg (27.0-33.4); MEAN CORPUSCULAR HGB CONC 34.5 g/dL (32.0-36.0); MEAN CORPUSCULAR VOLUME 92 fl (80-97); PLATELET COUNT 150 10^3/uL (150-450); RED BLOOD COUNT 2.95 10^6/uL (3.72-5.28); RED CELL DISTRIBUTION WIDTH 15.8 % (11.5-14.0); WHITE BLOOD COUNT 5.4 10^3/uL (4.0-10.5)
[2020-04-28 14:00] LABS: INTERNATIONAL RATION (INR) 1.71; PROTHROMBIN TIME 20.2 SEC (11.4-15.4)
== END ==
LOC: OD 13:15
PROVIDERS: ATTEND Internal Medicine Cardiovascular Disease
DX: K92.2 Gastrointestinal hemorrhage, unspecified (principal); Z95.2 Presence of prosthetic heart valve; Z79.01 Long term (current) use of anticoagulants
CPT/HCPCS: 36415; 85027; 85610

== ENCOUNTER 2020-05-19 22:45 | Emergency (ER) | payer MEDICARE, OTHER ==
--- NOTE | 2020-05-19 23:18 | ER Document Report ---
ED Medical Screen (RME) - General Chief Complaint: GI Bleeding Stated Complaint: STOMA BAG LEAKING Primary Care Provider: WARREN CALVILLO MD [Primary Care Provider] - Follow up as needed Notes: Patient is a 70-year-old white female with a history of diverticulitis with bowel resection and "stoma". She states the area beneath it is torn and bleeding. She is replaced to bags full of bloody fluid and blood clots. She reported here today for further care management. She states that she has a central supply aide who is possibly replacing heart valve advised at next week. She states that in discussions with them previously since she is on Coumadin they asked if this ever happened again that she be sent by them. According to the patient she is [place] spoken with them there and they have already typed and crossed her blood and are awaiting her transfer. I have treated and performed a rapid initial assessment of this patient. A comprehensive ED assessment and evaluation of the patient, analysis of test results and completion of medical decision making process will be conducted by additional ED providers. PHYSICAL EXAMINATION: GENERAL: Well-appearing, well-nourished and in no acute distress. A&Ox4. Answers questions appropriately. TRAVEL OUTSIDE OF THE [place] IN LAST 30 DAYS: No - Related Data Allergies/Adverse Reactions: ants Allergy (Uncoded 05/19/20 22:57) Past Medical History - Social History Frequency of alcohol use: None Drug Abuse: None - Past Medical History Cardiac Medical History: Reports: Hx Coronary Artery Disease, Hx Heart Attack, Hx Hypercholesterolemia, Hx Hypertension Pulmonary Medical History: Denies: Hx Asthma, Hx Bronchitis, Hx COPD, Hx Pneumonia Neurological Medical History: Denies: Hx Cerebrovascular Accident, Hx Seizures Endocrine Medical History: Reports: Hx Diabetes Mellitus Type 2, Hx Hypothyroidism. Denies: Hx Diabetes Mellitus Type 1, Hx Hyperthyroidism Renal/ Medical History: Denies: Hx Peritoneal Dialysis GI Medical History: Reports: Hx Diverticulitis, Hx Gastroesophageal Reflux Disease. Denies: Hx Cirrhosis, Hx Crohn's Disease, Hx Hepatitis, Hx Ulcerative Colitis Musculoskeltal Medical History: Reports Hx Arthritis, Denies Hx Gout Skin Medical History: Denies Hx Eczema, Reports Hx MRSA, Denies Hx Psoriasis Psychiatric Medical History: Reports: Hx Depression Infectious Medical History: Denies: Hx Hepatitis Past Surgical History: Reports: Hx Appendectomy, Hx Bowel Surgery, Hx Cardiac Catheterization - stent, quad bypass., Hx Cardiac Surgery - CABG, Hx Colostomy - With partial colectomy, Hx Coronary Artery Bypass Graft - Quadruple bypass grafts, Hx Coronary Stent, Hx Genitourinary Surgery - colostomy, Hx Herniorrhaphy, Hx Hysterectomy, Hx Orthopedic Surgery - carpal tunnel syndrome, Hx Valve Replacement - Mechanical aortic valve, Other - hernia repairs. Not sure if mesh was used.. Denies: Hx Gynecologic Surgery - Immunizations Hx Diphtheria, Pertussis, Tetanus Vaccination: Yes Physical Exam - Vital signs Vitals: Temp Pulse Resp BP Pulse Ox 98.5 F 107 H 18 156/70 H 100 05/19/20 22:52 05/19/20 22:52 05/19/20 22:52 05/19/20 22:52 05/19/20 22:52 Course - Vital Signs Vital signs: Temp Pulse Resp BP Pulse Ox 98.5 F 107 H 18 156/70 H 100 05/19/20 22:52 05/19/20 22:52 05/19/20 22:52 05/19/20 22:52 05/19/20 22:52 Doctor's Discharge - Discharge Referrals: WARREN CALVILLO MD [Primary Care Provider] - Follow up as needed
[2020-05-20] MEDS ORDERED: PHYTONADIONE INJ 10 MG/1 ML AMPULE IV ONE (00:08)
--- NOTE | 2020-05-20 00:18 | ER Document Report ---
ED GI Bleed / Rectal Pain - General Chief Complaint: GI Bleeding Stated Complaint: STOMA BAG LEAKING Time Seen by Provider: 05/20/20 00:07 Primary Care Provider: WARREN CALVILLO MD [Primary Care Provider] - Follow up as needed Mode of Arrival: Ambulatory Information source: Patient Notes: 70-year-old female arrives by POV with her with chief complaint of "bleeding from her left lower quadrant colostomy bag bright red blood change twice since 183. Patient reports she has some silver nitrate sticks where her ostomy lesion is at but cannot get it stopped bleeding. Patient reports she has had 3 GI bleed within the last 3 months since February. Patient ports she went to [place] once and went to [place] went to [facility] after being sent there from this facility and today wants to go to [place] because that is where she is scheduled for her CABG with Dr. Liu. She advises she has had a bypass in the past with also a valvular repair. Asked why she is on her Coumadin. Patient reports she has a colostomy because she had multiple diverticular problems with resection of these areas. She also has had multiple surgeries to include SURJIT appendectomy 2 hernia repairs. She is O- but has 3 antibodies." TRAVEL OUTSIDE OF THE [place] IN LAST 30 DAYS: No - HPI Patient complains to provider of: Other - Bleeding from ostomy site dark red blood Onset: This evening Severity of symptoms: Moderate Pain Level: 3 Emesis description: Bright red blood Rectal foreign body: No Rectal pain with intercourse: No Use of: Warfarin - Related Data Allergies/Adverse Reactions: ants Allergy (Uncoded 05/19/20 22:57) Past Medical History - General Information source: Patient, Relative - - Social History Smoking Status: Former Smoker Cigarette use (# per day): No Chew tobacco use (# tins/day): No Smoking Education Provided: No Frequency of alcohol use: None Drug Abuse: None Lives with: Family Family History: Reviewed & Not Pertinent, CAD, DM, Other - RECTAL CA Patient has suicidal ideation: No Patient has homicidal ideation: No - Past Medical History Cardiac Medical History: Reports: Hx Coronary Artery Disease, Hx Heart Attack, Hx Hypercholesterolemia, Hx Hypertension Pulmonary Medical History: Denies: Hx Asthma, Hx Bronchitis, Hx COPD, Hx Pneumonia Neurological Medical History: Denies: Hx Cerebrovascular Accident, Hx Seizures Endocrine Medical History: Reports: Hx Diabetes Mellitus Type 2, Hx H ypothyroidism. Denies: Hx Diabetes Mellitus Type 1, Hx Hyperthyroidism Renal/ Medical History: Denies: Hx Peritoneal Dialysis GI Medical History: Reports: Hx Diverticulitis, Hx Gastroesophageal Reflux Disease. Denies: Hx Cirrhosis, Hx Crohn's Disease, Hx Hepatitis, Hx Ulcerative Colitis Musculoskeletal Medical History: Reports Hx Arthritis, Denies Hx Gout Skin Medical History: Denies Hx Eczema, Reports Hx MRSA, Denies Hx Psoriasis Psychiatric Medical History: Reports: Hx Depression Infectious Medical History: Denies: Hx Hepatitis Past Surgical History: Reports: Hx Appendectomy, Hx Bowel Surgery, Hx Cardiac Catheterization - stent, quad bypass., Hx Cardiac Surgery - CABG, Hx Colostomy - With partial colectomy, Hx Coronary Artery Bypass Graft - Quadruple bypass grafts, Hx Coronary Stent, Hx Genitourinary Surgery - colostomy, Hx Herniorrhaphy, Hx Hysterectomy, Hx Orthopedic Surgery - carpal tunnel syndrome, Hx Valve Replacement - Mechanical aortic valve, Other - hernia repairs. Not sure if mesh was used.. Denies: Hx Gynecologic Surgery - Immunizations Hx Diphtheria, Pertussis, Tetanus Vaccination: Yes Hx Pneumococcal Vaccination: 06/12/11 Review of Systems - Review of Systems Constitutional: See HPI, Weakness, Recent illness EENT: No symptoms reported Cardiovascular: No symptoms reported Respiratory: No symptoms reported Gastrointestinal: See HPI, Abdomen distended, Abdominal pain, Other - Blood in ostomy bag Genitourinary: No symptoms reported Female Genitourinary: No symptoms reported Musculoskeletal: No symptoms reported Skin: No symptoms reported Hematologic/Lymphatic: No symptoms reported Neurological/Psychological: No symptoms reported Physical Exam - Vital signs Vitals: Temp Pulse Resp BP Pulse Ox 98.5 F 107 H 18 156/70 H 100 05/19/20 22:52 05/19/20 22:52 05/19/20 22:52 05/19/20 22:52 05/19/20 22:52 Interpretation: Normal, Hypertensive, Tachycardic - General General appearance: Alert, Anxious - HEENT Head: Normocephalic, Atraumatic Eyes: Normal Conjunctiva: Normal Cornea: Normal Extraocular movements intact: Yes Pupils: PERRL Mouth/Lips: Normal Mucous membranes: Normal Pharynx: Normal Neck: Normal - Respiratory Respiratory status: No respiratory distress Chest status: Nontender Breath sounds: Normal Chest palpation: Normal - Cardiovascular Rhythm: Tachycardia Heart sounds: Normal auscultation Murmur: No - Abdominal Inspection: Healed incision - Multiple old surgery scars that are well-healed to include ventral hernia around epigastric area. This hernia is approximately 8 cm diameter. She also has colostomy brown left lower quadrant with Bright red in color bloody contents in the ostomy bag., Obese Distension: Distended Bowel sounds: Normal Tenderness: Nontender Organomegaly: No organomegaly - Rectal Hemorrhoids: Other - deferred - Genitourinary External exam: Normal - Back Back: Normal, Nontender - Extremities General upper extremity: Normal inspection, Nontender, Normal color, Normal ROM, Normal temperature General lower extremity: Normal inspection, Nontender, Normal color, Normal ROM, Normal temperature, Normal weight bearing. No: Kassandra's sign - Neurological Neuro grossly intact: Yes Cognition: Normal Orientation: AAOx4 Myesha Coma Scale Eye Opening: Spontaneous [place] Coma Scale Verbal: Oriented [place] Coma Scale Motor: Obeys Commands Myesha Coma Scale Total: 15 Speech: Normal Motor strength normal: LUE, RUE, LLE, RLE Sensory: Normal - Psychological Associated symptoms: Normal affect, Normal mood - Skin Skin Temperature: Warm Skin Moisture: Dry Skin Color: Normal Course - Vital Signs Vital signs: Temp Pulse Resp BP Pulse Ox 98.1 F 107 H 26 H 127/45 H 97 05/20/20 01:52 05/19/20 22:52 05/20/20 01:52 05/20/20 01:52 05/20/20 01:51 - Laboratory Result Diagrams: 05/20/20 01:20 05/20/20 01:20 Laboratory results interpreted by me: 05/20/20 05/20/20 05/20/20 01:20 01:20 01:20 RBC 2.58 L Hgb 8.0 L Hct 22.9 L RDW 15.1 H Plt Count 143 L PT 22.4 H APTT 45.1 H Glucose 115 H AST 51 H Crossmatch 05/20/20 01:20 RBC Hgb Hct RDW Plt Count PT APTT Glucose AST Crossmatch See Detail - Diagnostic Test Radiology reviewed: Reports reviewed Critical Care Note - Critical Care Note Comments: I discussed this case with Sissy at transfer center at [facility] and she advises the patient is to have aortic surgery with Dr. Liu next week. She will discussed this case with Dr. Avilez. I received a call from him at [phone] and he advises "if we can keep her here in the ER until Dr. Liu comes on this morning for acceptance and transfer of patient." Discharge - Discharge Clinical Impression: History of aortic valve replacement, H/O mechanical aortic valve replacement, Complication of ostomy GI bleeding Qualifiers: GI bleed type/associated pathology: unspecified gastrointestinal hemorrhage type Qualified Code(s): K92.2 - Gastrointestinal hemorrhage, unspecified Anemia Qualifiers: Anemia type: unspecified type Qualified Code(s): D64.9 - Anemia, unspecified Condition: Stable Disposition: [facility] Additional Instructions: Transfer patient to [facility] Referrals: WARREN CALVILLO MD [Primary Care Provider] - Follow up as needed
[2020-05-20] MEDS ORDERED: FAMOTIDINE INJ/PF 20 MG/2 ML SDV IV ONE (00:22)
[2020-05-20] MEDS ORDERED: PANTOPRAZOLE SODIUM 40 MG VIAL IV ONE (00:22)
[2020-05-20] MEDS ORDERED: TRANEXAMIC ACID INJ/PF 1,000 MG/10 ML SDV TOP ONE (00:27)
[2020-05-20] MEDS ORDERED: NORMAL SALINE 250 ML IV PRN ×2 (00:31)
--- NOTE | 2020-05-20 01:42 | RADIOLOGY REPORT (SQ) ---
EXAM DESCRIPTION: X-RAY ABDOMEN, ONE VIEW CLINICAL HISTORY: Bleeding at the stoma COMPARISON: CT abdomen pelvis March 02, 2020 TECHNIQUE: [Single view of the abdomen and pelvis] FINDINGS: Hemidiaphragms are not included in the [id number]. Patient's hand partially obscures the right upper quadrant. The bowel gas pattern is nonspecific. Left lower quadrant ostomy is noted. Surgical clips overlie the upper midline pelvis. No suspicious lytic or blastic osseous lesions are identified. IMPRESSION: Nonspecific bowel gas pattern. Left lower quadrant ostomy is noted. If further anatomic evaluation is clinically indicated, CT should be considered.
[2020-05-20] MEDS: NORMAL SALINE 1000 ML 1,000 ML IV PRN ×2 (01:49→02:51)
[2020-05-20] MEDS ORDERED: FENTANYL CITRATE INJ/PF 100 MCG/2 ML AMPUL IV ONE ×2 (01:55→04:53)
[2020-05-20 02:06] LABS: ABSOLUTE EOSINOPHILS # (AUTO) 0.2 10^3/uL (0.0-0.6); ABSOLUTE LYMPHOCYTES (AUTO) 1.4 10^3/uL (0.5-4.7); ABSOLUTE MONOCYTES (AUTO) 0.6 10^3/uL (0.1-1.4); ABSOLUTE NEUT (AUTO) 2.8 10^3/uL (1.7-8.2); BASOPHILS % (AUTO) 0.5 % (0-2); EOSINOPHILS % (AUTO) 4.8 % (0-6); HEMATOCRIT 22.9 % (36.0-47.0); LYMPHOCYTES % (AUTO) 27.2 % (13-45); MEAN CORPUSCULAR HEMOGLOBIN 31.1 pg (27.0-33.4); MEAN CORPUSCULAR HGB CONC 34.9 g/dL (32.0-36.0); MEAN CORPUSCULAR VOLUME 89 fl (80-97); MONOCYTES % (AUTO) 11.5 % (3-13); PLATELET COUNT 143 10^3/uL (150-450); RED BLOOD COUNT 2.58 10^6/uL (3.72-5.28); RED CELL DISTRIBUTION WIDTH 15.1 % (11.5-14.0); TOTAL CELLS COUNTED % (AUTO) 100 %
[2020-05-20 02:08] LABS: INTERNATIONAL RATION (INR) 1.96; PROTHROMBIN TIME 22.4 SEC (11.4-15.4)
[2020-05-20 02:09] LABS: PARTIAL THROMBOPLASTIN TIME 45.1 SEC (23.5-35.8)
[2020-05-20 02:17] LABS: ALBUMIN 3.8 g/dL (3.5-5.0); ALKALINE PHOSPHATASE 79 U/L (38-126); ANION GAP 9 (5-19); ASPARTATE AMINO TRANSFERASE 51 U/L (14-36); BILIRUBIN,DIRECT 0.2 mg/dL (0.0-0.4); BILIRUBIN,TOTAL 1.1 mg/dL (0.2-1.3); BLOOD UREA NITROGEN 13 mg/dL (7-20); CALCIUM 9.1 mg/dL (8.4-10.2); CARBON DIOXIDE 25 mmol/L (22-30); CHLORIDE 106 mmol/L (98-107); GLUCOSE 115 mg/dL (75-110); POTASSIUM 3.6 mmol/L (3.6-5.0); TOTAL PROTEIN 7.6 g/dL (6.3-8.2)
[2020-05-20 05:57] LABS: ABSOLUTE EOSINOPHILS # (AUTO) 0.2 10^3/uL (0.0-0.6); ABSOLUTE LYMPHOCYTES (AUTO) 1.2 10^3/uL (0.5-4.7); ABSOLUTE MONOCYTES (AUTO) 0.4 10^3/uL (0.1-1.4); ABSOLUTE NEUT (AUTO) 2.5 10^3/uL (1.7-8.2); BASOPHILS % (AUTO) 0.8 % (0-2); EOSINOPHILS % (AUTO) 5.2 % (0-6); HEMATOCRIT 22.2 % (36.0-47.0); LYMPHOCYTES % (AUTO) 26.8 % (13-45); MEAN CORPUSCULAR HEMOGLOBIN 31.3 pg (27.0-33.4); MEAN CORPUSCULAR HGB CONC 34.7 g/dL (32.0-36.0); MEAN CORPUSCULAR VOLUME 90 fl (80-97); MONOCYTES % (AUTO) 9.6 % (3-13); PLATELET COUNT 142 10^3/uL (150-450); RED BLOOD COUNT 2.46 10^6/uL (3.72-5.28); RED CELL DISTRIBUTION WIDTH 14.8 % (11.5-14.0); SEGMENTED NEUTROPHILS % (AUTO) 57.6 % (42-78); TOTAL CELLS COUNTED % (AUTO) 100 %; WHITE BLOOD COUNT 4.4 10^3/uL (4.0-10.5)
[2020-05-20 06:10] LABS: HEMOGLOBIN 7.7 g/dL (12.0-15.5)
[2020-05-20] MEDS ORDERED: OXYCODONE-ACETAMINOPHEN 5-325 MG TABLET PO ONE (08:55)
[2020-05-20 09:07] VITALS: BP 153/74
--- NOTE | 2020-05-21 01:01 | EKG REPORT ---
SEVERITY:- ABNORMAL ECG - SINUS RHYTHM NONSPECIFIC T ABNORMALITIES, LATERAL LEADS : Confirmed by: Ava Velasco MD 21-May-2020 01:01:06
== END 2020-05-20 10:02 | disposition short-term general hospital (02) ==
LOC: ER 22:45
DX: K92.2 Gastrointestinal hemorrhage, unspecified (principal); K94.00 Colostomy complication, unspecified; Y83.3 Surgical operation with formation of external stoma as the cause of abnormal reaction of the patient, or of later complication, without mention of misadventure at the time of the procedure; D64.9 Anemia, unspecified; K43.9 Ventral hernia without obstruction or gangrene; R14.0 Abdominal distension (gaseous); R10.9 Unspecified abdominal pain; I25.10 Atherosclerotic heart disease of native coronary artery without angina pectoris; I10 Essential (primary) hypertension; I25.2 Old myocardial infarction; E11.9 Type 2 diabetes mellitus without complications; R53.1 Weakness; Z79.01 Long term (current) use of anticoagulants; Z95.2 Presence of prosthetic heart valve; Z87.891 Personal history of nicotine dependence; Z95.1 Presence of aortocoronary bypass graft; Z90.49 Acquired absence of other specified parts of digestive tract; Z87.19 Personal history of other diseases of the digestive system
CPT/HCPCS: 93005; 99285; 96361; 96374; 96375; 86900; 86901; 36415; 86870; 86850; 86880; 85025; 85610; 85730; 80053; 74018; 93010; J3010; A9270; J3430; C9113; J7030; S0028; J3490

== ENCOUNTER 2020-06-03 21:12 | Emergency (ER) | payer MEDICARE, OTHER ==
--- NOTE | 2020-06-03 21:32 | ER Document Report ---
ED Medical Screen (RME) - General Chief Complaint: Post Surgical Bleeding Stated Complaint: BLEEDING Time Seen by Provider: 06/03/20 21:23 Primary Care Provider: WARREN CALVILLO MD [Primary Care Provider] - Follow up as needed Information source: Patient Notes: Patient presents complaining of bleeding from her colostomy. Patient states she has had a tear to the ostomy site in the past. Patient states that she previously had a mechanical valve that required her to be on Coumadin. Because of the repeated problems with bleeding, patient had a revision of her valve and received a bovine valve last week, so that she could be taken off of the Coumadin. Patient states she has been off of her Coumadin for about 2 weeks now. Patient states that she feels lightheaded and family member states that she is pale. I have greeted and performed a rapid initial assessment of this patient. A comprehensive ED assessment and evaluation of the patient, analysis of test results and completion of the medical decision making process will be conducted by additional ED providers. TRAVEL OUTSIDE OF THE [place] IN LAST 30 DAYS: No - Related Data Allergies/Adverse Reactions: ants Allergy (Uncoded 05/19/20 22:57) Past Medical History - Past Medical History Cardiac Medical History: Reports: Hx Coronary Artery Disease, Hx Heart Attack, Hx Hypercholesterolemia, Hx Hypertension Pulmonary Medical History: Denies: Hx Asthma, Hx Bronchitis, Hx COPD, Hx Pneumonia Neurological Medical History: Denies: Hx Cerebrovascular Accident, Hx Seizures Endocrine Medical History: Reports: Hx Diabetes Mellitus Type 2, Hx Hypothyroidism. Denies: Hx Diabetes Mellitus Type 1, Hx Hyperthyroidism Renal/ Medical History: Denies: Hx Peritoneal Dialysis GI Medical History: Reports: Hx Diverticulitis, Hx Gastroesophageal Reflux Disease. Denies: Hx Cirrhosis, Hx Crohn's Disease, Hx Hepatitis, Hx Ulcerative Colitis Musculoskeltal Medical History: Reports Hx Arthritis, Denies Hx Gout Skin Medical History: Denies Hx Eczema, Reports Hx MRSA, Denies Hx Psoriasis Psychiatric Medical History: Reports: Hx Depression Infectious Medical History: Denies: Hx Hepatitis Past Surgical History: Reports: Hx Appendectomy, Hx Bowel Surgery, Hx Cardiac Catheterization - stent, quad bypass., Hx Cardiac Surgery - CABG, Hx Colostomy - With partial colectomy, Hx Coronary Artery Bypass Graft - Quadruple bypass grafts, Hx Coronary Stent, Hx Genitourinary Surgery - colostomy, Hx Herniorrhaphy, Hx Hysterectomy, Hx Orthopedic Surgery - carpal tunnel syndrome, Hx Valve Replacement - Mechanical aortic valve, Other - hernia repairs. Not sure if mesh was used.. Denies: Hx Gynecologic Surgery - Immunizations Hx Diphtheria, Pertussis, Tetanus Vaccination: Yes Physical Exam - Vital signs Vitals: Temp Pulse Resp BP Pulse Ox 98.8 F 86 18 111/47 L 93 06/03/20 21:22 06/03/20 21:22 06/03/20 21:22 06/03/20 21:22 06/03/20 21:22 - General General appearance: Alert In distress: Mild Notes: Patient pale, patient with bloody drainage to ostomy bag Course - Vital Signs Vital signs: Temp Pulse Resp BP Pulse Ox 98.8 F 86 18 111/47 L 93 06/03/20 21:22 06/03/20 21:22 06/03/20 21:22 06/03/20 21:22 06/03/20 21:22 Doctor's Discharge - Discharge Referrals: WARREN CALVILLO MD [Primary Care Provider] - Follow up as needed
[2020-06-03 22:24] LABS: ABSOLUTE BASOPHILS # (AUTO) 0.1 10^3/uL (0.0-0.2); ABSOLUTE EOSINOPHILS # (AUTO) 0.4 10^3/uL (0.0-0.6); ABSOLUTE LYMPHOCYTES (AUTO) 1.3 10^3/uL (0.5-4.7); ABSOLUTE MONOCYTES (AUTO) 0.8 10^3/uL (0.1-1.4); ABSOLUTE NEUT (AUTO) 4.5 10^3/uL (1.7-8.2); BASOPHILS % (AUTO) 0.8 % (0-2); EOSINOPHILS % (AUTO) 5.8 % (0-6); HEMATOCRIT 22.8 % (36.0-47.0); LYMPHOCYTES % (AUTO) 18.8 % (13-45); MEAN CORPUSCULAR HEMOGLOBIN 30.8 pg (27.0-33.4); MEAN CORPUSCULAR HGB CONC 33.8 g/dL (32.0-36.0); MEAN CORPUSCULAR VOLUME 91 fl (80-97); MONOCYTES % (AUTO) 10.8 % (3-13); PLATELET COUNT 192 10^3/uL (150-450); RED BLOOD COUNT 2.51 10^6/uL (3.72-5.28); RED CELL DISTRIBUTION WIDTH 15.6 % (11.5-14.0); SEGMENTED NEUTROPHILS % (AUTO) 63.8 % (42-78); TOTAL CELLS COUNTED % (AUTO) 100 %; WHITE BLOOD COUNT 7.1 10^3/uL (4.0-10.5)
[2020-06-03 22:26] LABS: HEMOGLOBIN 7.7 g/dL (12.0-15.5)
[2020-06-03 22:29] LABS: PARTIAL THROMBOPLASTIN TIME 20.8 SEC (23.5-35.8); PROTHROMBIN TIME 14.5 SEC (11.4-15.4)
[2020-06-03 22:35] LABS: ALBUMIN 3.5 g/dL (3.5-5.0); ALKALINE PHOSPHATASE 66 U/L (38-126); ANION GAP 10 (5-19); ASPARTATE AMINO TRANSFERASE 37 U/L (14-36); BILIRUBIN,DIRECT 0.3 mg/dL (0.0-0.4); BILIRUBIN,TOTAL 0.9 mg/dL (0.2-1.3); BLOOD UREA NITROGEN 24 mg/dL (7-20); CALCIUM 9.3 mg/dL (8.4-10.2); CARBON DIOXIDE 26 mmol/L (22-30); CHLORIDE 104 mmol/L (98-107); GLUCOSE 104 mg/dL (75-110); POTASSIUM 3.8 mmol/L (3.6-5.0); TOTAL PROTEIN 7.2 g/dL (6.3-8.2)
[2020-06-03] MEDS ORDERED: NORMAL SALINE 250 ML IV PRN ×2 (23:33)
[2020-06-03] MEDS ORDERED: OXYCODONE HCL IR 5 MG TABLET PO ONE (23:33)
--- NOTE | 2020-06-03 23:57 | ER Document Report ---
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 Patient states the colostomy is from Diverticulitis x8 years ago. Patient reports lorraine rtness of breath, general weakness, and denies chest pain. Patient reports recent surgery at [facility] for a aortic valve replacement, and was discharged x2 days ago. Patient states she was on Coumadin, but stopped taking this because of bleeding problems, and is now taking aspirin. Patient states she called her specialist at [facility] and was told to visit [facility] ED to start paperwork and can be transferred. Patient states recently her hemoglobin level has ranged from 5-9. TRAVEL OUTSIDE OF THE [place] IN LAST 30 DAYS: No - Related Data Allergies/Adverse Reactions: ants Allergy (Uncoded 05/19/20 22:57) Home Medications: alprazolam 0.25, amiodarone 200mg, aspirin 325mg, crestor 40mg, docusate 100mg, ferrous sulfate 325mg, folic acid 1mg, furosemide 20mg, levothyroxine 137mcg, lortadine 10mg, magnesium oxide 400mg, metoprolol succinate 50mg, oxycodone 5mg. sertraline 25mg, sucralfate 1g Past Medical History - General Information source: Patient - Social History Smoking Status: Never Smoker Cigarette use (# per day): No Frequency of alcohol use: None Drug Abuse: None Family History: Reviewed & Not Pertinent, CAD, DM, Other - RECTAL CA Patient has homicidal ideation: No - Past Medical History Cardiac Medical History: Reports: Hx Coronary Artery Disease, Hx Heart Attack, Hx Hypercholesterolemia, Hx Hypertension Endocrine Medical History: Reports: Hx Diabetes Mellitus Type 2, Hx Hypothyroidism GI Medical History: Reports: Hx Diverticulitis, Hx Gastroesophageal Reflux Disease, Hx Ulcer Musculoskeletal Medical History: Reports Hx Arthritis Skin Medical History: Reports Hx MRSA Psychiatric Medical History: Reports: Hx Depression Past Surgical History: Reports: Hx Appendectomy, Hx Bowel Surgery, Hx Cardiac Catheterization - stent, quad bypass., Hx Colostomy - With partial colectomy, Hx Coronary Artery Bypass Graft - Quadruple bypass grafts, Hx Coronary Stent, Hx Genitourinary Surgery - colostomy, Hx Herniorrhaphy, Hx Hysterectomy, Hx Orthopedic Surgery - carpal tunnel syndrome, Hx Valve Replacement - Mechanical aortic valve, Other - hernia repairs. Not sure if mesh was used. - Immunizations Hx Diphtheria, Pertussis, Tetanus Vaccination: Yes Hx Pneumococcal Vaccination: 06/12/11 Review of Systems - Review of Systems Constitutional: See HPI, Weakness EENT: No symptoms reported Cardiovascular: See HPI. denies: Chest pain Respiratory: See HPI, Short of breath Gastrointestinal: See HPI, Other - Blood from colostomy Genitourinary: No symptoms reported Female Genitourinary: No symptoms reported Musculoskeletal: No symptoms reported Skin: No symptoms reported Hematologic/Lymphatic: See HPI, Easy bleeding Neurological/Psychological: No symptoms reported -: Yes All other systems reviewed and negative Physical Exam - Vital signs Vitals: Temp Pulse Resp BP Pulse Ox 98.8 F 86 18 111/47 L 93 06/03/20 21:22 06/03/20 21:22 06/03/20 21:22 06/03/20 21:22 06/03/20 21:22 - General General appearance: Appears well, Alert - HEENT Head: Normocephalic, Atraumatic Eyes: Normal Pupils: PERRL - Respiratory Respiratory status: No respiratory distress Chest status: Nontender Breath sounds: Normal Chest palpation: Normal - Cardiovascular Rhythm: Regular Heart sounds: Normal auscultation Murmur: No - Abdominal Inspection: Obese, Other - LLQ ostomy Distension: No distension Bowel sounds: Normal Tenderness: Nontender - Extremities General upper extremity: Normal inspection, Normal ROM General lower extremity: Normal inspection, Normal ROM. No: Edema - Neurological Neuro grossly intact: Yes Cognition: Normal Orientation: AAOx4 Myesha Coma Scale Eye Opening: Spontaneous [place] Coma Scale Verbal: Oriented Myesha Coma Scale Motor: Obeys Commands [place] Coma Scale Total: 15 Speech: Normal Sensory: Normal - Psychological Associated symptoms: Normal affect, Normal mood - Skin Skin Temperature: Warm Skin Moisture: Dry Skin Color: Normal Course - Vital Signs Vital signs: Temp Pulse Resp BP Pulse Ox 98.8 F 86 18 119/53 L 100 06/03/20 21:22 06/03/20 21:22 06/04/20 01:01 06/04/20 01:01 06/04/20 01:01 - Laboratory Result Diagrams: 06/03/20 22:08 06/03/20 22:08 Laboratory results interpreted by me: 06/03/20 06/03/20 06/03/20 22:05 22:08 22:08 RBC 2.51 L Hgb 7.7 L Hct 22.8 L RDW 15.6 H APTT 20.8 L BUN Est GFR (MDRD) Non-Af AST Crossmatch See Detail 06/03/20 22:08 RBC Hgb Hct RDW APTT BUN 24 H Est GFR (MDRD) Non-Af 55 L AST 37 H Crossmatch Critical Care Note - Critical Care Note Total time excluding time spent on procedures (mins): 30 Discharge - Discharge Clinical Impression: GI bleed Qualifiers: GI bleed type/associated pathology: unspecified gastrointestinal hemorrhage type Qualified Code(s): K92.2 - Gastrointestinal hemorrhage, unspecified Anemia Qualifiers: Anemia type: unspecified type Qualified Code(s): D64.9 - Anemia, unspecified Condition: Serious Disposition: [place] Referrals: WARREN CALVILLO MD [Primary Care Provider] - Follow up as needed I personally performed the services described in the documentation, reviewed and edited the documentation which was dictated to the scribe in my presence, and it accurately records my words and actions.
[2020-06-04] MEDS ORDERED: ONDANSETRON HCL INJ/PF 4 MG/2 ML SDV IV ONE (01:56)
[2020-06-04] MEDS ORDERED: MORPHINE SULFATE 10 MG/ML INJ IV ONE ×2 (01:56→04:06)
[2020-06-04] MEDS ORDERED: TRANEXAMIC ACID INJ/PF 1,000 MG/10 ML SDV IV ONE ×2 (02:10→04:05)
[2020-06-04] MEDS ORDERED: RINGERS SOLUTION,LACTATED 1,000 ML IV ONE (04:06)
--- NOTE | 2020-06-04 06:26 | ER Document Report ---
Doctor's Note Notes: 06/04/20 06:25 Patient turned over to [facility] pending dispo for GI bleed likely secondary to AVM. Patient had improvement in GI bleeding after 2 doses of TXA and has remained hemodynamically stable in the ED. Nurse spoke to blood bank to have blood requested from [facility] but was told that this will take greater than 24 hours and patient was accepted to [facility]. I had patient transferred to [facility] instead of [facility] as [facility] had no beds and would have a longer wait. Patient was amenable to this. Patient transport to [facility] is here presently and patient status remains unchanged, remains appropriate for transfer at this time.
[2020-06-04 06:34] VITALS: BP 108/50
--- NOTE | 2020-06-04 07:02 | EKG REPORT ---
SEVERITY:- BORDERLINE ECG - SINUS RHYTHM BORDERLINE T ABNORMALITIES, DIFFUSE LEADS BORDERLINE PROLONGED QT INTERVAL : Confirmed by: Gerardo Kim MD 04-Jun-2020 07:01:34
== END 2020-06-04 07:06 | disposition short-term general hospital (02) ==
LOC: ER 21:12
DX: K92.2 Gastrointestinal hemorrhage, unspecified (principal); D64.9 Anemia, unspecified; R06.02 Shortness of breath; R53.1 Weakness; Z93.3 Colostomy status; Z79.899 Other long term (current) drug therapy; I25.10 Atherosclerotic heart disease of native coronary artery without angina pectoris; I25.2 Old myocardial infarction; Z95.4 Presence of other heart-valve replacement
CPT/HCPCS: 93005; 99285; 96361; 96374; 96375; 86900; 86901; 36415; 86870; 86850; 86880; 85025; 85610; 85730; 80053; 93010; J2270; J2405; J7120; A9270; J3490

== ENCOUNTER → 2020-06-22 | Outpatient (CLI) | payer MEDICARE, OTHER ==
[2020-06-22 12:49] LABS: HEMATOCRIT 20.4 % (36.0-47.0); MEAN CORPUSCULAR HEMOGLOBIN 29.5 pg (27.0-33.4); MEAN CORPUSCULAR HGB CONC 33.5 g/dL (32.0-36.0); MEAN CORPUSCULAR VOLUME 88 fl (80-97); PLATELET COUNT 157 10^3/uL (150-450); RED BLOOD COUNT 2.32 10^6/uL (3.72-5.28); RED CELL DISTRIBUTION WIDTH 16.3 % (11.5-14.0); WHITE BLOOD COUNT 3.5 10^3/uL (4.0-10.5)
[2020-06-22 13:30] LABS: HEMOGLOBIN 6.8 g/dL (12.0-15.5)
== END ==
LOC: OD 11:57
PROVIDERS: ATTEND Nurse Practitioner Gerontology
DX: Z09 Encounter for follow-up examination after completed treatment for conditions other than malignant neoplasm (principal); I10 Essential (primary) hypertension; K92.2 Gastrointestinal hemorrhage, unspecified; Z79.01 Long term (current) use of anticoagulants; Z95.2 Presence of prosthetic heart valve; Z71.82 Exercise counseling
CPT/HCPCS: 36415; 82728; 85027

== ENCOUNTER 2020-07-07 20:36 | Inpatient (IN) | payer MEDICARE, OTHER ==
--- NOTE | 2020-07-07 21:04 | ER Document Report ---
ED Medical Screen (RME) - General Chief Complaint: Weakness Stated Complaint: WEAKNESS Time Seen by Provider: 07/07/20 20:57 Primary Care Provider: MARGIE KAT MD [Primary Care Provider] - Follow up as needed Mode of Arrival: Wheelchair Notes: Patient is a 18-year-old female comes emergency room complaining of bleeding from ostomy bag. Patient states this is been a problem recently she is due to go back to [place] and have surgically fixed however it has not occurred yet. She was recently in here on 1120 with anemia secondary to bleeding into the ostomy bag. She was transfused. Daughter does state that she has a very rare antibody type and last time they had to send her out to have a transfusion done. Patient states that over the last couple days she has been getting more short of breath and lightheaded and dizzy when she moves around. She also states that in the past couple of hours she has passed several very large clots into her ostomy bag and she has had to squeeze out a very large clot of her ostomy bag in order to get the blood flowing again. Patient denies any chest pain but states she is very short of breath currently. Physical examination shows a well-nourished well-developed 70-year-old female no apparent distress on examination. Cardiac: Patient shows a rate of 70 bpm on the monitor without any auscultating murmurs. Blood pressure is 117/53 currently. Lungs: Bilateral breath sounds breath sounds decreased throughout no rhonchi rales or wheeze. Abdomen: In a sitting position patient does have bowel sounds present she does have an intact ostomy bag with a leak type of a bag that is beige in color unable to see the contents but it does feel very pruritic and thick and patient states it is a blood. I have greeted and performed a rapid initial assessment of this patient. A comprehensive ED assessment and evaluation of the patient, analysis of test results and completion of the medical decision making process will be conducted by additional ED providers. Dictation of this chart was performed using voice recognition software; therefore, there may be some unintended grammatical errors. TRAVEL OUTSIDE OF THE [place] IN LAST 30 DAYS: No - Related Data Allergies/Adverse Reactions: ants Allergy (Uncoded 05/19/20 22:57) Past Medical History - Past Medical History Cardiac Medical History: Reports: Hx Coronary Artery Disease, Hx Heart Attack, Hx Hypercholesterolemia, Hx Hypertension Pulmonary Medical History: Denies: Hx Asthma, Hx Bronchitis, Hx COPD, Hx Pneumonia Neurological Medical History: Denies: Hx Cerebrovascular Accident, Hx Seizures Endocrine Medical History: Reports: Hx Diabetes Mellitus Type 2, Hx Hypothyroidism. Denies: Hx Diabetes Mellitus Type 1, Hx Hyperthyroidism Renal/ Medical History: Denies: Hx Peritoneal Dialysis GI Medical History: Reports: Hx Diverticulitis, Hx Gastroesophageal Reflux Disease, Hx Ulcer. Denies: Hx Cirrhosis, Hx Crohn's Disease, Hx Hepatitis, Hx Ulcerative Colitis Musculoskeltal Medical History: Reports Hx Arthritis, Denies Hx Gout Skin Medical History: Denies Hx Eczema, Reports Hx MRSA, Denies Hx Psoriasis Psychiatric Medical History: Reports: Hx Depression Infectious Medical History: Denies: Hx Hepatitis Past Surgical History: Reports: Hx Appendectomy, Hx Bowel Surgery, Hx Cardiac Catheterization - stent, quad bypass., Hx Cardiac Surgery - CABG, Hx Colostomy - With partial colectomy, Hx Coronary Artery Bypass Graft - Quadruple bypass grafts, Hx Coronary Stent, Hx Genitourinary Surgery - colostomy, Hx Herniorrhaphy, Hx Hysterectomy, Hx Orthopedic Surgery - carpal tunnel syndrome, Hx Valve Replacement - Mechanical aortic valve, Other - hernia repairs. Not sure if mesh was used.. Denies: Hx Gynecologic Surgery - Immunizations Hx Diphtheria, Pertussis, Tetanus Vaccination: Yes Physical Exam - Vital signs Vitals: Temp Pulse Resp BP Pulse Ox 98.7 F 78 19 117/53 L 98 07/07/20 20:41 07/07/20 20:41 07/07/20 20:41 07/07/20 20:41 07/07/20 20:41 Course - Vital Signs Vital signs: Temp Pulse Resp BP Pulse Ox 98.7 F 78 19 117/53 L 98 07/07/20 20:41 07/07/20 20:41 07/07/20 20:41 07/07/20 20:41 07/07/20 20:41 Doctor's Discharge - Discharge Referrals: MARGIE KAT MD [Primary Care Provider] - Follow up as needed
[2020-07-07] MEDS ORDERED: ONDANSETRON HCL INJ/PF 4 MG/2 ML SDV IV ONE (22:20)
[2020-07-07] MEDS ORDERED: FENTANYL CITRATE INJ/PF 100 MCG/2 ML AMPUL IV ONE (22:20)
--- NOTE | 2020-07-07 22:20 | ER Document Report ---
ED General - General Chief Complaint: GI Bleeding Stated Complaint: WEAKNESS Time Seen by Provider: 07/07/20 20:57 Mode of Arrival: Wheelchair Notes: Patient is a 70 year old female that comes emergency department for chief complaint of bleeding from her ostomy bag site. She states that she originally had colostomy bag because of severe diverticulitis, she states she has had trouble with bleeding from around the site frequently, she states it is the actual tissue that is bleeding as opposed to bloody bowel movements, she states that this has been so severe that she has been transfused multiple times including recently an outpatient basis by Dr. Murillo (hematology). She states that she has been provided with a kit including silver nitrate sticks to cauterize the area but today was bleeding too heavily including a large clot that she had to squeeze to get out of the bag. She was unable to cauterize this like usual. She states that she is scheduled for surgery follow-up with [facility]. She states initially they were trying to avoid surgery and they took her off Coumadin, changed her heart valve, and placed her only on aspirin but she still has bleeding problems from the tissue. Patient reports li ghtheadedness and increased dyspnea on exertion since yesterday. She denies chest pain or fever. TRAVEL OUTSIDE OF THE [place] IN LAST 30 DAYS: No - Related Data Allergies/Adverse Reactions: ants Allergy (Uncoded 05/19/20 22:57) Home Medications: long list in computer Past Medical History - General Information source: Patient, Relative - Daughter - Social History Smoking Status: Never Smoker Drug Abuse: None Lives with: Family Family History: Reviewed & Not Pertinent, CAD, DM, Other - RECTAL CA - Past Medical History Cardiac Medical History: Reports: Hx Coronary Artery Disease, Hx Heart Attack, Hx Hypercholesterolemia, Hx Hypertension Pulmonary Medical History: Denies: Hx Asthma, Hx Bronchitis, Hx COPD, Hx Pneumonia Neurological Medical History: Denies: Hx Cerebrovascular Accident, Hx Seizures Endocrine Medical History: Reports: Hx Diabetes Mellitus Type 2, Hx Hypothyroidism. Denies: Hx Diabetes Mellitus Type 1, Hx Hyperthyroidism Renal/ Medical History: Denies: Hx Peritoneal Dialysis GI Medical History: Reports: Hx Diverticulitis, Hx Gastroesophageal Reflux Disease, Hx Ulcer. Denies: Hx Cirrhosis, Hx Crohn's Disease, Hx Hepatitis, Hx Ulcerative Colitis Musculoskeletal Medical History: Reports Hx Arthritis, Denies Hx Gout Skin Medical History: Denies Hx Eczema, Reports Hx MRSA, Denies Hx Psoriasis Psychiatric Medical History: Reports: Hx Depression Infectious Medical History: Denies: Hx Hepatitis Past Surgical History: Reports: Hx Appendectomy, Hx Bowel Surgery, Hx Cardiac Catheterization - stent, quad bypass., Hx Cardiac Surgery - CABG, Hx Colostomy - With partial colectomy, Hx Coronary Artery Bypass Graft - Quadruple bypass grafts, Hx Coronary Stent, Hx Genitourinary Surgery - colostomy, Hx Hernio rrhaphy, Hx Hysterectomy, Hx Orthopedic Surgery - carpal tunnel syndrome, Hx Valve Replacement - Mechanical aortic valve, Other - hernia repairs. Not sure if mesh was used.. Denies: Hx Gynecologic Surgery - Immunizations Hx Diphtheria, Pertussis, Tetanus Vaccination: Yes Hx Pneumococcal Vaccination: 06/12/11 Review of Systems - Review of Systems Constitutional: No symptoms reported EENT: No symptoms reported Cardiovascular: See HPI Respiratory: See HPI Gastrointestinal: See HPI Genitourinary: No symptoms reported Female Genitourinary: No symptoms reported Musculoskeletal: No symptoms reported Skin: See HPI Hematologic/Lymphatic: No symptoms reported Neurological/Psychological: No symptoms reported Physical Exam - Vital signs Vitals: Pulse Resp BP Pulse Ox 78 21 H 120/58 L 99 07/07/20 20:37 07/07/20 20:37 07/07/20 20:37 07/07/20 20:37 - Notes Notes: GENERAL: Alert, interacts well. Slightly pale but does not appear to be in distress no acute distress. HEAD: Normocephalic, atraumatic. EYES: Pupils equal, round, and reactive to light. Extraocular movements intact. ENT: Oral mucosa moist, tongue midline. Oropharynx unremarkable. Airway patent. NECK: Full range of motion. Supple. Trachea midline. No lymphadenopathy. LUNGS: Clear to auscultation bilaterally, no wheezes, rales, or rhonchi. No respiratory distress. Non-tender chest wall. HEART: Regular rate and rhythm. Murmur present ABDOMEN: Colostomy bag present in the mid to left lower abdomen with bulky dressing underneath this which appears to have dried blood in the bulky dressing. No active bleeding noted, bag is not clear and I cannot visualize the contents. Soft benign abdomen. No distention noted. EXTREMITIES: Moves all 4 extremities spontaneously. No edema, normal radial and dorsalis pedis pulses bilaterally. No cyanosis. BACK: no cervical, thoracic, lumbar midline tenderness. No saddle anesthesia, normal distal neurovascular exam. Moves all extremities in full range of motion. NEUROLOGICAL: Alert and oriented x3. Normal speech. Cranial nerves II through XII grossly intact. Strength 5/5 in all extremities. PSYCH: Normal affect, normal mood. SKIN: slightly pale. Course - Re-evaluation Re-evalutation: Nursing staff and I changed patient's colostomy bag and dressing, I did note that there was bleeding and clotting into the dressing patient had however the area was cleaned and I only noticed extremely minimal bleeding which was noticed after waiting for a minute or so. The bleeding was from the outer edges of the colostomy tissue. The very small almost punctate areas of bleeding were treated using silver nitrate stick topically and this stopped bleeding. After observation for several more minutes without any bleeding the area was dressed and a new colostomy bag was placed. CBC shows significant anemia with hemoglobin of 5.9. CBC otherwise unremarkable. Creatinine 1.79, chemistry nonspecific otherwise. BNP is elevated compared to prior at greater than 1600, troponin is not elevated. Chest x-ray showing some pulmonary vascular congestion. Patient with significant dyspnea on exertion, probably from combination of symptomatic anemia and pulmonary vascular congestion. Giving Lasix, she will be transfused. Blood bank called, we need to sign forms of consent for release of blood because patient has multiple antibodies, this was signed with Dr. Rose after we discussed the patient. I discussed with patient and daughter, because of her combined symptomatic anemia and vascular congestion with dyspnea on exertion recommended admission for transfusion and additional monitoring/management. They state understanding and agreement. Discussed with Dr. Alejo, hospitalist, patient excepted to medical floor full admission. - Vital Signs Vital signs: Temp Pulse Resp BP Pulse Ox 98.7 F 78 23 H 120/58 L 100 07/07/20 20:41 07/07/20 20:41 07/08/20 01:01 07/08/20 01:01 07/08/20 01:01 - Laboratory Result Diagrams: 07/07/20 22:15 07/07/20 22:15 Laboratory results interpreted by me: 07/07/20 07/07/20 07/07/20 22:15 22:15 22:15 RBC 2.09 L Hgb 5.9 L Hct 18.2 L RDW 15.9 H Chloride 108 H BUN 31 H Creatinine 1.79 H Est GFR ( Amer) 34 L Est GFR (MDRD) Non-Af 28 L Glucose 135 H AST 44 H NT-Pro-B Natriuret Pep Albumin 3.2 L Crossmatch See Detail 07/07/20 22:15 RBC Hgb Hct RDW Chloride BUN Creatinine Est GFR ( Amer) Est GFR (MDRD) Non-Af Glucose AST NT-Pro-B Natriuret Pep 1620 H Albumin Crossmatch Discharge - Discharge Clinical Impression: Anemia requiring transfusions, Dyspnea on exertion, Pulmonary vascular congestion Condition: Stable Disposition: ADMITTED INPATIENT Admitting Provider: Unit Admitted: Medical Floor
[2020-07-07 22:41] LABS: ABSOLUTE EOSINOPHILS # (AUTO) 0.3 10^3/uL (0.0-0.6); ABSOLUTE LYMPHOCYTES (AUTO) 1.2 10^3/uL (0.5-4.7); ABSOLUTE MONOCYTES (AUTO) 0.6 10^3/uL (0.1-1.4); ABSOLUTE NEUT (AUTO) 3.9 10^3/uL (1.7-8.2); BASOPHILS % (AUTO) 0.6 % (0-2); EOSINOPHILS % (AUTO) 4.7 % (0-6); HEMATOCRIT 18.2 % (36.0-47.0); LYMPHOCYTES % (AUTO) 19.5 % (13-45); MEAN CORPUSCULAR HEMOGLOBIN 28.2 pg (27.0-33.4); MEAN CORPUSCULAR HGB CONC 32.3 g/dL (32.0-36.0); MEAN CORPUSCULAR VOLUME 87 fl (80-97); MONOCYTES % (AUTO) 10.6 % (3-13); PLATELET COUNT 153 10^3/uL (150-450); RED BLOOD COUNT 2.09 10^6/uL (3.72-5.28); RED CELL DISTRIBUTION WIDTH 15.9 % (11.5-14.0); SEGMENTED NEUTROPHILS % (AUTO) 64.6 % (42-78); TOTAL CELLS COUNTED % (AUTO) 100 %; WHITE BLOOD COUNT 6.1 10^3/uL (4.0-10.5)
[2020-07-07 22:43] LABS: HEMOGLOBIN 5.9 g/dL (12.0-15.5); INTERNATIONAL RATION (INR) 1.16
[2020-07-07 22:44] LABS: PARTIAL THROMBOPLASTIN TIME 34.8 SEC (23.5-35.8)
[2020-07-07] MEDS ORDERED: NORMAL SALINE 250 ML IV PRN ×2 (22:44)
--- NOTE | 2020-07-07 22:56 | RADIOLOGY REPORT (SQ) ---
EXAM DESCRIPTION: CHEST SINGLE VIEW CLINICAL HISTORY: 70 years Female, shortness of breath COMPARISON: Single view of the chest 11/24/2019 FINDINGS: Lungs: Mild prominence of the interstitial markings predominantly in the left lung base. Subtle upper lobe vessel distention recruitment with subtle septal lines. No pneumothorax or pleural effusions. Findings are suggestive of mild pulmonary edema. Mediastinum: Heart size is mildly enlarged. There is postoperative change of CABG. Prosthetic valve is also present. Bones: Sternal wires are intact. IMPRESSION: Cardiomegaly with findings suggestive of mild pulmonary edema.
[2020-07-07 23:00] LABS: ALBUMIN 3.2 g/dL (3.5-5.0); ALKALINE PHOSPHATASE 63 U/L (38-126); ANION GAP 8 (5-19); ASPARTATE AMINO TRANSFERASE 44 U/L (14-36); BILIRUBIN,DIRECT 0.1 mg/dL (0.0-0.4); BILIRUBIN,TOTAL 0.7 mg/dL (0.2-1.3); BLOOD UREA NITROGEN 31 mg/dL (7-20); CALCIUM 8.4 mg/dL (8.4-10.2); CARBON DIOXIDE 25 mmol/L (22-30); CHLORIDE 108 mmol/L (98-107); GLUCOSE 135 mg/dL (75-110); POTASSIUM 3.6 mmol/L (3.6-5.0); TOTAL PROTEIN 6.8 g/dL (6.3-8.2)
[2020-07-08] MEDS ORDERED: MORPHINE SULFATE 10 MG/ML INJ IV ONE (00:26)
[2020-07-08] MEDS ORDERED: FUROSEMIDE INJ/PF 40 MG/4 ML SDV IV ONE (00:26)
[2020-07-08] MEDS ORDERED: ONDANSETRON HCL INJ/PF 4 MG/2 ML SDV IV PRN (02:25)
--- NOTE | 2020-07-08 02:33 | PDOC H&P ---
History of Present Illness Admission Date/PCP: MARGIE KAT MD Patient complains of: Colostomy site bleeding History of Present Illness: LUIZA FARIA is a 70 year old female with a history of aortic valve replacement, type 2 diabetes, hyperlipidemia, CAD, hypertension, on long-term colostomy which was done for diverticulitis and anemia due to blood loss from colostomy site who presents to the ED reporting that she had significant blood loss from her colostomy site. Associated with this she also states that she has been feeling very weak, short of breath and lightheaded for the past few days. Patient reports that she had recurrent episodes of bleeding from her colostomy site in the past 1 year and has been transfused on multiple occasions the most recent being about a week ago. She states that she cauterizes the bleeding sites at the stoma with silver nitrate but this time around she was not able to control bleeding. Previously she used to be on warfarin for a prosthetic aortic valve but due to recurrent bleeding she underwent surgery recently in May to switch the the valve to bioprosthesis and warfarin was discontinued. She states that currently she is following up with surgery at [facility] for possible revision of colostomy site and had underwent work-ups including abdominal CT and she is waiting to hear test results. Currently she denies bleeding from any other site, also denies any fever, chills, nausea, vomiting, abdominal pain, cough, leg swelling. Past Medical History Cardiac Medical History: Reports: Coronary Artery Disease, Myocardial Infarction, Hyperlipidema, Hypertension Pulmonary Medical History: Denies: Asthma, Bronchitis, Chronic Obstructive Pulmonary Disease (COPD), Pneumonia Neurological Medical History: Denies: Seizures Endocrine Medical History: Reports: Diabetes Mellitus Type 2, Hypothyroidism Denies: Diabetes Mellitus Type 1, Hyperthyroidism GI Medical History: Reports: Diverticulitis, Gastroesophageal Reflux Disease Denies: Cirrhosis, Crohn's Disease, Hepatitis, Ulcerative Colitis Musculoskeltal Medical History: Reports: Arthritis Denies: Gout Skin Medical History: Denies: Eczema, Psoriasis Psychiatric Medical History: Reports: Depression Hematology: Reports: Anemia, Bleeding Tendencies - Chronic warfarin therapy Past Surgical History Past Surgical History: Reports: Appendectomy, Cardiac Catheterization - stent, quad bypass., Colostomy - With partial colectomy, Coronary Artery Bypass Graft - Quadruple bypass grafts, Coronary Stent, Herniorrhaphy, Hysterectomy, Orthopedic Surgery - carpal tunnel syndrome, Valve Replacement - Mechanical aortic valve, Other - hernia repairs. Not sure if mesh was used. Social History Information Source: Patient Lives with: Family Smoking Status: Never Smoker Frequency of Alcohol Use: None Hx Recreational Drug Use: No Drugs: None Hx Prescription Drug Abuse: No - Advance Directive Resuscitation Status: Full Code Family History Family History: Reviewed & Not Pertinent, CAD, DM, Other - RECTAL CA Parental Family History Reviewed: Yes Children Family History Reviewed: Yes Sibling(s) Family History Reviewed.: Yes Medication/Allergy Home Medications: Alprazolam [Xanax 0.25 mg Tablet] 0.25 mg PO DAILYP PRN 08/05/19 Cholecalciferol (Vitamin D3) [Vitamin D3 2000 unit Tablet] 4,000 unit PO DAILY 08/05/19 Fluticasone Propionate [Flonase Nasal [place] 50 Mcg/[place] 16 gm] 1 spray NASL QHS 08/05/19 Furosemide [Lasix 20 mg Tablet] 20 mg PO QAM 08/05/19 Levothyroxine Sodium 137 mcg PO Q6AM 08/05/19 Loratadine [Claritin 10 mg Tablet] 10 mg PO DAILY 08/05/19 Metoprolol Succinate [Toprol Xl 50 mg Tab.sr] 50 mg PO DAILY 08/05/19 Ondansetron HCl [Zofran 4 mg Tablet] 4 mg PO Q4HP PRN 08/05/19 Polyethylene Glycol 3350 [Miralax Powder 17 gm/Packet] 17 gm PO DAILYP PRN 08/05/19 Rosuvastatin Calcium [Crestor] 40 mg PO QPM 08/05/19 Sertraline HCl [Zoloft] 25 mg PO QHS 08/05/19 Iron 65 mg PO QHS 09/28/19 Nitroglycerin 0.4 mg SL DAILYP PRN 09/28/19 Pantoprazole Sodium [Protonix [address] Tablet] 40 mg PO QAMPM #60 tablet.dr 09/30/19 Sucralfate [Carafate 1 gm Tablet] 1 gm PO ACHS #120 tablet 09/30/19 Aspirin [Ecotrin 81 mg EC Tablet] 81 mg PO DAILY 07/01/20 Docusate Sodium [Colace 100 mg Capsule] 100 mg PO DAILY PRN 07/01/20 Gabapentin 300 mg PO DAILY 07/01/20 Omeprazole 20 mg PO DAILY 07/01/20 Allergies/Adverse Reactions: ants Allergy (Uncoded 10/08/20 22:57) Review of Systems Constitutional: PRESENT: as per HPI Eyes: ABSENT: visual disturbances Ears: ABSENT: hearing changes Nose, Mouth, and Throat: ABSENT: headache(s), mouth pain, sore throat Cardiovascular: PRESENT: dyspnea on exertion. ABSENT: chest pain, edema, orthropnea, palpitations Respiratory: PRESENT: dyspnea. ABSENT: cough, hemoptysis Gastrointestinal: PRESENT: as per HPI Genitourinary: ABSENT: dysuria, hematuria Musculoskeletal: ABSENT: joint swelling Integumentary: ABSENT: rash, wounds Neurological: ABSENT: abnormal gait, abnormal speech, confusion, dizziness, focal weakness, syncope Psychiatric: ABSENT: anxiety, depression, homidical ideation, suicidal ideation Endocrine: ABSENT: cold intolerance, heat intolerance, polydipsia, polyuria Hematologic/Lymphatic: ABSENT: easy bleeding, easy bruising Physical Exam Vital Signs: Temp Pulse Resp BP Pulse Ox 98.7 F 78 23 H 120/58 L 100 07/07/20 20:41 07/07/20 20:41 07/08/20 01:01 07/08/20 01:01 07/08/20 01:01 Intake & Output 07/06/20 07/07/20 07/08/20 06:59 06:59 06:59 Weight 87.6 kg Additional comments: GENERAL APPEARANCE: Alert and oriented x3, in no acute distress HEENT: Normocephalic and atraumatic. No scleral icterus. Moist oral mucosa NECK: Supple. No lymphadenopathy or tenderness. No JVD CHEST: Symmetric. Nontender to palpation. LUNGS: Clear with good air entry bilaterally. No wheezing or crackles HEART: Regular rate and rhythm with normal S1 and S2. No murmurs, gallops, or r ubs. ABDOMEN:soft, active bowel sounds, no direct or rebound tenderness. No organomegaly detected. There is colostomy on the left lower quadrant with empty bag and no current sign of bleeding. EXTREMITIES: No cyanosis, clubbing, or edema. MUSCULOSKELETAL: No deformity, atrophy or swelling noted PSYCHIATRIC: Recent and remote memory is intact. Appropriate mood and affect. SKIN: Warm, dry, and well perfused. No lesions or rashes are noted. NEUROLOGIC: No focal sensory or motor deficits are noted. Results Laboratory Results: 07/07/20 22:15 07/07/20 22:15 07/07/20 07/07/20 07/07/20 22:15 22:15 22:41 WBC 6.1 RBC 2.09 L Hgb 5.9 L Hct 18.2 L MCV 87 MCH 28.2 MCHC 32.3 RDW 15.9 H Plt Count 153 Seg Neutrophils % 64.6 Sodium 141.0 Potassium 3.6 Chloride 108 H Carbon Dioxide 25 Anion Gap 8 BUN 31 H Creatinine 1.79 H Est GFR ( Amer) 34 L Glucose 135 H Lactic Acid 1.4 Calcium 8.4 Total Bilirubin 0.7 AST 44 H Alkaline Phosphatase 63 Total Protein 6.8 Albumin 3.2 L 07/07/20 07/07/20 22:15 22:15 Troponin I < 0.012 NT-Pro-B Natriuret Pep 1620 H Impressions: Chest X-Ray 07/07/20 22:16 IMPRESSION: Cardiomegaly with findings suggestive of mild pulmonary edema. Assessment and Plan - Diagnosis (1) Anemia requiring transfusions Is this a current diagnosis for this admission?: Yes Plan: On presentation H&H was 5.9/18.2 Patient had repeated transfusions in the past year due to bleeding from colostomy stoma Currently he is following up with outside surgery of [place] for possible reconstruction Patient reports history tries to cauterize bleeding sites at home but this time it was large bleeding and was not able to control bleeding Will type and crossmatch and transfuse 2 units of packed RBC Obtain post transfusion hematocrit and hemoglobin Follow-up with outpatient surgery for definitive management (2) Bleeding from colostomy stoma Is this a current diagnosis for this admission?: Yes Plan: Patient has a history of recurrent bleeding from colostomy stoma Currently admitted for severe symptomatic anemia from blood loss Needs surgical reconstruction of colostomy and now she is awaiting for surgery At this point, she has no active bleeding Continue management of severe anemia stated above (3) Acute kidney injury Is this a current diagnosis for this admission?: Yes Plan: BUN/creatinine was 31/1.75 on this encounter Likely prerenal from blood loss Continue gentle IV hydration due to history of heart failure Continue monitoring renal indicis Renally dose medications and avoid nephrotoxic's (4) Depression Qualifiers: Depression Type: unspecified Qualified Code(s): F32.9 - Major depressive disorder, single episode, unspecified Is this a current diagnosis for this admission?: Yes Plan: Currently stable and denies any suicidal or homicidal ideation Continue home medications (5) Hypertension Qualifiers: Hypertension type: essential hypertension Qualified Code(s): I10 - Es sential (primary) hypertension Is this a current diagnosis for this admission?: Yes Plan: Currently blood pressure is in acceptable range Continue low-sodium diet, home medications (6) CAD (coronary artery disease) Qualifiers: Coronary Disease-Associated Artery/Lesion type: unspecified vessel or lesion type [place] vs. transplanted heart: [place] heart Associated angina: without angina Qualified Code(s): I25.10 - Atherosclerotic heart disease of [place] coronary artery without angina pectoris Is this a current diagnosis for this admission?: Yes Plan: Patient denies any chest pain on this presentation Continue aspirin, statin (7) Dyslipidemia Is this a current diagnosis for this admission?: Yes Plan: Continue atorvastatin (8) History of aortic valve replacement Is this a current diagnosis for this admission?: Yes Plan: Patient had a history of mechanical aortic valve which was switched to a bioprosthetic valve 1 month ago due to the fact that the patient was unable to continue Coumadin due to having recurrent bleeding with severe anemia. Continue aspirin - Time Time Spent with patient: 35 or more minutes Total Critical Time (Minutes): 45 Medications reviewed and adjusted accordingly: Yes Anticipated Discharge Disposition: Home, Self Care Anticipated Discharge Timeframe: within 48 hours - Inpatient Certification Based on my medical assessment, after consideration of the patient's comorbidities, presenting symptoms, or acuity I expect that the services needed warrant INPATIENT care.: Yes I certify that my determination is in accordance with my understanding of Medicare's requirements for reasonable and necessary INPATIENT services [42 CFR 412.3e].: Yes Medical Necessity: Significant Comorbidiites Make Outpatient Treatment Too Risky, Need Close Monitoring Due to Risk of Patient Decompensation, Need For IV Fluids, Risk of Complication if Not Cared For in Hospital Post Hospital Care: D/C or Transfer Summary
[2020-07-08] MEDS ORDERED: FUROSEMIDE 20 MG TABLET PO PRN ×2 (03:25→20:52)
[2020-07-08] MEDS ORDERED: NORMAL SALINE 250 ML IV PRN ×2 (03:25)
[2020-07-08] MEDS: LEVOTHYROXINE SODIUM 0.112 MG TABLET PO SCH (05:31)
[2020-07-08] MEDS: OXYCODONE-ACETAMINOPHEN 5-325 MG TABLET PO PRN ×2 (05:31→22:45)
[2020-07-08] MEDS: PANTOPRAZOLE SODIUM 40 MG TABLET.DR PO SCH (05:31)
[2020-07-08] MEDS: LEVOTHYROXINE SODIUM 0.025 MG TABLET PO SCH (05:31)
[2020-07-08] MEDS ORDERED: LEVOTHYROXINE SODIUM 0.112 MG TABLET PO SCH (06:00)
[2020-07-08] MEDS ORDERED: METOPROLOL SUCCINATE 50 MG TAB.SR.24H PO SCH (10:00)
[2020-07-08] MEDS: FUROSEMIDE 40 MG TABLET PO SCH (10:10)
[2020-07-08] MEDS: ASPIRIN 81 MG TABLET, CHEWABLE PO SCH (10:11)
--- NOTE | 2020-07-08 11:16 | EKG REPORT ---
SEVERITY:- BORDERLINE ECG - SINUS RHYTHM BORDERLINE T ABNORMALITIES, ANT-LAT LEADS : Confirmed by: Nima Rios MD 08-Jul-2020 11:15:57
[2020-07-08] MEDS ORDERED: DIPHENHYDRAMINE HCL 50 MG/ML VIAL IV ONE (12:00)
--- NOTE | 2020-07-08 12:12 | PDOC PROGRESS REPORT ---
Subjective Date:: 07/08/20 Subjective:: The patient is resting in bed on her CPAP. She is about to receive her first un it of packed cells. Because of her multiple transfusions it is difficult to find crossmatched units. Reason For Visit: ANEMIA Physical Exam Vital Signs: Temp Pulse Resp BP Pulse Ox 98.8 F 88 16 106/50 L 100 07/08/20 12:03 07/08/20 12:03 07/08/20 12:03 07/08/20 12:03 07/08/20 12:03 Intake & Output 07/07/20 07/08/20 07/09/20 06:59 06:59 06:59 Intake Total 0 0 Balance 0 0 Weight 84.9 kg General appearance: PRESENT: cooperative, mild distress, well-developed, other Head exam: PRESENT: atraumatic, normocephalic Eye exam: PRESENT: conjunctiva pale. ABSENT: scleral icterus Ear exam: PRESENT: normal external ear exam. ABSENT: bleeding, drainage Mouth exam: PRESENT: moist, tongue midline Respiratory exam: PRESENT: clear to auscultation elizabeth, symmetrical, unlabored. ABSENT: rales, rhonchi, tachypnea, wheezes Cardiovascular exam: PRESENT: RRR, +S1, +S2. ABSENT: bradycardia, diastolic murmur, irregular rhythm, systolic murmur, tachycardia GI/Abdominal exam: PRESENT: normal bowel sounds, soft, other - Dark stool in the ostomy bag. Small streaky areas of sanguinous liquid.. ABSENT: distended, tenderness Rectal exam: PRESENT: deferred Musculoskeletal exam: PRESENT: ambulatory, normal inspection. ABSENT: deformity, dislocation Neurological exam: PRESENT: alert, awake, oriented to person, oriented to place, oriented to time, oriented to situation, CN II-XII grossly intact. ABSENT: altered Psychiatric exam: PRESENT: appropriate affect. ABSENT: agitated, anxious Focused psych exam: ABSENT: delusional, paranoid, restlessness Skin exam: PRESENT: dry, pallor, warm. ABSENT: rash Results Laboratory Results: 07/07/20 22:15 07/07/20 22:15 07/07/20 07/07/20 07/07/20 22:15 22:15 22:15 WBC 6.1 RBC 2.09 L Hgb 5.9 L Hct 18.2 L MCV 87 MCH 28.2 MCHC 32.3 RDW 15.9 H Plt Count 153 Seg Neutrophils % 64.6 Sodium 141.0 Potassium 3.6 Chloride 108 H Carbon Dioxide 25 Anion Gap 8 BUN 31 H Creatinine 1.79 H Est GFR ( Amer) 34 L Glucose 135 H Lactic Acid Calcium 8.4 Total Bilirubin 0.7 AST 44 H Alkaline Phosphatase 63 Total Protein 6.8 Albumin 3.2 L Blood Type AB NEGATIVE Antibody Screen POSITIVE 07/07/20 22:41 WBC RBC Hgb Hct MCV MCH MCHC RDW Plt Count Seg Neutrophils % Sodium Potassium Chloride Carbon Dioxide Anion Gap BUN Creatinine Est GFR ( Amer) Glucose Lactic Acid 1.4 Calcium Total Bilirubin AST Alkaline Phosphatase Total Protein Albumin Blood Type Antibody Screen 07/07/20 07/07/20 22:15 22:15 Troponin I < 0.012 NT-Pro-B Natriuret Pep 1620 H Impressions: Chest X-Ray 07/07/20 22:16 IMPRESSION: Cardiomegaly with findings suggestive of mild pulmonary edema. 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 Is this a current diagnosis for this admission?: Yes (3) Acute kidney injury Is this a current diagnosis for this admission?: Yes (4) Depression Qualifiers: Depression Type: unspecified Qualified Code(s): F32.9 - Major depressive disorder, single episode, unspecified Is this a current diagnosis for this admission?: Yes (5) Hypertension Qualifiers: Hypertension type: essential hypertension Qualified Code(s): I10 - Essential (primary) hypertension Is this a current diagnosis for this admission?: Yes (6) CAD (coronary artery disease) Qualifiers: Coronary Disease-Associated Artery/Lesion type: unspecified vessel or lesion type [place] vs. transplanted heart: [place] heart Associated angina: without angina Qualified Code(s): I25.10 - Atherosclerotic heart disease of [place] coronary artery without angina pectoris Is this a current diagnosis for this admission?: Yes (7) Dyslipidemia Is this a current diagnosis for this admission?: Yes (8) History of aortic valve replacement Is this a current diagnosis for this admission?: Yes (9) Hypothyroid Qualifiers: Hypothyroidism type: unspecified Qualified Code(s): E03.9 - Hypothyroidism, unspecified Is this a current diagnosis for this admission?: Yes - Plan Summary Summary: (1) Anemia requiring transfusions (2) 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 There is not felt to be bleeding from the distal colon. She has required many transfusions. So many that it has been extremely hard to crossmatch blood. She states that she has an appointment in [place] to revise her colostomy and fix a ventral hernia. She had a mechanical aortic valve removed and a bovine valve placed approximately 1 month ago. She was on Coumadin for the mechanical valve and with all this bleeding they felt it was safer to replace that with a bovine valve and therefore no need for chronic anticoagulation. She does take an aspirin every day. Her BUN is 31 with a creatinine of 1.79. Normally her creatinine is within the normal limits. She is receiving IV fluids. We will continue her statin therapy, antidepressant therapy and thyroid replacement. Continue antihypertensives with parameters for pulse and blood pressure. Because of the multiple previous transfusions we will premedicate with Benadryl. - Time Time Spent with patient: 15-24 minutes Medications reviewed and adjusted accordingly: Yes Anticipated Discharge Disposition: Home with Home Health Anticipated Discharge Timeframe: within 72 hours
[2020-07-08] MEDS: DOCUSATE SODIUM 100 MG CAPSULE PO SCH (17:48)
[2020-07-08] MEDS: ACETAMINOPHEN 325 MG TABLET PO PRN (21:08)
[2020-07-08] MEDS: ATORVASTATIN CALCIUM 40 MG TABLET PO SCH (21:08)
[2020-07-08] MEDS: DIPHENHYDRAMINE HCL 50 MG/ML VIAL IV PRN (21:09)
[2020-07-08] MEDS ORDERED: SERTRALINE HCL 25 MG PO SCH (22:00)
[2020-07-09 05:20] LABS: ABSOLUTE EOSINOPHILS # (AUTO) 0.2 10^3/uL (0.0-0.6); ABSOLUTE LYMPHOCYTES (AUTO) 0.7 10^3/uL (0.5-4.7); ABSOLUTE MONOCYTES (AUTO) 0.8 10^3/uL (0.1-1.4); ABSOLUTE NEUT (AUTO) 3.7 10^3/uL (1.7-8.2); BASOPHILS % (AUTO) 0.5 % (0-2); EOSINOPHILS % (AUTO) 2.9 % (0-6); HEMATOCRIT 22.1 % (36.0-47.0); LYMPHOCYTES % (AUTO) 13.3 % (13-45); MEAN CORPUSCULAR HEMOGLOBIN 28.5 pg (27.0-33.4); MEAN CORPUSCULAR HGB CONC 33.7 g/dL (32.0-36.0); MEAN CORPUSCULAR VOLUME 84 fl (80-97); MONOCYTES % (AUTO) 14.9 % (3-13); PLATELET COUNT 113 10^3/uL (150-450); RED BLOOD COUNT 2.62 10^6/uL (3.72-5.28); RED CELL DISTRIBUTION WIDTH 16.5 % (11.5-14.0); SEGMENTED NEUTROPHILS % (AUTO) 68.4 % (42-78); TOTAL CELLS COUNTED % (AUTO) 100 %; WHITE BLOOD COUNT 5.3 10^3/uL (4.0-10.5)
[2020-07-09] MEDS: LEVOTHYROXINE SODIUM 0.112 MG TABLET PO SCH (05:20)
[2020-07-09] MEDS: PANTOPRAZOLE SODIUM 40 MG TABLET.DR PO SCH (05:20)
[2020-07-09] MEDS: LEVOTHYROXINE SODIUM 0.025 MG TABLET PO SCH (05:20)
[2020-07-09 05:29] LABS: ANION GAP 8 (5-19); BLOOD UREA NITROGEN 26 mg/dL (7-20); CALCIUM 8.7 mg/dL (8.4-10.2); CARBON DIOXIDE 25 mmol/L (22-30); CHLORIDE 106 mmol/L (98-107); GLUCOSE 101 mg/dL (75-110); POTASSIUM 3.8 mmol/L (3.6-5.0)
[2020-07-09 05:47] LABS: HEMOGLOBIN 7.5 g/dL (12.0-15.5)
[2020-07-09] MEDS ORDERED: (PENDING PHARMACY ID) (Levothyroxine Sodium [Levothyroxine Sodium] 137 MCG Tablet) PO SCH (06:00)
[2020-07-09] MEDS: CHOLECALCIFEROL (D3) 1,000 UNIT (25 MCG) TABLET PO SCH (09:04)
[2020-07-09] MEDS: GABAPENTIN 300 MG CAPSULE PO SCH (09:04)
[2020-07-09] MEDS: ALPRAZOLAM 0.25 MG TABLET PO SCH (09:04)
[2020-07-09] MEDS: FOLIC ACID 1 MG TABLET PO SCH (09:05)
[2020-07-09] MEDS: METOPROLOL SUCCINATE 50 MG TAB.SR.24H PO SCH (09:05)
[2020-07-09] MEDS: DOCUSATE SODIUM 100 MG CAPSULE PO SCH ×2 (09:05→17:24)
[2020-07-09] MEDS: ASCORBIC ACID 500 MG TABLET PO SCH (09:05)
[2020-07-09] MEDS: ASPIRIN 81 MG TABLET, CHEWABLE PO SCH (09:05)
[2020-07-09] MEDS ORDERED: CHOLECALCIFEROL PO SCH (10:00)
[2020-07-09] MEDS ORDERED: MAGNESIUM OXIDE 400 MG TABLET PO SCH (10:00)
[2020-07-09] MEDS ORDERED: MAGNESIUM SULFATE/D5W 1 GM/100 ML RTUPB IV ONE (12:25)
[2020-07-09] MEDS ORDERED: FUROSEMIDE INJ/PF 20 MG/2 ML SDV IV ONE (13:29)
--- NOTE | 2020-07-09 13:31 | PDOC PROGRESS REPORT ---
Subjective Date:: 07/09/20 Subjective:: Patient is sitting on the edge of the bed. Her daughter is at the bedside. She does not appear to be in any distress. Reason For Visit: ANEMIA Colostomy bleeding Physical Exam Vital Signs: Temp Pulse Resp BP Pulse Ox 97.9 F 86 16 100/50 L 94 07/09/20 07:18 07/09/20 07:18 07/09/20 07:18 07/09/20 10:29 07/09/20 07:18 Intake & Output 07/08/20 07/09/20 07/10/20 06:59 06:59 06:59 Intake Total 0 1613 Balance 0 1613 Weight 84.9 kg 86.5 kg General appearance: PRESENT: no acute distress, cooperative, well-developed Head exam: PRESENT: atraumatic, normocephalic Eye exam: PRESENT: conjunctiva pale. ABSENT: scleral icterus Ear exam: PRESENT: normal external ear exam. ABSENT: bleeding, drainage Respiratory exam: PRESENT: rales - bases, symmetrical, unlabored. ABSENT: rhonchi, tachypnea, wheezes Cardiovascular exam: PRESENT: RRR, +S1, +S2, systolic murmur - 3/6. ABSENT: bradycardia, diastolic murmur, irregular rhythm, tachycardia GI/Abdominal exam: PRESENT: normal bowel sounds, soft, other - Colostomy. ABSENT: tenderness Rectal exam: PRESENT: deferred Gentrourinary exam: ABSENT: indwelling catheter Extremities exam: ABSENT: pedal edema Musculoskeletal exam: PRESENT: ambulatory. ABSENT: deformity, dislocation Neurological exam: PRESENT: alert, awake, oriented to person, oriented to place, oriented to time, oriented to situation, CN II-XII grossly intact. ABSENT: altered Psychiatric exam: PRESENT: appropriate affect. ABSENT: agitated, anxious Focused psych exam: ABSENT: delusional, paranoid, restlessness Skin exam: PRESENT: dry, pallor, warm. ABSENT: rash Results Laboratory Results: 07/09/20 03:54 07/09/20 03:54 07/07/20 07/09/20 07/09/20 22:15 03:54 03:54 WBC 5.3 RBC 2.62 L Hgb 7.5 L Hct 22.1 L MCV 84 MCH 28.5 MCHC 33.7 RDW 16.5 H Plt Count 113 L Seg Neutrophils % 68.4 Sodium 138.9 Potassium 3.8 Chloride 106 Carbon Dioxide 25 Anion Gap 8 BUN 26 H Creatinine 1.34 H Est GFR ( Amer) 48 L Glucose 101 Calcium 8.7 Magnesium 1.3 L Blood Type AB NEGATIVE Antibody Screen POSITIVE 07/07/20 07/07/20 22:15 22:15 Troponin I < 0.012 NT-Pro-B Natriuret Pep 1620 H Impressions: Chest X-Ray 07/07/20 22:16 IMPRESSION: Cardiomegaly with findings suggestive of mild pulmonary edema. 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 Is this a current diagnosis for this admission?: Yes (3) Acute kidney injury Is this a current diagnosis for this admission?: Yes (4) Depression Qualifiers: Depression Type: unspecified Qualified Code(s): F32.9 - Major depressive disorder, single episode, unspecified Is this a current diagnosis for this admission?: Yes (5) Hypertension Qualifiers: Hypertension type: essential hypertension Qualified Code(s): I10 - Essential (primary) hypertension Is this a current diagnosis for this admission?: Yes (6) CAD (coronary artery disease) Qualifiers: Coronary Disease-Associated Artery/Lesion type: unspecified vessel or lesion type [place] vs. transplanted heart: [place] heart Associated angina: without angina Qualified Code(s): I25.10 - Atherosclerotic heart disease of [place] coronary artery without angina pectoris Is this a current diagnosis for this admission?: Yes (7) Dyslipidemia Is this a current diagnosis for this admission?: Yes (8) History of aortic valve replacement Is this a current diagnosis for this admission?: Yes (9) Hypothyroid Qualifiers: Hypothyroidism type: unspecified Qualified Code(s): E03.9 - Hypothyroidism, unspecified Is this a current diagnosis for this admission?: Yes - Plan Summary Summary: (1) Anemia requiring transfusions (2) 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 There is not felt to be bleeding from the distal colon. She has required many transfusions. So many that it has been extremely hard to crossmatch blood. She states that she has an appointment in [place] to revise her colostomy and fix a ventral hernia. She had a mechanical aortic valve removed and a bovine valve placed approximately 1 month ago. She was on Coumadin for the mechanical valve and w ith all this bleeding they felt it was safer to replace that with a bovine valve and therefore no need for chronic anticoagulation. She does take an aspirin every day. Her BUN is 31 with a creatinine of 1.79. Normally her creatinine is within the normal limits. She is receiving IV fluids. We will continue her statin therapy, antidepressant therapy and thyroid replacement. Continue antihypertensives with parameters for pulse and blood pressure. Because of the multiple previous transfusions we will premedicate with Benadryl. 07/09/2020 No adverse transfusion reactions. Hemoglobin is up to 7.5. After discussion this is likely her normal range. No overt bleeding from the ostomy. Serum creatinine is down to 1.34 with a BUN of 26. She did have some rales and I have decreased her Lasix dose to avoid hypotension. Continue to monitor intake and output. We will recheck laboratory studies tomorrow. If stable consider discharge to home. - Time Time Spent with patient: 15-24 minutes Medications reviewed and adjusted accordingly: Yes Anticipated Discharge Disposition: Home, Self Care Anticipated Discharge Timeframe: within 48 hours
[2020-07-09] MEDS: FUROSEMIDE 40 MG TABLET PO SCH (14:43)
[2020-07-09] MEDS: OXYCODONE-ACETAMINOPHEN 5-325 MG TABLET PO PRN (17:24)
[2020-07-09] MEDS: MAGNESIUM OXIDE 400 MG TABLET PO SCH (17:24)
[2020-07-09] MEDS: FLUTICASONE NASAL SPRAY 50 MCG/SPRY 120 SPRAY/16 GM NASL SCH (21:40)
[2020-07-09] MEDS: ATORVASTATIN CALCIUM 40 MG TABLET PO SCH (21:40)
[2020-07-10 05:41] LABS: ANION GAP 5 (5-19); BLOOD UREA NITROGEN 22 mg/dL (7-20); CALCIUM 8.5 mg/dL (8.4-10.2); CARBON DIOXIDE 27 mmol/L (22-30); CHLORIDE 105 mmol/L (98-107); GLUCOSE 94 mg/dL (75-110); PHOSPHORUS 3.7 mg/dL (2.5-4.5); POTASSIUM 3.8 mmol/L (3.6-5.0)
[2020-07-10 05:43] LABS: HEMATOCRIT 20.4 % (36.0-47.0); MEAN CORPUSCULAR HEMOGLOBIN 28.6 pg (27.0-33.4); MEAN CORPUSCULAR HGB CONC 33.4 g/dL (32.0-36.0); MEAN CORPUSCULAR VOLUME 86 fl (80-97); PLATELET COUNT 110 10^3/uL (150-450); RED BLOOD COUNT 2.38 10^6/uL (3.72-5.28); RED CELL DISTRIBUTION WIDTH 16.1 % (11.5-14.0)
[2020-07-10 06:02] LABS: WHITE BLOOD COUNT 2.9 10^3/uL (4.0-10.5)
[2020-07-10 06:03] LABS: HEMOGLOBIN 6.8 g/dL (12.0-15.5)
[2020-07-10] MEDS: LEVOTHYROXINE SODIUM 0.112 MG TABLET PO SCH (06:20)
[2020-07-10] MEDS: PANTOPRAZOLE SODIUM 40 MG TABLET.DR PO SCH (06:20)
[2020-07-10] MEDS: LEVOTHYROXINE SODIUM 0.025 MG TABLET PO SCH (06:20)
[2020-07-10] MEDS: MAGNESIUM OXIDE 400 MG TABLET PO SCH ×3 (09:00→16:32)
[2020-07-10] MEDS: DOCUSATE SODIUM 100 MG CAPSULE PO SCH ×2 (09:16→18:07)
[2020-07-10] MEDS: ASPIRIN 81 MG TABLET, CHEWABLE PO SCH (09:16)
[2020-07-10] MEDS: GABAPENTIN 300 MG CAPSULE PO SCH (09:16)
[2020-07-10] MEDS: METOPROLOL SUCCINATE 50 MG TAB.SR.24H PO SCH (09:17)
[2020-07-10] MEDS: OXYCODONE-ACETAMINOPHEN 5-325 MG TABLET PO PRN ×2 (09:17→20:30)
[2020-07-10] MEDS: ALPRAZOLAM 0.25 MG TABLET PO SCH (09:17)
[2020-07-10] MEDS: ASCORBIC ACID 500 MG TABLET PO SCH (09:17)
[2020-07-10] MEDS: FOLIC ACID 1 MG TABLET PO SCH (09:18)
[2020-07-10] MEDS: CHOLECALCIFEROL (D3) 1,000 UNIT (25 MCG) TABLET PO SCH (09:18)
[2020-07-10] MEDS: FLUTICASONE NASAL SPRAY 50 MCG/SPRY 120 SPRAY/16 GM NASL SCH ×2 (09:21→20:59)
[2020-07-10] MEDS ORDERED: NORMAL SALINE 250 ML IV PRN ×2 (14:40)
[2020-07-10] MEDS ORDERED: FUROSEMIDE INJ/PF 20 MG/2 ML SDV IV PRN (14:40)
[2020-07-10] MEDS ORDERED: DIPHENHYDRAMINE HCL 25 MG CAPSULE PO PRN (14:40)
[2020-07-10] MEDS ORDERED: SODIUM CHLORIDE NASAL SPRAY 44 ML NASL PRN (14:43)
--- NOTE | 2020-07-10 15:56 | PDOC PROGRESS REPORT ---
Subjective Date:: 07/10/20 Subjective:: The patient is resting with CPAP in place. She uses a nasal mask. She awakens easily. She states that she has not felt as well today. She reports significant sinus congestion and sore throat. She believes it is a sinus infection. Reason For Visit: ANEMIA Physical Exam Vital Signs: Temp Pulse Resp BP Pulse Ox 98.3 F 78 17 104/40 L 99 07/10/20 11:19 07/10/20 11:19 07/10/20 11:19 07/10/20 11:19 07/10/20 11:19 Intake & Output 07/09/20 07/10/20 07/11/20 06:59 06:59 06:59 Intake Total 1613 1262 480 Output Total 1000 1000 Balance 1613 262 -520 Weight 86.5 kg 86.3 kg General appearance: PRESENT: cooperative, mild distress Head exam: PRESENT: atraumatic, normocephalic Eye exam: PRESENT: conjunctiva pale. ABSENT: scleral icterus Ear exam: PRESENT: normal external ear exam. ABSENT: bleeding, drainage Mouth exam: PRESENT: moist, tongue midline Respiratory exam: PRESENT: clear to auscultation elizabeth, symmetrical, unlabored. ABSENT: prolonged expiratory phas, rales, rhonchi, tachypnea, wheezes Cardiovascular exam: PRESENT: RRR, +S1, +S2. ABSENT: bradycardia, diastolic murmur, irregular rhythm, systolic murmur, tachycardia GI/Abdominal exam: PRESENT: normal bowel sounds, soft. ABSENT: tenderness Rectal exam: PRESENT: deferred Gentrourinary exam: ABSENT: indwelling catheter Extremities exam: ABSENT: pedal edema Musculoskeletal exam: PRESENT: ambulatory, normal inspection. ABSENT: deformity, dislocation Neurological exam: PRESENT: alert, awake, oriented to person, oriented to place, oriented to time, oriented to situation, CN II-XII grossly intact. ABSENT: altered Psychiatric exam: PRESENT: appropriate affect. ABSENT: agitated, anxious Focused psych exam: ABSENT: delusional, paranoid, restlessness Skin exam: PRESENT: dry, pallor, warm Results Laboratory Results: 07/10/20 04:25 07/10/20 04:25 07/07/20 07/10/20 07/10/20 22:15 04:25 04:25 WBC 2.9 L D RBC 2.38 L Hgb 6.8 L Hct 20.4 L MCV 86 MCH 28.6 MCHC 33.4 RDW 16.1 H Plt Count 110 L Sodium 137.2 Potassium 3.8 Chloride 105 Carbon Dioxide 27 Anion Gap 5 BUN 22 H Creatinine 1.16 Est GFR ( Amer) 56 L Glucose 94 Calcium 8.5 Phosphorus 3.7 Albumin 3.0 L Blood Type AB NEGATIVE Antibody Screen POSITIVE 07/08/20 11:00 Clean Catch Midstream Urine Culture - Final Mixed Urogenital Jordyn 07/07/20 07/07/20 22:15 22:15 Troponin I < 0.012 NT-Pro-B Natriuret Pep 1620 H Impressions: Chest X-Ray 07/07/20 22:16 IMPRESSION: Cardiomegaly with findings suggestive of mild pulmonary edema. 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 Is this a current diagnosis for this admission?: Yes (3) Acute kidney injury Is this a current diagnosis for this admission?: Yes (4) Depression Qualifiers: Depression Type: unspecified Qualified Code(s): F32.9 - Major depressive disorder, single episode, unspecified Is this a current diagnosis for this admission?: Yes (5) Hypertension Qualifiers: Hypertension type: essential hypertension Qualified Code(s): I10 - Ess ential (primary) hypertension Is this a current diagnosis for this admission?: Yes (6) CAD (coronary artery disease) Qualifiers: Coronary Disease-Associated Artery/Lesion type: unspecified vessel or lesion type [place] vs. transplanted heart: [place] heart Associated angina: without angina Qualified Code(s): I25.10 - Atherosclerotic heart disease of [place] coronary artery without angina pectoris Is this a current diagnosis for this admission?: Yes (7) Dyslipidemia Is this a current diagnosis for this admission?: Yes (8) History of aortic valve replacement Is this a current diagnosis for this admission?: Yes (9) Hypothyroid Qualifiers: Hypothyroidism type: unspecified Qualified Code(s): E03.9 - Hypothyroidism, unspecified Is this a current diagnosis for this admission?: Yes (10) Acute sinusitis Qualifiers: Sinusitis location: frontal Recurrence: not specified as recurrent Qualified Code(s): J01.10 - Acute frontal sinusitis, unspecified Is this a current diagnosis for this admission?: Yes - Plan Summary Summary: (1) Anemia requiring transfusions (2) 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 There is not felt to be bleeding from the distal colon. She has required many transfusions. So many that it has been extremely hard to crossmatch blood. She states that she has an appointment in [place] to revise her colostomy and fix a ventral hernia. She had a mechanical aortic valve removed and a bovine valve placed approximately 1 month ago. She was on Coumadin for the mechanical valve and with all this bleeding they felt it was safer to replace that with a bovine valve and therefore no need for chronic anticoagulation. She does take an aspirin every day. Her BUN is 31 with a creatinine of 1.79. Normally her creatinine is within the normal limits. She is receiving IV fluids. We will continue her statin therapy, antidepressant therapy and thyroid replacement. Continue antihypertensives with parameters for pulse and blood pressure. Because of the multiple previous transfusions we will premedicate with Benadryl. 07/09/2020 No adverse transfusion reactions. Hemoglobin is up to 7.5. After discussion this is likely her normal range. No overt bleeding from the ostomy. Serum creatinine is down to 1.34 with a BUN of 26. She did have some rales and I have decreased her Lasix dose to avoid hypotension. Continue to monitor intake and output. We will recheck laboratory studies tomorrow. If stable consider discharge to home. 07/10/2020 The patient's hemoglobin dropped to 6.8 today. No dasia evidence of bleeding. In addition her white blood cell count dropped to 2.9. The blood bank informed me that the patient has 2 units of packed cells. I was going to administer 1 however she is very difficult to match and I will take advantage of the 2 units available and transfused both. We will recheck laboratory studies posttransfusion. Benadryl before transfusion with furosemide in between. She is complaining of significant sinus pressure and postnasal drip. She states this is the typical presentation of a sinus infection for her. It is also causing a sore throat. We will start Augmentin for the sinus infection and Cepacol lozenges. I will add probiotics while she is on antibiotics. Renal function appears to be back to normal. Hypertension-blood pressures are soft but stable. Pulses well-controlled on metoprolol 50 mg daily. Continue statin therapy and thyroid replacement therapy. Continue to monitor vital signs. - Time Time Spent with patient: 15-24 minutes Medications reviewed and adjusted accordingly: Yes Anticipated Discharge Disposition: Home, Self Care Anticipated Discharge Timeframe: within 48 hours
[2020-07-10] MEDS: DIPHENHYDRAMINE HCL 50 MG/ML VIAL IV PRN (15:59)
[2020-07-10] MEDS: BENZOCAINE/MENTHOL SORE THROAT LOZENGE BUCCAL PRN ×2 (16:32→19:24)
[2020-07-10] MEDS: LACTOBACILLUS ACIDOPHILUS 250 MG TAB PO SCH (18:07)
[2020-07-10] MEDS: ACETAMINOPHEN 325 MG TABLET PO PRN (20:27)
[2020-07-10] MEDS: ATORVASTATIN CALCIUM 40 MG TABLET PO SCH (20:59)
[2020-07-10] MEDS: AMOXICILLIN TR/POT CLAVULANATE 875-125 MG TAB PO SCH (20:59)
[2020-07-11] MEDS: ACETAMINOPHEN 325 MG TABLET PO PRN (00:12)
[2020-07-11] MEDS: BENZOCAINE/MENTHOL SORE THROAT LOZENGE BUCCAL PRN ×3 (03:05→19:58)
[2020-07-11 05:55] LABS: HEMOGLOBIN 8.1 g/dL (12.0-15.5); MEAN CORPUSCULAR HEMOGLOBIN 29.1 pg (27.0-33.4); MEAN CORPUSCULAR HGB CONC 33.7 g/dL (32.0-36.0); MEAN CORPUSCULAR VOLUME 86 fl (80-97); RED BLOOD COUNT 2.77 10^6/uL (3.72-5.28); RED CELL DISTRIBUTION WIDTH 16.2 % (11.5-14.0); WHITE BLOOD COUNT 3.9 10^3/uL (4.0-10.5)
[2020-07-11] MEDS: LEVOTHYROXINE SODIUM 0.112 MG TABLET PO SCH (06:15)
[2020-07-11] MEDS: PANTOPRAZOLE SODIUM 40 MG TABLET.DR PO SCH (06:15)
[2020-07-11] MEDS: LEVOTHYROXINE SODIUM 0.025 MG TABLET PO SCH (06:15)
[2020-07-11 06:27] LABS: ANION GAP 7 (5-19); BLOOD UREA NITROGEN 25 mg/dL (7-20); CALCIUM 8.6 mg/dL (8.4-10.2); CARBON DIOXIDE 25 mmol/L (22-30); CHLORIDE 107 mmol/L (98-107); GLUCOSE 101 mg/dL (75-110); POTASSIUM 3.8 mmol/L (3.6-5.0)
[2020-07-11 06:41] LABS: PLATELET COUNT 90 10^3/uL (150-450)
[2020-07-11] MEDS: CHOLECALCIFEROL (D3) 1,000 UNIT (25 MCG) TABLET PO SCH (10:16)
[2020-07-11] MEDS: LACTOBACILLUS ACIDOPHILUS 250 MG TAB PO SCH ×2 (10:16→17:29)
[2020-07-11] MEDS: METOPROLOL SUCCINATE 50 MG TAB.SR.24H PO SCH (10:16)
[2020-07-11] MEDS: ASCORBIC ACID 500 MG TABLET PO SCH (10:16)
[2020-07-11] MEDS: ASPIRIN 81 MG TABLET, CHEWABLE PO SCH (10:16)
[2020-07-11] MEDS: DOCUSATE SODIUM 100 MG CAPSULE PO SCH ×2 (10:16→17:29)
[2020-07-11] MEDS: FOLIC ACID 1 MG TABLET PO SCH (10:16)
[2020-07-11] MEDS: MAGNESIUM OXIDE 400 MG TABLET PO SCH ×3 (10:16→17:29)
[2020-07-11] MEDS: GABAPENTIN 300 MG CAPSULE PO SCH (10:16)
[2020-07-11] MEDS: ALPRAZOLAM 0.25 MG TABLET PO SCH (10:16)
[2020-07-11] MEDS: AMOXICILLIN TR/POT CLAVULANATE 875-125 MG TAB PO SCH ×2 (10:17→21:33)
[2020-07-11] MEDS: FLUTICASONE NASAL SPRAY 50 MCG/SPRY 120 SPRAY/16 GM NASL SCH ×2 (10:17→21:33)
[2020-07-11] MEDS: OXYCODONE-ACETAMINOPHEN 5-325 MG TABLET PO PRN ×2 (10:21→19:58)
--- NOTE | 2020-07-11 12:59 | PDOC PROGRESS REPORT ---
Subjective Date:: 07/11/20 Subjective:: The patient's hemoglobin was 8.1 this morning. Unfortunately she bled from the colon. There was enough blood that it detached the colostomy bag. She is feeling slightly washed out. She still feels better than at the time of admission. Reason For Visit: ANEMIA Physical Exam Vital Signs: Temp Pulse Resp BP Pulse Ox 99.1 F 73 17 108/47 L 96 07/11/20 08:48 07/11/20 08:48 07/11/20 08:48 07/11/20 08:48 07/11/20 08:48 Intake & Output 07/10/20 07/11/20 07/12/20 06:59 06:59 06:59 Intake Total 1262 1911 Output Total 1000 2400 Balance 262 -489 Weight 86.3 kg 86.3 kg General appearance: PRESENT: no acute distress Respiratory exam: PRESENT: clear to auscultation elizabeth, symmetrical, unlabored. ABSENT: rales, rhonchi, tachypnea, wheezes Cardiovascular exam: PRESENT: RRR, +S1, +S2 GI/Abdominal exam: PRESENT: soft, other - No blood in the colostomy bag at this time. ABSENT: tenderness Rectal exam: PRESENT: deferred Gentrourinary exam: ABSENT: indwelling catheter Results Laboratory Results: 07/11/20 05:04 07/11/20 05:04 07/07/20 07/11/20 07/11/20 22:15 05:04 05:04 WBC 3.9 L RBC 2.77 L Hgb 8.1 L Hct 24.0 L MCV 86 MCH 29.1 MCHC 33.7 RDW 16.2 H Plt Count 90 L Sodium 138.7 Potassium 3.8 Chloride 107 Carbon Dioxide 25 Anion Gap 7 BUN 25 H Creatinine 1.14 Est GFR ( Amer) 57 L Glucose 101 Calcium 8.6 Magnesium 1.4 L Blood Type AB NEGATIVE Antibody Screen POSITIVE 07/07/20 07/07/20 22:15 22:15 Troponin I < 0.012 NT-Pro-B Natriuret Pep 1620 H Impressions: Chest X-Ray 07/07/20 22:16 IMPRESSION: Cardiomegaly with findings suggestive of mild pulmonary edema. 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 Is this a current diagnosis for this admission?: Yes (3) Acute kidney injury Is this a current diagnosis for this admission?: Yes (4) Depression Qualifiers: Depression Type: unspecified Qualified Code(s): F32.9 - Major depressive disorder, single episode, unspecified Is this a current diagnosis for this admission?: Yes (5) Hypertension Qualifiers: Hypertension type: essential hypertension Qualified Code(s): I10 - Essential (primary) hypertension Is this a current diagnosis for this admission?: Yes (6) CAD (coronary artery disease) Qualifiers: Coronary Disease-Associated Artery/Lesion type: unspecified vessel or lesion type [place] vs. transplanted heart: [place] heart Associated angina: without angina Qualified Code(s): I25.10 - Atherosclerotic heart disease of [place] coronary artery without angina pectoris Is this a current diagnosis for this admission?: Yes (7) Dyslipidemia Is this a current diagnosis for this admission?: Yes (8) History of aortic valve replacement Is this a current diagnosis for this admission?: Yes (9) Hypothyroid Qualifiers: Hypothyroidism type: unspecified Qualified Code(s): E03.9 - Hypothyroidism, unspecified Is this a current diagnosis for this admission?: Yes (10) Acute sinusitis Qualifiers: Sinusitis location: frontal Recurrence: not specified as recurrent Qualified Code(s): J01.10 - Acute frontal sinusitis, unspecified Is this a current diagnosis for this admission?: Yes - Plan Summary Summary: (1) Anemia requiring transfusions (2) 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 There is not felt to be bleeding from the distal colon. She has required many transfusions. So many that it has been extremely hard to crossmatch blood. She states that she has an appointment in [place] to revise her colostomy and fix a ventral hernia. She had a mechanical aortic valve removed and a bovine valve placed approximately 1 month ago. She was on Coumadin for the mechanical valve and with all this bleeding they felt it was safer to replace that with a bovine valve and therefore no need for chronic anticoagulation. She does take an aspirin every day. Her BUN is 31 with a creatinine of 1.79. Normally her creatinine is within the normal limits. She is receiving IV fluids. We will continue her statin therapy, antidepressant therapy and thyroid replacement. Continue antihypertensives with parameters for pulse and blood pressure. Because of the multiple previous transfusions we will premedicate with Benadryl. 07/09/2020 No adverse transfusion reactions. Hemoglobin is up to 7.5. After discussion this is likely her normal range. No overt bleeding from the ostomy. Serum creatinine is down to 1.34 with a BUN of 26. She did have some rales and I have decreased her Lasix dose to avoid hypotension. Continue to monitor intake and output. We will recheck laboratory studies tomorrow. If stable consider discharge to home. 07/10/2020 The patient's hemoglobin dropped to 6.8 today. No dasia evidence of bleeding. In addition her white blood cell count dropped to 2.9. The blood bank informed me that the patient has 2 units of packed cells. I was going to administer 1 however she is very difficult to match and I will take advantage of the 2 units available and transfused both. We will recheck laboratory studies posttransfusion. Benadryl before transfusion with furosemide in between. She is complaining of significant sinus pressure and postnasal drip. She states this is the typical presentation of a sinus infection for her. It is also causing a sore throat. We will start Augmentin for the sinus infection and Cepacol lozenges. I will add probiotics while she is on antibiotics. Renal function appears to be back to normal. Hypertension-blood pressures are soft but stable. Pulses well-controlled on metoprolol 50 mg daily. Continue statin therapy and thyroid replacement therapy. Continue to monitor vital signs. 07/11/2020 The patient had a bleed this morning. She does have an appointment in [place] with the surgeon who is going to revise her colostomy and address the ventral hernia. It is extremely important that she does not miss that appointment. As she feels better than at the time of admission I told her we would draw another CBC this afternoon. If the hemoglobin was greater than 7.4 I would still let her go home but she would have to monitor closely. She was in agreement with this plan. - Time Time Spent with patient: Less than 15 minutes Medications reviewed and adjusted accordingly: Yes Anticipated Discharge Disposition: Home, Self Care Anticipated Discharge Timeframe: within 24 hours
[2020-07-11 13:47] LABS: HEMATOCRIT 24.4 % (36.0-47.0); HEMOGLOBIN 8.1 g/dL (12.0-15.5); MEAN CORPUSCULAR HEMOGLOBIN 28.9 pg (27.0-33.4); MEAN CORPUSCULAR HGB CONC 33.1 g/dL (32.0-36.0); MEAN CORPUSCULAR VOLUME 87 fl (80-97); RED CELL DISTRIBUTION WIDTH 16.5 % (11.5-14.0)
[2020-07-11 14:20] LABS: PLATELET COUNT 97 10^3/uL (150-450)
[2020-07-11 14:24] LABS: ABSOLUTE LYMPHOCYTES# (MANUAL) 0.9 10^3/uL (0.5-4.7); ABSOLUTE MONOCYTES # (MANUAL) 0.2 10^3/uL (0.1-1.4); BASOPHILS % (MANUAL) 1 % (0-2); EOSINOPHILS % (MANUAL) 2 % (0-6); LYMPHOCYTES % (MANUAL) 30 % (13-45); MONOCYTES % (MANUAL) 6 % (3-13); SEGMENTED NEUTROPHILS % (MAN) 61 % (42-78); TOTAL CELLS COUNTED 100
[2020-07-11 14:25] LABS: ANISOCYTOSIS 1+; PLATELET COMMENT DECREASED
[2020-07-11 14:26] LABS: HYPOCHROMASIA 1+; POLYCHROMASIA SLIGHT
--- NOTE | 2020-07-11 14:47 | PDOC DISCHARGE SUMMARY ---
Impression - Admit/DC Date/PCP Admission Date/Primary Care Provider: 07/08/20 02:33 MARGIE KAT MD Discharge Date: 07/11/20 - Discharge Diagnosis (1) Anemia requiring transfusions Is this a current diagnosis for this admission?: Yes (2) Bleeding from colostomy stoma Is this a current diagnosis for this admission?: Yes (3) Acute kidney injury Is this a current diagnosis for this admission?: Yes (4) Depression Is this a current diagnosis for this admission?: Yes (5) Hypertension Is this a current diagnosis for this admission?: Yes (6) CAD (coronary artery disease) Is this a current diagnosis for this admission?: Yes (7) Dyslipidemia Is this a current diagnosis for this admission?: Yes (8) History of aortic valve replacement Is this a current diagnosis for this admission?: Yes (9) Hypothyroid Is this a current diagnosis for this admission?: Yes (10) Acute sinusitis Is this a current diagnosis for this admission?: Yes - Assessment Summary: (1) Anemia requiring transfusions (2) 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 There is not felt to be bleeding from the distal colon. She has required many transfusions. So many that it has been extremely hard to crossmatch blood. She states that she has an appointment in [place] to revise her colostomy and fix a ventral hernia. She had a mechanical aortic valve removed and a bovine valve placed approximately 1 month ago. She was on Coumadin for the mechanical valve and with all this bleeding they felt it was safer to replace that with a bovine valve and therefore no need for chronic anticoagulation. She does take an aspirin every day. Her BUN is 31 with a creatinine of 1.79. Normally her creatinine is within the normal limits. She is receiving IV fluids. We will continue her statin therapy, antidepressant therapy and thyroid replacement. Continue antihypertensives with parameters for pulse and blood pressure. Because of the multiple previous transfusions we will premedicate with Benadryl. 07/09/2020 No adverse transfusion reactions. Hemoglobin is up to 7.5. After discussion this is likely her normal range. No overt bleeding from the ostomy. Serum creatinine is down to 1.34 with a BUN of 26. She did have some rales and I have decreased her Lasix dose to avoid hypotension. Continue to monitor intake and output. We will recheck laboratory studies tomorrow. If stable consider discharge to home. 07/10/2020 The patient's hemoglobin dropped to 6.8 today. No dasia evidence of bleeding. In addition her white blood cell count dropped to 2.9. The blood bank informed me that the patient has 2 units of packed cells. I was going to administer 1 however she is very difficult to match and I will take advantage of the 2 units available and transfused both. We will recheck laboratory studies posttransfusion. Benadryl before transfusion with furosemide in between. She is complaining of significant sinus pressure and postnasal drip. She states this is the typical presentation of a sinus infection for her. It is also causing a sore throat. We will start Augmentin for the sinus infection and Cepacol lozenges. I will add probiotics while she is on antibiotics. Renal function appears to be back to normal. Hypertension-blood pressures are soft but stable. Pulses well-controlled on metoprolol 50 mg daily. Continue statin therapy and thyroid replacement therapy. Continue to monitor vital signs. 07/11/2020 The patient had a bleed this morning. She does have an appointment in [place] with the surgeon who is going to revise her colostomy and address the ventral hernia. It is extremely important that she does not miss that appointment. As she feels better than at the time of admission I told her we would draw another CBC this afternoon. If the hemoglobin was greater than 7.4 I would still let her go home but she would have to monitor closely. She was in agreement with this plan. - Additional Information Resuscitation Status: Full Code Discharge Diet: Cardiac Discharge Activity: Slowly Increase Activity Referrals: MARGIE KAT MD [Primary Care Provider] - Follow up as needed Prescriptions: Amoxicillin/Potassium Clav [Augmentin 875-125 Tablet] 1 tab PO Q12 #16 tablet Home Medications: Alprazolam [Xanax 0.25 mg Tablet] 0.25 mg PO DAILY 08/05/19 Cholecalciferol (Vitamin D3) [Vitamin D3 2000 unit Tablet] 4,000 unit PO DAILY 08/05/19 Furosemide [Lasix 20 mg Tablet] 40 mg PO QAM 08/05/19 Levothyroxine Sodium 137 mcg PO Q6AM 08/05/19 Metoprolol Succinate [Toprol Xl 50 mg Tab.sr] 50 mg PO DAILY 08/05/19 Rosuvastatin Calcium [Crestor] 40 mg PO QPM 08/05/19 Sertraline HCl [Zoloft] 25 mg PO QHS 08/05/19 Pantoprazole Sodium [Protonix [address] Tablet] 40 mg PO QAMPM #60 tablet.dr 09/30/19 Aspirin [Ecotrin 81 mg EC Tablet] 81 mg PO DAILY 07/01/20 Docusate Sodium [Colace 100 mg Capsule] 100 mg PO BID 07/01/20 Gabapentin 300 mg PO DAILY 07/01/20 Ascorbic Acid [Vitamin C 500 mg Tablet] 500 mg PO DAILY 07/08/20 Folic Acid 1 mg PO DAILY 07/08/20 Magnesium Oxide [Mag-Ox 400 mg Tablet] 400 mg PO DAILY 07/08/20 Multivit,Tx with Iron,Minerals [Thera-M] 1 each PO DAILY 07/08/20 Multivitamin [Tab-A-Abelino (Multiple Vitamin) Tablet] 1 tab PO DAILY 07/08/20 Quetiapine Fumarate [Seroquel] 25 mg PO DAILYP PRN 07/08/20 Amoxicillin/Potassium Clav [Augmentin 875-125 Tablet] 1 tab PO Q12 #16 tablet 07/11/20 Benzocaine/Menthol [Chloraseptic Sore Throat Lozenge] 1 each BUCCAL Q4HP PRN lozenge 07/11/20 Fluticasone Propionate [Flonase Nasal [place] 50 Mcg/[place] 16 gm] 2 spray NASL Q12 spray.pump 07/11/20 Furosemide [Lasix 40 mg Tablet] 40 mg PO DAILY tablet 07/11/20 Lactobacillus Acidophilus [Bacid 250 mg Tablet] 500 mg PO BID tab 07/11/20 Levothyroxine Sodium [Synthroid 0.025 mg Tablet] 0.025 mg PO Q6AM tablet 07/11/20 Levothyroxine Sodium [Synthroid 0.112 mg Tablet] 0.112 mg PO Q6AM tablet 07/11/20 Pantoprazole Sodium [Protonix [address] Tablet] 40 mg PO Q6AM tablet.dr 07/11/20 Sodium Chloride [[place] Nasal [place] 44 ml Bottle] 1 spray NASL ACHSP PRN bottle 07/11/20 History of Present Illiness History of Present Illness: LUIZA FARIA is a 70 year old female with a history of aortic valve replacement, type 2 diabetes, hyperlipidemia, CAD, hypertension, on long-term colostomy which was done for diverticulitis and anemia due to blood loss from colostomy site who presents to the ED reporting that she had significant blood loss from her colostomy site. Associated with this she also states that she has been feeling very weak, short of breath and lightheaded for the past few days. Patient reports that she had recurrent episodes of bleeding from her colostomy site in the past 1 year and has been transfused on multiple occasions the most recent being about a week ago. She states that she cauterizes the bleeding sites at the stoma with silver nitrate but this time around she was not able to control bleeding. Previously she used to be on warfarin for a prosthetic aortic valve but due to recurrent bleeding she underwent surgery recently in May to switch the the valve to bioprosthesis and warfarin was discontinued. She states that currently she is following up with surgery at [place] for possible revision of colostomy site and had underwent work-ups including abdominal CT and she is waiting to hear test results. Currently she denies bleeding from any other site, also denies any fever, chills, nausea, vomiting, abdominal pain, cough, leg swelling. Hospital Course Hospital Course: See details above Physical Exam Vital Signs: Temp Pulse Resp BP Pulse Ox 99.1 F 73 17 108/47 L 96 07/11/20 10:00 07/11/20 08:48 07/11/20 08:48 07/11/20 08:48 07/11/20 08:48 Intake & Output 07/10/20 07/11/20 07/12/20 06:59 06:59 06:59 Intake Total 1262 1911 466 Output Total 1000 2400 Balance 262 -489 466 Weight 86.3 kg 86.3 kg General appearance: PRESENT: cooperative Respiratory exam: PRESENT: clear to auscultation elizabeth, symmetrical, unlabored. ABSENT: rales, tachypnea, wheezes Cardiovascular exam: PRESENT: RRR, +S1, +S2 GI/Abdominal exam: PRESENT: normal bowel sounds, soft, other - No blood in colostomy bag. ABSENT: tenderness Rectal exam: PRESENT: deferred, other - Colostomy present Results Laboratory Results: WBC 3.0 10^3/uL (4.0-10.5) L 07/11/20 13:33 RBC 2.80 10^6/uL (3.72-5.28) L 07/11/20 13:33 Hgb 8.1 g/dL (12.0-15.5) L 07/11/20 13:33 Hct 24.4 % (36.0-47.0) L 07/11/20 13:33 MCV 87 fl (80-97) 07/11/20 13:33 MCH 28.9 pg (27.0-33.4) 07/11/20 13:33 MCHC 33.1 g/dL (32.0-36.0) 07/11/20 13:33 RDW 16.5 % (11.5-14.0) H 07/11/20 13:33 Plt Count 97 10^3/uL (150-450) L 07/11/20 13:33 Lymph % (Auto) Not Reportable 07/11/20 13:33 Lyman % (Auto) Not Reportable 07/11/20 13:33 Eos % (Auto) Not Reportable 07/11/20 13:33 Baso % (Auto) Not Reportable 07/11/20 13:33 Absolute Neuts (auto) Not Reportable 07/11/20 13:33 Absolute Lymphs (auto) Not Reportable 07/11/20 13:33 Absolute Monos (auto) Not Reportable 07/11/20 13:33 Absolute Eos (auto) Not Reportable 07/11/20 13:33 Absolute Basos (auto) Not Reportable 07/11/20 13:33 Total Counted 100 07/11/20 13:33 Seg Neutrophils % Not Reportable 07/11/20 13:33 Seg Neuts % (Manual) 61 % (42-78) 07/11/20 13:33 Lymphocytes % (Manual) 30 % (13-45) 07/11/20 13:33 Monocytes % (Manual) 6 % (3-13) 07/11/20 13:33 Eosinophils % (Manual) 2 % (0-6) 07/11/20 13:33 Basophils % (Manual) 1 % (0-2) 07/11/20 13:33 Abs Neuts (Manual) 1.8 10^3/uL (1.7-8.2) 07/11/20 13:33 Abs Lymphs (Manual) 0.9 10^3/uL (0.5-4.7) 07/11/20 13:33 Abs Monocytes (Manual) 0.2 10^3/uL (0.1-1.4) 07/11/20 13:33 Absolute Eos (Manual) 0.1 10^3/uL (0.0-0.6) 07/11/20 13:33 Abs Basophils (Manual) 0.0 10^3/uL (0.0-0.2) 07/11/20 13:33 Platelet Comment DECREASED 07/11/20 13:33 Polychromasia SLIGHT 07/11/20 13:33 Hypochromasia 1+ 07/11/20 13:33 Anisocytosis 1+ 07/11/20 13:33 PT 15.0 SEC (11.4-15.4) 07/07/20 22:15 INR 1.16 07/07/20 22:15 APTT 34.8 SEC (23.5-35.8) 07/07/20 22:15 Sodium 138.7 mmol/L (137-145) 07/11/20 05:04 Potassium 3.8 mmol/L (3.6-5.0) 07/11/20 05:04 Chloride 107 mmol/L (98-107) 07/11/20 05:04 Carbon Dioxide 25 mmol/L (22-30) 07/11/20 05:04 Anion Gap 7 (5-19) 07/11/20 05:04 BUN 25 mg/dL (7-20) H 07/11/20 05:04 Creatinine 1.14 mg/dL (0.52-1.25) 07/11/20 05:04 Est GFR ( Amer) 57 (>60) L 07/11/20 05:04 Est GFR (MDRD) Non-Af 47 (>60) L 07/11/20 05:04 Glucose 101 mg/dL (75-110) 07/11/20 05:04 POC Glucose 125 mg/dL (70-110) H 07/11/20 11:01 Lactic Acid 1.4 mmol/L (0.7-2.1) 07/07/20 22:41 Calcium 8.6 mg/dL (8.4-10.2) 07/11/20 05:04 Phosphorus 3.7 mg/dL (2.5-4.5) 07/10/20 04:25 Magnesium 1.4 mg/dL (1.6-2.3) L 07/11/20 05:04 Total Bilirubin 0.7 mg/dL (0.2-1.3) 07/07/20 22:15 Direct Bilirubin 0.1 mg/dL (0.0-0.4) 07/07/20 22:15 Neonat Total Bilirubin Not Reportable 07/07/20 22:15 Neonat Direct Bilirubin Not Reportable 07/07/20 22:15 Neonat Indirect Bili Not Reportable 07/07/20 22:15 AST 44 U/L (14-36) H 07/07/20 22:15 ALT 23 U/L (<35) 07/07/20 22:15 Alkaline Phosphatase 63 U/L (38-126) 07/07/20 22:15 Troponin I < 0.012 ng/mL 07/07/20 22:15 NT-Pro-B Natriuret Pep 1620 pg/mL (<125) H 07/07/20 22:15 Total Protein 6.8 g/dL (6.3-8.2) 07/07/20 22:15 Albumin 3.0 g/dL (3.5-5.0) L 07/10/20 04:25 Blood Type AB NEGATIVE 07/07/20 22:15 Blood Type Confirm AB NEGATIVE 07/07/20 22:15 Antibody Screen POSITIVE 07/07/20 22:15 Ab Screen Tube Method POSITIVE 07/07/20 22:15 Antibody Identification Anti-D 07/07/20 22:15 Direct Antiglob Test NEGATIVE 07/07/20 22:15 Crossmatch See Detail 07/07/20 22:15 07/07/20 07/07/20 22:15 22:15 Troponin I < 0.012 NT-Pro-B Natriuret Pep 1620 H Impressions: Chest X-Ray 07/07/20 22:16 IMPRESSION: Cardiomegaly with findings suggestive of mild pulmonary edema. Plan Health Concerns: Recurrent bleeding from the colostomy. Pending revision by surgeons in [place] Plan of Treatment: Discharge home and rest. Extremely important to attend surgical appointment in [place] Goals: Definitive treatment for the colostomy bleeding with revision most likely Time Spent: Greater than 30 Minutes Stroke Is this a Stroke Patient?: No Acute Heart Failure Is this a Heart Failure Patient?: No
[2020-07-11] MEDS: ATORVASTATIN CALCIUM 40 MG TABLET PO SCH (21:33)
[2020-07-11 21:36] LABS: HEMATOCRIT 23.9 % (36.0-47.0); MEAN CORPUSCULAR HEMOGLOBIN 29.4 pg (27.0-33.4); MEAN CORPUSCULAR HGB CONC 33.5 g/dL (32.0-36.0); MEAN CORPUSCULAR VOLUME 88 fl (80-97); RED BLOOD COUNT 2.72 10^6/uL (3.72-5.28); RED CELL DISTRIBUTION WIDTH 16.5 % (11.5-14.0); WHITE BLOOD COUNT 2.5 10^3/uL (4.0-10.5)
[2020-07-11 22:09] LABS: PLATELET COUNT 91 10^3/uL (150-450)
[2020-07-12] MEDS: PANTOPRAZOLE SODIUM 40 MG TABLET.DR PO SCH (05:21)
[2020-07-12] MEDS: LEVOTHYROXINE SODIUM 0.112 MG TABLET PO SCH (05:21)
[2020-07-12] MEDS: LEVOTHYROXINE SODIUM 0.025 MG TABLET PO SCH (05:21)
[2020-07-12] MEDS: BENZOCAINE/MENTHOL SORE THROAT LOZENGE BUCCAL PRN ×2 (05:24→10:40)
[2020-07-12 06:23] LABS: MEAN CORPUSCULAR HEMOGLOBIN 28.6 pg (27.0-33.4); MEAN CORPUSCULAR HGB CONC 32.8 g/dL (32.0-36.0); MEAN CORPUSCULAR VOLUME 87 fl (80-97); RED BLOOD COUNT 2.75 10^6/uL (3.72-5.28); RED CELL DISTRIBUTION WIDTH 16.9 % (11.5-14.0); WHITE BLOOD COUNT 2.4 10^3/uL (4.0-10.5)
[2020-07-12 06:57] LABS: HEMOGLOBIN 7.9 g/dL (12.0-15.5); PLATELET COUNT 94 10^3/uL (150-450)
[2020-07-12] MEDS: GABAPENTIN 300 MG CAPSULE PO SCH (10:38)
[2020-07-12] MEDS: LACTOBACILLUS ACIDOPHILUS 250 MG TAB PO SCH (10:38)
[2020-07-12] MEDS: AMOXICILLIN TR/POT CLAVULANATE 875-125 MG TAB PO SCH (10:38)
[2020-07-12] MEDS: OXYCODONE-ACETAMINOPHEN 5-325 MG TABLET PO PRN (10:38)
[2020-07-12] MEDS: ASPIRIN 81 MG TABLET, CHEWABLE PO SCH (10:39)
[2020-07-12] MEDS: CHOLECALCIFEROL (D3) 1,000 UNIT (25 MCG) TABLET PO SCH (10:39)
[2020-07-12] MEDS: MAGNESIUM OXIDE 400 MG TABLET PO SCH (10:39)
[2020-07-12] MEDS: ALPRAZOLAM 0.25 MG TABLET PO SCH (10:40)
[2020-07-12] MEDS: FUROSEMIDE 40 MG TABLET PO SCH (10:40)
[2020-07-12] MEDS: FOLIC ACID 1 MG TABLET PO SCH (10:40)
[2020-07-12] MEDS: FLUTICASONE NASAL SPRAY 50 MCG/SPRY 120 SPRAY/16 GM NASL SCH (10:40)
[2020-07-12] MEDS: METOPROLOL SUCCINATE 50 MG TAB.SR.24H PO SCH (10:40)
[2020-07-12] MEDS: DOCUSATE SODIUM 100 MG CAPSULE PO SCH (10:40)
[2020-07-12] MEDS: ASCORBIC ACID 500 MG TABLET PO SCH (10:40)
--- NOTE | 2020-07-12 12:39 | Progress Note ---
Provider Note Provider Note: Cyanosis patient today. Refer to discharge summary for provider note from today's conversation. She is doing well. Denies any recurrent bleeding in her ostomy overnight. Vital signs are stable In no acute distress, cooperative CV: RRR, nontachycardic Respiratory: Symmetric, not tachypneic, no accessory muscle use, no retractions Abdomen: Soft, nontender, nondistended, ostomy bag present without any blood A/P Anemia secondary to GI bleeding Ostomy bleeding History of aortic valve replacement Patient will be discharged today. Scheduled to follow-up with her surgeon at [place] tomorrow for work-up and evaluation of her ostomy bleeding. Hemoglobin is stable.
[2020-07-12 13:32] VITALS: BP 115/40
== END 2020-07-12 17:08 | disposition home or self-care (01) | DRG 393 ==
LOC: ER 20:36 → EH 07-08 02:33 → OBSVTOIN 07-08 02:33 → 4N 07-08 03:30
PROVIDERS: ADMIT Student in an Organized Health Care Education/Training Program; ATTEND Internal Medicine
PROC: 30233N1 Transfusion of Nonautologous Red Blood Cells into Peripheral Vein, Percutaneous Approach (ICD-10-PCS; principal; 2020-07-08)
PROC: 30233N1 Transfusion of Nonautologous Red Blood Cells into Peripheral Vein, Percutaneous Approach (ICD-10-PCS; 2020-07-10)
DX: K94.01 Colostomy hemorrhage (principal); U07.1 COVID-19; N17.9 Acute kidney failure, unspecified; D50.0 Iron deficiency anemia secondary to blood loss (chronic); Y83.3 Surgical operation with formation of external stoma as the cause of abnormal reaction of the patient, or of later complication, without mention of misadventure at the time of the procedure; Z20.828 Contact with and (suspected) exposure to other viral communicable diseases; F32.9 Major depressive disorder, single episode, unspecified; I25.10 Atherosclerotic heart disease of native coronary artery without angina pectoris; E03.9 Hypothyroidism, unspecified; E78.5 Hyperlipidemia, unspecified; I10 Essential (primary) hypertension; J01.10 Acute frontal sinusitis, unspecified; E11.9 Type 2 diabetes mellitus without complications; K21.9 Gastro-esophageal reflux disease without esophagitis; I25.2 Old myocardial infarction; Z95.2 Presence of prosthetic heart valve; Z79.890 Hormone replacement therapy; Z79.899 Other long term (current) drug therapy; Z79.82 Long term (current) use of aspirin; Z95.1 Presence of aortocoronary bypass graft; Z95.5 Presence of coronary angioplasty implant and graft; Z90.49 Acquired absence of other specified parts of digestive tract; Z91.048 Other nonmedicinal substance allergy status
CPT/HCPCS: 36415; 36430; 71045; 80048; 80053; 80069; 82962; 83605; 83735; 83880; 84484; 85025; 85027; 85610; 85730; 86850; 86870; 86880; 86900; 86901; 86902; 86920; 86922; 87086; 93005; 93010; 99281; 0241U; C9803; G0378; J1200; J1940; J2270; J2405; J3010; J3475; J3490; J7050; P9016

== ENCOUNTER 2020-07-16 20:54 | Emergency (ER) | payer MEDICARE, OTHER ==
--- NOTE | 2020-07-16 21:04 | ER Document Report ---
ED Medical Screen (RME) - General Chief Complaint: Medical Complaint Stated Complaint: POSSIBLE OSTOMY BLEED Time Seen by Provider: 07/16/20 20:57 Primary Care Provider: MARGIE KAT MD [Primary Care Provider] - Follow up as needed Mode of Arrival: Wheelchair Information source: Patient Notes: 70-year-old female presents to ED for bleeding from her ostomy bag. She states this started about 3:00 she felt about a half a ostomy bag full and then when she got it to stop bleeding she laid down and when she woke back up the bag was full of blood again. It is bright red blood. She has been in here for the same at [facility] and had to have blood transfusions. I have ordered blood urine and type and cross screen for transfusion. I have spoken with the charge nurse and she knows that we need a bed promptly that this patient will need a blood transfusion. She does have a very low blood pressure at this time. She states the only pain is her chronic back pain at this time. I have greeted and performed a rapid initial assessment of this patient. A comprehensive ED assessment and evaluation of the patient, analysis of test results and completion of medical decision making process will be conducted by an additional ED providers. TRAVEL OUTSIDE OF THE [place] IN LAST 30 DAYS: No - Related Data Allergies/Adverse Reactions: No Known Allergies Allergy (Unverified 07/08/20 12:48) Past Medical History - Past Medical History Cardiac Medical History: Reports: Hx Coronary Artery Disease, Hx Heart Attack, Hx Hypercholesterolemia, Hx Hypertension Pulmonary Medical History: Denies: Hx Asthma, Hx Bronchitis, Hx COPD, Hx Pneumonia Neurological Medical History: Denies: Hx Cerebrovascular Accident, Hx Seizures Endocrine Medical History: Reports: Hx Diabetes Mellitus Type 2, Hx Hypothyroidism. Denies: Hx Diabetes Mellitus Type 1, Hx Hyperthyroidism Renal/ Medical History: Denies: Hx Peritoneal Dialysis GI Medical History: Reports: Hx Diverticulitis, Hx Gastroesophageal Reflux Disease, Hx Ulcer. Denies: Hx Cirrhosis, Hx Crohn's Disease, Hx Hepatitis, Hx Ulcerative Colitis Musculoskeltal Medical History: Reports Hx Arthritis, Denies Hx Gout Skin Medical History: Denies Hx Eczema, Reports Hx MRSA, Denies Hx Psoriasis Psychiatric Medical History: Reports: Hx Depression Infectious Medical History: Denies: Hx Hepatitis Past Surgical History: Reports: Hx Appendectomy, Hx Bowel Surgery, Hx Cardiac Catheterization - stent, quad bypass., Hx Cardiac Surgery - CABG, Hx Colostomy - With partial colectomy, Hx Coronary Artery Bypass Graft - Quadruple bypass grafts, Hx Coronary Stent, Hx Genitourinary Surgery - colostomy, Hx Herniorrhaphy, Hx Hysterectomy, Hx Orthopedic Surgery - carpal tunnel syndrome, Hx Valve Replacement - Mechanical aortic valve, Other - hernia repairs. Not sure if mesh was used.. Denies: Hx Gynecologic Surgery - Immunizations Hx Diphtheria, Pertussis, Tetanus Vaccination: Yes Physical Exam - Vital signs Vitals: Temp Pulse Resp BP Pulse Ox 99.2 F 81 16 95/53 L 97 07/16/20 21:00 07/16/20 21:00 07/16/20 21:00 07/16/20 21:00 07/16/20 21:00 Course - Vital Signs Vital signs: Temp Pulse Resp BP Pulse Ox 99.2 F 81 16 95/53 L 97 07/16/20 21:00 07/16/20 21:00 07/16/20 21:00 07/16/20 21:00 07/16/20 21:00 Doctor's Discharge - Discharge Referrals: MARGIE KAT MD [Primary Care Provider] - Follow up as needed
[2020-07-16] MEDS: NORMAL SALINE 1000 ML 1,000 ML IV PRN ×2 (22:07→22:30)
[2020-07-16 22:15] LABS: ABSOLUTE EOSINOPHILS # (AUTO) 0.1 10^3/uL (0.0-0.6); ABSOLUTE LYMPHOCYTES (AUTO) 0.8 10^3/uL (0.5-4.7); ABSOLUTE MONOCYTES (AUTO) 0.3 10^3/uL (0.1-1.4); ABSOLUTE NEUT (AUTO) 1.8 10^3/uL (1.7-8.2); BASOPHILS % (AUTO) 0.4 % (0-2); EOSINOPHILS % (AUTO) 2.7 % (0-6); HEMATOCRIT 22.2 % (36.0-47.0); LYMPHOCYTES % (AUTO) 26.4 % (13-45); MEAN CORPUSCULAR HEMOGLOBIN 29.3 pg (27.0-33.4); MEAN CORPUSCULAR HGB CONC 32.9 g/dL (32.0-36.0); MEAN CORPUSCULAR VOLUME 89 fl (80-97); MONOCYTES % (AUTO) 10.9 % (3-13); PLATELET COUNT 114 10^3/uL (150-450); RED BLOOD COUNT 2.49 10^6/uL (3.72-5.28); RED CELL DISTRIBUTION WIDTH 18.2 % (11.5-14.0); SEGMENTED NEUTROPHILS % (AUTO) 59.6 % (42-78); TOTAL CELLS COUNTED % (AUTO) 100 %; WHITE BLOOD COUNT 3.1 10^3/uL (4.0-10.5)
[2020-07-16 22:17] LABS: HEMOGLOBIN 7.3 g/dL (12.0-15.5)
[2020-07-16 22:22] LABS: ALBUMIN 3.4 g/dL (3.5-5.0); ALKALINE PHOSPHATASE 49 U/L (38-126); ANION GAP 9 (5-19); ASPARTATE AMINO TRANSFERASE 98 U/L (14-36); BILIRUBIN,DIRECT 0.4 mg/dL (0.0-0.4); BLOOD UREA NITROGEN 11 mg/dL (7-20); CALCIUM 8.2 mg/dL (8.4-10.2); CARBON DIOXIDE 23 mmol/L (22-30); CHLORIDE 107 mmol/L (98-107); GLUCOSE 88 mg/dL (75-110); POTASSIUM 3.8 mmol/L (3.6-5.0); TOTAL PROTEIN 7.3 g/dL (6.3-8.2)
[2020-07-16] MEDS ORDERED: HYDROMORPHONE HCL INJ/PF 2 MG/ML AMPULE IV ONE (22:23)
[2020-07-16] MEDS ORDERED: ONDANSETRON HCL INJ/PF 4 MG/2 ML SDV IV ONE (22:23)
--- NOTE | 2020-07-16 22:24 | ER Document Report ---
ED General - General Chief Complaint: GI Bleeding Stated Complaint: POSSIBLE OSTOMY BLEED Time Seen by Provider: 07/16/20 20:57 Primary Care Provider: MARGIE KAT MD [Primary Care Provider] - Follow up as needed Mode of Arrival: Wheelchair TRAVEL OUTSIDE OF THE [place] IN LAST 30 DAYS: No - HPI Context: Time: 2219 Chief Complaint: [Bleeding into ostomy bag] [This is a 70-year-old female with a history of diverticulitis, status post bowel resection and ostomy as well as history of GI bleed of unknown etiology who presents to the emergency department complaining of large amounts of bright red blood filling her ostomy bag 3 times today since 3 PM. ] History obtained from [patient] Symptoms began:[1500 hrs. today] Onset: [Sudden] Timing: [Sudden] Quality: [Copious amounts of bright red blood in ostomy] Intensity: [Patient states pain is a 5 out of 5] Location: [Ostomy site] Radiation: [Denies radiation] [The pain does not migrate to a new location.] Aggravating factors: [none] Relieving factors: [none] [Denies] SOB Positive nausea [Denies] vomiting [Denies] sweats [Denies] fever [Denies] cough [Denies] calf or leg swelling or pain - Related Data Allergies/Adverse Reactions: No Known Allergies Allergy (Unverified 07/08/20 12:48) Past Medical History - General Information source: Patient - Social History Smoking Status: Never Smoker Chew tobacco use (# tins/day): No Frequency of alcohol use: None Drug Abuse: None Family History: Reviewed & Not Pertinent, CAD, DM, Other - RECTAL CA Patient has homicidal ideation: No - Past Medical History Cardiac Medical History: Reports: Hx Coronary Artery Disease, Hx Heart Attack, Hx Hypercholesterolemia, Hx Hypertension Pulmonary Medical History: Denies: Hx Asthma, Hx Bronchitis, Hx COPD, Hx Pneumonia Neurological Medical History: Denies: Hx Cerebrovascular Accident, Hx Seizures Endocrine Medical History: Reports: Hx Diabetes Mellitus Type 2, Hx Hypothyroidism. Denies: Hx Diabetes Mellitus Type 1, Hx Hyperthyroidism Renal/ Medical History: Denies: Hx Peritoneal Dialysis GI Medical History: Reports: Hx Diverticulitis, Hx Gastroesophageal Reflux Disease, Hx Ulcer. Denies: Hx Cirrhosis, Hx Crohn's Disease, Hx Hepatitis, Hx Ulcerative Colitis Musculoskeletal Medical History: Reports Hx Arthritis, Denies Hx Gout Skin Medical History: Denies Hx Eczema, Reports Hx MRSA, Denies Hx Psoriasis Psychiatric Medical History: Reports: Hx Depression Infectious Medical History: Denies: Hx Hepatitis Past Surgical History: Reports: Hx Appendectomy, Hx Bowel Surgery, Hx Cardiac Catheterization - stent, quad bypass., Hx Cardiac Surgery - CABG, Hx Colostomy - With partial colectomy, Hx Coronary Artery Bypass Graft - Quadruple bypass grafts, Hx Coronary Stent, Hx Genitourinary Surgery - colostomy, Hx Hernio rrhaphy, Hx Hysterectomy, Hx Orthopedic Surgery - carpal tunnel syndrome, Hx Valve Replacement - Mechanical aortic valve, Other - hernia repairs. Not sure if mesh was used.. Denies: Hx Gynecologic Surgery - Immunizations Hx Diphtheria, Pertussis, Tetanus Vaccination: Yes Hx Pneumococcal Vaccination: 06/12/11 Review of Systems - Review of Systems Notes: Review of systems as below unless otherwise stated in HPI. CONSTITUTIONAL [No] fever, [No] chills. EYES [No] eye pain. ENT [No] URI symptoms, [No] sore throat, [No] ear pain. CARDIOVASCULAR [No] chest pain, [No] palpitations, [No] edema. RESPIRATORY [No] Cough, [No] SOB, [No] wheezing. GASTROINTESTINAL Positive pain around ostomy site, positive nausea, [No] Diarrhea, [No] Vomiting, [No] constipation, positive bright red blood from ostomy GENITOURINARY [No] dysuria, [No] urinary frequency, [No] hematuria, [No] urinary urgency, [No] vaginal discharge, [No] vaginal bleeding. MUSCULOSKELETAL [No] Back pain. SKIN [No] Rash. NEUROLOGIC [No] Headache, [No] recent seizures, [No] paralysis,[No] parathesias. ENDOCRINE [No] polyuria. HEMO/LYMPATIC [No] easy brusing PSYCHIATRIC [No] depression. Physical Exam - Vital signs Vitals: Temp Pulse Resp BP Pulse Ox 99.2 F 81 16 95/53 L 97 07/16/20 21:00 07/16/20 21:00 07/16/20 21:00 07/16/20 21:00 07/16/20 21:00 - Notes Notes: CONSTITUTIONAL [Vital signs reviewed, Patient appears uncomfortable, Alert and oriented X 3,] HEAD [Atraumatic, Normocephalic.] EYES [Eyes are normal to inspection, No discharge from eyes, Extraocular muscles intact, Sclera are normal, Conjunctiva are normal.] ENT [External ears normal to inspection, Nose examination normal, Mouth normal to inspection.] NECK [Normal ROM, No jugular venous distention, No meningeal signs, ] RESPIRATORY CHEST [Chest is nontender, Breath sounds normal, No respiratory distress.] CARDIOVASCULAR [RRR, No murmurs, Normal S1 S2, No rub, No gallop.] ABDOMEN Abdominal exam is significant for tenderness to palpation around the patient's ostomy site and there is a large amount of bright red blood that is almost completely filling the patient's ostomy bag. There is also blood leaking around the ostomy seal. BACK [There is no CVA Tenderness, There is no tenderness to palpation, Normal inspection.] UPPER EXTREMITY [Inspection normal, No cyanosis, No clubbing, No edema, LOWER EXTREMITY [Inspection normal, No cyanosis, No clubbing, No edema, No calf tenderness, NEURO [No focal motor deficits, No focal sensory deficits, Speech normal.] SKIN [Skin is warm, Skin is dry, Skin is pale.] PSYCHIATRIC [Anxious affect. ] Course - Re-evaluation Re-evalutation: 07/16/20 23:42 Results of ED MSE discussed with patient. Patient has been treated for GI bleeds at [facility] in the past. We do not have her specific blood type available and will not have it available for at least 24 hours. Given the amount of blood that the patient is put out, which is over 1.8 L, and her initial hemoglobin is 7.2, this MD decided it would be in the patient's best interest to be transferred to [facility] where they have her specific blood type available and have gastroenterology service available as well. Patient is agreeable to being transferred. Patient tested positive for Covid on 07/12/2020. This test result was printed out and will be sent with the other paperwork to [facility]. 07/16/20 23:45 This MD ordered 2 bags of normal saline for the patient and a gram of TXA. - Vital Signs Vital signs: Temp Pulse Resp BP Pulse Ox 99.2 F 79 18 130/61 H 94 07/16/20 21:00 07/16/20 21:39 07/16/20 23:01 07/16/20 23:00 07/16/20 23:01 - Laboratory Result Diagrams: 07/16/20 21:35 07/16/20 21:35 Laboratory results interpreted by me: 07/16/20 07/16/20 21:35 21:35 WBC 3.1 L RBC 2.49 L Hgb 7.3 L Hct 22.2 L RDW 18.2 H Plt Count 114 L Est GFR (MDRD) Non-Af 52 L Calcium 8.2 L AST 98 H Albumin 3.4 L - Consults Dr. Barrett, MICU Attending, [facility] Time consulted: 23:30 - Dr. Barrett accepted pt for transfer to [facility]. He was made aware pt tested COVID-19 positive on 07/12/2020 Reason for consultation: 07/16/20 23:46 Severe GI bleeding with hypotension with need for specialized blood type not available at this facility Critical Care Note - Critical Care Note Total time excluding time spent on procedures (mins): 120 - Management of acute heavy GI bleed with hypotension Discharge - Discharge Clinical Impression: Acute GI bleeding, Lab test positive for detection of COVID-19 virus Condition: Stable Disposition: [facility] Referrals: MARGIE KAT MD [Primary Care Provider] - Follow up as needed
[2020-07-16] MEDS ORDERED: TRANEXAMIC ACID INJ/PF 1,000 MG/10 ML SDV IV STA (22:50)
[2020-07-17 00:49] VITALS: BP 100/71
== END 2020-07-17 01:00 | disposition short-term general hospital (02) ==
LOC: ER 20:54
DX: K92.2 Gastrointestinal hemorrhage, unspecified (principal); U07.1 COVID-19; Z93.3 Colostomy status; Z90.49 Acquired absence of other specified parts of digestive tract; I25.10 Atherosclerotic heart disease of native coronary artery without angina pectoris; I25.2 Old myocardial infarction; E78.00 Pure hypercholesterolemia, unspecified; I10 Essential (primary) hypertension; E11.9 Type 2 diabetes mellitus without complications; Z95.1 Presence of aortocoronary bypass graft
CPT/HCPCS: 99285; 96361; 96374; 96375; 86900; 86901; 36415; 86870; 86850; 86880; 85025; 80053; 86902; J1170; J2405; J7030; J3490